=== PATIENT | male | born 1950 | race Caucasian/White ===

== ENCOUNTER 2020-08-04 05:28 | Inpatient (IN) | payer MEDICARE ==
[2020-08-04] VITALS (15 sets, daily range): BP systolic 57–141; BP diastolic 67–90
[~2020-08-04] VITALS: Ht 182.9 cm; Wt 104.7 kg
[2020-08-04] MEDS ORDERED: EPINEPHrine VIAL 5 MG in IV NORMAL SALINE 250ML 250 ML IV ONE (05:45)
[2020-08-04 06:14] LABS: CALCIUM 8.6 mg/dL (8.5-10.1); CREATININE 1.6 mg/dL (0.7-1.3); GFR 42.8; POTASSIUM 3.8 mmol/L (3.5-5.1)
--- NOTE | 2020-08-04 06:18 | RAD ---
EXAM: CT HEAD WITHOUT IV CONTRAST CLINICAL HISTORY: Reason: fall / Spl. Instructions: / History: COMPARISON: None. TECHNIQUE: Routine CT of the head without contrast. Soft tissues and bone windows were reviewed. PQRS compliance statement - One or more of the following individualized dose reduction techniques wer e utilized for this study: 1. Automated exposure control 2. Adjustment of the mA and/or kV according to patient size 3. Use of iterative reconstruction technique FINDINGS: There is no evidence of hemorrhage, mass or extra-axial fluid collection. [place]-white differentiation is maintained with no evidence of edema. Subcortical, periventricular as w ell as deep white matter foci of hypoattenuation likely changes of chronic small vessel disease. There is no mass effect or shift of the intracranial structures. The ventricles, basilar cisterns and cortical sulci are normal in size and configuration for the ken[place] ents stated age. The cerebellum and brainstem are unremarkable. The calvarium demonstrates no evidence of fracture or focal lesion. Mastoid air cells are clear. Multifocal paranasal sinus thickening including the scattered ethmoid ai r cells, maxillary sinuses and the left frontal sinus. The visualized portions of the orbits are normal. Soft tissue swelling with small scalp hematoma overlying the frontal region. Atherosclerotic calcifications of the intracranial internal carotid and vertebral arteries is seen. IMPRESSION: 1. No evidence for acute intracranial process. 2. Multifocal paranasal sinus thickening including the scattered ethmoid air cells, maxillary sinuse s and the left frontal sinus. EXAM: CT CERVICAL SPINE WITHOUT IV CONTRAST CLINICAL HISTORY: fall COMPARISON: None available. TECHNIQUE: Helical CT of the cervical spine was performed. Axial, coronal and sagittal reformatted im ages were also performed. PQRS compliance statement - One or more of the following individualized dose reduction techniques wer e utilized for this study: 1. Automated exposure control 2. Adjustment of the mA and/or kV according to patient size 3. Use of iterative reconstruction technique FINDINGS: There is a fracture through the base of the dens without involvement of the lateral masses. No signif icant displacement. Multilevel facet degenerative changes are seen. Multilevel degenerative changes o f the cervical spine. Moderate C4-5, C5-6 and moderate to severe C6-7 disc height loss. Associated po sterior endplate osteophytes are seen. No spondylolisthesis. ET tube is seen within the proximal thoracic trachea. Biapical parenchymal airspace opacities are seen. IMPRESSION: 1. Base of dens fracture is nondisplaced. 2. Multifocal degenerative changes 3. Biapical parenchymal opacities may represent multifocal consolidative process such as pneumonia a lthough contusion or aspiration may result in this appearance. Electronically signed by: Suleman Hamlin MD (08/04/2020 6:16 AM) JESSICA
[2020-08-04 06:20] LABS: ALBUMIN 3.5 g/dL (3.4-5.0); ALBUMIN/GLOBULIN RATIO 1.3 (1.0-1.7); MAGNESIUM 2.5 mg/dL (1.8-2.4); PHOSPHORUS 8.2 mg/dL (2.6-4.7); TOTAL BILIRUBIN 0.4 mg/dL (0.2-1.0); TOTAL PROTEIN 6.1 g/dL (6.4-8.2)
[2020-08-04 06:27] LABS: BASO # 0.1 x10^3/uL (0.0-0.2); BASO % 1 % (0-3); EOS # 0.3 x10^3/uL (0.0-0.7); EOS % 4 % (0-3); HEMATOCRIT 45.8 % (39.0-53.0); HEMOGLOBIN 14.8 g/dL (13.0-17.5); LYMPH # 4.8 x10^3/uL (1.0-4.8); LYMPH % 59 % (24-48); MEAN CORPUSCULAR HEMOGLOBIN 32 pg (25-35); MEAN CORPUSCULAR HGB CONC 32 g/dL (31-37); MEAN CORPUSCULAR VOLUME 99 fL (79-100); MONO # 0.5 x10^3/uL (0.0-1.1); MONO % 6 % (0-9); NEUT # 2.6 x10^3/uL (1.8-7.7); NEUT % 31 % (31-73); PLATELET COUNT 202 x10^3/uL (140-400); RED BLOOD COUNT 4.61 x10^6/uL (4.30-5.70); RED CELL DISTRIBUTION WIDTH 14.5 % (11.5-14.5); WHITE BLOOD COUNT 8.2 x10^3/uL (4.0-11.0)
[2020-08-04 06:27] LABS: BARBITURATES NEG (NEG); BENZODIAZEPINES NEG (NEG); CANNABINOIDS NEG (NEG); COCAINE NEG (NEG); METHADONE NEG (NEG); OPIATES NEG (NEG); PHENCYCLIDINE NEG (NEG)
[2020-08-04] MEDS ORDERED: CONTRAST GIVEN. MC PRN (06:30)
[2020-08-04] MEDS ORDERED: IOHEXOL 350 MG/ML 100 ML VIAL. IV ONE (06:30)
[2020-08-04] MEDS ORDERED: IV NORMAL SALINE 1000ML BAG 1,000 ML IV ONE ×3 (06:30→06:45)
[2020-08-04 06:32] LABS: AMPHETAMINE/METHAMPHETAMINE NEG (NEG)
[2020-08-04 06:33] LABS: BILIRUBIN,URINE NEGATIVE (NEG); CLARITY,URINE CLEAR; COLOR,URINE YELLOW; NITRITE,URINE NEGATIVE (NEG); PH,URINE 5.5 (<5.0-8.0); PROTEIN,URINE NEGATIVE (NEG-TRACE); UROBILINOGEN,URINE 0.2 mg/dL (0.2 mg/dL)
[2020-08-04 06:34] LABS: PROTHROMBIN TIME PATIENT 14.5 SEC (11.7-14.0)
--- NOTE | 2020-08-04 06:40 | ED.ADGEN ---
General Adult EDM: Chief Complaint: CPR/FULL ARREST HPI: HPI: Patient is a 69 year old male brought in by EMS status post cardiac arrest. Per EMS report patient was drinking a smoking marijuana friends when he went upstairs and they heard him fall. It appears that he fell into a wall since he has abrasions to his upper forehead. He was initially nonresponsive and about 3 to 4 minutes they realize he did not have a pulse, and started CPR. On EMS arrival he was in PEA and was given 5 rounds of epinephrine, no shocks given. On arrival patient is a GCS of 3 with fixed pupils at approximately 4 mm. Patient has strong femoral pulse and brisk cap refill. Review of Systems: Review of Systems: Unable to establish ROS due to acuity Current Medications: Current Medications Medications (Trade) Dose Ordered Sig/Geovany Start Time Stop Time Status Last Admin Dose Admin Epinephrine HCl 5 mg/Sodium Chloride 255 ml @ 30.6 mls/hr ONCE ONCE 08/04/20 05:45 08/04/20 14:04 08/04/20 06:17 30.6 MLS/HR Info (CONTRAST GIVEN -- Rx MONITORING) 1 each PRN DAILY PRN 08/04/20 06:30 08/06/20 06:29 Iohexol (Omnipaque 350 Mg/ml) 80 ml 1X ONCE 08/04/20 06:30 08/04/20 06:31 DC 08/04/20 07:30 80 ML Midazolam HCl 100 ml @ 0 mls/hr CONT PRN 08/04/20 07:30 08/04/20 08:03 DC Midazolam HCl 50 mg/Sodium Chloride 50 ml @ 0 mls/hr CONT PRN PRN 08/04/20 07:15 UNV Ondansetron HCl (Zofran) 4 mg PRN Q8HRS PRN 08/04/20 07:30 08/05/20 07:29 Sodium Chloride 1,000 ml @ 75 mls/hr [id number] 08/04/20 07:30 08/05/20 07:29 Allergies: Allergies: Allergies Coded Allergies Type Severity Reaction Last Updated Verified Unable to Assess 08/04/20 No Physical Exam: PE: Constitutional: Unresponsive [] HENT: Normocephalic, slight hematoma to upper forehead [] Eyes: Pupils fixed, 4 mm [] Neck: In c-collar [] Cardiovascular:Heart rate regular rhythm[] Lungs & Thorax: Bilateral coarse breath sounds, symmetric central strength [] Abdomen: Soft, nondistended. [] Skin: Warm, dry, no erythema, no rash. Abrasion to forehead [] Extremities: No deformity, no lower extremity edema [] Neurologic: GCS 3 T. [] Current Patient Data: Labs: Laboratory Tests Test 08/04/20 05:35 08/04/20 05:40 08/04/20 06:30 08/04/20 07:10 White Blood Count 8.2 x10^3/uL (4.0-11.0) Red Blood Count 4.61 x10^6/uL (4.30-5.70) Hemoglobin 14.8 g/dL (13.0-17.5) Hematocrit 45.8 % (39.0-53.0) Mean Corpuscular Volume 99 fL (79-100) Mean Corpuscular Hemoglobin 32 pg (25-35) Mean Corpuscular Hemoglobin Concent 32 g/dL (31-37) Red Cell Distribution Width 14.5 % (11.5-14.5) Platelet Count 202 x10^3/uL (140-400) Neutrophils (%) (Auto) 31 % (31-73) Lymphocytes (%) (Auto) 59 % (24-48) H Monocytes (%) (Auto) 6 % (0-9) Eosinophils (%) (Auto) 4 % (0-3) H Basophils (%) (Auto) 1 % (0-3) Neutrophils # (Auto) 2.6 x10^3/uL (1.8-7.7) Lymphocytes # (Auto) 4.8 x10^3/uL (1.0-4.8) Monocytes # (Auto) 0.5 x10^3/uL (0.0-1.1) Eosinophils # (Auto) 0.3 x10^3/uL (0.0-0.7) Basophils # (Auto) 0.1 x10^3/uL (0.0-0.2) Prothrombin Time 14.5 SEC (11.7-14.0) H Prothrombin Time INR 1.2 (0.8-1.1) H D-Dimer (Chanelle) 6.28 ug/mlFEU (0.00-0.50) H Sodium Level 148 mmol/L (136-145) H Potassium Level 3.8 mmol/L (3.5-5.1) Chloride Level 107 mmol/L (98-107) Carbon Dioxide Level 20 mmol/L (21-32) L Anion Gap 21 (6-14) H Blood Urea Nitrogen 15 mg/dL (8-26) Creatinine 1.6 mg/dL (0.7-1.3) H Estimated GFR (Cockcroft-Gault) 42.8 BUN/Creatinine Ratio 9 (6-20) Glucose Level 235 mg/dL (70-99) H Lactic Acid Level 11.5 mmol/L (0.4-2.0) *H Calcium Level 8.6 mg/dL (8.5-10.1) Phosphorus Level 8.2 mg/dL (2.6-4.7) H Magnesium Level 2.5 mg/dL (1.8-2.4) H Total Bilirubin 0.4 mg/dL (0.2-1.0) Aspartate Amino Transferase (AST) 135 U/L (15-37) H Alanine Aminotransferase (ALT) 174 U/L (16-63) H Alkaline Phosphatase 83 U/L (46-116) Ammonia 35 mcmol/L (11-34) H Troponin I Quantitative < 0.017 ng/mL (0.000-0.055) GS-Jrc-B-Type Natriuretic Peptide 36 pg/mL (0-124) Total Protein 6.1 g/dL (6.4-8.2) L Albumin 3.5 g/dL (3.4-5.0) Albumin/Globulin Ratio 1.3 (1.0-1.7) Ethyl Alcohol Level 239 mg/dL (0-10) H Urine Collection Type Unknown Urine Color Yellow Urine Clarity Clear Urine pH 5.5 (<5.0-8.0) Urine Specific Elsie 1.010 (1.000-1.030) Urine Protein Negative mg/dL (NEG-TRACE) Urine Glucose (UA) Negative mg/dL (NEG) Urine Ketones (Stick) Negative mg/dL (NEG) Urine Blood Negative (NEG) Urine Nitrite Negative (NEG) Urine Bilirubin Negative (NEG) Urine Urobilinogen Dipstick 0.2 mg/dL (0.2 mg/dL) Urine Leukocyte Esterase Negative (NEG) Urine RBC 0 /HPF (0-2) Urine WBC Rare /HPF (0-4) Urine Squamous Epithelial Cells Few /LPF Urine Bacteria 0 /HPF (0-FEW) Urine Opiates Screen Neg (NEG) Urine Methadone Screen Neg (NEG) Urine Barbiturates Neg (NEG) Urine Phencyclidine Screen Neg (NEG) Urine Amphetamine/Methamphetamine Neg (NEG) Urine Benzodiazepines Screen Neg (NEG) Urine Cocaine Screen Neg (NEG) Urine Cannabinoids Screen Neg (NEG) Urine Ethyl Alcohol Pos (NEG) O2 Saturation 93 % (92-99) Arterial Blood pH 7.02 (7.35-7.45) *L Arterial Blood pCO2 at Patient Temp 51 mmHg (35-46) H Arterial Blood pO2 at Patient Temp 95 mmHg (65-108) Arterial Blood HCO3 13 mmol/L (21-28) L Arterial Blood Base Excess -18 mmol/L (-3-3) L FiO2 100 SARS-CoV-2 Antigen (Rapid) Negative (NEGATIVE) Laboratory Tests 08/04/20 05:35 Laboratory Tests 08/04/20 05:35 Vital Signs: Vital Signs Date Time Temp Pulse Resp B/P (MAP) Pulse Ox O2 Delivery O2 Flow Rate FiO2 08/04/20 07:29 82 20 129/79 (96) 97 Ventilator 08/04/20 06:50 93.5 93.5 EKG: EKG: Sinus tachycardia, heart rate 102 bpm, ST elevation in inferior leads, reciprocal depressions in V3, V4, V5, V6. No ectopy, normal axis [] Heart Score: Risk Factors: Risk Factors: DM, Current or recent (<one month) smoker, HTN, HLP, family history of CAD, obesity. Risk Scores: Score 0 - 3: 2.5% MACE over next 6 weeks - Discharge Home Score 4 - 6: 20.3% MACE over next 6 weeks - Admit for Clinical Observation Score 7 - 10: 72.7% MACE over next 6 weeks - Early Invasive Strategies Radiology/Procedures: Radiology/Procedures: EXAM: CT HEAD WITHOUT IV CONTRAST CLINICAL HISTORY: Reason: fall / Spl. Instructions: / History: COMPARISON: None. TECHNIQUE: Routine CT of the head without contrast. Soft tissues and bone windows were reviewed. PQRS compliance statement - One or more of the following individualized dose reduction techniques were utilized for this study: 1. Automated exposure control 2. Adjustment of the mA and/or kV according to patient size 3. Use of iterative reconstruction technique FINDINGS: There is no evidence of hemorrhage, mass or extra-axial fluid collection. [place]-white differentiation is maintained with no evidence of edema. Subcortical, periventricular as well as deep white matter foci of hypoattenuation likely changes of chronic small vessel disease. There is no mass effect or shift of the intracranial structures. The ventricles, basilar cisterns and cortical sulci are normal in size and configuration for the patients stated age. The cerebellum and brainstem are unremarkable. The calvarium demonstrates no evidence of fracture or focal lesion. Mastoid air cells are clear. Multifocal paranasal sinus thickening including the scattered ethmoid air cells, maxillary sinuses and the left frontal sinus. The visualized portions of the orbits are normal. Soft tissue swelling with small scalp hematoma overlying the frontal region. Atherosclerotic calcifications of the intracranial internal carotid and vertebral arteries is seen. IMPRESSION: 1. No evidence for acute intracranial process. 2. Multifocal paranasal sinus thickening including the scattered ethmoid air cells, maxillary sinuses and the left frontal sinus. EXAM: CT CERVICAL SPINE WITHOUT IV CONTRAST CLINICAL HISTORY: fall COMPARISON: None available. TECHNIQUE: Helical CT of the cervical spine was performed. Axial, coronal and sagittal reformatted images were also performed. PQRS compliance statement - One or more of the following individualized dose reduction techniques were utilized for this study: 1. Automated exposure control 2. Adjustment of the mA and/or kV according to patient size 3. Use of iterative reconstruction technique FINDINGS: There is a fracture through the base of the dens without involvement of the lateral masses. No significant displacement. Multilevel facet degenerative changes are seen. Multilevel degenerative changes of the cervical spine. Moder ate C4-5, C5-6 and moderate to severe C6-7 disc height loss. Associated posterior endplate osteophytes are seen. No spondylolisthesis. ET tube is seen within the proximal thoracic trachea. Biapical parenchymal airspace opacities are seen. IMPRESSION: 1. Base of dens fracture is nondisplaced. 2. Multifocal degenerative changes 3. Biapical parenchymal opacities may represent multifocal consolidative process such as pneumonia although contusion or aspiration may result in this appearance.[] [facility] [address] [place] [address] IMAGING REPORT Signed PATIENT: MARQUIS VARGAS ACCOUNT: [id number] : 1950 LOCATION: [facility] ICU AGE: 69 SEX: M EXAM STATUS: ADM IN ORD. PHYSICIAN: ARTURO DRAPER MD REASON: PE, unresponsive PROCEDURE: CT ANGIO CHEST ABD PELVIS CTA chest abdomen and pelvis with contrast: History: Drinking, smoking marijuana and fell Axial helical images of the chest abdomen and pelvis were obtained after the administration of 80 cc IV Isovue-370 contrast. Multiplanar reconstruction was performed with separate imaging workstation including 3-D maximum intensity. Imaging as well as 3-D arterial surface rendering. This study was performed in order to evaluate the aorta and to exclude possible pulmonary embolism. Comparison: none CTA OF THE CHEST WITH IV CONTRAST: The pulmonary arteries are opacified without filling defects. The thoracic aorta appears normal. There is coronary artery calcifications. There is patchy opacities in the lower lobes bilaterally. Is multiple old rib fractures bilaterally. There is no mediastinal lymphadenopathy or hematoma. Lymphadenopathy: no Impression: 1. Multiple old rib fractures bilaterally. 2. Consolidation in the lower lobes bilaterally could be secondary to pneumonia. 3. Note no evidence of PE and normal thoracic aorta. End Impression CTA OF THE ABDOMEN AND PELVIS WITH IV CONTRAST: The abdominal aorta appears normal. The celiac axis and SMA appear normal. There is calcination involving the renal arteries with less than 50 percent stenosis. Liver: Unremarkable Spleen: Unremarkable Pancreas: Unremarkable Adrenal Glands: Unremarkable Kidneys: There is soft tissue density around the proximal right ureter with stranding in the retroperitoneal space on the right. The stomach is distended with air and fluid. The urinary bladder is collapsed and a Flores and not well seen. There is fluid within a small right inguinal canal hernia. The appendix is normal. Evaluation of stomach and bowel is limited without oral contrast. Lymphadenopathy: no. Free fluid: no. Free air: no. There is moderate loss of stature the L4 vertebral body due to impaction is. Plate however there is no fracture line seen. Air within the left groin is likely iatrogenic. Impression: 1. Retroperitoneal hematoma on the right with density surrounding the proximal right ureter. A vascular injury to the right kidney is possible however the right kidney appears well-perfused and there is no gross extravasation of contrast. 2. L4 vertebral body compression fracture could be old. End impression PQRS Compliance Statement: One or more of the following individualized dose reduction techniques were utilized for this examination: 1. Automated exposure control 2. Adjustment of the mA and/or kV according to patient size 3. Use of iterative reconstruction technique Electronically signed by: Toño Clarke III, MD (08/04/2020 8:01 AM) [facility] DICTATED and SIGNED BY: TOÑO CLARKE III, MD DATE: 08/04/20 [id number] 0 Impression: Patient was intubated in emergent fashion and no consent was obtained. Patient was not sedated and paralyzed []. A glide scope with a size 4 blade was used, cords were visualized and a size 7.5 endotracheal tube was placed during first attempt. Endotracheal tube cuff was inflated and confirmation established by visualization of the cords passing the tubes, bilateral breath sounds, color change, and chest x-ray. Total critical care time: 65 The time involved in the performance of separately reportable/billable procedur es was not counted toward critical care time. Due to a high probability of clinically significant, life-threatening deterioration the patient required a high level of care to intervene emergently and I personally spent this critical time directly and personally managing the patient. The critical care time included obtaining a history, examination of the patient, assessment of vital signs, ordering and review of studies, arranging urgent treatment with development of a management plan, evaluation of patient's response to treatment, frequent reassessment, and discussions with other providers and/or family members. Course & Med Decision Making: Course & Med Decision Making Pertinent Labs and Imaging studies reviewed. (See chart for details) Discussed with Dr. Spear, possible ischemic changes but patient is a GCS 3 and not responding to painful stimuli. At shift change care transition to Dr. Vega, will do further work-up to rule out other etiology such as a pulmonary embolism. [] Dragon Disclaimer: Dragon Disclaimer: This electronic medical record was generated, in whole or in part, using a voice recognition dictation system. Departure Departure Impression: Primary Impression: Cardiac arrest Additional Impressions: Dens fracture Respiratory failure Disposition: 09 ADMITTED INPT THIS HOSP Admitting Physician: NOELLE (Dr. Medina) Condition: CRITICAL Referrals: ELIAZAR GARCIA (PCP) Problem Qualifiers ARTURO DRAPER MD Aug 04, 2020 06:40 DK VEGA DO Aug 04, 2020 08:28
--- NOTE | 2020-08-04 06:42 | RAD ---
EXAM: AP View of the chest DATE: 08/04/2020 5:48 AM INDICATION: Reason: intubation / Spl. Instructions: / History: COMPARISON: No Prior FINDINGS: ET tube tip projects approximately 4 cm above the oleg. Aorta is tortuous. Heart is not enlarged. R ight greater than left lung base airspace opacities are seen. Gaseous distention of the stomach. Patchy bibasilar airspace opacities are seen. No pleural effusion or pneumothorax. IMPRESSION: 1. Endotracheal tube tip projects approximately 4 cm above the oleg. 2. Patchy bibasilar airspace opacities may represent atelectasis. Marked gaseous distention of the s tomach Electronically signed by: Suleman Hamlin MD (08/04/2020 6:40 AM) JESSICA
[2020-08-04 06:51] LABS: BASE EXCESS ABG -18 mmol/L (-3-3); HCO3 ABG 13 mmol/L (21-28); PCO2 ABG 51 mmHg (35-46); PO2 ABG 95 mmHg (65-108); SAT O2 ABG 93 % (92-99)
[2020-08-04 06:54] LABS: FIO2 ABG 100
[2020-08-04 07:01] LABS: BACTERIA,URINE 0 /HPF (0-FEW); RBC,URINE 0 /HPF (0-2); WBC,URINE RARE /HPF (0-4)
[2020-08-04 07:08] LABS: D-DIMER 6.28 ug/mlFEU (0.00-0.50)
[2020-08-04] MEDS ORDERED: MIDAZOLAM HCL 50 MG in IV NORMAL SALINE 50ML 50 ML IV PRN (07:15)
[2020-08-04] MEDS ORDERED: MIDAZOLAM 100mg/100ml NS BAG 100 ML IV PRN (07:30)
[2020-08-04] MEDS ORDERED: ONDANSETRON PF 4 MG/2 ML VIAL. IV PRN (07:30)
[2020-08-04] MEDS: MIDAZOLAM 100mg/100ml NS BAG 100 ML IV PRN ×2 (07:40→18:12)
[2020-08-04] MEDS ORDERED: MAGNESIUM SULFATE 1GM 100 ML IV ONE (08:00)
[2020-08-04] MEDS ORDERED: MIDAZOLAM HCL/PF 2 MG/2 ML VIAL. IV ONE (08:00)
[2020-08-04] MEDS ORDERED: PROPOFOL 100 ML IV PRN (08:00)
[2020-08-04] MEDS ORDERED: VECURONIUM BOLUS 10 MG VIAL. IV PRN (08:00)
[2020-08-04] MEDS ORDERED: fentaNYL PF VIAL 100 MCG/2 ML VIAL IV ONE (08:00)
[2020-08-04] MEDS ORDERED: POLYVINYL ALCOHOL 1.4% OPHTH SOLUTION 15ML BOTTLE. OU PRN (08:00)
--- NOTE | 2020-08-04 08:04 | RAD ---
CTA chest abdomen and pelvis with contrast: History: Drinking, smoking marijuana and fell Axial helical images of the chest abdomen and pelvis were obtained after the administration of 80 cc IV Isovue-370 contrast. Multiplanar reconstruction was performed with separate imaging workstation in cluding 3-D maximum intensity. Imaging as well as 3-D arterial surface rendering. This study was perf ormed in order to evaluate the aorta and to exclude possible pulmonary embolism. Comparison: none CTA OF THE CHEST WITH IV CONTRAST: The pulmonary arteries are opacified without filling defects. The thoracic aorta appears normal. Ther e is coronary artery calcifications. There is patchy opacities in the lower lobes bilaterally. Is mul tiple old rib fractures bilaterally. There is no mediastinal lymphadenopathy or hematoma. Lymphadenopathy: no Impression: 1. Multiple old rib fractures bilaterally. 2. Consolidation in the lower lobes bilaterally could be secondary to pneumonia. 3. Note no evidence of PE and normal thoracic aorta. End Impression CTA OF THE ABDOMEN AND PELVIS WITH IV CONTRAST: The abdominal aorta appears normal. The celiac axis and SMA appear normal. There is calcination invol ving the renal arteries with less than 50 percent stenosis. Liver: Unremarkable Spleen: Unremarkable Pancreas: Unremarkable Adrenal Glands: Unremarkable Kidneys: There is soft tissue density around the proximal right ureter with stranding in the retroper itoneal space on the right. The stomach is distended with air and fluid. The urinary bladder is collapsed and a Flores and not wel l seen. There is fluid within a small right inguinal canal hernia. The appendix is normal. Evaluation of stomach and bowel is limited without oral contrast. Lymphadenopathy: no. Free fluid: no. Free air: no. There is moderate loss of stature the L4 vertebral body due to impaction is. Plate however there is n o fracture line seen. Air within the left groin is likely iatrogenic. Impression: 1. Retroperitoneal hematoma on the right with density surrounding the proximal right ureter. A vascul ar injury to the right kidney is possible however the right kidney appears well-perfused and there is no gross extravasation of contrast. 2. L4 vertebral body compression fracture could be old. End impression PQRS Compliance Statement: One or more of the following individualized dose reduction techniques were utilized for this examinat ion: 1. Automated exposure control 2. Adjustment of the mA and/or kV according to patient size 3. Use of iterative reconstruction technique Electronically signed by: Evan Paredes III, MD (08/04/2020 8:01 AM) [facility]
[2020-08-04] MEDS: IV NORMAL SALINE 1000ML BAG 1,000 ML IV SCH ×7 (08:30→20:15)
[2020-08-04] MEDS: ACETAMINOPHEN 650 MG/20.3 ML SOLUTION. NG SCH ×4 (08:44→22:59)
[2020-08-04] MEDS: busPIRone 10 MG TABLET. NG SCH ×2 (08:44→16:00)
--- NOTE | 2020-08-04 08:46 | PDOC1 ---
History and Physical Date of Admission Date of Admission DATE: 08/04/20 TIME: 08:44 Identification/Chief Complaint Chief Complaint OUT OF HOSPITAL CARDIAC ARREST History of Present Illness History of Present Illness seen in er post OOH CODE 69 year old male brought in by EMS status post cardiac arrest. Per EMS report patient was drinking a smoking marijuana friends when he went upstairs and they heard him fall. It appears that he fell into a wall since he has abrasions to his upper forehead. He was initially nonrespo nsive and about 3 to 4 minutes they realize he did not have a pulse, and started CPR. On EMS arrival he was in PEA and was given 5 rounds of epinephrine, no shocks given. On arrival patient is a GCS of 3 with fixed pupils at approximately 4 mm. Patient has strong femoral pulse and brisk cap refill. cardiopulmonary arrest: possible 3-4 min pulseless prior to CPR initiation noted PEA 5 round of epi now code ice Family History Family History: Hypertension Social History Smoke: <1 pack per day ALCOHOL: occassional Drugs: Marijuana Current Problem List Problem List Problems Medical Problems: (1) Cardiac arrest Status: Acute (2) Dens fracture Status: Acute (3) Respiratory failure Status: Acute Current Medications Current Medications Current Medications Epinephrine HCl 5 mg/Sodium Chloride 255 ml @ 30.6 mls/hr ONCE ONCE IV Last administered on 08/04/20at 06:17; Start 08/04/20 at 05:45; Stop 08/04/20 at 14:04 Iohexol (Omnipaque 350 Mg/ml) 80 ml 1X ONCE IV Last administered on 08/04/20at 07:30; Start 08/04/20 at 06:30; Stop 08/04/20 at 06:31; Status DC Info (CONTRAST GIVEN -- Rx MONITORING) 1 each PRN DAILY PRN MC SEE COMMENTS; Start 08/04/20 at 06:30; Stop 08/06/20 at 06:29 Sodium Chloride 1,000 ml @ 1,000 mls/hr 1X ONCE IV Last administered on 08/04/20at 06:32; Start 08/04/20 at 06:30; Stop 08/04/20 at 07:29; Status DC Sodium Chloride 1,000 ml @ 1,000 mls/hr 1X ONCE IV Last administered on 08/04/20at 06:33; Start 08/04/20 at 06:45; Stop 08/04/20 at 07:44; Status DC Sodium Chloride 1,000 ml @ 1,000 mls/hr 1X ONCE IV Last administered on 08/04/20at 06:45; Start 08/04/20 at 06:45; Stop 08/04/20 at 07:44; Status DC Midazolam HCl 50 mg/Sodium Chloride 50 ml @ 0 mls/hr CONT PRN PRN IV SEDATION; Start 08/04/20 at 07:15; Status UNV Midazolam HCl 100 ml @ 0 mls/hr CONT PRN IV SEE PROTOCOL; Start 08/04/20 at 07:30; Stop 08/04/20 at 08:03; Status DC Ondansetron HCl (Zofran) 4 mg PRN Q8HRS PRN IV NAUSEA/VOMITING; Start 08/04/20 at 07:30; Stop 08/05/20 at 07:29 Sodium Chloride 1,000 ml @ 75 mls/hr [id number] IV Last administered on 08/04/20at 08:30; Start 08/04/20 at 07:30; Stop 08/05/20 at 07:29 Fentanyl Citrate (Fentanyl 2ml Vial) 100 mcg 1X ONCE IV ; Start 08/04/20 at 08:00; Stop 08/04/20 at 08:01; Status DC Midazolam HCl (Versed) 2 mg 1X ONCE IV ; Start 08/04/20 at 08:00; Stop 08/04/20 at 08:01; Status DC Magnesium Sulfate/ Dextrose 100 ml @ 100 mls/hr 1X ONCE IV Last administered on 08/04/20at 08:21; Start 08/04/20 at 08:00; Stop 08/04/20 at 08:59 Buspirone HCl (Buspar) 30 mg Q8H NG ; Start 08/04/20 at 08:00; Stop 08/06/20 at 00:01 Acetaminophen (Tylenol) 650 mg Q4H NG ; Start 08/04/20 at 08:00 Glycerin/ Hypromellose/ Polyethylene (Artificial Tears) 1 drop Q6HRS OU ; Start 08/04/20 at 12:00 Glycerin/ Hypromellose/ Polyethylene (Artificial Tears) 1 drop PRN Q15MIN PRN OU DRY EYE; Start 08/04/20 at 08:00 Pantoprazole Sodium (PROTONIX VIAL for IV PUSH) 40 mg DAILY IVP ; Start 08/04/20 at 09:00 Fentanyl Citrate 30 ml @ 0 mls/hr CONT PRN IV PER PROTOCOL. Last administered on 08/04/20at 08:24; Start 08/04/20 at 08:00 Propofol 100 ml @ 0 mls/hr CONT PRN IV PER PROTOCOL.; Start 08/04/20 at 08:00 Midazolam HCl 100 ml @ 0 mls/hr CONT PRN IV PER PROTOCOL Last administered on 08/04/20at 07:40; Start 08/04/20 at 08:00 Vecuronium Concord (Norcuron Bolus) 10 mg PRN Q1HR PRN IV SHIVERING; Start 08/04/20 at 08:00 Allergies Allergies: Coded Allergies: Unable to Assess (Unverified , 08/04/20) ROS Review of System UNABLE TO PROVIDE, INTUBATED, SEDATED Physical Exam Physical Exam Constitutional: Unresponsive [] HENT: Normocephalic, slight hematoma to upper forehead [] Eyes: Pupils fixed, 4 mm [] Neck: In c-collar [] Cardiovascular:Heart rate regular rhythm[] Lungs & Thorax: Bilateral coarse breath sounds, symmetric central strength [] Abdomen: Soft, nondistended. [] Skin: Warm, dry, no erythema, no rash. Abrasion to forehead [] Extremities: No deformity, no lower extremity edema [] Neurologic: GCS 3 T. [] General: moderate distress Breasts: Not examined Rectal Exam: not examined PELVIC: Examination not indicated Vitals Vitals Vital Signs Date Time Temp Pulse Resp B/P (MAP) Pulse Ox O2 Delivery O2 Flow Rate FiO2 08/04/20 08:03 98 20 122/74 (90) 100 Ventilator 08/04/20 06:50 93.5 93.5 Labs Labs Laboratory Tests Test 08/04/20 05:35 08/04/20 05:40 08/04/20 06:30 08/04/20 07:10 White Blood Count 8.2 x10^3/uL (4.0-11.0) Red Blood Count 4.61 x10^6/uL (4.30-5.70) Hemoglobin 14.8 g/dL (13.0-17.5) Hematocrit 45.8 % (39.0-53.0) Mean Corpuscular Volume 99 fL (79-100) Mean Corpuscular Hemoglobin 32 pg (25-35) Mean Corpuscular Hemoglobin Concent 32 g/dL (31-37) Red Cell Distribution Width 14.5 % (11.5-14.5) Platelet Count 202 x10^3/uL (140-400) Neutrophils (%) (Auto) 31 % (31-73) Lymphocytes (%) (Auto) 59 % (24-48) Monocytes (%) (Auto) 6 % (0-9) Eosinophils (%) (Auto) 4 % (0-3) Basophils (%) (Auto) 1 % (0-3) Neutrophils # (Auto) 2.6 x10^3/uL (1.8-7.7) Lymphocytes # (Auto) 4.8 x10^3/uL (1.0-4.8) Monocytes # (Auto) 0.5 x10^3/uL (0.0-1.1) Eosinophils # (Auto) 0.3 x10^3/uL (0.0-0.7) Basophils # (Auto) 0.1 x10^3/uL (0.0-0.2) Prothrombin Time 14.5 SEC (11.7-14.0) Prothromb Time International Ratio 1.2 (0.8-1.1) D-Dimer (Chanelle) 6.28 ug/mlFEU (0.00-0.50) Sodium Level 148 mmol/L (136-145) Potassium Level 3.8 mmol/L (3.5-5.1) Chloride Level 107 mmol/L (98-107) Carbon Dioxide Level 20 mmol/L (21-32) Anion Gap 21 (6-14) Blood Urea Nitrogen 15 mg/dL (8-26) Creatinine 1.6 mg/dL (0.7-1.3) Estimated GFR (Cockcroft-Gault) 42.8 BUN/Creatinine Ratio 9 (6-20) Glucose Level 235 mg/dL (70-99) Lactic Acid Level 11.5 mmol/L (0.4-2.0) Calcium Level 8.6 mg/dL (8.5-10.1) Phosphorus Level 8.2 mg/dL (2.6-4.7) Magnesium Level 2.5 mg/dL (1.8-2.4) Total Bilirubin 0.4 mg/dL (0.2-1.0) Aspartate Amino Transf (AST/SGOT) 135 U/L (15-37) Alanine Aminotransferase (ALT/SGPT) 174 U/L (16-63) Alkaline Phosphatase 83 U/L (46-116) Ammonia 35 mcmol/L (11-34) Troponin I Quantitative < 0.017 ng/mL (0.000-0.055) YJ-Zee-L-Type Natriuretic Peptide 36 pg/mL (0-124) Total Protein 6.1 g/dL (6.4-8.2) Albumin 3.5 g/dL (3.4-5.0) Albumin/Globulin Ratio 1.3 (1.0-1.7) Ethyl Alcohol Level 239 mg/dL (0-10) Urine Collection Type Unknown Urine Color Yellow Urine Clarity Clear Urine pH 5.5 (<5.0-8.0) Urine Specific Dustin 1.010 (1.000-1.030) Urine Protein Negative mg/dL (NEG-TRACE) Urine Glucose (UA) Negative mg/dL (NEG) Urine Ketones (Stick) Negative mg/dL (NEG) Urine Blood Negative (NEG) Urine Nitrite Negative (NEG) Urine Bilirubin Negative (NEG) Urine Urobilinogen Dipstick 0.2 mg/dL (0.2 mg/dL) Urine Leukocyte Esterase Negative (NEG) Urine RBC 0 /HPF (0-2) Urine WBC Rare /HPF (0-4) Urine Squamous Epithelial Cells Few /LPF Urine Bacteria 0 /HPF (0-FEW) Urine Opiates Screen Neg (NEG) Urine Methadone Screen Neg (NEG) Urine Barbiturates Neg (NEG) Urine Phencyclidine Screen Neg (NEG) Urine Amphetamine/Methamphetamine Neg (NEG) Urine Benzodiazepines Screen Neg (NEG) Urine Cocaine Screen Neg (NEG) Urine Cannabinoids Screen Neg (NEG) Urine Ethyl Alcohol Pos (NEG) O2 Saturation 93 % (92-99) Arterial Blood pH 7.02 (7.35-7.45) Arterial Blood pCO2 at Patient Temp 51 mmHg (35-46) Arterial Blood pO2 at Patient Temp 95 mmHg (65-108) Arterial Blood HCO3 13 mmol/L (21-28) Arterial Blood Base Excess -18 mmol/L (-3-3) FiO2 100 SARS-CoV-2 Antigen (Rapid) Negative (NEGATIVE) Laboratory Tests Test 08/04/20 05:35 08/04/20 05:40 08/04/20 06:30 08/04/20 07:10 White Blood Count 8.2 x10^3/uL (4.0-11.0) Red Blood Count 4.61 x10^6/uL (4.30-5.70) Hemoglobin 14.8 g/dL (13.0-17.5) Hematocrit 45.8 % (39.0-53.0) Mean Corpuscular Volume 99 fL (79-100) Mean Corpuscular Hemoglobin 32 pg (25-35) Mean Corpuscular Hemoglobin Concent 32 g/dL (31-37) Red Cell Distribution Width 14.5 % (11.5-14.5) Platelet Count 202 x10^3/uL (140-400) Neutrophils (%) (Auto) 31 % (31-73) Lymphocytes (%) (Auto) 59 % (24-48) Monocytes (%) (Auto) 6 % (0-9) Eosinophils (%) (Auto) 4 % (0-3) Basophils (%) (Auto) 1 % (0-3) Neutrophils # (Auto) 2.6 x10^3/uL (1.8-7.7) Lymphocytes # (Auto) 4.8 x10^3/uL (1.0-4.8) Monocytes # (Auto) 0.5 x10^3/uL (0.0-1.1) Eosinophils # (Auto) 0.3 x10^3/uL (0.0-0.7) Basophils # (Auto) 0.1 x10^3/uL (0.0-0.2) Prothrombin Time 14.5 SEC (11.7-14.0) Prothromb Time International Ratio 1.2 (0.8-1.1) D-Dimer (Chanelle) 6.28 ug/mlFEU (0.00-0.50) Sodium Level 148 mmol/L (136-145) Potassium Level 3.8 mmol/L (3.5-5.1) Chloride Level 107 mmol/L (98-107) Carbon Dioxide Level 20 mmol/L (21-32) Anion Gap 21 (6-14) Blood Urea Nitrogen 15 mg/dL (8-26) Creatinine 1.6 mg/dL (0.7-1.3) Estimated GFR (Cockcroft-Gault) 42.8 BUN/Creatinine Ratio 9 (6-20) Glucose Level 235 mg/dL (70-99) Lactic Acid Level 11.5 mmol/L (0.4-2.0) Calcium Level 8.6 mg/dL (8.5-10.1) Phosphorus Level 8.2 mg/dL (2.6-4.7) Magnesium Level 2.5 mg/dL (1.8-2.4) Total Bilirubin 0.4 mg/dL (0.2-1.0) Aspartate Amino Transf (AST/SGOT) 135 U/L (15-37) Alanine Aminotransferase (ALT/SGPT) 174 U/L (16-63) Alkaline Phosphatase 83 U/L (46-116) Ammonia 35 mcmol/L (11-34) Troponin I Quantitative < 0.017 ng/mL (0.000-0.055) PQ-Qof-N-Type Natriuretic Peptide 36 pg/mL (0-124) Total Protein 6.1 g/dL (6.4-8.2) Albumin 3.5 g/dL (3.4-5.0) Albumin/Globulin Ratio 1.3 (1.0-1.7) Ethyl Alcohol Level 239 mg/dL (0-10) Urine Collection Type Unknown Urine Color Yellow Urine Clarity Clear Urine pH 5.5 (<5.0-8.0) Urine Specific Dustin 1.010 (1.000-1.030) Urine Protein Negative mg/dL (NEG-TRACE) Urine Glucose (UA) Negative mg/dL (NEG) Urine Ketones (Stick) Negative mg/dL (NEG) Urine Blood Negative (NEG) Urine Nitrite Negative (NEG) Urine Bilirubin Negative (NEG) Urine Urobilinogen Dipstick 0.2 mg/dL (0.2 mg/dL) Urine Leukocyte Esterase Negative (NEG) Urine RBC 0 /HPF (0-2) Urine WBC Rare /HPF (0-4) Urine Squamous Epithelial Cells Few /LPF Urine Bacteria 0 /HPF (0-FEW) Urine Opiates Screen Neg (NEG) Urine Methadone Screen Neg (NEG) Urine Barbiturates Neg (NEG) Urine Phencyclidine Screen Neg (NEG) Urine Amphetamine/Methamphetamine Neg (NEG) Urine Benzodiazepines Screen Neg (NEG) Urine Cocaine Screen Neg (NEG) Urine Cannabinoids Screen Neg (NEG) Urine Ethyl Alcohol Pos (NEG) O2 Saturation 93 % (92-99) Arterial Blood pH 7.02 (7.35-7.45) Arterial Blood pCO2 at Patient Temp 51 mmHg (35-46) Arterial Blood pO2 at Patient Temp 95 mmHg (65-108) Arterial Blood HCO3 13 mmol/L (21-28) Arterial Blood Base Excess -18 mmol/L (-3-3) FiO2 100 SARS-CoV-2 Antigen (Rapid) Negative (NEGATIVE) Images Images PATIENT: ANA VARGAS: [id number]#: [id number] : 1950 LOCATION: ER AGE: 69 SEX: M EXAM STATUS: REG ER ORD. PHYSICIAN: ARTURO DRAPER MD REASON: fall PROCEDURE: CT HEAD AND CERVICAL SPINE WO EXAM: CT HEAD WITHOUT IV CONTRAST CLINICAL HISTORY: Reason: fall / Spl. Instructions: / History: COMPARISON: None. TECHNIQUE: Routine CT of the head without contrast. Soft tissues and bone windows were reviewed. PQRS compliance statement - One or more of the following individualized dose reduction techniques were utilized for this study: 1. Automated exposure control 2. Adjustment of the mA and/or kV according to patient size 3. Use of iterative reconstruction technique FINDINGS: There is no evidence of hemorrhage, mass or extra-axial fluid collection. [place]-white differentiation is maintained with no evidence of edema. Subcortical, periventricular as well as deep white matter foci of hypoattenuation likely changes of chronic small vessel disease. There is no mass effect or shift of the intracranial structures. The ventricles, basilar cisterns and cortical sulci are normal in size and configuration for the patients stated age. The cerebellum and brainstem are unremarkable. The calvarium demonstrates no evidence of fracture or focal lesion. Mastoid air cells are clear. Multifocal paranasal sinus thickening including the scattered ethmoid air cells, maxillary sinuses and the left frontal sinus. The visualized portions of the orbits are normal. Soft tissue swelling with small scalp hematoma overlying the frontal region. Atherosclerotic calcifications of the intracranial internal carotid and vertebral arteries is seen. IMPRESSION: 1. No evidence for acute intracranial process. 2. Multifocal paranasal sinus thickening including the scattered ethmoid air cells, maxillary sinuses and the left frontal sinus. EXAM: CT CERVICAL SPINE WITHOUT IV CONTRAST CLINICAL HISTORY: fall COMPARISON: None available. TECHNIQUE: Helical CT of the cervical spine was performed. Axial, coronal and sagittal reformatted images were also performed. PQRS compliance statement - One or more of the following individualized dose reduction techniques were utilized for this study: 1. Automated exposure control 2. Adjustment of the mA and/or kV according to patient size 3. Use of iterative reconstruction technique FINDINGS: There is a fracture through the base of the dens without involvement of the lateral masses. No significant displacement. Multilevel facet degenerative changes are seen. Multilevel degenerative changes of the cervical spine. Moderate C4-5, C5-6 and moderate to severe C6-7 disc height loss. Associated posterior endplate osteophytes are seen. No spondylolisthesis. ET tube is seen within the proximal thoracic trachea. Biapical parenchymal airspace opacities are seen. IMPRESSION: 1. Base of dens fracture is nondisplaced. 2. Multifocal degenerative changes 3. Biapical parenchymal opacities may represent multifocal consolidative process such as pneumonia although contusion or aspiration may result in this appearance. Electronically signed by: Suleman Gomez MD (08/04/2020 6:16 AM) [facility] and SIGNED BY: SULEMAN GOEMZ MD DATE: 08/04/20 [id number] Signed PATIENT: MARQUIS VARGAS ACCOUNT: [id number] : 1950 LOCATION: [address] [place] [address] AGE: 69 SEX: M EXAM STATUS: ADM IN ORD. PHYSICIAN: ARTURO DRAPER MD REASON: PE, unresponsive PROCEDURE: CT ANGIO CHEST ABD PELVIS CTA chest abdomen and pelvis with contrast: History: Drinking, smoking marijuana and fell Axial helical images of the chest abdomen and pelvis were obtained after the administration of 80 cc IV [id number] contrast. Multiplanar reconstruction was performed with separate imaging workstation including 3-D maximum intensity. Imaging as well as 3-D arterial surface rendering. This study was performed in order to evaluate the aorta and to exclude possible pulmonary embolism. Comparison: none CTA OF THE CHEST WITH IV CONTRAST: The pulmonary arteries are opacified without filling defects. The thoracic aorta appears normal. There is coronary artery calcifications. There is patchy opa cities in the lower lobes bilaterally. Is multiple old rib fractures bilaterally. There is no mediastinal lymphadenopathy or hematoma. Lymphadenopathy: no Impression: 1. Multiple old rib fractures bilaterally. 2. Consolidation in the lower lobes bilaterally could be secondary to pneumonia. 3. Note no evidence of PE and normal thoracic aorta. End Impression CTA OF THE ABDOMEN AND PELVIS WITH IV CONTRAST: The abdominal aorta appears normal. The celiac axis and SMA appear normal. There is calcination involving the renal arteries with less than 50 percent stenosis. Liver: Unremarkable Spleen: Unremarkable Pancreas: Unremarkable Adrenal Glands: Unremarkable Kidneys: There is soft tissue density around the proximal right ureter with stranding in the retroperitoneal space on the right. The stomach is distended with air and fluid. The urinary bladder is collapsed and a Flores and not well seen. There is fluid within a small right inguinal canal hernia. The appendix is normal. Evaluation of stomach and bowel is limited without oral contrast. Lymphadenopathy: no. Free fluid: no. Free air: no. There is moderate loss of stature the L4 vertebral body due to impaction is. Plate however there is no fracture line seen. Air within the left groin is likely iatrogenic. Impression: 1. Retroperitoneal hematoma on the right with density surrounding the proximal right ureter. A vascular injury to the right kidney is possible however the right kidney appears well-perfused and there is no gross extravasation of contrast. 2. L4 vertebral body compression fracture could be old. End impression PQRS Compliance Statement: One or more of the following individualized dose reduction techniques were utilized for this examination: 1. Automated exposure control 2. Adjustment of the mA and/or kV according to patient size 3. Use of iterative reconstruction technique Electronically signed by: Toño Clarke III, MD (08/04/2020 8:01 AM) [place] DICTATED and SIGNED BY: TOÑO CLARKE III, MD DATE: 08/04/20 [id number] VTE Prophylaxis Ordered VTE Prophylaxis Devices: Yes VTE Pharmacological Prophylaxi: Yes Assessment/Plan Assessment/Plan mpression: 1. OOH ARREST CODE ICE 1. Retroperitoneal hematoma on the right with density surrounding the proximal right ureter. A vascular injury to the right kidney is possible 2. L4 vertebral body compression fracture could be old.. Base of dens fracture// nondisplaced. 3. Multifocal degenerative changes 4. Biapical parenchymal opacities may represent multifocal consolidative process such as pneumonia although contusion or aspiration may result in this appearance. 5. POLY -SUBSTANCE ABUSE 6. SEVERE SEPSIS 7. JUSTIN sec hypoperfusion, shock PLAN ADMIT ICU CONSULT PULM CONSULT CARDIOLOGY CONSULT ID BLOOD CULTURES EMPERIC IV ANTIBIOTICS CONSULT NEUROSURGERY C COLLAR CODE ICE PROTOCOL nephrology consult 54 min cc time Guarded , poor prognosis Justifications for Admission Other Justification YAYO KUMAR MD Aug 04, 2020 08:45
[2020-08-04] MEDS: PANTOPRAZOLE IV PUSH 40 MG VIAL. IVP SCH (09:00)
[2020-08-04] MEDS: NOREPINEPHRINE VIAL 8 MG in IV DEXTROSE 5% 250 ML IV PRN (09:00)
[2020-08-04 09:25] LABS: BASE EXCESS ABG -18 mmol/L (-3-3); HCO3 ABG 11 mmol/L (21-28); PCO2 ABG 35 mmHg (35-46); PO2 ABG 141 mmHg (65-108); SAT O2 ABG 98 % (92-99)
[2020-08-04 09:31] LABS: FIO2 ABG 100
--- NOTE | 2020-08-04 09:51 | PDOC2 ---
DEANNA RAYMOND NURSE'S ASSISTANT 08/04/20 0951: CARDIAC CONSULT DATE OF CONSULT Date of Consult DATE: 08/04/20 TIME: 09:44 REASON FOR CONSULT Reason for Consult: post cardiac arrest REFERRING PHYSICIAN Referring Physician: Griffin SOURCE Source: Chart review HISTORY OF PRESENT ILLNESS HISTORY OF PRESENT ILLNESS This is a 69 yo male admitted for cardiac arrest. He is currently intubated with vent. Apparently he was smoking marijuana with friends and at some point his friends heard a fall sound and then found him unresponsive but pulse was not checked until about 3-4 min later then CPR was started. EMS noted him with PEA and provided 5 rounds of epi. No shocks given. Per staff possibly about 25 min of CPR prior to ROSC and currently in SR. He had a traumatic fall sustaining cervical injury. He was also hypothermic prior to ICU transfer. No family available. No known hx of CAD, VTE. He was also intoxicated with ETOH upon admission. PAST MEDICAL HISTORY Past Medical History Unknown PAST SURGICAL HISTORY Past Surgical History unknown FAMILY HISTORY Family History: Family History Unknown SOCIAL HISTORY ALCOHOL: heavy Drugs: Marijuana CURRENT MEDICATIONS CURRENT MEDICATIONS Current Medications Medications (Trade) Dose Ordered Sig/Geovany Route PRN Reason Start Time Stop Time Status Last Admin Dose Admin Epinephrine HCl 5 mg/Sodium Chloride 255 ml @ 30.6 mls/hr ONCE ONCE IV 08/04/20 05:45 08/04/20 14:04 08/04/20 06:17 Iohexol (Omnipaque 350 Mg/ml) 80 ml 1X ONCE IV 08/04/20 06:30 08/04/20 06:31 DC 08/04/20 07:30 Sodium Chloride 1,000 ml @ 1,000 mls/hr 1X ONCE IV 08/04/20 06:30 08/04/20 07:29 DC 08/04/20 06:32 Sodium Chloride 1,000 ml @ 1,000 mls/hr 1X ONCE IV 08/04/20 06:45 08/04/20 07:44 DC 08/04/20 06:33 Sodium Chloride 1,000 ml @ 1,000 mls/hr 1X ONCE IV 08/04/20 06:45 08/04/20 07:44 DC 08/04/20 06:45 Sodium Chloride 1,000 ml @ 75 mls/hr [id number] IV 08/04/20 07:30 08/05/20 07:29 08/04/20 08:30 Magnesium Sulfate/ Dextrose 100 ml @ 100 mls/hr 1X ONCE IV 08/04/20 08:00 08/04/20 08:59 DC 08/04/20 08:21 Buspirone HCl (Buspar) 30 mg Q8H NG 08/04/20 08:00 08/06/20 00:01 08/04/20 08:44 Acetaminophen (Tylenol) 650 mg Q4H NG 08/04/20 08:00 08/04/20 08:44 Fentanyl Citrate 30 ml @ 0 mls/hr CONT PRN IV PER PROTOCOL. 08/04/20 08:00 08/04/20 08:24 Midazolam HCl 100 ml @ 0 mls/hr CONT PRN IV PER PROTOCOL 08/04/20 08:00 08/04/20 07:40 ALLERGIES ALLERGIES: Coded Allergies: Unable to Assess (Unverified , 08/04/20) ROS Review of System unrelaible, intubated PHYSICAL EXAM General: Other (sedated) HEENT: Mucous membr. moist/pink, Other (hard collar in place) Heart: Regular rate (SR) Abdomen: Soft Extremities: No edema Skin: No significant lesion Neuro: Other (sedated) MUSCULOSKELETAL: Osteoarthritic changes both hands VITALS/I&O VITALS/I&O: Vital Signs Date Time Temp Pulse Resp B/P (MAP) Pulse Ox O2 Delivery O2 Flow Rate FiO2 08/04/20 09:18 Mechanical Ventilator 08/04/20 09:00 90.7 96 24 117/74 100 I & O 08/03/20 08/03/20 08/04/20 15:00 23:00 07:00 Intake Total 1000 ml Balance 1000 ml LABS Lab: Laboratory Tests Test 08/04/20 05:35 08/04/20 05:40 08/04/20 06:30 08/04/20 07:10 White Blood Count 8.2 x10^3/uL (4.0-11.0) Red Blood Count 4.61 x10^6/uL (4.30-5.70) Hemoglobin 14.8 g/dL (13.0-17.5) Hematocrit 45.8 % (39.0-53.0) Mean Corpuscular Volume 99 fL (79-100) Mean Corpuscular Hemoglobin 32 pg (25-35) Mean Corpuscular Hemoglobin Concent 32 g/dL (31-37) Red Cell Distribution Width 14.5 % (11.5-14.5) Platelet Count 202 x10^3/uL (140-400) Neutrophils (%) (Auto) 31 % (31-73) Lymphocytes (%) (Auto) 59 % (24-48) H Monocytes (%) (Auto) 6 % (0-9) Eosinophils (%) (Auto) 4 % (0-3) H Basophils (%) (Auto) 1 % (0-3) Neutrophils # (Auto) 2.6 x10^3/uL (1.8-7.7) Lymphocytes # (Auto) 4.8 x10^3/uL (1.0-4.8) Monocytes # (Auto) 0.5 x10^3/uL (0.0-1.1) Eosinophils # (Auto) 0.3 x10^3/uL (0.0-0.7) Basophils # (Auto) 0.1 x10^3/uL (0.0-0.2) Prothrombin Time 14.5 SEC (11.7-14.0) H Prothrombin Time INR 1.2 (0.8-1.1) H D-Dimer (Chanelle) 6.28 ug/mlFEU (0.00-0.50) H Sodium Level 148 mmol/L (136-145) H Potassium Level 3.8 mmol/L (3.5-5.1) Chloride Level 107 mmol/L (98-107) Carbon Dioxide Level 20 mmol/L (21-32) L Anion Gap 21 (6-14) H Blood Urea Nitrogen 15 mg/dL (8-26) Creatinine 1.6 mg/dL (0.7-1.3) H Estimated GFR (Cockcroft-Gault) 42.8 BUN/Creatinine Ratio 9 (6-20) Glucose Level 235 mg/dL (70-99) H Lactic Acid Level 11.5 mmol/L (0.4-2.0) *H Calcium Level 8.6 mg/dL (8.5-10.1) Phosphorus Level 8.2 mg/dL (2.6-4.7) H Magnesium Level 2.5 mg/dL (1.8-2.4) H Total Bilirubin 0.4 mg/dL (0.2-1.0) Aspartate Amino Transferase (AST) 135 U/L (15-37) H Alanine Aminotransferase (ALT) 174 U/L (16-63) H Alkaline Phosphatase 83 U/L (46-116) Ammonia 35 mcmol/L (11-34) H Troponin I Quantitative < 0.017 ng/mL (0.000-0.055) BJ-Nen-A-Type Natriuretic Peptide 36 pg/mL (0-124) Total Protein 6.1 g/dL (6.4-8.2) L Albumin 3.5 g/dL (3.4-5.0) Albumin/Globulin Ratio 1.3 (1.0-1.7) Ethyl Alcohol Level 239 mg/dL (0-10) H Urine Collection Type Unknown Urine Color Yellow Urine Clarity Clear Urine pH 5.5 (<5.0-8.0) Urine Specific [place] 1.010 (1.000-1.030) Urine Protein Negative mg/dL (NEG-TRACE) Urine Glucose (UA) Negative mg/dL (NEG) Urine Ketones (Stick) Negative mg/dL (NEG) Urine Blood Negative (NEG) Urine Nitrite Negative (NEG) Urine Bilirubin Negative (NEG) Urine Urobilinogen Dipstick 0.2 mg/dL (0.2 mg/dL) Urine Leukocyte Esterase Negative (NEG) Urine RBC 0 /HPF (0-2) Urine WBC Rare /HPF (0-4) Urine Squamous Epithelial Cells Few /LPF Urine Bacteria 0 /HPF (0-FEW) Urine Opiates Screen Neg (NEG) Urine Methadone Screen Neg (NEG) Urine Barbiturates Neg (NEG) Urine Phencyclidine Screen Neg (NEG) Urine Amphetamine/Methamphetamine Neg (NEG) Urine Benzodiazepines Screen Neg (NEG) Urine Cocaine Screen Neg (NEG) Urine Cannabinoids Screen Neg (NEG) Urine Ethyl Alcohol Pos (NEG) O2 Saturation 93 % (92-99) Arterial Blood pH 7.02 (7.35-7.45) *L Arterial Blood pCO2 at Patient Temp 51 mmHg (35-46) H Arterial Blood pO2 at Patient Temp 95 mmHg (65-108) Arterial Blood HCO3 13 mmol/L (21-28) L Arterial Blood Base Excess -18 mmol/L (-3-3) L FiO2 100 SARS-CoV-2 Antigen (Rapid) Negative (NEGATIVE) Test 08/04/20 09:20 O2 Saturation 98 % (92-99) Arterial Blood pH 7.10 (7.35-7.45) *L Arterial Blood pCO2 at Patient Temp 35 mmHg (35-46) Arterial Blood pO2 at Patient Temp 141 mmHg (65-108) H Arterial Blood HCO3 11 mmol/L (21-28) L Arterial Blood Base Excess -18 mmol/L (-3-3) L FiO2 100 Laboratory Tests 08/04/20 05:35 Laboratory Tests 08/04/20 05:35 ASSESSMENT/PLAN ASSESSMENT/PLAN 1. OOH cardiopulmonary arrest: possible 3-4 min pulseless prior to CPR initiation noted PEA 5 round of epi per staff approx 25 min to ROSC. No PE 2. Traumatic fall with nondisplaced dens base fracture 3. Possible pneumonia 4. Retroperitoneal hematoma on the right with density surrounding the proximal right ureter: Hgb normal and stable 5. Substance abuse: with marijuana, ETOH 6. Lactic acidosis 7. JUSTIN 8. Acute respiratory failure: intubated, vent 9. Unclear if any prior fall as imaging noted with multiple old rib fractures and L4 compression fracture 10. PUI 11. Hypothermia 12. Anoxic encephalopathy Recommendations 1. Continue pressor, epi and levo drip ongoing. So far no significant arrhythmias. 2. Possible sepsis but unclear as far as etiology of his cardiac arrest. Highly suspect due to intoxication and could not rule out possibility of laced marijuana. 3. Given his poor neuro response and significant anoxia, his prognosis is poor. Once rewarmed will reeval and if negative for covid-19 then will consider for TTE as well. 4. Supportive care at this time. JASON DUDLEY MD 08/05/20 0727: CARDIAC CONSULT ASSESSMENT/PLAN ASSESSMENT/PLAN Late entry for 08/04/2020 Pt. seen and examined. Agree with above ENDOCRINOLOGY SPECIALIST note. Supportive care. DEANNA RAYMOND NURSE'S ASSISTANT Aug 04, 2020 09:51 JASON DUDLEY MD Aug 05, 2020 07:27
[2020-08-04] MEDS ORDERED: SODIUM BICARB ADULT 8.4% 50 MEQ/50 ML DISP.SYRIN. ONE (09:57)
[2020-08-04] MEDS ORDERED: 0.9 % SODIUM CHLORIDE 10 ML DISP.SYRIN. IV PRN (10:15)
[2020-08-04] MEDS ORDERED: SODIUM BICARB ADULT 8.4% 50 MEQ/50 ML DISP.SYRIN. IV ONE ×3 (10:15)
[2020-08-04] MEDS ORDERED: ONDANSETRON PF 4 MG/2 ML VIAL. IVP PRN (10:15)
[2020-08-04 10:26] LABS: % BANDS 6 % (0-9); % EOS 6 % (0-5); % LYMPHS 66 % (24-48); % MONOS 2 % (0-10); % SEGS 20 % (35-66); PLT ESTIMATE ADEQUATE (ADEQUATE); SMUDGE CELLS PRESENT
--- NOTE | 2020-08-04 10:54 | NUR ---
SS following for discharge planning. SS reviewed pt chart and discussed with pt RN. Pt is from home and is currently on the vent at 70%. Hypothermia protocol. COVID19 negative on rapid test. Pt on IV Rocephin. Pt fell and has C2 fracture. ETOH level of 239. SS will continue to follow for discharge planning.
[2020-08-04] MEDS ORDERED: FAMOTIDINE 20 MG/2 ML VIAL IVP SCH (11:00)
[2020-08-04] MEDS ORDERED: IV NORMAL SALINE 500ML BAG 500 ML IV PRN (11:00)
[2020-08-04] MEDS ORDERED: NOREPINEPHRINE VIAL 8 MG in IV DEXTROSE 5% 250 ML IV PRN (11:00)
--- NOTE | 2020-08-04 11:08 | PDOC ---
Provider Note Date of Service: DATE: 08/04/20 TIME: 11:03 Provider Note patient seen in ICU consulted for cervical fracture, s/p fall, status post cardiac arrest. sedated and intubated Cervical CT with Base of dens fracture is nondisplaced. CT Head -No evidence for acute intracranial process. hard collar in place D/W RN Justifications for Admission General Conditions Poss hypotension?: Yes Justification for admission: Patient has hypotension (SBP < 90 mm Hg) which is not readily corrected by appropriate treatment within 12 to 24 hours. CARDIAC ARREST Other Justification DELFIN STOCKTON MD Aug 04, 2020 11:08
--- NOTE | 2020-08-04 11:13 | CONS ---
DATE OF CONSULTATION: PULMONARY CONSULTATION ATTENDING PHYSICIAN: Jeff Medina MD. REASON FOR CONSULTATION: Respiratory failure, cardiac arrest. HISTORY OF PRESENT ILLNESS: The patient is a 69-year-old male who was brought into the hospital with PEA arrest. Per EMS report, the patient was drinking and smoking marijuana with friends when he went upstairs and then they heard him fall. The patient fell into the wall and has abrasion to his forehead. Initially was nonresponsive and later did not have a pulse. CPR was started. On EMS arrival, he was in PEA. He was given 5 rounds of epinephrine. No shocks given. On arrival to ER, he had a Parrish coma scale of 3 with fixed pupils at approximately 4 mm. He did have a good pulse. The patient underwent CTA chest, which was reviewed by me. There was no evidence of pulmonary embolism. There was basal atelectasis versus consolidation. The patient is currently intubated and sedated. He is on 2 pressors including Levophed and epinephrine. His arterial blood gases revealed a pH initially of 7.02 with a pCO2 of 51, a pO2 of 95 and a bicarbonate of 13, on 100% FiO2. The blood gases followup showed a pH of 7.10, pCO2 of 35, pO2 141 and a bicarbonate of 11, on 100% FiO2. His [id number] negative. His lactic acid was 11.5. He is currently on assist control, rate was increased to 28. He is on 70% FiO2. He is started on hypothermic protocol. I have been asked to see him for further evaluation. PAST MEDICAL HISTORY: Unknown. PAST SURGICAL HISTORY: Unknown. ALLERGIES: Not available. MEDICATIONS: Given in the ER were reviewed. He is currently on heparin, Levophed and epinephrine drip. REVIEW OF SYSTEMS: Unable to obtain as he is on the ventilator. SOCIAL HISTORY: Alcohol and marijuana use. Details not available. PHYSICAL EXAMINATION: VITAL SIGNS: He is on hypothermic protocol. Pulse ox is 100%. Visual exam done due to COVID suspicion. He has no paradoxical breathing. He is sedated with ventilator. SKIN: With no rash. LABORATORY DATA: Reviewed. Sodium 148, potassium 3.8, BUN 15, creatinine 1.6, bicarbonate of 20. Lactic acid 11.5. Ammonia 35. D-dimer 6.28. Urine drug screen positive for alcohol. White cell count 8.2, hemoglobin 14.8, platelets 202. IMPRESSION: 1. Acute respiratory failure secondary to pulseless electrical activity cardiac arrest and also contributed by toxic encephalopathy from alcohol and marijuana. 2. Pulseless electrical activity cardiac arrest. 3. Toxic encephalopathy, status post fall after found to be drinking alcohol and smoking marijuana. 4. [id number] negative. 5. Acute kidney injury. 6. Marked lactic acidosis from cardiac arrest and shock, less likely septic. 7. Shock, cardiogenic. 8. Abnormal ALT and AST secondary to hypoperfusion. 9. Abnormal D-dimer with no evidence of pulmonary embolism. 10. Severe metabolic acidosis. 11. Hypernatremia. RECOMMENDATIONS: 1. Continue present assist control mode. The rate has been increased. FiO2 has been reduced. We will follow ABGs and make necessary adjustments. 2. Follow hypothermic protocol. 3. Cardiology recommendations and obtain an echocardiogram. 4. Continue present vasopressors and keep systolic pressure above 90. 5. Multiple amps of bicarbonate. 6. Consult Renal and follow their recommendations. 7. Empiric antibiotics. 8. Follow lactic acid level. 9. Monitor urine output. 10. Discussed with RN and RT. Chart reviewed, imaging studies reviewed. Critical care time 40 minutes. Prognosis is guarded. KATYA SMITH MD DR: JACKELYN/harper JOB#: [id number] / [id number]
--- NOTE | 2020-08-04 11:25 | NUR ---
Pt admitted to 110 at approximately 0845, via arin, ED RN, RT- admitted for cardiac arrest out of hospital. Pt unarousable after ROSC achieved- hypothermia protocol initiated in ER. Upon arrival, pt on Epi drip at 0.2mcg/kg/min, versed gtt, all VSS. 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 [place] pads attached to pt, all skin intact- skin tear on head noticed + some bruising throughout. Rectal probe + temp seymour placed- see hypothermia flowsheet for temperature recordings/vitals. TTM reached at 0900- currently in maintenance phase- see protocol. On assessment, pt does not respond to painful stimuli, pupils are fixed and pinpoint. Cannot illicit cough, gag reflex at this time. TN called at 1027 by this RN, referral #: [id number]. Patient's brother -Broderick Bhatia, , notified of patient status, given privacy code. Reports no previous medical history other than HTN, HLD, and previous cervical fracture. Reports pt takes no medications. Admission completed to best of ability. Pt currently in room, sedated, will monitor.
[2020-08-04] MEDS ORDERED: cefTRIAXone IV Push 1 GM VIAL. IVP SCH (11:30)
[2020-08-04 11:34] LABS: BASO % 0 % (0-3); EOS % 0 % (0-3); HEMATOCRIT 46.9 % (39.0-53.0); HEMOGLOBIN 15.3 g/dL (13.0-17.5); LYMPH % 6 % (24-48); MEAN CORPUSCULAR HEMOGLOBIN 32 pg (25-35); MEAN CORPUSCULAR HGB CONC 33 g/dL (31-37); MEAN CORPUSCULAR VOLUME 97 fL (79-100); MONO # 0.9 x10^3/uL (0.0-1.1); MONO % 6 % (0-9); NEUT # 13.1 x10^3/uL (1.8-7.7); NEUT % 87 % (31-73); PLATELET COUNT 226 x10^3/uL (140-400); RED BLOOD COUNT 4.83 x10^6/uL (4.30-5.70); RED CELL DISTRIBUTION WIDTH 13.8 % (11.5-14.5)
[2020-08-04 11:54] LABS: CALCIUM 7.3 mg/dL (8.5-10.1); CREATININE 1.4 mg/dL (0.7-1.3); PHOSPHORUS 3.4 mg/dL (2.6-4.7); POTASSIUM 3.3 mmol/L (3.5-5.1); PROTHROMBIN TIME PATIENT 14.4 SEC (11.7-14.0)
[2020-08-04] MEDS: SODIUM BICARBONATE VIAL 100 MEQ in IV DEXTROSE 5% 1,000 ML IV SCH ×2 (11:56→20:06)
[2020-08-04] MEDS: MEROPENEM 1 GM in IV NORMAL SALINE 100ML 100 ML IV SCH ×2 (11:56→22:59)
[2020-08-04 12:17] LABS: % BANDS 7 % (0-9); % LYMPHS 3 % (24-48); % MONOS 2 % (0-10); % SEGS 88 % (35-66); PLT ESTIMATE ADEQUATE (ADEQUATE)
[2020-08-04] MEDS: POLYVINYL ALCOHOL 1.4% OPHTH SOLUTION 15ML BOTTLE. OU SCH ×2 (12:53→18:11)
[2020-08-04] MEDS ORDERED: MAGNESIUM SULFATE 2GM 50 ML IV ONE ×2 (13:00→20:15)
[2020-08-04] MEDS ORDERED: POTASSIUM CHLORIDE 10MEQ 100 ML IV SCH (13:00)
[2020-08-04] MEDS: INSULIN REGULAR VIAL 100 UNIT in IV NORMAL SALINE 100ML 100 ML IV PRN ×2 (13:02→21:54)
[2020-08-04] MEDS: HEPARIN for SUB-Q USE 5,000 UNIT/ML VIAL. SQ SCH ×2 (13:47→23:00)
--- NOTE | 2020-08-04 16:43 | PDOC2 ---
CONSULT Date of Consult Date of Consult DATE: 08/04/20 TIME: 16:33 Reason for Consult Reason for Consult: JUSTIN Referring Physician Referring Physician: JOSÉ Identification/Chief Complaint Chief Complaint CARDIAC ARREST Source Source: Chart review History of Present Illness Reason for Visit: THIS IS A 69 YR OLD WITH OUT OF HOSP ARREST. NOTED TO BE IN [place] AND RESUSCITATED. APPARENTLY WAS INTOXICATED AND SMOKING MARIJUANA WHEN HE ARRESTED. FELL HIT HIS HEAD AND THEN BECAME UNRESPONSIVE. CTA NEG. HAS A CERVICAL FX. NS FOLLOWING PT. HAS JUSTIN WITH CR OF 1.6 AND OLIGURIA. HAS HYPOKALEMIA AND HIGH PO4 ALONG WITH AN AG MET ACIDOSIS. CURRENTLY ON THE VENT AND NEEDING PRESSORS. NO KN OWN CKD OR HX Past Medical History Past Medical History UNABLE TO OBTAIN Past Surgical History Past Surgical History UNKNOWN Family History Family History: Family History Unknown Social History <1 pack per day ALCOHOL: heavy Drugs: Marijuana Lives: with Family Current Problem List Problem List Problems Medical Problems: (1) Cardiac arrest Status: Acute (2) Dens fracture Status: Acute (3) Respiratory failure Status: Acute Current Medications Current Medications Current Medications Epinephrine HCl 5 mg/Sodium Chloride 255 ml @ 30.6 mls/hr ONCE ONCE IV Last administered on 08/04/20at 06:17; Start 08/04/20 at 05:45; Stop 08/04/20 at 14:04; Status DC Iohexol (Omnipaque 350 Mg/ml) 80 ml 1X ONCE IV Last administered on 08/04/20at 07:30; Start 08/04/20 at 06:30; Stop 08/04/20 at 06:31; Status DC Info (CONTRAST GIVEN -- Rx MONITORING) 1 each PRN DAILY PRN MC SEE COMMENTS; Start 08/04/20 at 06:30; Stop 08/06/20 at 06:29 Sodium Chloride 1,000 ml @ 1,000 mls/hr 1X ONCE IV Last administered on 08/04/20at 06:32; Start 08/04/20 at 06:30; Stop 08/04/20 at 07:29; Status DC Sodium Chloride 1,000 ml @ 1,000 mls/hr 1X ONCE IV Last administered on 08/04/20at 06:33; Start 08/04/20 at 06:45; Stop 08/04/20 at 07:44; Status DC Sodium Chloride 1,000 ml @ 1,000 mls/hr 1X ONCE IV Last administered on 08/04/20at 06:45; Start 08/04/20 at 06:45; Stop 08/04/20 at 07:44; Status DC Midazolam HCl 50 mg/Sodium Chloride 50 ml @ 0 mls/hr CONT PRN PRN IV SEDATION; Start 08/04/20 at 07:15; Status UNV Midazolam HCl 100 ml @ 0 mls/hr CONT PRN IV SEE PROTOCOL; Start 08/04/20 at 07:30; Stop 08/04/20 at 08:03; Status DC Ondansetron HCl (Zofran) 4 mg PRN Q8HRS PRN IV NAUSEA/VOMITING; Start 08/04/20 at 07:30; Stop 08/05/20 at 07:29 Sodium Chloride 1,000 ml @ 75 mls/hr [id number] IV Last administered on 08/04/20at 08:30; Start 08/04/20 at 07:30; Stop 08/05/20 at 07:29 Fentanyl Citrate (Fentanyl 2ml Vial) 100 mcg 1X ONCE IV ; Start 08/04/20 at 08:00; Stop 08/04/20 at 08:01; Status DC Midazolam HCl (Versed) 2 mg 1X ONCE IV ; Start 08/04/20 at 08:00; Stop 08/04/20 at 08:01; Status DC Magnesium Sulfate/ Dextrose 100 ml @ 100 mls/hr 1X ONCE IV Last administered on 08/04/20at 08:21; Start 08/04/20 at 08:00; Stop 08/04/20 at 08:59; Status DC Buspirone HCl (Buspar) 30 mg Q8H NG Last administered on 08/04/20at 08:44; Start 08/04/20 at 08:00; Stop 08/06/20 at 00:01 Acetaminophen (Tylenol) 650 mg Q4H NG Last administered on 08/04/20at 13:47; Start 08/04/20 at 08:00 Glycerin/ Hypromellose/ Polyethylene (Artificial Tears) 1 drop Q6HRS OU Last administered on 08/04/20at 12:53; Start 08/04/20 at 12:00 Glycerin/ Hypromellose/ Polyethylene (Artificial Tears) 1 drop PRN Q15MIN PRN OU DRY EYE; Start 08/04/20 at 08:00 Pantoprazole Sodium (PROTONIX VIAL for IV PUSH) 40 mg DAILY IVP Last administered on 08/04/20at 09:00; Start 08/04/20 at 09:00 Fentanyl Citrate 30 ml @ 0 mls/hr CONT PRN IV PER PROTOCOL. Last administered on 08/04/20at 08:24; Start 08/04/20 at 08:00 Propofol 100 ml @ 0 mls/hr CONT PRN IV PER PROTOCOL.; Start 08/04/20 at 08:00 Midazolam HCl 100 ml @ 0 mls/hr CONT PRN IV PER PROTOCOL Last administered on 08/04/20at 07:40; Start 08/04/20 at 08:00 Vecuronium Mercer (Norcuron Bolus) 10 mg PRN Q1HR PRN IV SHIVERING; Start 08/04/20 at 08:00 Norepinephrine Bitartrate 8 mg/ Dextrose 258 ml @ 18.112 mls/ hr CONT PRN IV PER PROTOCOL Last administered on 08/04/20at 09:00; Start 08/04/20 at 09:15 Sodium Bicarbonate (Sodium Bicarb Adult 8.4% Syr) 50 meq STK-MED ONCE .ROUTE ; Start 08/04/20 at 09:57; Stop 08/04/20 at 09:57; Status DC Ondansetron HCl (Zofran) 4 mg PRN Q6HRS PRN IVP NAUSEA/VOMITING; Start 08/04/20 at 10:15 Famotidine (Pepcid Vial) 20 mg BID IVP ; Start 08/04/20 at 11:00; Stop 08/04/20 at 12:36; Status DC Info (Icu Electrolyte Protocol) 1 ea DAILY MC ; Start 08/05/20 at 09:00 Heparin Sodium (Porcine) (Heparin Sodium) 5,000 unit Q8HRS SQ Last administered on 08/04/20at 13:47; Start 08/04/20 at 14:00 Sodium Chloride (Normal Saline Flush) 3 ml QSHIFT PRN IV AFTER MEDS AND BLOOD DRAWS; Start 08/04/20 at 10:15 Sodium Chloride 1,000 ml @ 100 mls/hr Q10H IV Last administered on 08/04/20at 10:15; Start 08/04/20 at 10:15 Sodium Bicarbonate (Sodium Bicarb Adult 8.4% Syr) 50 meq 1X ONCE IV Last administered on 08/04/20at 10:00; Start 08/04/20 at 10:15; Stop 08/04/20 at 10:22; Status DC Sodium Bicarbonate (Sodium Bicarb Adult 8.4% Syr) 50 meq 1X ONCE IV Last administered on 08/04/20at 10:15; Start 08/04/20 at 10:15; Stop 08/04/20 at 10:22; Status DC Sodium Bicarbonate (Sodium Bicarb Adult 8.4% Syr) 50 meq 1X ONCE IV Last administered on 08/04/20at 10:15; Start 08/04/20 at 10:15; Stop 08/04/20 at 10:22; Status DC Ceftriaxone Sodium (Rocephin) 1 gm Q24H IVP Last administered on 08/04/20at 13:50; Start 08/04/20 at 11:30; Stop 08/04/20 at 16:10; Status DC Sodium Chloride 1,000 ml @ 2,340 mls/hr Q26M IV ; Start 08/04/20 at 11:00; Stop 08/04/20 at 12:00; Status DC Sodium Chloride 500 ml @ 1,000 mls/hr PRN Q30MIN PRN IV SEE COMMENTS; Start 08/04/20 at 11:00; Stop 08/04/20 at 12:12; Status DC Meropenem 1 gm/ Sodium Chloride 100 ml @ 200 mls/hr Q8HRS IV Last administered on 08/04/20at 11:56; Start 08/04/20 at 11:30 Norepinephrine Bitartrate 8 mg/ Dextrose 258 ml @ 0 mls/hr CONT PRN IV SEE I/O RECORD; Start 08/04/20 at 11:00; Status UNV Sodium Bicarbonate 100 meq/Dextrose 1,100 ml @ 150 mls/hr Q7H20M IV Last administered on 08/04/20at 11:56; Start 08/04/20 at 11:30 Potassium Chloride/Water 100 ml @ 100 mls/hr Q1H IV Last administered on 08/04/20at 12:52; Start 08/04/20 at 13:00; Stop 08/04/20 at 13:59; Status DC Magnesium Sulfate 50 ml @ 25 mls/hr 1X ONCE IV Last administered on 08/04/20at 12:53; Start 08/04/20 at 13:00; Stop 08/04/20 at 14:59; Status DC Insulin Human Regular 100 unit/ Sodium Chloride 101 ml @ 0 mls/hr CONT PRN IV SEE I/O RECORD Last administered on 08/04/20at 13:02; Start 08/04/20 at 12:45 Allergies Allergies: Coded Allergies: Unable to Assess (Unverified , 08/04/20) ROS Review of System UNABLE TO OBTAIN Physical Exam General: Other (ON THE VENT) HEENT: Other (CERVICAL COLLAR, ET TUBE) Lungs: Clear to auscultation Heart: Regular rate Abdomen: Normal bowel sounds Extremities: No cyanosis Neuro: Other (SEDATED) Psych/Mental Status: Other (SEDATED ON THE VENT) MUSCULOSKELETAL: No joint tenderness, No deformity, No swelling Vitals VITALS Vital Signs Date Time Temp Pulse Resp B/P (MAP) Pulse Ox O2 Delivery O2 Flow Rate FiO2 08/04/20 16:14 98 Ventilator 08/04/20 16:00 91.7 61 28 94/67 Labs Labs Laboratory Tests Test 08/04/20 05:35 08/04/20 05:40 08/04/20 06:30 08/04/20 07:10 White Blood Count 8.2 x10^3/uL (4.0-11.0) Red Blood Count 4.61 x10^6/uL (4.30-5.70) Hemoglobin 14.8 g/dL (13.0-17.5) Hematocrit 45.8 % (39.0-53.0) Mean Corpuscular Volume 99 fL (79-100) Mean Corpuscular Hemoglobin 32 pg (25-35) Mean Corpuscular Hemoglobin Concent 32 g/dL (31-37) Red Cell Distribution Width 14.5 % (11.5-14.5) Platelet Count 202 x10^3/uL (140-400) Neutrophils (%) (Auto) 31 % (31-73) Lymphocytes (%) (Auto) 59 % (24-48) Monocytes (%) (Auto) 6 % (0-9) Eosinophils (%) (Auto) 4 % (0-3) Basophils (%) (Auto) 1 % (0-3) Neutrophils # (Auto) 2.6 x10^3/uL (1.8-7.7) Lymphocytes # (Auto) 4.8 x10^3/uL (1.0-4.8) Monocytes # (Auto) 0.5 x10^3/uL (0.0-1.1) Eosinophils # (Auto) 0.3 x10^3/uL (0.0-0.7) Basophils # (Auto) 0.1 x10^3/uL (0.0-0.2) Segmented Neutrophils % 20 % (35-66) Band Neutrophils % 6 % (0-9) Lymphocytes % 66 % (24-48) Monocytes % 2 % (0-10) Eosinophils % 6 % (0-5) Smudge Cells Present Platelet Estimate Adequate (ADEQUATE) Prothrombin Time 14.5 SEC (11.7-14.0) Prothromb Time International Ratio 1.2 (0.8-1.1) D-Dimer (Chanelle) 6.28 ug/mlFEU (0.00-0.50) Sodium Level 148 mmol/L (136-145) Potassium Level 3.8 mmol/L (3.5-5.1) Chloride Level 107 mmol/L (98-107) Carbon Dioxide Level 20 mmol/L (21-32) Anion Gap 21 (6-14) Blood Urea Nitrogen 15 mg/dL (8-26) Creatinine 1.6 mg/dL (0.7-1.3) Estimated GFR (Cockcroft-Gault) 42.8 BUN/Creatinine Ratio 9 (6-20) Glucose Level 235 mg/dL (70-99) Lactic Acid Level 11.5 mmol/L (0.4-2.0) Calcium Level 8.6 mg/dL (8.5-10.1) Phosphorus Level 8.2 mg/dL (2.6-4.7) Magnesium Level 2.5 mg/dL (1.8-2.4) Total Bilirubin 0.4 mg/dL (0.2-1.0) Aspartate Amino Transf (AST/SGOT) 135 U/L (15-37) Alanine Aminotransferase (ALT/SGPT) 174 U/L (16-63) Alkaline Phosphatase 83 U/L (46-116) Ammonia 35 mcmol/L (11-34) Troponin I Quantitative < 0.017 ng/mL (0.000-0.055) MS-Rnk-X-Type Natriuretic Peptide 36 pg/mL (0-124) Total Protein 6.1 g/dL (6.4-8.2) Albumin 3.5 g/dL (3.4-5.0) Albumin/Globulin Ratio 1.3 (1.0-1.7) Thyroid Stimulating Hormone (TSH) 5.103 uIU/mL (0.358-3.74) Ethyl Alcohol Level 239 mg/dL (0-10) Urine Collection Type Unknown Urine Color Yellow Urine Clarity Clear Urine pH 5.5 (<5.0-8.0) Urine Specific [place] 1.010 (1.000-1.030) Urine Protein Negative mg/dL (NEG-TRACE) Urine Glucose (UA) Negative mg/dL (NEG) Urine Ketones (Stick) Negative mg/dL (NEG) Urine Blood Negative (NEG) Urine Nitrite Negative (NEG) Urine Bilirubin Negative (NEG) Urine Urobilinogen Dipstick 0.2 mg/dL (0.2 mg/dL) Urine Leukocyte Esterase Negative (NEG) Urine RBC 0 /HPF (0-2) Urine WBC Rare /HPF (0-4) Urine Squamous Epithelial Cells Few /LPF Urine Bacteria 0 /HPF (0-FEW) Urine Opiates Screen Neg (NEG) Urine Methadone Screen Neg (NEG) Urine Barbiturates Neg (NEG) Urine Phencyclidine Screen Neg (NEG) Urine Amphetamine/Methamphetamine Neg (NEG) Urine Benzodiazepines Screen Neg (NEG) Urine Cocaine Screen Neg (NEG) Urine Cannabinoids Screen Neg (NEG) Urine Ethyl Alcohol Pos (NEG) O2 Saturation 93 % (92-99) Arterial Blood pH 7.02 (7.35-7.45) Arterial Blood pCO2 at Patient Temp 51 mmHg (35-46) Arterial Blood pO2 at Patient Temp 95 mmHg (65-108) Arterial Blood HCO3 13 mmol/L (21-28) Arterial Blood Base Excess -18 mmol/L (-3-3) FiO2 100 SARS-CoV-2 Antigen (Rapid) Negative (NEGATIVE) Test 08/04/20 09:20 08/04/20 11:15 08/04/20 13:50 O2 Saturation 98 % (92-99) Arterial Blood pH 7.10 (7.35-7.45) Arterial Blood pCO2 at Patient Temp 35 mmHg (35-46) Arterial Blood pO2 at Patient Temp 141 mmHg (65-108) Arterial Blood HCO3 11 mmol/L (21-28) Arterial Blood Base Excess -18 mmol/L (-3-3) FiO2 100 White Blood Count 15.0 x10^3/uL (4.0-11.0) Red Blood Count 4.83 x10^6/uL (4.30-5.70) Hemoglobin 15.3 g/dL (13.0-17.5) Hematocrit 46.9 % (39.0-53.0) Mean Corpuscular Volume 97 fL (79-100) Mean Corpuscular Hemoglobin 32 pg (25-35) Mean Corpuscular Hemoglobin Concent 33 g/dL (31-37) Red Cell Distribution Width 13.8 % (11.5-14.5) Platelet Count 226 x10^3/uL (140-400) Neutrophils (%) (Auto) 87 % (31-73) Lymphocytes (%) (Auto) 6 % (24-48) Monocytes (%) (Auto) 6 % (0-9) Eosinophils (%) (Auto) 0 % (0-3) Basophils (%) (Auto) 0 % (0-3) Neutrophils # (Auto) 13.1 x10^3/uL (1.8-7.7) Lymphocytes # (Auto) 1.0 x10^3/uL (1.0-4.8) Monocytes # (Auto) 0.9 x10^3/uL (0.0-1.1) Eosinophils # (Auto) 0.0 x10^3/uL (0.0-0.7) Basophils # (Auto) 0.0 x10^3/uL (0.0-0.2) Segmented Neutrophils % 88 % (35-66) Band Neutrophils % 7 % (0-9) Lymphocytes % 3 % (24-48) Monocytes % 2 % (0-10) Platelet Estimate Adequate (ADEQUATE) Prothrombin Time 14.4 SEC (11.7-14.0) Prothromb Time International Ratio 1.2 (0.8-1.1) Activated Partial Thromboplast Time 27 SEC (24-38) Fibrinogen 197 mg/dL (200-440) Sodium Level 146 mmol/L (136-145) Potassium Level 3.3 mmol/L (3.5-5.1) Chloride Level 107 mmol/L (98-107) Carbon Dioxide Level 15 mmol/L (21-32) Anion Gap 24 (6-14) Blood Urea Nitrogen 17 mg/dL (8-26) Creatinine 1.4 mg/dL (0.7-1.3) Estimated GFR (Cockcroft-Gault) 50.0 Glucose Level 232 mg/dL (70-99) 229 mg/dL (70-99) Lactic Acid Level 11.7 mmol/L (0.4-2.0) Calcium Level 7.3 mg/dL (8.5-10.1) Phosphorus Level 3.4 mg/dL (2.6-4.7) Magnesium Level 2.0 mg/dL (1.8-2.4) Troponin I Quantitative 0.230 ng/mL (0.000-0.055) Procalcitonin 0.32 ng/mL (0.00-0.10) Laboratory Tests Test 08/04/20 05:35 08/04/20 05:40 08/04/20 06:30 08/04/20 07:10 White Blood Count 8.2 x10^3/uL (4.0-11.0) Red Blood Count 4.61 x10^6/uL (4.30-5.70) Hemoglobin 14.8 g/dL (13.0-17.5) Hematocrit 45.8 % (39.0-53.0) Mean Corpuscular Volume 99 fL (79-100) Mean Corpuscular Hemoglobin 32 pg (25-35) Mean Corpuscular Hemoglobin Concent 32 g/dL (31-37) Red Cell Distribution Width 14.5 % (11.5-14.5) Platelet Count 202 x10^3/uL (140-400) Neutrophils (%) (Auto) 31 % (31-73) Lymphocytes (%) (Auto) 59 % (24-48) Monocytes (%) (Auto) 6 % (0-9) Eosinophils (%) (Auto) 4 % (0-3) Basophils (%) (Auto) 1 % (0-3) Neutrophils # (Auto) 2.6 x10^3/uL (1.8-7.7) Lymphocytes # (Auto) 4.8 x10^3/uL (1.0-4.8) Monocytes # (Auto) 0.5 x10^3/uL (0.0-1.1) Eosinophils # (Auto) 0.3 x10^3/uL (0.0-0.7) Basophils # (Auto) 0.1 x10^3/uL (0.0-0.2) Segmented Neutrophils % 20 % (35-66) Band Neutrophils % 6 % (0-9) Lymphocytes % 66 % (24-48) Monocytes % 2 % (0-10) Eosinophils % 6 % (0-5) Smudge Cells Present Platelet Estimate Adequate (ADEQUATE) Prothrombin Time 14.5 SEC (11.7-14.0) Prothromb Time International Ratio 1.2 (0.8-1.1) D-Dimer (Chanelle) 6.28 ug/mlFEU (0.00-0.50) Sodium Level 148 mmol/L (136-145) Potassium Level 3.8 mmol/L (3.5-5.1) Chloride Level 107 mmol/L (98-107) Carbon Dioxide Level 20 mmol/L (21-32) Anion Gap 21 (6-14) Blood Urea Nitrogen 15 mg/dL (8-26) Creatinine 1.6 mg/dL (0.7-1.3) Estimated GFR (Cockcroft-Gault) 42.8 BUN/Creatinine Ratio 9 (6-20) Glucose Level 235 mg/dL (70-99) Lactic Acid Level 11.5 mmol/L (0.4-2.0) Calcium Level 8.6 mg/dL (8.5-10.1) Phosphorus Level 8.2 mg/dL (2.6-4.7) Magnesium Level 2.5 mg/dL (1.8-2.4) Total Bilirubin 0.4 mg/dL (0.2-1.0) Aspartate Amino Transf (AST/SGOT) 135 U/L (15-37) Alanine Aminotransferase (ALT/SGPT) 174 U/L (16-63) Alkaline Phosphatase 83 U/L (46-116) Ammonia 35 mcmol/L (11-34) Troponin I Quantitative < 0.017 ng/mL (0.000-0.055) IA-Elv-E-Type Natriuretic Peptide 36 pg/mL (0-124) Total Protein 6.1 g/dL (6.4-8.2) Albumin 3.5 g/dL (3.4-5.0) Albumin/Globulin Ratio 1.3 (1.0-1.7) Thyroid Stimulating Hormone (TSH) 5.103 uIU/mL (0.358-3.74) Ethyl Alcohol Level 239 mg/dL (0-10) Urine Collection Type Unknown Urine Color Yellow Urine Clarity Clear Urine pH 5.5 (<5.0-8.0) Urine Specific [place] 1.010 (1.000-1.030) Urine Protein Negative mg/dL (NEG-TRACE) Urine Glucose (UA) Negative mg/dL (NEG) Urine Ketones (Stick) Negative mg/dL (NEG) Urine Blood Negative (NEG) Urine Nitrite Negative (NEG) Urine Bilirubin Negative (NEG) Urine Urobilinogen Dipstick 0.2 mg/dL (0.2 mg/dL) Urine Leukocyte Esterase Negative (NEG) Urine RBC 0 /HPF (0-2) Urine WBC Rare /HPF (0-4) Urine Squamous Epithelial Cells Few /LPF Urine Bacteria 0 /HPF (0-FEW) Urine Opiates Screen Neg (NEG) Urine Methadone Screen Neg (NEG) Urine Barbiturates Neg (NEG) Urine Phencyclidine Screen Neg (NEG) Urine Amphetamine/Methamphetamine Neg (NEG) Urine Benzodiazepines Screen Neg (NEG) Urine Cocaine Screen Neg (NEG) Urine Cannabinoids Screen Neg (NEG) Urine Ethyl Alcohol Pos (NEG) O2 Saturation 93 % (92-99) Arterial Blood pH 7.02 (7.35-7.45) Arterial Blood pCO2 at Patient Temp 51 mmHg (35-46) Arterial Blood pO2 at Patient Temp 95 mmHg (65-108) Arterial Blood HCO3 13 mmol/L (21-28) Arterial Blood Base Excess -18 mmol/L (-3-3) FiO2 100 SARS-CoV-2 Antigen (Rapid) Negative (NEGATIVE) Test 08/04/20 09:20 08/04/20 11:15 08/04/20 13:50 O2 Saturation 98 % (92-99) Arterial Blood pH 7.10 (7.35-7.45) Arterial Blood pCO2 at Patient Temp 35 mmHg (35-46) Arterial Blood pO2 at Patient Temp 141 mmHg (65-108) Arterial Blood HCO3 11 mmol/L (21-28) Arterial Blood Base Excess -18 mmol/L (-3-3) FiO2 100 White Blood Count 15.0 x10^3/uL (4.0-11.0) Red Blood Count 4.83 x10^6/uL (4.30-5.70) Hemoglobin 15.3 g/dL (13.0-17.5) Hematocrit 46.9 % (39.0-53.0) Mean Corpuscular Volume 97 fL (79-100) Mean Corpuscular Hemoglobin 32 pg (25-35) Mean Corpuscular Hemoglobin Concent 33 g/dL (31-37) Red Cell Distribution Width 13.8 % (11.5-14.5) Platelet Count 226 x10^3/uL (140-400) Neutrophils (%) (Auto) 87 % (31-73) Lymphocytes (%) (Auto) 6 % (24-48) Monocytes (%) (Auto) 6 % (0-9) Eosinophils (%) (Auto) 0 % (0-3) Basophils (%) (Auto) 0 % (0-3) Neutrophils # (Auto) 13.1 x10^3/uL (1.8-7.7) Lymphocytes # (Auto) 1.0 x10^3/uL (1.0-4.8) Monocytes # (Auto) 0.9 x10^3/uL (0.0-1.1) Eosinophils # (Auto) 0.0 x10^3/uL (0.0-0.7) Basophils # (Auto) 0.0 x10^3/uL (0.0-0.2) Segmented Neutrophils % 88 % (35-66) Band Neutrophils % 7 % (0-9) Lymphocytes % 3 % (24-48) Monocytes % 2 % (0-10) Platelet Estimate Adequate (ADEQUATE) Prothrombin Time 14.4 SEC (11.7-14.0) Prothromb Time International Ratio 1.2 (0.8-1.1) Activated Partial Thromboplast Time 27 SEC (24-38) Fibrinogen 197 mg/dL (200-440) Sodium Level 146 mmol/L (136-145) Potassium Level 3.3 mmol/L (3.5-5.1) Chloride Level 107 mmol/L (98-107) Carbon Dioxide Level 15 mmol/L (21-32) Anion Gap 24 (6-14) Blood Urea Nitrogen 17 mg/dL (8-26) Creatinine 1.4 mg/dL (0.7-1.3) Estimated GFR (Cockcroft-Gault) 50.0 Glucose Level 232 mg/dL (70-99) 229 mg/dL (70-99) Lactic Acid Level 11.7 mmol/L (0.4-2.0) Calcium Level 7.3 mg/dL (8.5-10.1) Phosphorus Level 3.4 mg/dL (2.6-4.7) Magnesium Level 2.0 mg/dL (1.8-2.4) Troponin I Quantitative 0.230 ng/mL (0.000-0.055) Procalcitonin 0.32 ng/mL (0.00-0.10) Images Images CTA chest abdomen and pelvis with contrast: History: Drinking, smoking marijuana and fell Axial helical images of the chest abdomen and pelvis were obtained after the administration of 80 cc IV [id number] contrast. Multiplanar reconstruction was performed with separate imaging workstation including 3-D maximum intensity. Imaging as well as 3-D arterial surface rendering. This study was performed in order to evaluate the aorta and to exclude possible pulmonary embolism. Comparison: none CTA OF THE CHEST WITH IV CONTRAST: The pulmonary arteries are opacified without filling defects. The thoracic aorta appears normal. There is coronary artery calcifications. There is patchy opacities in the lower lobes bilaterally. Is multiple old rib fractures bilaterally. There is no mediastinal lymphadenopathy or hematoma. Lymphadenopathy: no Impression: 1. Multiple old rib fractures bilaterally. 2. Consolidation in the lower lobes bilaterally could be secondary to pneumonia. 3. Note no evidence of PE and normal thoracic aorta. End Impression CTA OF THE ABDOMEN AND PELVIS WITH IV CONTRAST: The abdominal aorta appears normal. The celiac axis and SMA appear normal. There is calcination involving the renal arteries with less than 50 percent stenosis. Liver: Unremarkable Spleen: Unremarkable Pancreas: Unremarkable Adrenal Glands: Unremarkable Kidneys: There is soft tissue density around the proximal right ureter with stranding in the retroperitoneal space on the right. The stomach is distended with air and fluid. The urinary bladder is collapsed and a Flores and not well seen. There is fluid within a small right inguinal canal hernia. The appendix is normal. Evaluation of stomach and bowel is limited without oral contrast. Lymphadenopathy: no. Free fluid: no. Assessment/Plan Assessment/Plan IMP JUSTIN-CR OF1.6-OLIGURIC DEHYDRATION S/P PEA ACUTE RESP FAILURE SHOCK HYPOTENSION ENCEPHALOPATHY ETOH AND MARIJUANA USE LACTIC ACIDOSIS-TYPE A ELEVATED LFT'S DUE TO SHOCK CERVICAL FX PLAN CRITICALLY ILL PT ANTIBIOTICS HCO3 GTT PRESSORS VENT SUPPORT MAY NEED DIALYSIS NS EVALUATION SOWMYA BROOKS MD Aug 04, 2020 16:43
--- NOTE | 2020-08-04 17:44 | NUR ---
Pt critically stable throughout shift, seems to be tolerating hypothermia protocol well. See flowsheet. See eMAR for meds given as part of protocol. Pt still sedated, does open eyes when applying eyedrops and blinks- pupils still fixed and pinpoint. Able to titrate levophed drip down, all VSS, on versed + fentanyl gtt.
[2020-08-04 18:06] LABS: BASE EXCESS ABG -6 mmol/L (-3-3); FIO2 ABG 70; HCO3 ABG 18 mmol/L (21-28); PCO2 ABG 29 mmHg (35-46); PO2 ABG 92 mmHg (65-108); SAT O2 ABG 97 % (92-99)
[2020-08-04 18:07] LABS: CORRECTED PCO2 ABG 24 mmHg; CORRECTED PH ABG 7.46; CORRECTED PO2 ABG 72 mmHg
[2020-08-04 18:55] LABS: BASO % 0 % (0-3); EOS % 0 % (0-3); HEMATOCRIT 44.8 % (39.0-53.0); LYMPH # 0.9 x10^3/uL (1.0-4.8); LYMPH % 7 % (24-48); MEAN CORPUSCULAR HEMOGLOBIN 32 pg (25-35); MEAN CORPUSCULAR HGB CONC 33 g/dL (31-37); MEAN CORPUSCULAR VOLUME 95 fL (79-100); MONO # 0.4 x10^3/uL (0.0-1.1); MONO % 3 % (0-9); NEUT # 11.1 x10^3/uL (1.8-7.7); NEUT % 90 % (31-73); PLATELET COUNT 188 x10^3/uL (140-400); RED BLOOD COUNT 4.71 x10^6/uL (4.30-5.70); RED CELL DISTRIBUTION WIDTH 13.5 % (11.5-14.5); WHITE BLOOD COUNT 12.4 x10^3/uL (4.0-11.0)
[2020-08-04 19:05] LABS: CALCIUM 7.4 mg/dL (8.5-10.1); CREATININE 1.3 mg/dL (0.7-1.3); GFR 54.4; MAGNESIUM 1.9 mg/dL (1.8-2.4); PHOSPHORUS 0.5 mg/dL (2.6-4.7)
[2020-08-04 19:35] LABS: POTASSIUM 2.8 mmol/L (3.5-5.1)
[2020-08-04] MEDS ORDERED: SODIUM PHOSPHATE 20 MMOL in IV NORMAL SALINE 250ML 250 ML IV ONE (20:00)
[2020-08-04] MEDS ORDERED: POTASSIUM CHLORIDE 20MEQ 100 ML IV ONE (20:00)
[2020-08-05] VITALS (34 sets, daily range): BP systolic 82–108; BP diastolic 51–81
[2020-08-05] MEDS: ACETAMINOPHEN 650 MG/20.3 ML SOLUTION. NG SCH ×6 (02:00→20:09)
[2020-08-05] MEDS: busPIRone 10 MG TABLET. NG SCH ×3 (02:01→15:36)
[2020-08-05 02:33] LABS: BASO # 0.1 x10^3/uL (0.0-0.2); BASO % 1 % (0-3); EOS % 0 % (0-3); HEMATOCRIT 39.9 % (39.0-53.0); HEMOGLOBIN 13.7 g/dL (13.0-17.5); LYMPH # 0.9 x10^3/uL (1.0-4.8); LYMPH % 7 % (24-48); MEAN CORPUSCULAR HEMOGLOBIN 32 pg (25-35); MEAN CORPUSCULAR HGB CONC 34 g/dL (31-37); MEAN CORPUSCULAR VOLUME 93 fL (79-100); MONO # 0.7 x10^3/uL (0.0-1.1); MONO % 5 % (0-9); NEUT # 11.8 x10^3/uL (1.8-7.7); NEUT % 87 % (31-73); PLATELET COUNT 169 x10^3/uL (140-400); RED BLOOD COUNT 4.28 x10^6/uL (4.30-5.70); RED CELL DISTRIBUTION WIDTH 13.7 % (11.5-14.5); WHITE BLOOD COUNT 13.5 x10^3/uL (4.0-11.0)
[2020-08-05 02:59] LABS: CALCIUM 7.1 mg/dL (8.5-10.1); GFR 73.7; MAGNESIUM 2.6 mg/dL (1.8-2.4); PHOSPHORUS 1.7 mg/dL (2.6-4.7)
[2020-08-05 03:00] LABS: POTASSIUM 2.9 mmol/L (3.5-5.1)
[2020-08-05] MEDS ORDERED: POTASSIUM CHLORIDE 20MEQ 100 ML IV ONE (03:15)
[2020-08-05] MEDS: SODIUM BICARBONATE VIAL 100 MEQ in IV DEXTROSE 5% 1,000 ML IV SCH (03:59)
[2020-08-05] MEDS: MIDAZOLAM 100mg/100ml NS BAG 100 ML IV PRN (05:05)
[2020-08-05] MEDS: POLYVINYL ALCOHOL 1.4% OPHTH SOLUTION 15ML BOTTLE. OU SCH ×4 (05:44→17:53)
[2020-08-05] MEDS: MEROPENEM 1 GM in IV NORMAL SALINE 100ML 100 ML IV SCH ×3 (05:44→21:05)
[2020-08-05] MEDS: IV NORMAL SALINE 1000ML BAG 1,000 ML IV SCH ×2 (05:46→17:53)
[2020-08-05] MEDS: HEPARIN for SUB-Q USE 5,000 UNIT/ML VIAL. SQ SCH ×3 (05:46→21:04)
[2020-08-05 06:46] LABS: BASO % 0 % (0-3); EOS % 0 % (0-3); HEMATOCRIT 39.3 % (39.0-53.0); HEMOGLOBIN 13.6 g/dL (13.0-17.5); LYMPH # 0.7 x10^3/uL (1.0-4.8); LYMPH % 5 % (24-48); MEAN CORPUSCULAR HEMOGLOBIN 32 pg (25-35); MEAN CORPUSCULAR HGB CONC 35 g/dL (31-37); MEAN CORPUSCULAR VOLUME 93 fL (79-100); MONO # 0.6 x10^3/uL (0.0-1.1); MONO % 4 % (0-9); NEUT % 91 % (31-73); PLATELET COUNT 163 x10^3/uL (140-400); RED BLOOD COUNT 4.21 x10^6/uL (4.30-5.70); RED CELL DISTRIBUTION WIDTH 13.5 % (11.5-14.5); WHITE BLOOD COUNT 14.3 x10^3/uL (4.0-11.0)
[2020-08-05 06:55] LABS: PROTHROMBIN TIME PATIENT 13.8 SEC (11.7-14.0)
[2020-08-05 07:00] LABS: ALBUMIN 2.8 g/dL (3.4-5.0); ALBUMIN/GLOBULIN RATIO 1.5 (1.0-1.7); CALCIUM 6.9 mg/dL (8.5-10.1); CREATININE 1.1 mg/dL (0.7-1.3); MAGNESIUM 2.3 mg/dL (1.8-2.4); PHOSPHORUS 2.1 mg/dL (2.6-4.7); POTASSIUM 3.2 mmol/L (3.5-5.1); TOTAL BILIRUBIN 0.8 mg/dL (0.2-1.0); TOTAL PROTEIN 4.7 g/dL (6.4-8.2)
[2020-08-05] MEDS: PANTOPRAZOLE IV PUSH 40 MG VIAL. IVP SCH (07:40)
--- NOTE | 2020-08-05 08:23 | PDOC ---
PULMONARY PROGRESS NOTES DATE: 08/05/20 TIME: 08:23 Subjective Patient remains on hypothermia protocol, and on mechanical ventilation, currently 70% and a PEEP of 5 On vasopressors Vitals Vital Signs Date Time Temp Pulse Resp B/P (MAP) Pulse Ox O2 Delivery O2 Flow Rate FiO2 08/05/20 08:00 Mechanical Ventilator 08/05/20 08:00 91.4 61 28 100/73 96 Comments Intubated/sedated Lungs: Clear Cardiovascular: S1, S2 Abdomen: Soft Extremities: No Edema Labs Laboratory Tests Test 08/04/20 05:35 08/04/20 05:40 08/04/20 06:30 08/04/20 07:10 White Blood Count 8.2 x10^3/uL (4.0-11.0) Red Blood Count 4.61 x10^6/uL (4.30-5.70) Hemoglobin 14.8 g/dL (13.0-17.5) Hematocrit 45.8 % (39.0-53.0) Mean Corpuscular Volume 99 fL (79-100) Mean Corpuscular Hemoglobin 32 pg (25-35) Mean Corpuscular Hemoglobin Concent 32 g/dL (31-37) Red Cell Distribution Width 14.5 % (11.5-14.5) Platelet Count 202 x10^3/uL (140-400) Neutrophils (%) (Auto) 31 % (31-73) Lymphocytes (%) (Auto) 59 % (24-48) Monocytes (%) (Auto) 6 % (0-9) Eosinophils (%) (Auto) 4 % (0-3) Basophils (%) (Auto) 1 % (0-3) Neutrophils # (Auto) 2.6 x10^3/uL (1.8-7.7) Lymphocytes # (Auto) 4.8 x10^3/uL (1.0-4.8) Monocytes # (Auto) 0.5 x10^3/uL (0.0-1.1) Eosinophils # (Auto) 0.3 x10^3/uL (0.0-0.7) Basophils # (Auto) 0.1 x10^3/uL (0.0-0.2) Segmented Neutrophils % 20 % (35-66) Band Neutrophils % 6 % (0-9) Lymphocytes % 66 % (24-48) Monocytes % 2 % (0-10) Eosinophils % 6 % (0-5) Smudge Cells Present Platelet Estimate Adequate (ADEQUATE) Prothrombin Time 14.5 SEC (11.7-14.0) Prothromb Time International Ratio 1.2 (0.8-1.1) D-Dimer (Chanelle) 6.28 ug/mlFEU (0.00-0.50) Sodium Level 148 mmol/L (136-145) Potassium Level 3.8 mmol/L (3.5-5.1) Chloride Level 107 mmol/L (98-107) Carbon Dioxide Level 20 mmol/L (21-32) Anion Gap 21 (6-14) Blood Urea Nitrogen 15 mg/dL (8-26) Creatinine 1.6 mg/dL (0.7-1.3) Estimated GFR (Cockcroft-Gault) 42.8 BUN/Creatinine Ratio 9 (6-20) Glucose Level 235 mg/dL (70-99) Lactic Acid Level 11.5 mmol/L (0.4-2.0) Calcium Level 8.6 mg/dL (8.5-10.1) Phosphorus Level 8.2 mg/dL (2.6-4.7) Magnesium Level 2.5 mg/dL (1.8-2.4) Total Bilirubin 0.4 mg/dL (0.2-1.0) Aspartate Amino Transf (AST/SGOT) 135 U/L (15-37) Alanine Aminotransferase (ALT/SGPT) 174 U/L (16-63) Alkaline Phosphatase 83 U/L (46-116) Ammonia 35 mcmol/L (11-34) Troponin I Quantitative < 0.017 ng/mL (0.000-0.055) JJ-Nbd-B-Type Natriuretic Peptide 36 pg/mL (0-124) Total Protein 6.1 g/dL (6.4-8.2) Albumin 3.5 g/dL (3.4-5.0) Albumin/Globulin Ratio 1.3 (1.0-1.7) Thyroid Stimulating Hormone (TSH) 5.103 uIU/mL (0.358-3.74) Ethyl Alcohol Level 239 mg/dL (0-10) Urine Collection Type Unknown Urine Color Yellow Urine Clarity Clear Urine pH 5.5 (<5.0-8.0) Urine Specific [place] 1.010 (1.000-1.030) Urine Protein Negative mg/dL (NEG-TRACE) Urine Glucose (UA) Negative mg/dL (NEG) Urine Ketones (Stick) Negative mg/dL (NEG) Urine Blood Negative (NEG) Urine Nitrite Negative (NEG) Urine Bilirubin Negative (NEG) Urine Urobilinogen Dipstick 0.2 mg/dL (0.2 mg/dL) Urine Leukocyte Esterase Negative (NEG) Urine RBC 0 /HPF (0-2) Urine WBC Rare /HPF (0-4) Urine Squamous Epithelial Cells Few /LPF Urine Bacteria 0 /HPF (0-FEW) Urine Opiates Screen Neg (NEG) Urine Methadone Screen Neg (NEG) Urine Barbiturates Neg (NEG) Urine Phencyclidine Screen Neg (NEG) Urine Amphetamine/Methamphetamine Neg (NEG) Urine Benzodiazepines Screen Neg (NEG) Urine Cocaine Screen Neg (NEG) Urine Cannabinoids Screen Neg (NEG) Urine Ethyl Alcohol Pos (NEG) O2 Saturation 93 % (92-99) Arterial Blood pH 7.02 (7.35-7.45) Arterial Blood pCO2 at Patient Temp 51 mmHg (35-46) Arterial Blood pO2 at Patient Temp 95 mmHg (65-108) Arterial Blood HCO3 13 mmol/L (21-28) Arterial Blood Base Excess -18 mmol/L (-3-3) FiO2 100 SARS-CoV-2 Antigen (Rapid) Negative (NEGATIVE) Test 08/04/20 09:20 08/04/20 11:15 08/04/20 13:50 08/04/20 17:45 O2 Saturation 98 % (92-99) 97 % (92-99) Arterial Blood pH 7.10 (7.35-7.45) 7.40 (7.35-7.45) Arterial Blood pCO2 at Patient Temp 35 mmHg (35-46) 29 mmHg (35-46) Arterial Blood pO2 at Patient Temp 141 mmHg (65-108) 92 mmHg (65-108) Arterial Blood HCO3 11 mmol/L (21-28) 18 mmol/L (21-28) Arterial Blood Base Excess -18 mmol/L (-3-3) -6 mmol/L (-3-3) FiO2 100 70 White Blood Count 15.0 x10^3/uL (4.0-11.0) Red Blood Count 4.83 x10^6/uL (4.30-5.70) Hemoglobin 15.3 g/dL (13.0-17.5) Hematocrit 46.9 % (39.0-53.0) Mean Corpuscular Volume 97 fL (79-100) Mean Corpuscular Hemoglobin 32 pg (25-35) Mean Corpuscular Hemoglobin Concent 33 g/dL (31-37) Red Cell Distribution Width 13.8 % (11.5-14.5) Platelet Count 226 x10^3/uL (140-400) Neutrophils (%) (Auto) 87 % (31-73) Lymphocytes (%) (Auto) 6 % (24-48) Monocytes (%) (Auto) 6 % (0-9) Eosinophils (%) (Auto) 0 % (0-3) Basophils (%) (Auto) 0 % (0-3) Neutrophils # (Auto) 13.1 x10^3/uL (1.8-7.7) Lymphocytes # (Auto) 1.0 x10^3/uL (1.0-4.8) Monocytes # (Auto) 0.9 x10^3/uL (0.0-1.1) Eosinophils # (Auto) 0.0 x10^3/uL (0.0-0.7) Basophils # (Auto) 0.0 x10^3/uL (0.0-0.2) Segmented Neutrophils % 88 % (35-66) Band Neutrophils % 7 % (0-9) Lymphocytes % 3 % (24-48) Monocytes % 2 % (0-10) Platelet Estimate Adequate (ADEQUATE) Prothrombin Time 14.4 SEC (11.7-14.0) Prothromb Time International Ratio 1.2 (0.8-1.1) Activated Partial Thromboplast Time 27 SEC (24-38) Fibrinogen 197 mg/dL (200-440) Sodium Level 146 mmol/L (136-145) Potassium Level 3.3 mmol/L (3.5-5.1) Chloride Level 107 mmol/L (98-107) Carbon Dioxide Level 15 mmol/L (21-32) Anion Gap 24 (6-14) Blood Urea Nitrogen 17 mg/dL (8-26) Creatinine 1.4 mg/dL (0.7-1.3) Estimated GFR (Cockcroft-Gault) 50.0 Glucose Level 232 mg/dL (70-99) 229 mg/dL (70-99) Lactic Acid Level 11.7 mmol/L (0.4-2.0) Calcium Level 7.3 mg/dL (8.5-10.1) Phosphorus Level 3.4 mg/dL (2.6-4.7) Magnesium Level 2.0 mg/dL (1.8-2.4) Troponin I Quantitative 0.230 ng/mL (0.000-0.055) Procalcitonin 0.32 ng/mL (0.00-0.10) Arterial Blood pH (Temp corrected) 7.46 Arterial Blood pCO2 (Temp correct) 24 mmHg Arterial Blood pO2 (Temp corrected) 72 mmHg Test 08/04/20 18:43 08/05/20 02:15 08/05/20 06:00 White Blood Count 12.4 x10^3/uL (4.0-11.0) 13.5 x10^3/uL (4.0-11.0) 14.3 x10^3/uL (4.0-11.0) Red Blood Count 4.71 x10^6/uL (4.30-5.70) 4.28 x10^6/uL (4.30-5.70) 4.21 x10^6/uL (4.30-5.70) Hemoglobin 15.0 g/dL (13.0-17.5) 13.7 g/dL (13.0-17.5) 13.6 g/dL (13.0-17.5) Hematocrit 44.8 % (39.0-53.0) 39.9 % (39.0-53.0) 39.3 % (39.0-53.0) Mean Corpuscular Volume 95 fL (79-100) 93 fL (79-100) 93 fL (79-100) Mean Corpuscular Hemoglobin 32 pg (25-35) 32 pg (25-35) 32 pg (25-35) Mean Corpuscular Hemoglobin Concent 33 g/dL (31-37) 34 g/dL (31-37) 35 g/dL (31-37) Red Cell Distribution Width 13.5 % (11.5-14.5) 13.7 % (11.5-14.5) 13.5 % (11.5-14.5) Platelet Count 188 x10^3/uL (140-400) 169 x10^3/uL (140-400) 163 x10^3/uL (140-400) Neutrophils (%) (Auto) 90 % (31-73) 87 % (31-73) 91 % (31-73) Lymphocytes (%) (Auto) 7 % (24-48) 7 % (24-48) 5 % (24-48) Monocytes (%) (Auto) 3 % (0-9) 5 % (0-9) 4 % (0-9) Eosinophils (%) (Auto) 0 % (0-3) 0 % (0-3) 0 % (0-3) Basophils (%) (Auto) 0 % (0-3) 1 % (0-3) 0 % (0-3) Neutrophils # (Auto) 11.1 x10^3/uL (1.8-7.7) 11.8 x10^3/uL (1.8-7.7) 13.0 x10^3/uL (1.8-7.7) Lymphocytes # (Auto) 0.9 x10^3/uL (1.0-4.8) 0.9 x10^3/uL (1.0-4.8) 0.7 x10^3/uL (1.0-4.8) Monocytes # (Auto) 0.4 x10^3/uL (0.0-1.1) 0.7 x10^3/uL (0.0-1.1) 0.6 x10^3/uL (0.0-1.1) Eosinophils # (Auto) 0.0 x10^3/uL (0.0-0.7) 0.0 x10^3/uL (0.0-0.7) 0.0 x10^3/uL (0.0-0.7) Basophils # (Auto) 0.0 x10^3/uL (0.0-0.2) 0.1 x10^3/uL (0.0-0.2) 0.0 x10^3/uL (0.0-0.2) Prothrombin Time 14.0 SEC (11.7-14.0) 14.0 SEC (11.7-14.0) 13.8 SEC (11.7-14.0) Prothromb Time International Ratio 1.1 (0.8-1.1) 1.1 (0.8-1.1) 1.1 (0.8-1.1) Activated Partial Thromboplast Time 26 SEC (24-38) 29 SEC (24-38) 30 SEC (24-38) Sodium Level 143 mmol/L (136-145) 146 mmol/L (136-145) 144 mmol/L (136-145) Potassium Level 2.8 mmol/L (3.5-5.1) 2.9 mmol/L (3.5-5.1) 3.2 mmol/L (3.5-5.1) Chloride Level 109 mmol/L (98-107) 110 mmol/L (98-107) 108 mmol/L (98-107) Carbon Dioxide Level 21 mmol/L (21-32) 24 mmol/L (21-32) 23 mmol/L (21-32) Anion Gap 13 (6-14) 12 (6-14) 13 (6-14) Blood Urea Nitrogen 20 mg/dL (8-26) 21 mg/dL (8-26) 22 mg/dL (8-26) Creatinine 1.3 mg/dL (0.7-1.3) 1.0 mg/dL (0.7-1.3) 1.1 mg/dL (0.7-1.3) Estimated GFR (Cockcroft-Gault) 54.4 73.7 66.0 Glucose Level 180 mg/dL (70-99) 99 mg/dL (70-99) 136 mg/dL (70-99) Calcium Level 7.4 mg/dL (8.5-10.1) 7.1 mg/dL (8.5-10.1) 6.9 mg/dL (8.5-10.1) Phosphorus Level 0.5 mg/dL (2.6-4.7) 1.7 mg/dL (2.6-4.7) 2.1 mg/dL (2.6-4.7) Magnesium Level 1.9 mg/dL (1.8-2.4) 2.6 mg/dL (1.8-2.4) 2.3 mg/dL (1.8-2.4) Ionized Calcium 0.95 mmol/L (1.13-1.32) BUN/Creatinine Ratio 20 (6-20) Total Bilirubin 0.8 mg/dL (0.2-1.0) Aspartate Amino Transf (AST/SGOT) 135 U/L (15-37) Alanine Aminotransferase (ALT/SGPT) 168 U/L (16-63) Alkaline Phosphatase 54 U/L (46-116) Creatine Kinase 245 U/L (39-308) Total Protein 4.7 g/dL (6.4-8.2) Albumin 2.8 g/dL (3.4-5.0) Albumin/Globulin Ratio 1.5 (1.0-1.7) Laboratory Tests Test 08/04/20 09:20 08/04/20 11:15 08/04/20 13:50 08/04/20 17:45 O2 Saturation 98 % (92-99) 97 % (92-99) Arterial Blood pH 7.10 (7.35-7.45) 7.40 (7.35-7.45) Arterial Blood pCO2 at Patient Temp 35 mmHg (35-46) 29 mmHg (35-46) Arterial Blood pO2 at Patient Temp 141 mmHg (65-108) 92 mmHg (65-108) Arterial Blood HCO3 11 mmol/L (21-28) 18 mmol/L (21-28) Arterial Blood Base Excess -18 mmol/L (-3-3) -6 mmol/L (-3-3) FiO2 100 70 White Blood Count 15.0 x10^3/uL (4.0-11.0) Red Blood Count 4.83 x10^6/uL (4.30-5.70) Hemoglobin 15.3 g/dL (13.0-17.5) Hematocrit 46.9 % (39.0-53.0) Mean Corpuscular Volume 97 fL (79-100) Mean Corpuscular Hemoglobin 32 pg (25-35) Mean Corpuscular Hemoglobin Concent 33 g/dL (31-37) Red Cell Distribution Width 13.8 % (11.5-14.5) Platelet Count 226 x10^3/uL (140-400) Neutrophils (%) (Auto) 87 % (31-73) Lymphocytes (%) (Auto) 6 % (24-48) Monocytes (%) (Auto) 6 % (0-9) Eosinophils (%) (Auto) 0 % (0-3) Basophils (%) (Auto) 0 % (0-3) Neutrophils # (Auto) 13.1 x10^3/uL (1.8-7.7) Lymphocytes # (Auto) 1.0 x10^3/uL (1.0-4.8) Monocytes # (Auto) 0.9 x10^3/uL (0.0-1.1) Eosinophils # (Auto) 0.0 x10^3/uL (0.0-0.7) Basophils # (Auto) 0.0 x10^3/uL (0.0-0.2) Segmented Neutrophils % 88 % (35-66) Band Neutrophils % 7 % (0-9) Lymphocytes % 3 % (24-48) Monocytes % 2 % (0-10) Platelet Estimate Adequate (ADEQUATE) Prothrombin Time 14.4 SEC (11.7-14.0) Prothromb Time International Ratio 1.2 (0.8-1.1) Activated Partial Thromboplast Time 27 SEC (24-38) Fibrinogen 197 mg/dL (200-440) Sodium Level 146 mmol/L (136-145) Potassium Level 3.3 mmol/L (3.5-5.1) Chloride Level 107 mmol/L (98-107) Carbon Dioxide Level 15 mmol/L (21-32) Anion Gap 24 (6-14) Blood Urea Nitrogen 17 mg/dL (8-26) Creatinine 1.4 mg/dL (0.7-1.3) Estimated GFR (Cockcroft-Gault) 50.0 Glucose Level 232 mg/dL (70-99) 229 mg/dL (70-99) Lactic Acid Level 11.7 mmol/L (0.4-2.0) Calcium Level 7.3 mg/dL (8.5-10.1) Phosphorus Level 3.4 mg/dL (2.6-4.7) Magnesium Level 2.0 mg/dL (1.8-2.4) Troponin I Quantitative 0.230 ng/mL (0.000-0.055) Procalcitonin 0.32 ng/mL (0.00-0.10) Arterial Blood pH (Temp corrected) 7.46 Arterial Blood pCO2 (Temp correct) 24 mmHg Arterial Blood pO2 (Temp corrected) 72 mmHg Test 08/04/20 18:43 08/05/20 02:15 08/05/20 06:00 White Blood Count 12.4 x10^3/uL (4.0-11.0) 13.5 x10^3/uL (4.0-11.0) 14.3 x10^3/uL (4.0-11.0) Red Blood Count 4.71 x10^6/uL (4.30-5.70) 4.28 x10^6/uL (4.30-5.70) 4.21 x10^6/uL (4.30-5.70) Hemoglobin 15.0 g/dL (13.0-17.5) 13.7 g/dL (13.0-17.5) 13.6 g/dL (13.0-17.5) Hematocrit 44.8 % (39.0-53.0) 39.9 % (39.0-53.0) 39.3 % (39.0-53.0) Mean Corpuscular Volume 95 fL (79-100) 93 fL (79-100) 93 fL (79-100) Mean Corpuscular Hemoglobin 32 pg (25-35) 32 pg (25-35) 32 pg (25-35) Mean Corpuscular Hemoglobin Concent 33 g/dL (31-37) 34 g/dL (31-37) 35 g/dL (31-37) Red Cell Distribution Width 13.5 % (11.5-14.5) 13.7 % (11.5-14.5) 13.5 % (11.5-14.5) Platelet Count 188 x10^3/uL (140-400) 169 x10^3/uL (140-400) 163 x10^3/uL (140-400) Neutrophils (%) (Auto) 90 % (31-73) 87 % (31-73) 91 % (31-73) Lymphocytes (%) (Auto) 7 % (24-48) 7 % (24-48) 5 % (24-48) Monocytes (%) (Auto) 3 % (0-9) 5 % (0-9) 4 % (0-9) Eosinophils (%) (Auto) 0 % (0-3) 0 % (0-3) 0 % (0-3) Basophils (%) (Auto) 0 % (0-3) 1 % (0-3) 0 % (0-3) Neutrophils # (Auto) 11.1 x10^3/uL (1.8-7.7) 11.8 x10^3/uL (1.8-7.7) 13.0 x10^3/uL (1.8-7.7) Lymphocytes # (Auto) 0.9 x10^3/uL (1.0-4.8) 0.9 x10^3/uL (1.0-4.8) 0.7 x10^3/uL (1.0-4.8) Monocytes # (Auto) 0.4 x10^3/uL (0.0-1.1) 0.7 x10^3/uL (0.0-1.1) 0.6 x10^3/uL (0.0-1.1) Eosinophils # (Auto) 0.0 x10^3/uL (0.0-0.7) 0.0 x10^3/uL (0.0-0.7) 0.0 x10^3/uL (0.0-0.7) Basophils # (Auto) 0.0 x10^3/uL (0.0-0.2) 0.1 x10^3/uL (0.0-0.2) 0.0 x10^3/uL (0.0-0.2) Prothrombin Time 14.0 SEC (11.7-14.0) 14.0 SEC (11.7-14.0) 13.8 SEC (11.7-14.0) Prothromb Time International Ratio 1.1 (0.8-1.1) 1.1 (0.8-1.1) 1.1 (0.8-1.1) Activated Partial Thromboplast Time 26 SEC (24-38) 29 SEC (24-38) 30 SEC (24-38) Sodium Level 143 mmol/L (136-145) 146 mmol/L (136-145) 144 mmol/L (136-145) Potassium Level 2.8 mmol/L (3.5-5.1) 2.9 mmol/L (3.5-5.1) 3.2 mmol/L (3.5-5.1) Chloride Level 109 mmol/L (98-107) 110 mmol/L (98-107) 108 mmol/L (98-107) Carbon Dioxide Level 21 mmol/L (21-32) 24 mmol/L (21-32) 23 mmol/L (21-32) Anion Gap 13 (6-14) 12 (6-14) 13 (6-14) Blood Urea Nitrogen 20 mg/dL (8-26) 21 mg/dL (8-26) 22 mg/dL (8-26) Creatinine 1.3 mg/dL (0.7-1.3) 1.0 mg/dL (0.7-1.3) 1.1 mg/dL (0.7-1.3) Estimated GFR (Cockcroft-Gault) 54.4 73.7 66.0 Glucose Level 180 mg/dL (70-99) 99 mg/dL (70-99) 136 mg/dL (70-99) Calcium Level 7.4 mg/dL (8.5-10.1) 7.1 mg/dL (8.5-10.1) 6.9 mg/dL (8.5-10.1) Phosphorus Level 0.5 mg/dL (2.6-4.7) 1.7 mg/dL (2.6-4.7) 2.1 mg/dL (2.6-4.7) Magnesium Level 1.9 mg/dL (1.8-2.4) 2.6 mg/dL (1.8-2.4) 2.3 mg/dL (1.8-2.4) Ionized Calcium 0.95 mmol/L (1.13-1.32) BUN/Creatinine Ratio 20 (6-20) Total Bilirubin 0.8 mg/dL (0.2-1.0) Aspartate Amino Transf (AST/SGOT) 135 U/L (15-37) Alanine Aminotransferase (ALT/SGPT) 168 U/L (16-63) Alkaline Phosphatase 54 U/L (46-116) Creatine Kinase 245 U/L (39-308) Total Protein 4.7 g/dL (6.4-8.2) Albumin 2.8 g/dL (3.4-5.0) Albumin/Globulin Ratio 1.5 (1.0-1.7) Comments Impression: 1. Retroperitoneal hematoma on the right with density surrounding the proximal right ureter. A vascular injury to the right kidney is possible however the right kidney appears well-perfused and there is no gross extravasation of contrast. 2. L4 vertebral body compression fracture could be old. Impression . IMPRESSION: 1. Acute respiratory failure secondary to pulseless electrical activity cardiac arrest and also contributed by toxic encephalopathy from alcohol and marijuana. 2. Pulseless electrical activity cardiac arrest. 3. Toxic encephalopathy, status post fall after found to be drinking alcohol and smoking marijuana. 4. [id number] negative. 5. Acute kidney injury. 6. Marked lactic acidosis from cardiac arrest and shock, less likely septic. 7. Shock, cardiogenic. 8. Abnormal ALT and AST secondary to hypoperfusion. 9. Abnormal D-dimer with no evidence of pulmonary embolism. 10. Severe metabolic acidosis. 11. Hypernatremia. Plan . RECOMMENDATIONS: Continue current vent support, currently assist control 70% and a PEEP of 5 Follow ABG/chest x-ray, increase FiO2 to 75% and decrease rate to 24 today Continue hypothermia protocol Continue vasopressors as needed to keep MAP greater than 65 Follow nephrology recommendations, currently on a bicarb drip Continue antibiotics Follow neurology recommendations DVT/GI prophylaxis Discussed with RN and RT Critical care time [id number] AM REINIER MULLEN MD Aug 05, 2020 08:23
[2020-08-05 08:41] LABS: BASE EXCESS ABG 0 mmol/L (-3-3); CORRECTED PCO2 ABG 23 mmHg; CORRECTED PH ABG 7.58; CORRECTED PO2 ABG 51 mmHg; HCO3 ABG 21 mmol/L (21-28); PCO2 ABG 27 mmHg (35-46); PO2 ABG 66 mmHg (65-108); SAT O2 ABG 94 % (92-99)
[2020-08-05] MEDS: ELECTROLYTE (ICU) PROTOCOL. MC SCH (08:43)
[2020-08-05 09:48] LABS: FIO2 ABG 70/VENT
[2020-08-05] MEDS ORDERED: ATOR40TA59 PO (10:02)
[2020-08-05] MEDS ORDERED: FAMO40TA4 PO (10:02)
[2020-08-05] MEDS ORDERED: LOSA-73 PO (10:02)
[2020-08-05] MEDS ORDERED: ASPI81TA59 PO (10:02)
[2020-08-05] MEDS ORDERED: PANT40TA77 PO (10:02)
--- NOTE | 2020-08-05 11:07 | PDOC ---
Renal-Progress Notes Subjective Notes Notes ON THE VENT History of Present Illness Hx of present illness NO ACUTE CHANGE Vitals Vitals Vital Signs Date Time Temp Pulse Resp B/P (MAP) Pulse Ox O2 Delivery O2 Flow Rate FiO2 08/05/20 10:30 91.7 58 24 98/71 96 Ventilator Weight Weight [ ] I.O. Intake and Output Intake and Output 08/05/20 07:00 Intake Total 6537.8 ml Output Total 2110 ml Balance 4427.8 ml Intake IV Total 6537.8 ml Output Urine Total 2110 ml Labs Labs Laboratory Tests Test 08/04/20 11:15 08/04/20 13:50 08/04/20 17:45 08/04/20 18:43 White Blood Count 15.0 x10^3/uL (4.0-11.0) 12.4 x10^3/uL (4.0-11.0) Red Blood Count 4.83 x10^6/uL (4.30-5.70) 4.71 x10^6/uL (4.30-5.70) Hemoglobin 15.3 g/dL (13.0-17.5) 15.0 g/dL (13.0-17.5) Hematocrit 46.9 % (39.0-53.0) 44.8 % (39.0-53.0) Mean Corpuscular Volume 97 fL (79-100) 95 fL (79-100) Mean Corpuscular Hemoglobin 32 pg (25-35) 32 pg (25-35) Mean Corpuscular Hemoglobin Concent 33 g/dL (31-37) 33 g/dL (31-37) Red Cell Distribution Width 13.8 % (11.5-14.5) 13.5 % (11.5-14.5) Platelet Count 226 x10^3/uL (140-400) 188 x10^3/uL (140-400) Neutrophils (%) (Auto) 87 % (31-73) 90 % (31-73) Lymphocytes (%) (Auto) 6 % (24-48) 7 % (24-48) Monocytes (%) (Auto) 6 % (0-9) 3 % (0-9) Eosinophils (%) (Auto) 0 % (0-3) 0 % (0-3) Basophils (%) (Auto) 0 % (0-3) 0 % (0-3) Neutrophils # (Auto) 13.1 x10^3/uL (1.8-7.7) 11.1 x10^3/uL (1.8-7.7) Lymphocytes # (Auto) 1.0 x10^3/uL (1.0-4.8) 0.9 x10^3/uL (1.0-4.8) Monocytes # (Auto) 0.9 x10^3/uL (0.0-1.1) 0.4 x10^3/uL (0.0-1.1) Eosinophils # (Auto) 0.0 x10^3/uL (0.0-0.7) 0.0 x10^3/uL (0.0-0.7) Basophils # (Auto) 0.0 x10^3/uL (0.0-0.2) 0.0 x10^3/uL (0.0-0.2) Segmented Neutrophils % 88 % (35-66) Band Neutrophils % 7 % (0-9) Lymphocytes % 3 % (24-48) Monocytes % 2 % (0-10) Platelet Estimate Adequate (ADEQUATE) Prothrombin Time 14.4 SEC (11.7-14.0) 14.0 SEC (11.7-14.0) Prothromb Time International Ratio 1.2 (0.8-1.1) 1.1 (0.8-1.1) Activated Partial Thromboplast Time 27 SEC (24-38) 26 SEC (24-38) Fibrinogen 197 mg/dL (200-440) Sodium Level 146 mmol/L (136-145) 143 mmol/L (136-145) Potassium Level 3.3 mmol/L (3.5-5.1) 2.8 mmol/L (3.5-5.1) Chloride Level 107 mmol/L (98-107) 109 mmol/L (98-107) Carbon Dioxide Level 15 mmol/L (21-32) 21 mmol/L (21-32) Anion Gap 24 (6-14) 13 (6-14) Blood Urea Nitrogen 17 mg/dL (8-26) 20 mg/dL (8-26) Creatinine 1.4 mg/dL (0.7-1.3) 1.3 mg/dL (0.7-1.3) Estimated GFR (Cockcroft-Gault) 50.0 54.4 Glucose Level 232 mg/dL (70-99) 229 mg/dL (70-99) 180 mg/dL (70-99) Lactic Acid Level 11.7 mmol/L (0.4-2.0) Calcium Level 7.3 mg/dL (8.5-10.1) 7.4 mg/dL (8.5-10.1) Phosphorus Level 3.4 mg/dL (2.6-4.7) 0.5 mg/dL (2.6-4.7) Magnesium Level 2.0 mg/dL (1.8-2.4) 1.9 mg/dL (1.8-2.4) Troponin I Quantitative 0.230 ng/mL (0.000-0.055) Procalcitonin 0.32 ng/mL (0.00-0.10) O2 Saturation 97 % (92-99) Arterial Blood pH 7.40 (7.35-7.45) Arterial Blood pH (Temp corrected) 7.46 Arterial Blood pCO2 at Patient Temp 29 mmHg (35-46) Arterial Blood pCO2 (Temp correct) 24 mmHg Arterial Blood pO2 at Patient Temp 92 mmHg (65-108) Arterial Blood pO2 (Temp corrected) 72 mmHg Arterial Blood HCO3 18 mmol/L (21-28) Arterial Blood Base Excess -6 mmol/L (-3-3) FiO2 70 Test 08/05/20 02:15 08/05/20 06:00 08/05/20 08:00 White Blood Count 13.5 x10^3/uL (4.0-11.0) 14.3 x10^3/uL (4.0-11.0) Red Blood Count 4.28 x10^6/uL (4.30-5.70) 4.21 x10^6/uL (4.30-5.70) Hemoglobin 13.7 g/dL (13.0-17.5) 13.6 g/dL (13.0-17.5) Hematocrit 39.9 % (39.0-53.0) 39.3 % (39.0-53.0) Mean Corpuscular Volume 93 fL (79-100) 93 fL (79-100) Mean Corpuscular Hemoglobin 32 pg (25-35) 32 pg (25-35) Mean Corpuscular Hemoglobin Concent 34 g/dL (31-37) 35 g/dL (31-37) Red Cell Distribution Width 13.7 % (11.5-14.5) 13.5 % (11.5-14.5) Platelet Count 169 x10^3/uL (140-400) 163 x10^3/uL (140-400) Neutrophils (%) (Auto) 87 % (31-73) 91 % (31-73) Lymphocytes (%) (Auto) 7 % (24-48) 5 % (24-48) Monocytes (%) (Auto) 5 % (0-9) 4 % (0-9) Eosinophils (%) (Auto) 0 % (0-3) 0 % (0-3) Basophils (%) (Auto) 1 % (0-3) 0 % (0-3) Neutrophils # (Auto) 11.8 x10^3/uL (1.8-7.7) 13.0 x10^3/uL (1.8-7.7) Lymphocytes # (Auto) 0.9 x10^3/uL (1.0-4.8) 0.7 x10^3/uL (1.0-4.8) Monocytes # (Auto) 0.7 x10^3/uL (0.0-1.1) 0.6 x10^3/uL (0.0-1.1) Eosinophils # (Auto) 0.0 x10^3/uL (0.0-0.7) 0.0 x10^3/uL (0.0-0.7) Basophils # (Auto) 0.1 x10^3/uL (0.0-0.2) 0.0 x10^3/uL (0.0-0.2) Prothrombin Time 14.0 SEC (11.7-14.0) 13.8 SEC (11.7-14.0) Prothromb Time International Ratio 1.1 (0.8-1.1) 1.1 (0.8-1.1) Activated Partial Thromboplast Time 29 SEC (24-38) 30 SEC (24-38) Sodium Level 146 mmol/L (136-145) 144 mmol/L (136-145) Potassium Level 2.9 mmol/L (3.5-5.1) 3.2 mmol/L (3.5-5.1) Chloride Level 110 mmol/L (98-107) 108 mmol/L (98-107) Carbon Dioxide Level 24 mmol/L (21-32) 23 mmol/L (21-32) Anion Gap 12 (6-14) 13 (6-14) Blood Urea Nitrogen 21 mg/dL (8-26) 22 mg/dL (8-26) Creatinine 1.0 mg/dL (0.7-1.3) 1.1 mg/dL (0.7-1.3) Estimated GFR (Cockcroft-Gault) 73.7 66.0 Glucose Level 99 mg/dL (70-99) 136 mg/dL (70-99) Calcium Level 7.1 mg/dL (8.5-10.1) 6.9 mg/dL (8.5-10.1) Ionized Calcium 0.95 mmol/L (1.13-1.32) Phosphorus Level 1.7 mg/dL (2.6-4.7) 2.1 mg/dL (2.6-4.7) Magnesium Level 2.6 mg/dL (1.8-2.4) 2.3 mg/dL (1.8-2.4) BUN/Creatinine Ratio 20 (6-20) Total Bilirubin 0.8 mg/dL (0.2-1.0) Aspartate Amino Transf (AST/SGOT) 135 U/L (15-37) Alanine Aminotransferase (ALT/SGPT) 168 U/L (16-63) Alkaline Phosphatase 54 U/L (46-116) Creatine Kinase 245 U/L (39-308) Total Protein 4.7 g/dL (6.4-8.2) Albumin 2.8 g/dL (3.4-5.0) Albumin/Globulin Ratio 1.5 (1.0-1.7) O2 Saturation 94 % (92-99) Arterial Blood pH 7.51 (7.35-7.45) Arterial Blood pH (Temp corrected) 7.58 Arterial Blood pCO2 at Patient Temp 27 mmHg (35-46) Arterial Blood pCO2 (Temp correct) 23 mmHg Arterial Blood pO2 at Patient Temp 66 mmHg (65-108) Arterial Blood pO2 (Temp corrected) 51 mmHg Arterial Blood HCO3 21 mmol/L (21-28) Arterial Blood Base Excess 0 mmol/L (-3-3) FiO2 70/vent Micro Micro Microbiology 08/04/20 Blood Culture - Preliminary, Resulted NO GROWTH AFTER 1 DAY Review of Systems Constitutional: yes: unresponsive Physical Exam General Appearance: other (INTUBATED) Respiratory: decreased breath sounds Heart: S1S2 Abdomen: soft, bowel sounds present Genitourinary: bladder flat Extremities: pulses present Neurology: other (SEDATED) Assessment Assessment IMP JUSTIN-CR IMPROVED TO 1.1 HYPOPHOSPHATEMIA DEHYDRATION S/P PEA ACUTE RESP FAILURE SHOCK HYPOTENSION ENCEPHALOPATHY ETOH AND MARIJUANA USE LACTIC ACIDOSIS-TYPE A-RESOLVED NOW ALKALEMIA ELEVATED LFT'S DUE TO SHOCK CERVICAL FX PLAN CRITICALLY ILL PT ANTIBIOTICS STOP HCO3 GTT ISOTONIC SALINE REPLACE K AND PO4 PRESSORS VENT SUPPORT NS EVALUATION SOWMYA BROOKS MD Aug 05, 2020 11:07
[2020-08-05] MEDS ORDERED: IV NORMAL SALINE 1000ML BAG 1,000 ML IV SCH (11:15)
--- NOTE | 2020-08-05 11:18 | PDOC ---
DEANNA RAYMOND MELTER LOADER 08/05/20 1118: CARDIO Progress Notes Date and Time Date of Service 08/05/2020 Time of Evaluation 0950 Subjective Subjective: Other (intubated) Vitals Vitals Vital Signs Date Time Temp Pulse Resp B/P (MAP) Pulse Ox O2 Delivery O2 Flow Rate FiO2 08/05/20 11:00 91.8 61 24 91/65 96 Ventilator Weight Weight [ ] Input and Output Intake and Output Intake and Output 08/05/20 06:59 Intake Total 6537.8 ml Output Total 2110 ml Balance 4427.8 ml Intake IV Total 6537.8 ml Output Urine Total 2110 ml Laboratory Labs Laboratory Tests Test 08/04/20 11:15 08/04/20 13:50 08/04/20 17:45 08/04/20 18:43 White Blood Count 15.0 x10^3/uL (4.0-11.0) 12.4 x10^3/uL (4.0-11.0) Red Blood Count 4.83 x10^6/uL (4.30-5.70) 4.71 x10^6/uL (4.30-5.70) Hemoglobin 15.3 g/dL (13.0-17.5) 15.0 g/dL (13.0-17.5) Hematocrit 46.9 % (39.0-53.0) 44.8 % (39.0-53.0) Mean Corpuscular Volume 97 fL (79-100) 95 fL (79-100) Mean Corpuscular Hemoglobin 32 pg (25-35) 32 pg (25-35) Mean Corpuscular Hemoglobin Concent 33 g/dL (31-37) 33 g/dL (31-37) Red Cell Distribution Width 13.8 % (11.5-14.5) 13.5 % (11.5-14.5) Platelet Count 226 x10^3/uL (140-400) 188 x10^3/uL (140-400) Neutrophils (%) (Auto) 87 % (31-73) 90 % (31-73) Lymphocytes (%) (Auto) 6 % (24-48) 7 % (24-48) Monocytes (%) (Auto) 6 % (0-9) 3 % (0-9) Eosinophils (%) (Auto) 0 % (0-3) 0 % (0-3) Basophils (%) (Auto) 0 % (0-3) 0 % (0-3) Neutrophils # (Auto) 13.1 x10^3/uL (1.8-7.7) 11.1 x10^3/uL (1.8-7.7) Lymphocytes # (Auto) 1.0 x10^3/uL (1.0-4.8) 0.9 x10^3/uL (1.0-4.8) Monocytes # (Auto) 0.9 x10^3/uL (0.0-1.1) 0.4 x10^3/uL (0.0-1.1) Eosinophils # (Auto) 0.0 x10^3/uL (0.0-0.7) 0.0 x10^3/uL (0.0-0.7) Basophils # (Auto) 0.0 x10^3/uL (0.0-0.2) 0.0 x10^3/uL (0.0-0.2) Segmented Neutrophils % 88 % (35-66) Band Neutrophils % 7 % (0-9) Lymphocytes % 3 % (24-48) Monocytes % 2 % (0-10) Platelet Estimate Adequate (ADEQUATE) Prothrombin Time 14.4 SEC (11.7-14.0) 14.0 SEC (11.7-14.0) Prothromb Time International Ratio 1.2 (0.8-1.1) 1.1 (0.8-1.1) Activated Partial Thromboplast Time 27 SEC (24-38) 26 SEC (24-38) Fibrinogen 197 mg/dL (200-440) Sodium Level 146 mmol/L (136-145) 143 mmol/L (136-145) Potassium Level 3.3 mmol/L (3.5-5.1) 2.8 mmol/L (3.5-5.1) Chloride Level 107 mmol/L (98-107) 109 mmol/L (98-107) Carbon Dioxide Level 15 mmol/L (21-32) 21 mmol/L (21-32) Anion Gap 24 (6-14) 13 (6-14) Blood Urea Nitrogen 17 mg/dL (8-26) 20 mg/dL (8-26) Creatinine 1.4 mg/dL (0.7-1.3) 1.3 mg/dL (0.7-1.3) Estimated GFR (Cockcroft-Gault) 50.0 54.4 Glucose Level 232 mg/dL (70-99) 229 mg/dL (70-99) 180 mg/dL (70-99) Lactic Acid Level 11.7 mmol/L (0.4-2.0) Calcium Level 7.3 mg/dL (8.5-10.1) 7.4 mg/dL (8.5-10.1) Phosphorus Level 3.4 mg/dL (2.6-4.7) 0.5 mg/dL (2.6-4.7) Magnesium Level 2.0 mg/dL (1.8-2.4) 1.9 mg/dL (1.8-2.4) Troponin I Quantitative 0.230 ng/mL (0.000-0.055) Procalcitonin 0.32 ng/mL (0.00-0.10) O2 Saturation 97 % (92-99) Arterial Blood pH 7.40 (7.35-7.45) Arterial Blood pH (Temp corrected) 7.46 Arterial Blood pCO2 at Patient Temp 29 mmHg (35-46) Arterial Blood pCO2 (Temp correct) 24 mmHg Arterial Blood pO2 at Patient Temp 92 mmHg (65-108) Arterial Blood pO2 (Temp corrected) 72 mmHg Arterial Blood HCO3 18 mmol/L (21-28) Arterial Blood Base Excess -6 mmol/L (-3-3) FiO2 70 Test 08/05/20 02:15 08/05/20 06:00 08/05/20 08:00 White Blood Count 13.5 x10^3/uL (4.0-11.0) 14.3 x10^3/uL (4.0-11.0) Red Blood Count 4.28 x10^6/uL (4.30-5.70) 4.21 x10^6/uL (4.30-5.70) Hemoglobin 13.7 g/dL (13.0-17.5) 13.6 g/dL (13.0-17.5) Hematocrit 39.9 % (39.0-53.0) 39.3 % (39.0-53.0) Mean Corpuscular Volume 93 fL (79-100) 93 fL (79-100) Mean Corpuscular Hemoglobin 32 pg (25-35) 32 pg (25-35) Mean Corpuscular Hemoglobin Concent 34 g/dL (31-37) 35 g/dL (31-37) Red Cell Distribution Width 13.7 % (11.5-14.5) 13.5 % (11.5-14.5) Platelet Count 169 x10^3/uL (140-400) 163 x10^3/uL (140-400) Neutrophils (%) (Auto) 87 % (31-73) 91 % (31-73) Lymphocytes (%) (Auto) 7 % (24-48) 5 % (24-48) Monocytes (%) (Auto) 5 % (0-9) 4 % (0-9) Eosinophils (%) (Auto) 0 % (0-3) 0 % (0-3) Basophils (%) (Auto) 1 % (0-3) 0 % (0-3) Neutrophils # (Auto) 11.8 x10^3/uL (1.8-7.7) 13.0 x10^3/uL (1.8-7.7) Lymphocytes # (Auto) 0.9 x10^3/uL (1.0-4.8) 0.7 x10^3/uL (1.0-4.8) Monocytes # (Auto) 0.7 x10^3/uL (0.0-1.1) 0.6 x10^3/uL (0.0-1.1) Eosinophils # (Auto) 0.0 x10^3/uL (0.0-0.7) 0.0 x10^3/uL (0.0-0.7) Basophils # (Auto) 0.1 x10^3/uL (0.0-0.2) 0.0 x10^3/uL (0.0-0.2) Prothrombin Time 14.0 SEC (11.7-14.0) 13.8 SEC (11.7-14.0) Prothromb Time International Ratio 1.1 (0.8-1.1) 1.1 (0.8-1.1) Activated Partial Thromboplast Time 29 SEC (24-38) 30 SEC (24-38) Sodium Level 146 mmol/L (136-145) 144 mmol/L (136-145) Potassium Level 2.9 mmol/L (3.5-5.1) 3.2 mmol/L (3.5-5.1) Chloride Level 110 mmol/L (98-107) 108 mmol/L (98-107) Carbon Dioxide Level 24 mmol/L (21-32) 23 mmol/L (21-32) Anion Gap 12 (6-14) 13 (6-14) Blood Urea Nitrogen 21 mg/dL (8-26) 22 mg/dL (8-26) Creatinine 1.0 mg/dL (0.7-1.3) 1.1 mg/dL (0.7-1.3) Estimated GFR (Cockcroft-Gault) 73.7 66.0 Glucose Level 99 mg/dL (70-99) 136 mg/dL (70-99) Calcium Level 7.1 mg/dL (8.5-10.1) 6.9 mg/dL (8.5-10.1) Ionized Calcium 0.95 mmol/L (1.13-1.32) Phosphorus Level 1.7 mg/dL (2.6-4.7) 2.1 mg/dL (2.6-4.7) Magnesium Level 2.6 mg/dL (1.8-2.4) 2.3 mg/dL (1.8-2.4) BUN/Creatinine Ratio 20 (6-20) Total Bilirubin 0.8 mg/dL (0.2-1.0) Aspartate Amino Transf (AST/SGOT) 135 U/L (15-37) Alanine Aminotransferase (ALT/SGPT) 168 U/L (16-63) Alkaline Phosphatase 54 U/L (46-116) Creatine Kinase 245 U/L (39-308) Total Protein 4.7 g/dL (6.4-8.2) Albumin 2.8 g/dL (3.4-5.0) Albumin/Globulin Ratio 1.5 (1.0-1.7) O2 Saturation 94 % (92-99) Arterial Blood pH 7.51 (7.35-7.45) Arterial Blood pH (Temp corrected) 7.58 Arterial Blood pCO2 at Patient Temp 27 mmHg (35-46) Arterial Blood pCO2 (Temp correct) 23 mmHg Arterial Blood pO2 at Patient Temp 66 mmHg (65-108) Arterial Blood pO2 (Temp corrected) 51 mmHg Arterial Blood HCO3 21 mmol/L (21-28) Arterial Blood Base Excess 0 mmol/L (-3-3) FiO2 70/vent Microbiology Micro Microbiology 08/04/20 Blood Culture - Preliminary, Resulted NO GROWTH AFTER 1 DAY Review of Systems Constitutional: yes: unresponsive Physical Exam HEENT: Neck Supple W Full Motion Chest: Other (hard collar on) LUNGS: Other (intubated with vent) Heart: RRR (SR/SB) Abdomen: Other (flat) Extremities: No Edema Neurology: other (SEDATED) Assessment Assessment 1. OOH cardiopulmonary arrest: possible 3-4 min pulseless prior to CPR initiation noted PEA 5 round of epi per staff approx 25 min to ROSC. No PE 2. Traumatic fall with nondisplaced dens base fracture 3. Possible pneumonia 4. Retroperitoneal hematoma on the right with density surrounding the proximal right ureter: Hgb normal and stable 5. Substance abuse: with marijuana, ETOH 6. Lactic acidosis 7. JUSTIN: much improved 8. Acute respiratory failure: intubated, vent 9. Unclear if any prior fall as imaging noted with multiple old rib fractures and L4 compression fracture 10. PUI: PCR pending 11. Hypothermia: rewarming started this AM 12. Anoxic encephalopathy Recommendations 1. Continue pressor with levo drip. So far no significant arrhythmias. Replace K. Awaiting records 2. Possible sepsis but unclear as far as etiology of his cardiac arrest. Highly suspect due to intoxication and could not rule out possibility of laced marijuana. 3. Given his poor neuro response and significant anoxia, his prognosis is poor. Once rewarmed will reeval and if negative for covid-19 then will consider for TTE as well. 4. Supportive care at this time. Justicifation of Admission Dx: Justifications for Admission: Justification of Admission Dx: Yes JASON DUDLEY MD 08/05/20 2495: CARDIO Progress Notes Plan Plan Patient seen and examined. Agree with above nurse practitioner note. Critically ill. Await neurologic recovery. Supportive care. Once he is neurologically recovered we will plan for ischemic evaluation. DEANNA RAYMOND APRN Aug 05, 2020 11:18 JASON DUDLEY MD Aug 05, 2020 15:55
[2020-08-05 12:56] LABS: BASO % 0 % (0-3); EOS % 0 % (0-3); HEMATOCRIT 39.8 % (39.0-53.0); HEMOGLOBIN 13.5 g/dL (13.0-17.5); LYMPH # 0.8 x10^3/uL (1.0-4.8); LYMPH % 5 % (24-48); MEAN CORPUSCULAR HEMOGLOBIN 32 pg (25-35); MEAN CORPUSCULAR HGB CONC 34 g/dL (31-37); MEAN CORPUSCULAR VOLUME 95 fL (79-100); MONO # 0.6 x10^3/uL (0.0-1.1); MONO % 4 % (0-9); NEUT # 14.5 x10^3/uL (1.8-7.7); NEUT % 91 % (31-73); PLATELET COUNT 166 x10^3/uL (140-400); RED BLOOD COUNT 4.21 x10^6/uL (4.30-5.70); RED CELL DISTRIBUTION WIDTH 13.6 % (11.5-14.5)
[2020-08-05] MEDS ORDERED: levETIRAcetam 500 MG in IV DEXTROSE 5% 100ML 100 ML IV STA (12:57)
[2020-08-05] MEDS: POTASSIUM PHOS,M-BASIC-D-BASIC 13.6 MMOL in IV NORMAL SALINE 250ML 250 ML IV SCH ×2 (12:58→14:58)
[2020-08-05 13:08] LABS: CALCIUM 6.6 mg/dL (8.5-10.1); GFR 73.7; MAGNESIUM 2.1 mg/dL (1.8-2.4); PHOSPHORUS 3.4 mg/dL (2.6-4.7); POTASSIUM 3.2 mmol/L (3.5-5.1)
--- NOTE | 2020-08-05 13:08 | PDOC ---
[facility] PROGRESS NOTE Date of Service DOS: DATE: 08/05/20 TIME: 13:05 Chief Complaint Chief Complaint 1. Out of house ARREST CODE ICE 1. Retroperitoneal hematoma on the right with density surrounding the proximal right ureter. A vascular injury to the right kidney is possible 2. L4 vertebral body compression fracture could be old.. Base of dens fracture// nondisplaced. 3. Multifocal degenerative changes 4. Biapical parenchymal opacities may represent multifocal consolidative process such as pneumonia although contusion or aspiration may result in this appearance. 5. POLY -SUBSTANCE ABUSE 6. SEVERE SEPSIS 7. JUSTIN sec hypoperfusion, shock History of Present Illness History of Present Illness 08/05/2020 Patient seen and examined in the ICU He is on the vent AC/24/500/70 5% with 5 of PEEP He is in a c-collar Has external defibrillator pads Sedated with Levophed fentanyl and Versed Currently on hypothermia protocol Vitals/I&O Vitals/I&O: Vital Signs Date Time Temp Pulse Resp B/P (MAP) Pulse Ox O2 Delivery O2 Flow Rate FiO2 08/05/20 12:30 92.8 62 24 100/70 96 Ventilator I & O 08/04/20 08/04/20 08/05/20 15:00 23:00 07:00 Intake Total 3763 ml 1257.4 ml 1517.4 ml Output Total 1425 ml 525 ml 160 ml Balance 2338 ml 732.4 ml 1357.4 ml Physical Exam General: Other (ON THE VENT) Heart: Regular rate Lungs: Clear Abdomen: Normal bowel sounds Extremities: No cyanosis Skin: No significant lesion Labs Labs: Laboratory Tests Test 08/04/20 13:50 08/04/20 14:25 08/04/20 17:45 08/04/20 18:43 Glucose Level 229 mg/dL (70-99) 180 mg/dL (70-99) Coronavirus (PCR) Not detected (Not Detected) O2 Saturation 97 % (92-99) Arterial Blood pH 7.40 (7.35-7.45) Arterial Blood pH (Temp corrected) 7.46 Arterial Blood pCO2 at Patient Temp 29 mmHg (35-46) Arterial Blood pCO2 (Temp correct) 24 mmHg Arterial Blood pO2 at Patient Temp 92 mmHg (65-108) Arterial Blood pO2 (Temp corrected) 72 mmHg Arterial Blood HCO3 18 mmol/L (21-28) Arterial Blood Base Excess -6 mmol/L (-3-3) FiO2 70 White Blood Count 12.4 x10^3/uL (4.0-11.0) Red Blood Count 4.71 x10^6/uL (4.30-5.70) Hemoglobin 15.0 g/dL (13.0-17.5) Hematocrit 44.8 % (39.0-53.0) Mean Corpuscular Volume 95 fL (79-100) Mean Corpuscular Hemoglobin 32 pg (25-35) Mean Corpuscular Hemoglobin Concent 33 g/dL (31-37) Red Cell Distribution Width 13.5 % (11.5-14.5) Platelet Count 188 x10^3/uL (140-400) Neutrophils (%) (Auto) 90 % (31-73) Lymphocytes (%) (Auto) 7 % (24-48) Monocytes (%) (Auto) 3 % (0-9) Eosinophils (%) (Auto) 0 % (0-3) Basophils (%) (Auto) 0 % (0-3) Neutrophils # (Auto) 11.1 x10^3/uL (1.8-7.7) Lymphocytes # (Auto) 0.9 x10^3/uL (1.0-4.8) Monocytes # (Auto) 0.4 x10^3/uL (0.0-1.1) Eosinophils # (Auto) 0.0 x10^3/uL (0.0-0.7) Basophils # (Auto) 0.0 x10^3/uL (0.0-0.2) Prothrombin Time 14.0 SEC (11.7-14.0) Prothromb Time International Ratio 1.1 (0.8-1.1) Activated Partial Thromboplast Time 26 SEC (24-38) Sodium Level 143 mmol/L (136-145) Potassium Level 2.8 mmol/L (3.5-5.1) Chloride Level 109 mmol/L (98-107) Carbon Dioxide Level 21 mmol/L (21-32) Anion Gap 13 (6-14) Blood Urea Nitrogen 20 mg/dL (8-26) Creatinine 1.3 mg/dL (0.7-1.3) Estimated GFR (Cockcroft-Gault) 54.4 Calcium Level 7.4 mg/dL (8.5-10.1) Phosphorus Level 0.5 mg/dL (2.6-4.7) Magnesium Level 1.9 mg/dL (1.8-2.4) Test 08/05/20 02:15 08/05/20 06:00 08/05/20 08:00 White Blood Count 13.5 x10^3/uL (4.0-11.0) 14.3 x10^3/uL (4.0-11.0) Red Blood Count 4.28 x10^6/uL (4.30-5.70) 4.21 x10^6/uL (4.30-5.70) Hemoglobin 13.7 g/dL (13.0-17.5) 13.6 g/dL (13.0-17.5) Hematocrit 39.9 % (39.0-53.0) 39.3 % (39.0-53.0) Mean Corpuscular Volume 93 fL (79-100) 93 fL (79-100) Mean Corpuscular Hemoglobin 32 pg (25-35) 32 pg (25-35) Mean Corpuscular Hemoglobin Concent 34 g/dL (31-37) 35 g/dL (31-37) Red Cell Distribution Width 13.7 % (11.5-14.5) 13.5 % (11.5-14.5) Platelet Count 169 x10^3/uL (140-400) 163 x10^3/uL (140-400) Neutrophils (%) (Auto) 87 % (31-73) 91 % (31-73) Lymphocytes (%) (Auto) 7 % (24-48) 5 % (24-48) Monocytes (%) (Auto) 5 % (0-9) 4 % (0-9) Eosinophils (%) (Auto) 0 % (0-3) 0 % (0-3) Basophils (%) (Auto) 1 % (0-3) 0 % (0-3) Neutrophils # (Auto) 11.8 x10^3/uL (1.8-7.7) 13.0 x10^3/uL (1.8-7.7) Lymphocytes # (Auto) 0.9 x10^3/uL (1.0-4.8) 0.7 x10^3/uL (1.0-4.8) Monocytes # (Auto) 0.7 x10^3/uL (0.0-1.1) 0.6 x10^3/uL (0.0-1.1) Eosinophils # (Auto) 0.0 x10^3/uL (0.0-0.7) 0.0 x10^3/uL (0.0-0.7) Basophils # (Auto) 0.1 x10^3/uL (0.0-0.2) 0.0 x10^3/uL (0.0-0.2) Prothrombin Time 14.0 SEC (11.7-14.0) 13.8 SEC (11.7-14.0) Prothromb Time International Ratio 1.1 (0.8-1.1) 1.1 (0.8-1.1) Activated Partial Thromboplast Time 29 SEC (24-38) 30 SEC (24-38) Sodium Level 146 mmol/L (136-145) 144 mmol/L (136-145) Potassium Level 2.9 mmol/L (3.5-5.1) 3.2 mmol/L (3.5-5.1) Chloride Level 110 mmol/L (98-107) 108 mmol/L (98-107) Carbon Dioxide Level 24 mmol/L (21-32) 23 mmol/L (21-32) Anion Gap 12 (6-14) 13 (6-14) Blood Urea Nitrogen 21 mg/dL (8-26) 22 mg/dL (8-26) Creatinine 1.0 mg/dL (0.7-1.3) 1.1 mg/dL (0.7-1.3) Estimated GFR (Cockcroft-Gault) 73.7 66.0 Glucose Level 99 mg/dL (70-99) 136 mg/dL (70-99) Calcium Level 7.1 mg/dL (8.5-10.1) 6.9 mg/dL (8.5-10.1) Ionized Calcium 0.95 mmol/L (1.13-1.32) Phosphorus Level 1.7 mg/dL (2.6-4.7) 2.1 mg/dL (2.6-4.7) Magnesium Level 2.6 mg/dL (1.8-2.4) 2.3 mg/dL (1.8-2.4) BUN/Creatinine Ratio 20 (6-20) Total Bilirubin 0.8 mg/dL (0.2-1.0) Aspartate Amino Transf (AST/SGOT) 135 U/L (15-37) Alanine Aminotransferase (ALT/SGPT) 168 U/L (16-63) Alkaline Phosphatase 54 U/L (46-116) Creatine Kinase 245 U/L (39-308) Total Protein 4.7 g/dL (6.4-8.2) Albumin 2.8 g/dL (3.4-5.0) Albumin/Globulin Ratio 1.5 (1.0-1.7) O2 Saturation 94 % (92-99) Arterial Blood pH 7.51 (7.35-7.45) Arterial Blood pH (Temp corrected) 7.58 Arterial Blood pCO2 at Patient Temp 27 mmHg (35-46) Arterial Blood pCO2 (Temp correct) 23 mmHg Arterial Blood pO2 at Patient Temp 66 mmHg (65-108) Arterial Blood pO2 (Temp corrected) 51 mmHg Arterial Blood HCO3 21 mmol/L (21-28) Arterial Blood Base Excess 0 mmol/L (-3-3) FiO2 70/vent Assessment and Plan Assessmemt and Plan Problems Medical Problems: (1) Cardiac arrest Status: Acute (2) Dens fracture Status: Acute (3) Respiratory failure Status: Acute 1. Out of house ARREST CODE ICE 1. Retroperitoneal hematoma on the right with density surrounding the proximal right ureter. A vascular injury to the right kidney is possible 2. L4 vertebral body compression fracture could be old.. Base of dens fracture// nondisplaced. 3. Multifocal degenerative changes 4. Biapical parenchymal opacities may represent multifocal consolidative process such as pneumonia although contusion or aspiration may result in this appearance. 5. POLY -SUBSTANCE ABUSE 6. SEVERE SEPSIS 7. JUSTIN sec hypoperfusion, shock Plan ICU monitoring Hypothermia protocol Vent weaning Pulmonary and cardiology and neurosurgery infectious disease and nephrology following We will keep the c-collar in place for now Await blood cultures ID consult Trend labs Home meds DVT prophylaxis Full code Prognosis extremely guarded at best CC time 31 minutes Comment Review of Relevant I have reviewed the following items magda (where applicable) has been applied. Medications: Current Medications Medications (Trade) Dose Ordered Sig/Geovany Route PRN Reason Start Time Stop Time Status Last Admin Dose Admin Heparin Sodium (Porcine) (Heparin Sodium) 5,000 unit Q8HRS SQ 08/04/20 14:00 08/05/20 05:46 Potassium Chloride/Water 100 ml @ 50 mls/hr 1X ONCE IV 08/04/20 20:00 08/04/20 21:59 DC 08/04/20 21:16 Sodium Phosphate 20 mmol/Sodium Chloride 256.6667 ml @ 64.167 m... 1X ONCE IV 08/04/20 20:00 08/04/20 23:59 DC 08/04/20 21:17 Magnesium Sulfate 50 ml @ 25 mls/hr 1X ONCE IV 08/04/20 20:15 08/04/20 22:14 DC 08/04/20 23:00 Potassium Phosphate 13.6 mmol/Sodium Chloride 254.5333 ml @ 127.... Q2H IV 08/05/20 12:00 08/05/20 15:59 08/05/20 12:58 Justifications for Admission General Conditions Poss hypotension?: Yes Justification for admission: Patient has hypotension (SBP < 90 mm Hg) which is not readily corrected by appropriate treatment within 12 to 24 hours. CARDIAC ARREST Other Justification AURORA COLE III, DO Aug 05, 2020 13:08
--- NOTE | 2020-08-05 13:09 | PDOC2 ---
NEUROLOGY CONSULT Date of Service DOS: DATE: 08/05/20 TIME: 13:01 Reason for Consult Reason for Consult: Anoxic encephalopathy Referring Physician Referring Physician: Dr. Medina Source Source: Chart review History of Present Illness History of Present Illness The patient is a 69-year-old male was drinking alcohol and smoking marijuana with friends. He went upstairs and they heard him fall. They left him there for a couple minutes and then realized that he was unresponsive and had no pulse. They started CPR and summoned paramedics. He was in pulseless electrical activity when they arrived. Total downtime was about 25 minutes. Patient has been placed on hypothermia. CT shows a nondisplaced base of dens fracture Past Medical History Cardiovascular: CAD (Cardiac records reviewed from [place], has a calcium score of 684), HTN, Hyperlipidemia Past Surgical History Past Surgical History: Other (Cardiac cath) Family History Family History: Other (Unobtainable) Social History Social History Chart says that he still smokes some Current Medications Current Medications Current Medications Epinephrine HCl 5 mg/Sodium Chloride 255 ml @ 30.6 mls/hr ONCE ONCE IV Last administered on 08/04/20at 06:17; Start 08/04/20 at 05:45; Stop 08/04/20 at 14:04; Status DC Iohexol (Omnipaque 350 Mg/ml) 80 ml 1X ONCE IV Last administered on 08/04/20at 07:30; Start 08/04/20 at 06:30; Stop 08/04/20 at 06:31; Status DC Info (CONTRAST GIVEN -- Rx MONITORING) 1 each PRN DAILY PRN MC SEE COMMENTS; Start 08/04/20 at 06:30; Stop 08/06/20 at 06:29 Sodium Chloride 1,000 ml @ 1,000 mls/hr 1X ONCE IV Last administered on 08/04/20at 06:32; Start 08/04/20 at 06:30; Stop 08/04/20 at 07:29; Status DC Sodium Chloride 1,000 ml @ 1,000 mls/hr 1X ONCE IV Last administered on 08/04/20at 06:33; Start 08/04/20 at 06:45; Stop 08/04/20 at 07:44; Status DC Sodium Chloride 1,000 ml @ 1,000 mls/hr 1X ONCE IV Last administered on 08/04/20at 06:45; Start 08/04/20 at 06:45; Stop 08/04/20 at 07:44; Status DC Midazolam HCl 50 mg/Sodium Chloride 50 ml @ 0 mls/hr CONT PRN PRN IV SEDATION; Start 08/04/20 at 07:15; Status UNV Midazolam HCl 100 ml @ 0 mls/hr CONT PRN IV SEE PROTOCOL; Start 08/04/20 at 07:30; Stop 08/04/20 at 08:03; Status DC Ondansetron HCl (Zofran) 4 mg PRN Q8HRS PRN IV NAUSEA/VOMITING; Start 08/04/20 at 07:30; Stop 08/05/20 at 07:29; Status DC Sodium Chloride 1,000 ml @ 75 mls/hr [id number] IV Last administered on 08/04/20at 08:30; Start 08/04/20 at 07:30; Stop 08/05/20 at 07:29; Status DC Fentanyl Citrate (Fentanyl 2ml Vial) 100 mcg 1X ONCE IV ; Start 08/04/20 at 08:00; Stop 08/04/20 at 08:01; Status DC Midazolam HCl (Versed) 2 mg 1X ONCE IV ; Start 08/04/20 at 08:00; Stop 08/04/20 at 08:01; Status DC Magnesium Sulfate/ Dextrose 100 ml @ 100 mls/hr 1X ONCE IV Last administered on 08/04/20at 08:21; Start 08/04/20 at 08:00; Stop 08/04/20 at 08:59; Status DC Buspirone HCl (Buspar) 30 mg Q8H NG Last administered on 08/05/20at 07:39; Start 08/04/20 at 08:00; Stop 08/06/20 at 00:01 Acetaminophen (Tylenol) 650 mg Q4H NG Last administered on 08/05/20at 11:45; Start 08/04/20 at 08:00 Glycerin/ Hypromellose/ Polyethylene (Artificial Tears) 1 drop Q6HRS OU Last administered on 08/05/20at 11:45; Start 08/04/20 at 12:00 Glycerin/ Hypromellose/ Polyethylene (Artificial Tears) 1 drop PRN Q15MIN PRN OU DRY EYE; Start 08/04/20 at 08:00 Pantoprazole Sodium (PROTONIX VIAL for IV PUSH) 40 mg DAILY IVP Last administered on 08/05/20at 07:40; Start 08/04/20 at 09:00 Fentanyl Citrate 30 ml @ 0 mls/hr CONT PRN IV PER PROTOCOL. Last administered on 08/05/20at 05:03; Start 08/04/20 at 08:00 Propofol 100 ml @ 0 mls/hr CONT PRN IV PER PROTOCOL.; Start 08/04/20 at 08:00 Midazolam HCl 100 ml @ 0 mls/hr CONT PRN IV PER PROTOCOL Last administered on 08/05/20at 05:05; Start 08/04/20 at 08:00 Vecuronium [place] (Norcuron Bolus) 10 mg PRN Q1HR PRN IV SHIVERING; Start 08/04/20 at 08:00 Norepinephrine Bitartrate 8 mg/ Dextrose 258 ml @ 18.112 mls/ hr CONT PRN IV PER PROTOCOL Last administered on 08/04/20at 09:00; Start 08/04/20 at 09:15 Sodium Bicarbonate (Sodium Bicarb Adult 8.4% Syr) 50 meq STK-MED ONCE .ROUTE ; Start 08/04/20 at 09:57; Stop 08/04/20 at 09:57; Status DC Ondansetron HCl (Zofran) 4 mg PRN Q6HRS PRN IVP NAUSEA/VOMITING; Start 08/04/20 at 10:15 Famotidine (Pepcid Vial) 20 mg BID IVP ; Start 08/04/20 at 11:00; Stop 08/04/20 at 12:36; Status DC Info (Icu Electrolyte Protocol) 1 ea DAILY MC ; Start 08/05/20 at 09:00 Heparin Sodium (Porcine) (Heparin Sodium) 5,000 unit Q8HRS SQ Last administered on 08/05/20at 05:46; Start 08/04/20 at 14:00 Sodium Chloride (Normal Saline Flush) 3 ml QSHIFT PRN IV AFTER MEDS AND BLOOD DRAWS; Start 08/04/20 at 10:15 Sodium Chloride 1,000 ml @ 100 mls/hr Q10H IV Last administered on 08/05/20at 05:46; Start 08/04/20 at 10:15 Sodium Bicarbonate (Sodium Bicarb Adult 8.4% Syr) 50 meq 1X ONCE IV Last administered on 08/04/20at 10:00; Start 08/04/20 at 10:15; Stop 08/04/20 at 10:22; Status DC Sodium Bicarbonate (Sodium Bicarb Adult 8.4% Syr) 50 meq 1X ONCE IV Last administered on 08/04/20at 10:15; Start 08/04/20 at 10:15; Stop 08/04/20 at 10:22; Status DC Sodium Bicarbonate (Sodium Bicarb Adult 8.4% Syr) 50 meq 1X ONCE IV Last administered on 08/04/20at 10:15; Start 08/04/20 at 10:15; Stop 08/04/20 at 10:22; Status DC Ceftriaxone Sodium (Rocephin) 1 gm Q24H IVP Last administered on 08/04/20at 13:50; Start 08/04/20 at 11:30; Stop 08/04/20 at 16:10; Status DC Sodium Chloride 1,000 ml @ 2,340 mls/hr Q26M IV ; Start 08/04/20 at 11:00; Stop 08/04/20 at 12:00; Status DC Sodium Chloride 500 ml @ 1,000 mls/hr PRN Q30MIN PRN IV SEE COMMENTS; Start 08/04/20 at 11:00; Stop 08/04/20 at 12:12; Status DC Meropenem 1 gm/ Sodium Chloride 100 ml @ 200 mls/hr Q8HRS IV Last administered on 08/05/20at 05:44; Start 08/04/20 at 11:30 Norepinephrine Bitartrate 8 mg/ Dextrose 258 ml @ 0 mls/hr CONT PRN IV SEE I/O RECORD; Start 08/04/20 at 11:00; Status UNV Sodium Bicarbonate 100 meq/Dextrose 1,100 ml @ 150 mls/hr Q7H20M IV Last administered on 08/05/20at 03:59; Start 08/04/20 at 11:30; Stop 08/05/20 at 11:09; Status DC Potassium Chloride/Water 100 ml @ 100 mls/hr Q1H IV Last administered on 08/04/20at 12:52; Start 08/04/20 at 13:00; Stop 08/04/20 at 13:59; Status DC Magnesium Sulfate 50 ml @ 25 mls/hr 1X ONCE IV Last administered on 08/04/20at 12:53; Start 08/04/20 at 13:00; Stop 08/04/20 at 14:59; Status DC Insulin Human Regular 100 unit/ Sodium Chloride 101 ml @ 0 mls/hr CONT PRN IV SEE I/O RECORD Last administered on 08/04/20at 21:54; Start 08/04/20 at 12:45 Potassium Chloride/Water 100 ml @ 50 mls/hr 1X ONCE IV Last administered on 08/04/20at 21:16; Start 08/04/20 at 20:00; Stop 08/04/20 at 21:59; Status DC Sodium Phosphate 20 mmol/Sodium Chloride 256.6667 ml @ 64.167 m... 1X ONCE IV Last administered on 08/04/20at 21:17; Start 08/04/20 at 20:00; Stop 08/04/20 at 23:59; Status DC Magnesium Sulfate 50 ml @ 25 mls/hr 1X ONCE IV Last administered on 08/04/20at 23:00; Start 08/04/20 at 20:15; Stop 08/04/20 at 22:14; Status DC Potassium Chloride/Water 100 ml @ 50 mls/hr 1X ONCE IV ; Start 08/05/20 at 03:15; Stop 08/05/20 at 05:14; Status DC Sodium Chloride 1,000 ml @ 100 mls/hr Q10H IV ; Start 08/05/20 at 11:15; Stop 08/05/20 at 11:21; Status DC Potassium Phosphate 13.6 mmol/Sodium Chloride 254.5333 ml @ 127.... Q2H IV Last administered on 08/05/20at 12:58; Start 08/05/20 at 12:00; Stop 08/05/20 at 15:59 Levetiracetam 500 mg/Dextrose 105 ml @ 420 mls/hr Q12HR STAT IV ; Start 08/05/20 at 12:57; Stop 08/05/20 at 13:11; Status UNV Active Scripts Active Reported Children's Aspirin (Aspirin) 81 Mg Tab.chew 1 Tab PO DAILY 30 Days Atorvastatin Calcium 40 Mg Tablet 1 Tab PO DAILY Losartan Potassium 50 Mg Tablet 50 Mg PO DAILY Famotidine 40 Mg Tablet 40 Mg PO HS Pantoprazole Sodium (Pantoprazole Sodium) 40 Mg Tablet.dr 40 Mg PO DAILYAC Allergies Allergies: Coded Allergies: Unable to Assess (Unverified , 08/04/20) ROS Review of System Unobtainable Physical Exam Physical Examination General: Well-developed, well-nourished white male in no acute distress HEENT: Normocephalic andatraumatic. Tympanic membranes clear.Temporal arteries pulsatile and nontender.Fundoscopic exam unremarkable Neck: Supple without bruit, in a cervical collar Musculoskeletal: Stability:see neurologic. Gait exam:see neurologic. Tone:see neurologic.Strength:see neurologic. Neurological: Mental Status:Intubated, hypothermic. Cranial Nerves:Pupils pinpoint,.Reflexes:1+ and symmetric with silent plantar responses. Motor:No withdrawal to pain. He is having some spontaneous eye opening and twitching movements in the right face. Coordination and gait:Not testable. Sensory:Not testable. Vitals VITALS Vital Signs Date Time Temp Pulse Resp B/P (MAP) Pulse Ox O2 Delivery O2 Flow Rate FiO2 08/05/20 12:30 92.8 62 24 100/70 96 Ventilator Labs Labs Laboratory Tests Test 08/04/20 05:35 08/04/20 05:40 08/04/20 06:30 08/04/20 07:10 White Blood Count 8.2 x10^3/uL (4.0-11.0) Red Blood Count 4.61 x10^6/uL (4.30-5.70) Hemoglobin 14.8 g/dL (13.0-17.5) Hematocrit 45.8 % (39.0-53.0) Mean Corpuscular Volume 99 fL (79-100) Mean Corpuscular Hemoglobin 32 pg (25-35) Mean Corpuscular Hemoglobin Concent 32 g/dL (31-37) Red Cell Distribution Width 14.5 % (11.5-14.5) Platelet Count 202 x10^3/uL (140-400) Neutrophils (%) (Auto) 31 % (31-73) Lymphocytes (%) (Auto) 59 % (24-48) Monocytes (%) (Auto) 6 % (0-9) Eosinophils (%) (Auto) 4 % (0-3) Basophils (%) (Auto) 1 % (0-3) Neutrophils # (Auto) 2.6 x10^3/uL (1.8-7.7) Lymphocytes # (Auto) 4.8 x10^3/uL (1.0-4.8) Monocytes # (Auto) 0.5 x10^3/uL (0.0-1.1) Eosinophils # (Auto) 0.3 x10^3/uL (0.0-0.7) Basophils # (Auto) 0.1 x10^3/uL (0.0-0.2) Segmented Neutrophils % 20 % (35-66) Band Neutrophils % 6 % (0-9) Lymphocytes % 66 % (24-48) Monocytes % 2 % (0-10) Eosinophils % 6 % (0-5) Smudge Cells Present Platelet Estimate Adequate (ADEQUATE) Prothrombin Time 14.5 SEC (11.7-14.0) Prothromb Time International Ratio 1.2 (0.8-1.1) D-Dimer (Chanelle) 6.28 ug/mlFEU (0.00-0.50) Sodium Level 148 mmol/L (136-145) Potassium Level 3.8 mmol/L (3.5-5.1) Chloride Level 107 mmol/L (98-107) Carbon Dioxide Level 20 mmol/L (21-32) Anion Gap 21 (6-14) Blood Urea Nitrogen 15 mg/dL (8-26) Creatinine 1.6 mg/dL (0.7-1.3) Estimated GFR (Cockcroft-Gault) 42.8 BUN/Creatinine Ratio 9 (6-20) Glucose Level 235 mg/dL (70-99) Lactic Acid Level 11.5 mmol/L (0.4-2.0) Calcium Level 8.6 mg/dL (8.5-10.1) Phosphorus Level 8.2 mg/dL (2.6-4.7) Magnesium Level 2.5 mg/dL (1.8-2.4) Total Bilirubin 0.4 mg/dL (0.2-1.0) Aspartate Amino Transf (AST/SGOT) 135 U/L (15-37) Alanine Aminotransferase (ALT/SGPT) 174 U/L (16-63) Alkaline Phosphatase 83 U/L (46-116) Ammonia 35 mcmol/L (11-34) Troponin I Quantitative < 0.017 ng/mL (0.000-0.055) LD-Qjx-M-Type Natriuretic Peptide 36 pg/mL (0-124) Total Protein 6.1 g/dL (6.4-8.2) Albumin 3.5 g/dL (3.4-5.0) Albumin/Globulin Ratio 1.3 (1.0-1.7) Thyroid Stimulating Hormone (TSH) 5.103 uIU/mL (0.358-3.74) Ethyl Alcohol Level 239 mg/dL (0-10) Urine Collection Type Unknown Urine Color Yellow Urine Clarity Clear Urine pH 5.5 (<5.0-8.0) Urine Specific Woody 1.010 (1.000-1.030) Urine Protein Negative mg/dL (NEG-TRACE) Urine Glucose (UA) Negative mg/dL (NEG) Urine Ketones (Stick) Negative mg/dL (NEG) Urine Blood Negative (NEG) Urine Nitrite Negative (NEG) Urine Bilirubin Negative (NEG) Urine Urobilinogen Dipstick 0.2 mg/dL (0.2 mg/dL) Urine Leukocyte Esterase Negative (NEG) Urine RBC 0 /HPF (0-2) Urine WBC Rare /HPF (0-4) Urine Squamous Epithelial Cells Few /LPF Urine Bacteria 0 /HPF (0-FEW) Urine Opiates Screen Neg (NEG) Urine Methadone Screen Neg (NEG) Urine Barbiturates Neg (NEG) Urine Phencyclidine Screen Neg (NEG) Urine Amphetamine/Methamphetamine Neg (NEG) Urine Benzodiazepines Screen Neg (NEG) Urine Cocaine Screen Neg (NEG) Urine Cannabinoids Screen Neg (NEG) Urine Ethyl Alcohol Pos (NEG) O2 Saturation 93 % (92-99) Arterial Blood pH 7.02 (7.35-7.45) Arterial Blood pCO2 at Patient Temp 51 mmHg (35-46) Arterial Blood pO2 at Patient Temp 95 mmHg (65-108) Arterial Blood HCO3 13 mmol/L (21-28) Arterial Blood Base Excess -18 mmol/L (-3-3) FiO2 100 SARS-CoV-2 Antigen (Rapid) Negative (NEGATIVE) Test 08/04/20 09:20 08/04/20 11:15 08/04/20 13:50 08/04/20 14:25 O2 Saturation 98 % (92-99) Arterial Blood pH 7.10 (7.35-7.45) Arterial Blood pCO2 at Patient Temp 35 mmHg (35-46) Arterial Blood pO2 at Patient Temp 141 mmHg (65-108) Arterial Blood HCO3 11 mmol/L (21-28) Arterial Blood Base Excess -18 mmol/L (-3-3) FiO2 100 White Blood Count 15.0 x10^3/uL (4.0-11.0) Red Blood Count 4.83 x10^6/uL (4.30-5.70) Hemoglobin 15.3 g/dL (13.0-17.5) Hematocrit 46.9 % (39.0-53.0) Mean Corpuscular Volume 97 fL (79-100) Mean Corpuscular Hemoglobin 32 pg (25-35) Mean Corpuscular Hemoglobin Concent 33 g/dL (31-37) Red Cell Distribution Width 13.8 % (11.5-14.5) Platelet Count 226 x10^3/uL (140-400) Neutrophils (%) (Auto) 87 % (31-73) Lymphocytes (%) (Auto) 6 % (24-48) Monocytes (%) (Auto) 6 % (0-9) Eosinophils (%) (Auto) 0 % (0-3) Basophils (%) (Auto) 0 % (0-3) Neutrophils # (Auto) 13.1 x10^3/uL (1.8-7.7) Lymphocytes # (Auto) 1.0 x10^3/uL (1.0-4.8) Monocytes # (Auto) 0.9 x10^3/uL (0.0-1.1) Eosinophils # (Auto) 0.0 x10^3/uL (0.0-0.7) Basophils # (Auto) 0.0 x10^3/uL (0.0-0.2) Segmented Neutrophils % 88 % (35-66) Band Neutrophils % 7 % (0-9) Lymphocytes % 3 % (24-48) Monocytes % 2 % (0-10) Platelet Estimate Adequate (ADEQUATE) Prothrombin Time 14.4 SEC (11.7-14.0) Prothromb Time International Ratio 1.2 (0.8-1.1) Activated Partial Thromboplast Time 27 SEC (24-38) Fibrinogen 197 mg/dL (200-440) Sodium Level 146 mmol/L (136-145) Potassium Level 3.3 mmol/L (3.5-5.1) Chloride Level 107 mmol/L (98-107) Carbon Dioxide Level 15 mmol/L (21-32) Anion Gap 24 (6-14) Blood Urea Nitrogen 17 mg/dL (8-26) Creatinine 1.4 mg/dL (0.7-1.3) Estimated GFR (Cockcroft-Gault) 50.0 Glucose Level 232 mg/dL (70-99) 229 mg/dL (70-99) Lactic Acid Level 11.7 mmol/L (0.4-2.0) Calcium Level 7.3 mg/dL (8.5-10.1) Phosphorus Level 3.4 mg/dL (2.6-4.7) Magnesium Level 2.0 mg/dL (1.8-2.4) Troponin I Quantitative 0.230 ng/mL (0.000-0.055) Procalcitonin 0.32 ng/mL (0.00-0.10) Coronavirus (PCR) Not detected (Not Detected) Test 08/04/20 17:45 08/04/20 18:43 08/05/20 02:15 08/05/20 06:00 O2 Saturation 97 % (92-99) Arterial Blood pH 7.40 (7.35-7.45) Arterial Blood pH (Temp corrected) 7.46 Arterial Blood pCO2 at Patient Temp 29 mmHg (35-46) Arterial Blood pCO2 (Temp correct) 24 mmHg Arterial Blood pO2 at Patient Temp 92 mmHg (65-108) Arterial Blood pO2 (Temp corrected) 72 mmHg Arterial Blood HCO3 18 mmol/L (21-28) Arterial Blood Base Excess -6 mmol/L (-3-3) FiO2 70 White Blood Count 12.4 x10^3/uL (4.0-11.0) 13.5 x10^3/uL (4.0-11.0) 14.3 x10^3/uL (4.0-11.0) Red Blood Count 4.71 x10^6/uL (4.30-5.70) 4.28 x10^6/uL (4.30-5.70) 4.21 x10^6/uL (4.30-5.70) Hemoglobin 15.0 g/dL (13.0-17.5) 13.7 g/dL (13.0-17.5) 13.6 g/dL (13.0-17.5) Hematocrit 44.8 % (39.0-53.0) 39.9 % (39.0-53.0) 39.3 % (39.0-53.0) Mean Corpuscular Volume 95 fL (79-100) 93 fL (79-100) 93 fL (79-100) Mean Corpuscular Hemoglobin 32 pg (25-35) 32 pg (25-35) 32 pg (25-35) Mean Corpuscular Hemoglobin Concent 33 g/dL (31-37) 34 g/dL (31-37) 35 g/dL (31-37) Red Cell Distribution Width 13.5 % (11.5-14.5) 13.7 % (11.5-14.5) 13.5 % (11.5-14.5) Platelet Count 188 x10^3/uL (140-400) 169 x10^3/uL (140-400) 163 x10^3/uL (140-400) Neutrophils (%) (Auto) 90 % (31-73) 87 % (31-73) 91 % (31-73) Lymphocytes (%) (Auto) 7 % (24-48) 7 % (24-48) 5 % (24-48) Monocytes (%) (Auto) 3 % (0-9) 5 % (0-9) 4 % (0-9) Eosinophils (%) (Auto) 0 % (0-3) 0 % (0-3) 0 % (0-3) Basophils (%) (Auto) 0 % (0-3) 1 % (0-3) 0 % (0-3) Neutrophils # (Auto) 11.1 x10^3/uL (1.8-7.7) 11.8 x10^3/uL (1.8-7.7) 13.0 x10^3/uL (1.8-7.7) Lymphocytes # (Auto) 0.9 x10^3/uL (1.0-4.8) 0.9 x10^3/uL (1.0-4.8) 0.7 x10^3/uL (1.0-4.8) Monocytes # (Auto) 0.4 x10^3/uL (0.0-1.1) 0.7 x10^3/uL (0.0-1.1) 0.6 x10^3/uL (0.0-1.1) Eosinophils # (Auto) 0.0 x10^3/uL (0.0-0.7) 0.0 x10^3/uL (0.0-0.7) 0.0 x10^3/uL (0.0-0.7) Basophils # (Auto) 0.0 x10^3/uL (0.0-0.2) 0.1 x10^3/uL (0.0-0.2) 0.0 x10^3/uL (0.0-0.2) Prothrombin Time 14.0 SEC (11.7-14.0) 14.0 SEC (11.7-14.0) 13.8 SEC (11.7-14.0) Prothromb Time International Ratio 1.1 (0.8-1.1) 1.1 (0.8-1.1) 1.1 (0.8-1.1) Activated Partial Thromboplast Time 26 SEC (24-38) 29 SEC (24-38) 30 SEC (24-38) Sodium Level 143 mmol/L (136-145) 146 mmol/L (136-145) 144 mmol/L (136-145) Potassium Level 2.8 mmol/L (3.5-5.1) 2.9 mmol/L (3.5-5.1) 3.2 mmol/L (3.5-5.1) Chloride Level 109 mmol/L (98-107) 110 mmol/L (98-107) 108 mmol/L (98-107) Carbon Dioxide Level 21 mmol/L (21-32) 24 mmol/L (21-32) 23 mmol/L (21-32) Anion Gap 13 (6-14) 12 (6-14) 13 (6-14) Blood Urea Nitrogen 20 mg/dL (8-26) 21 mg/dL (8-26) 22 mg/dL (8-26) Creatinine 1.3 mg/dL (0.7-1.3) 1.0 mg/dL (0.7-1.3) 1.1 mg/dL (0.7-1.3) Estimated GFR (Cockcroft-Gault) 54.4 73.7 66.0 Glucose Level 180 mg/dL (70-99) 99 mg/dL (70-99) 136 mg/dL (70-99) Calcium Level 7.4 mg/dL (8.5-10.1) 7.1 mg/dL (8.5-10.1) 6.9 mg/dL (8.5-10.1) Phosphorus Level 0.5 mg/dL (2.6-4.7) 1.7 mg/dL (2.6-4.7) 2.1 mg/dL (2.6-4.7) Magnesium Level 1.9 mg/dL (1.8-2.4) 2.6 mg/dL (1.8-2.4) 2.3 mg/dL (1.8-2.4) Ionized Calcium 0.95 mmol/L (1.13-1.32) BUN/Creatinine Ratio 20 (6-20) Total Bilirubin 0.8 mg/dL (0.2-1.0) Aspartate Amino Transf (AST/SGOT) 135 U/L (15-37) Alanine Aminotransferase (ALT/SGPT) 168 U/L (16-63) Alkaline Phosphatase 54 U/L (46-116) Creatine Kinase 245 U/L (39-308) Total Protein 4.7 g/dL (6.4-8.2) Albumin 2.8 g/dL (3.4-5.0) Albumin/Globulin Ratio 1.5 (1.0-1.7) Test 08/05/20 08:00 O2 Saturation 94 % (92-99) Arterial Blood pH 7.51 (7.35-7.45) Arterial Blood pH (Temp corrected) 7.58 Arterial Blood pCO2 at Patient Temp 27 mmHg (35-46) Arterial Blood pCO2 (Temp correct) 23 mmHg Arterial Blood pO2 at Patient Temp 66 mmHg (65-108) Arterial Blood pO2 (Temp corrected) 51 mmHg Arterial Blood HCO3 21 mmol/L (21-28) Arterial Blood Base Excess 0 mmol/L (-3-3) FiO2 70/vent Laboratory Tests Test 08/04/20 13:50 08/04/20 14:25 08/04/20 17:45 08/04/20 18:43 Glucose Level 229 mg/dL (70-99) 180 mg/dL (70-99) Coronavirus (PCR) Not detected (Not Detected) O2 Saturation 97 % (92-99) Arterial Blood pH 7.40 (7.35-7.45) Arterial Blood pH (Temp corrected) 7.46 Arterial Blood pCO2 at Patient Temp 29 mmHg (35-46) Arterial Blood pCO2 (Temp correct) 24 mmHg Arterial Blood pO2 at Patient Temp 92 mmHg (65-108) Arterial Blood pO2 (Temp corrected) 72 mmHg Arterial Blood HCO3 18 mmol/L (21-28) Arterial Blood Base Excess -6 mmol/L (-3-3) FiO2 70 White Blood Count 12.4 x10^3/uL (4.0-11.0) Red Blood Count 4.71 x10^6/uL (4.30-5.70) Hemoglobin 15.0 g/dL (13.0-17.5) Hematocrit 44.8 % (39.0-53.0) Mean Corpuscular Volume 95 fL (79-100) Mean Corpuscular Hemoglobin 32 pg (25-35) Mean Corpuscular Hemoglobin Concent 33 g/dL (31-37) Red Cell Distribution Width 13.5 % (11.5-14.5) Platelet Count 188 x10^3/uL (140-400) Neutrophils (%) (Auto) 90 % (31-73) Lymphocytes (%) (Auto) 7 % (24-48) Monocytes (%) (Auto) 3 % (0-9) Eosinophils (%) (Auto) 0 % (0-3) Basophils (%) (Auto) 0 % (0-3) Neutrophils # (Auto) 11.1 x10^3/uL (1.8-7.7) Lymphocytes # (Auto) 0.9 x10^3/uL (1.0-4.8) Monocytes # (Auto) 0.4 x10^3/uL (0.0-1.1) Eosinophils # (Auto) 0.0 x10^3/uL (0.0-0.7) Basophils # (Auto) 0.0 x10^3/uL (0.0-0.2) Prothrombin Time 14.0 SEC (11.7-14.0) Prothromb Time International Ratio 1.1 (0.8-1.1) Activated Partial Thromboplast Time 26 SEC (24-38) Sodium Level 143 mmol/L (136-145) Potassium Level 2.8 mmol/L (3.5-5.1) Chloride Level 109 mmol/L (98-107) Carbon Dioxide Level 21 mmol/L (21-32) Anion Gap 13 (6-14) Blood Urea Nitrogen 20 mg/dL (8-26) Creatinine 1.3 mg/dL (0.7-1.3) Estimated GFR (Cockcroft-Gault) 54.4 Calcium Level 7.4 mg/dL (8.5-10.1) Phosphorus Level 0.5 mg/dL (2.6-4.7) Magnesium Level 1.9 mg/dL (1.8-2.4) Test 08/05/20 02:15 08/05/20 06:00 08/05/20 08:00 White Blood Count 13.5 x10^3/uL (4.0-11.0) 14.3 x10^3/uL (4.0-11.0) Red Blood Count 4.28 x10^6/uL (4.30-5.70) 4.21 x10^6/uL (4.30-5.70) Hemoglobin 13.7 g/dL (13.0-17.5) 13.6 g/dL (13.0-17.5) Hematocrit 39.9 % (39.0-53.0) 39.3 % (39.0-53.0) Mean Corpuscular Volume 93 fL (79-100) 93 fL (79-100) Mean Corpuscular Hemoglobin 32 pg (25-35) 32 pg (25-35) Mean Corpuscular Hemoglobin Concent 34 g/dL (31-37) 35 g/dL (31-37) Red Cell Distribution Width 13.7 % (11.5-14.5) 13.5 % (11.5-14.5) Platelet Count 169 x10^3/uL (140-400) 163 x10^3/uL (140-400) Neutrophils (%) (Auto) 87 % (31-73) 91 % (31-73) Lymphocytes (%) (Auto) 7 % (24-48) 5 % (24-48) Monocytes (%) (Auto) 5 % (0-9) 4 % (0-9) Eosinophils (%) (Auto) 0 % (0-3) 0 % (0-3) Basophils (%) (Auto) 1 % (0-3) 0 % (0-3) Neutrophils # (Auto) 11.8 x10^3/uL (1.8-7.7) 13.0 x10^3/uL (1.8-7.7) Lymphocytes # (Auto) 0.9 x10^3/uL (1.0-4.8) 0.7 x10^3/uL (1.0-4.8) Monocytes # (Auto) 0.7 x10^3/uL (0.0-1.1) 0.6 x10^3/uL (0.0-1.1) Eosinophils # (Auto) 0.0 x10^3/uL (0.0-0.7) 0.0 x10^3/uL (0.0-0.7) Basophils # (Auto) 0.1 x10^3/uL (0.0-0.2) 0.0 x10^3/uL (0.0-0.2) Prothrombin Time 14.0 SEC (11.7-14.0) 13.8 SEC (11.7-14.0) Prothromb Time International Ratio 1.1 (0.8-1.1) 1.1 (0.8-1.1) Activated Partial Thromboplast Time 29 SEC (24-38) 30 SEC (24-38) Sodium Level 146 mmol/L (136-145) 144 mmol/L (136-145) Potassium Level 2.9 mmol/L (3.5-5.1) 3.2 mmol/L (3.5-5.1) Chloride Level 110 mmol/L (98-107) 108 mmol/L (98-107) Carbon Dioxide Level 24 mmol/L (21-32) 23 mmol/L (21-32) Anion Gap 12 (6-14) 13 (6-14) Blood Urea Nitrogen 21 mg/dL (8-26) 22 mg/dL (8-26) Creatinine 1.0 mg/dL (0.7-1.3) 1.1 mg/dL (0.7-1.3) Estimated GFR (Cockcroft-Gault) 73.7 66.0 Glucose Level 99 mg/dL (70-99) 136 mg/dL (70-99) Calcium Level 7.1 mg/dL (8.5-10.1) 6.9 mg/dL (8.5-10.1) Ionized Calcium 0.95 mmol/L (1.13-1.32) Phosphorus Level 1.7 mg/dL (2.6-4.7) 2.1 mg/dL (2.6-4.7) Magnesium Level 2.6 mg/dL (1.8-2.4) 2.3 mg/dL (1.8-2.4) BUN/Creatinine Ratio 20 (6-20) Total Bilirubin 0.8 mg/dL (0.2-1.0) Aspartate Amino Transf (AST/SGOT) 135 U/L (15-37) Alanine Aminotransferase (ALT/SGPT) 168 U/L (16-63) Alkaline Phosphatase 54 U/L (46-116) Creatine Kinase 245 U/L (39-308) Total Protein 4.7 g/dL (6.4-8.2) Albumin 2.8 g/dL (3.4-5.0) Albumin/Globulin Ratio 1.5 (1.0-1.7) O2 Saturation 94 % (92-99) Arterial Blood pH 7.51 (7.35-7.45) Arterial Blood pH (Temp corrected) 7.58 Arterial Blood pCO2 at Patient Temp 27 mmHg (35-46) Arterial Blood pCO2 (Temp correct) 23 mmHg Arterial Blood pO2 at Patient Temp 66 mmHg (65-108) Arterial Blood pO2 (Temp corrected) 51 mmHg Arterial Blood HCO3 21 mmol/L (21-28) Arterial Blood Base Excess 0 mmol/L (-3-3) FiO2 70/vent Images Images CT head/cervical spine: There is no evidence of hemorrhage, mass or extra-axial fluid collection. [place]-white differentiation is maintained with no evidence of edema. Subcortical, periventricular as well as deep white matter foci of hypoattenuation likely changes of chronic small vessel disease. There is no mass effect or shift of the intracranial structures. The ventricles, basilar cisterns and cortical sulci are normal in size and configuration for the patients stated age. The cerebellum and brainstem are unremarkable. The calvarium demonstrates no evidence of fracture or focal lesion. Mastoid air cells are clear. Multifocal paranasal sinus thickening including the scattered ethmoid air cells, maxillary sinuses and the left frontal sinus. The visualized portions of the orbits are normal. Soft tissue swelling with small scalp hematoma overlying the frontal region. Atherosclerotic calcifications of the intracranial internal carotid and vertebral arteries is seen. IMPRESSION: 1. No evidence for acute intracranial process. 2. Multifocal paranasal sinus thickening including the scattered ethmoid air cells, maxillary sinuses and the left frontal sinus. EXAM: CT CERVICAL SPINE WITHOUT IV CONTRAST CLINICAL HISTORY: fall COMPARISON: None available. TECHNIQUE: Helical CT of the cervical spine was performed. Axial, coronal and sagittal reformatted images were also performed. PQRS compliance statement - One or more of the following individualized dose reduction techniques were utilized for this study: 1. Automated exposure control 2. Adjustment of the mA and/or kV according to patient size 3. Use of iterative reconstruction technique FINDINGS: There is a fracture through the base of the dens without involvement of the lateral masses. No significant displacement. Multilevel facet degenerative changes are seen. Multilevel degenerative changes of the cervical spine. Moderate C4-5, C5-6 and moderate to severe C6-7 disc height loss. Associated posterior endplate osteophytes are seen. No spondylolisthesis. ET tube is seen within the proximal thoracic trachea. Biapical parenchymal airspace opacities are seen. IMPRESSION: 1. Base of dens fracture is nondisplaced. 2. Multifocal degenerative changes 3. Biapical parenchymal opacities may represent multifocal consolidative process such as pneumonia although contusion or aspiration may result in this appearance. Assessment/Plan Assessment/Plan Impression: Anoxic encephalopathy Focal seizure activity noted Dens fracture Recommendations: Need to await rewarming before assessing a prognosis, but it does not look good. Levetiracetam Electroencephalogram tomorrow Thank you for letting me help with the patient's care. ASHVIN GREGORY MD Aug 05, 2020 13:09
[2020-08-05 13:15] LABS: PROTHROMBIN TIME PATIENT 14.7 SEC (11.7-14.0)
[2020-08-05] MEDS: NOREPINEPHRINE VIAL 8 MG in IV DEXTROSE 5% 250 ML IV PRN (13:49)
--- NOTE | 2020-08-05 16:09 | NUR ---
Wound Care Wound care consult for head laceration. Pt has abrasion/laceration to anterior head. Cleansed area and applied A&D ointment. Recommend ESSIE BID. Pt not turned due to cervical fracture. WC will continue to follow, WC POC discussed with Berenice COLLAZO.
--- NOTE | 2020-08-05 16:19 | NUR ---
SS following up with discharge planning. SS reviewed pt chart and discussed with pt RN. Pt is currently on the vent at 75%. Pt on IV Meropenem. COVID19 negative. Rewarming today. Not stable. SS will continue to follow for discharge planning.
[2020-08-05] MEDS: BACITRACIN TOPICAL OINT PACKET. TP SCH ×2 (17:00→21:03)
[2020-08-05 19:20] LABS: BASO # 0.1 x10^3/uL (0.0-0.2); BASO % 0 % (0-3); EOS % 0 % (0-3); HEMATOCRIT 39.4 % (39.0-53.0); HEMOGLOBIN 13.5 g/dL (13.0-17.5); LYMPH # 1.2 x10^3/uL (1.0-4.8); LYMPH % 7 % (24-48); MEAN CORPUSCULAR HEMOGLOBIN 32 pg (25-35); MEAN CORPUSCULAR HGB CONC 34 g/dL (31-37); MEAN CORPUSCULAR VOLUME 94 fL (79-100); MONO # 0.8 x10^3/uL (0.0-1.1); MONO % 4 % (0-9); NEUT # 16.7 x10^3/uL (1.8-7.7); NEUT % 89 % (31-73); PLATELET COUNT 168 x10^3/uL (140-400); RED BLOOD COUNT 4.19 x10^6/uL (4.30-5.70); RED CELL DISTRIBUTION WIDTH 13.6 % (11.5-14.5); WHITE BLOOD COUNT 18.8 x10^3/uL (4.0-11.0)
[2020-08-05 19:45] LABS: CALCIUM 6.5 mg/dL (8.5-10.1); CREATININE 1.1 mg/dL (0.7-1.3); PHOSPHORUS 4.2 mg/dL (2.6-4.7); POTASSIUM 3.4 mmol/L (3.5-5.1)
[2020-08-06] VITALS (26 sets, daily range): BP systolic 82–119; BP diastolic 53–78
--- NOTE | 2020-08-06 04:41 | RAD ---
EXAM: AP View of the chest DATE: 08/06/2020 3:26 AM INDICATION: Reason: rsp. failure 110 / Spl. Instructions: / History: COMPARISON: No Prior FINDINGS: ET tube tip terminates approximately 4 cm above the oleg. Enteric tube extends beyond the diaphragm tip projects over the fundus of the stomach. Heart is not enlarged. Mediastinal and hilar contours are normal. Bibasilar airspace opacities and small bilateral pleural effusions are seen. No pneumothorax. IMPRESSION: 1. Bibasilar airspace opacities may represent atelectasis or developing consolidation. 2. Support lines and tubes as above Electronically signed by: Suleman Hamlin MD (08/06/2020 4:39 AM) JESSICA
[2020-08-06] MEDS: IV NORMAL SALINE 1000ML BAG 1,000 ML IV SCH ×2 (05:50→12:28)
[2020-08-06] MEDS: HEPARIN for SUB-Q USE 5,000 UNIT/ML VIAL. SQ SCH ×3 (05:50→21:06)
[2020-08-06] MEDS: MEROPENEM 1 GM in IV NORMAL SALINE 100ML 100 ML IV SCH ×3 (05:50→21:06)
[2020-08-06] MEDS: NOREPINEPHRINE VIAL 8 MG in IV DEXTROSE 5% 250 ML IV PRN (05:57)
[2020-08-06 06:06] LABS: CALCIUM 6.3 mg/dL (8.5-10.1); CREATININE 1.3 mg/dL (0.7-1.3); GFR 54.4; PHOSPHORUS 2.9 mg/dL (2.6-4.7); POTASSIUM 3.4 mmol/L (3.5-5.1)
[2020-08-06 08:04] LABS: BASE EXCESS ABG 1 mmol/L (-3-3); HCO3 ABG 24 mmol/L (21-28); PCO2 ABG 31 mmHg (35-46); PO2 ABG 73 mmHg (65-108); SAT O2 ABG 95 % (92-99)
[2020-08-06 08:09] LABS: FIO2 ABG 75/VENT
--- NOTE | 2020-08-06 08:42 | PDOC ---
PULMONARY PROGRESS NOTES DATE: 08/06/20 TIME: 08:41 Subjective mechanical ventilation, currently 75% and a PEEP of 5 On vasopressors Patient is off sedation x24 hours Vitals Vital Signs Date Time Temp Pulse Resp B/P (MAP) Pulse Ox O2 Delivery O2 Flow Rate FiO2 08/06/20 08:00 Mechanical Ventilator 08/06/20 08:00 98.6 74 24 99/59 (72) 96 98.6 Comments Intubated/sedated Lungs: Clear Cardiovascular: S1, S2 Abdomen: Soft Extremities: No Edema Labs Laboratory Tests Test 08/04/20 09:20 08/04/20 09:37 08/04/20 11:15 08/04/20 13:50 O2 Saturation 98 % (92-99) Arterial Blood pH 7.10 (7.35-7.45) Arterial Blood pCO2 at Patient Temp 35 mmHg (35-46) Arterial Blood pO2 at Patient Temp 141 mmHg (65-108) Arterial Blood HCO3 11 mmol/L (21-28) Arterial Blood Base Excess -18 mmol/L (-3-3) FiO2 100 Glucose (Fingerstick) 268 mg/dL (70-99) White Blood Count 15.0 x10^3/uL (4.0-11.0) Red Blood Count 4.83 x10^6/uL (4.30-5.70) Hemoglobin 15.3 g/dL (13.0-17.5) Hematocrit 46.9 % (39.0-53.0) Mean Corpuscular Volume 97 fL (79-100) Mean Corpuscular Hemoglobin 32 pg (25-35) Mean Corpuscular Hemoglobin Concent 33 g/dL (31-37) Red Cell Distribution Width 13.8 % (11.5-14.5) Platelet Count 226 x10^3/uL (140-400) Neutrophils (%) (Auto) 87 % (31-73) Lymphocytes (%) (Auto) 6 % (24-48) Monocytes (%) (Auto) 6 % (0-9) Eosinophils (%) (Auto) 0 % (0-3) Basophils (%) (Auto) 0 % (0-3) Neutrophils # (Auto) 13.1 x10^3/uL (1.8-7.7) Lymphocytes # (Auto) 1.0 x10^3/uL (1.0-4.8) Monocytes # (Auto) 0.9 x10^3/uL (0.0-1.1) Eosinophils # (Auto) 0.0 x10^3/uL (0.0-0.7) Basophils # (Auto) 0.0 x10^3/uL (0.0-0.2) Segmented Neutrophils % 88 % (35-66) Band Neutrophils % 7 % (0-9) Lymphocytes % 3 % (24-48) Monocytes % 2 % (0-10) Platelet Estimate Adequate (ADEQUATE) Prothrombin Time 14.4 SEC (11.7-14.0) Prothromb Time International Ratio 1.2 (0.8-1.1) Activated Partial Thromboplast Time 27 SEC (24-38) Fibrinogen 197 mg/dL (200-440) Sodium Level 146 mmol/L (136-145) Potassium Level 3.3 mmol/L (3.5-5.1) Chloride Level 107 mmol/L (98-107) Carbon Dioxide Level 15 mmol/L (21-32) Anion Gap 24 (6-14) Blood Urea Nitrogen 17 mg/dL (8-26) Creatinine 1.4 mg/dL (0.7-1.3) Estimated GFR (Cockcroft-Gault) 50.0 Glucose Level 232 mg/dL (70-99) 229 mg/dL (70-99) Lactic Acid Level 11.7 mmol/L (0.4-2.0) Calcium Level 7.3 mg/dL (8.5-10.1) Phosphorus Level 3.4 mg/dL (2.6-4.7) Magnesium Level 2.0 mg/dL (1.8-2.4) Troponin I Quantitative 0.230 ng/mL (0.000-0.055) Procalcitonin 0.32 ng/mL (0.00-0.10) Test 08/04/20 14:25 08/04/20 15:19 08/04/20 16:25 08/04/20 17:34 Coronavirus (PCR) Not detected (Not Detected) Glucose (Fingerstick) 215 mg/dL (70-99) 205 mg/dL (70-99) 191 mg/dL (70-99) Test 08/04/20 17:45 08/04/20 18:15 08/04/20 18:43 1/14/21 02:15 O2 Saturation 97 % (92-99) Arterial Blood pH 7.40 (7.35-7.45) Arterial Blood pH (Temp corrected) 7.46 Arterial Blood pCO2 at Patient Temp 29 mmHg (35-46) Arterial Blood pCO2 (Temp correct) 24 mmHg Arterial Blood pO2 at Patient Temp 92 mmHg (65-108) Arterial Blood pO2 (Temp corrected) 72 mmHg Arterial Blood HCO3 18 mmol/L (21-28) Arterial Blood Base Excess -6 mmol/L (-3-3) FiO2 70 Glucose (Fingerstick) 200 mg/dL (70-99) White Blood Count 12.4 x10^3/uL (4.0-11.0) 13.5 x10^3/uL (4.0-11.0) Red Blood Count 4.71 x10^6/uL (4.30-5.70) 4.28 x10^6/uL (4.30-5.70) Hemoglobin 15.0 g/dL (13.0-17.5) 13.7 g/dL (13.0-17.5) Hematocrit 44.8 % (39.0-53.0) 39.9 % (39.0-53.0) Mean Corpuscular Volume 95 fL (79-100) 93 fL (79-100) Mean Corpuscular Hemoglobin 32 pg (25-35) 32 pg (25-35) Mean Corpuscular Hemoglobin Concent 33 g/dL (31-37) 34 g/dL (31-37) Red Cell Distribution Width 13.5 % (11.5-14.5) 13.7 % (11.5-14.5) Platelet Count 188 x10^3/uL (140-400) 169 x10^3/uL (140-400) Neutrophils (%) (Auto) 90 % (31-73) 87 % (31-73) Lymphocytes (%) (Auto) 7 % (24-48) 7 % (24-48) Monocytes (%) (Auto) 3 % (0-9) 5 % (0-9) Eosinophils (%) (Auto) 0 % (0-3) 0 % (0-3) Basophils (%) (Auto) 0 % (0-3) 1 % (0-3) Neutrophils # (Auto) 11.1 x10^3/uL (1.8-7.7) 11.8 x10^3/uL (1.8-7.7) Lymphocytes # (Auto) 0.9 x10^3/uL (1.0-4.8) 0.9 x10^3/uL (1.0-4.8) Monocytes # (Auto) 0.4 x10^3/uL (0.0-1.1) 0.7 x10^3/uL (0.0-1.1) Eosinophils # (Auto) 0.0 x10^3/uL (0.0-0.7) 0.0 x10^3/uL (0.0-0.7) Basophils # (Auto) 0.0 x10^3/uL (0.0-0.2) 0.1 x10^3/uL (0.0-0.2) Prothrombin Time 14.0 SEC (11.7-14.0) 14.0 SEC (11.7-14.0) Prothromb Time International Ratio 1.1 (0.8-1.1) 1.1 (0.8-1.1) Activated Partial Thromboplast Time 26 SEC (24-38) 29 SEC (24-38) Sodium Level 143 mmol/L (136-145) 146 mmol/L (136-145) Potassium Level 2.8 mmol/L (3.5-5.1) 2.9 mmol/L (3.5-5.1) Chloride Level 109 mmol/L (98-107) 110 mmol/L (98-107) Carbon Dioxide Level 21 mmol/L (21-32) 24 mmol/L (21-32) Anion Gap 13 (6-14) 12 (6-14) Blood Urea Nitrogen 20 mg/dL (8-26) 21 mg/dL (8-26) Creatinine 1.3 mg/dL (0.7-1.3) 1.0 mg/dL (0.7-1.3) Estimated GFR (Cockcroft-Gault) 54.4 73.7 Glucose Level 180 mg/dL (70-99) 99 mg/dL (70-99) Calcium Level 7.4 mg/dL (8.5-10.1) 7.1 mg/dL (8.5-10.1) Phosphorus Level 0.5 mg/dL (2.6-4.7) 1.7 mg/dL (2.6-4.7) Magnesium Level 1.9 mg/dL (1.8-2.4) 2.6 mg/dL (1.8-2.4) Ionized Calcium 0.95 mmol/L (1.13-1.32) Test 08/05/20 02:25 08/05/20 03:40 08/05/20 06:00 08/05/20 07:55 Glucose (Fingerstick) 105 mg/dL (70-99) 107 mg/dL (70-99) 174 mg/dL (70-99) White Blood Count 14.3 x10^3/uL (4.0-11.0) Red Blood Count 4.21 x10^6/uL (4.30-5.70) Hemoglobin 13.6 g/dL (13.0-17.5) Hematocrit 39.3 % (39.0-53.0) Mean Corpuscular Volume 93 fL (79-100) Mean Corpuscular Hemoglobin 32 pg (25-35) Mean Corpuscular Hemoglobin Concent 35 g/dL (31-37) Red Cell Distribution Width 13.5 % (11.5-14.5) Platelet Count 163 x10^3/uL (140-400) Neutrophils (%) (Auto) 91 % (31-73) Lymphocytes (%) (Auto) 5 % (24-48) Monocytes (%) (Auto) 4 % (0-9) Eosinophils (%) (Auto) 0 % (0-3) Basophils (%) (Auto) 0 % (0-3) Neutrophils # (Auto) 13.0 x10^3/uL (1.8-7.7) Lymphocytes # (Auto) 0.7 x10^3/uL (1.0-4.8) Monocytes # (Auto) 0.6 x10^3/uL (0.0-1.1) Eosinophils # (Auto) 0.0 x10^3/uL (0.0-0.7) Basophils # (Auto) 0.0 x10^3/uL (0.0-0.2) Prothrombin Time 13.8 SEC (11.7-14.0) Prothromb Time International Ratio 1.1 (0.8-1.1) Activated Partial Thromboplast Time 30 SEC (24-38) Sodium Level 144 mmol/L (136-145) Potassium Level 3.2 mmol/L (3.5-5.1) Chloride Level 108 mmol/L (98-107) Carbon Dioxide Level 23 mmol/L (21-32) Anion Gap 13 (6-14) Blood Urea Nitrogen 22 mg/dL (8-26) Creatinine 1.1 mg/dL (0.7-1.3) Estimated GFR (Cockcroft-Gault) 66.0 BUN/Creatinine Ratio 20 (6-20) Glucose Level 136 mg/dL (70-99) Calcium Level 6.9 mg/dL (8.5-10.1) Phosphorus Level 2.1 mg/dL (2.6-4.7) Magnesium Level 2.3 mg/dL (1.8-2.4) Total Bilirubin 0.8 mg/dL (0.2-1.0) Aspartate Amino Transf (AST/SGOT) 135 U/L (15-37) Alanine Aminotransferase (ALT/SGPT) 168 U/L (16-63) Alkaline Phosphatase 54 U/L (46-116) Creatine Kinase 245 U/L (39-308) Total Protein 4.7 g/dL (6.4-8.2) Albumin 2.8 g/dL (3.4-5.0) Albumin/Globulin Ratio 1.5 (1.0-1.7) Test 08/05/20 08:00 08/05/20 08:59 08/05/20 10:07 08/05/20 11:03 O2 Saturation 94 % (92-99) Arterial Blood pH 7.51 (7.35-7.45) Arterial Blood pH (Temp corrected) 7.58 Arterial Blood pCO2 at Patient Temp 27 mmHg (35-46) Arterial Blood pCO2 (Temp correct) 23 mmHg Arterial Blood pO2 at Patient Temp 66 mmHg (65-108) Arterial Blood pO2 (Temp corrected) 51 mmHg Arterial Blood HCO3 21 mmol/L (21-28) Arterial Blood Base Excess 0 mmol/L (-3-3) FiO2 70/vent Glucose (Fingerstick) 169 mg/dL (70-99) 165 mg/dL (70-99) 178 mg/dL (70-99) Test 08/05/20 11:50 08/05/20 12:20 08/05/20 13:01 08/05/20 13:54 Glucose (Fingerstick) 147 mg/dL (70-99) 139 mg/dL (70-99) 138 mg/dL (70-99) White Blood Count 16.0 x10^3/uL (4.0-11.0) Red Blood Count 4.21 x10^6/uL (4.30-5.70) Hemoglobin 13.5 g/dL (13.0-17.5) Hematocrit 39.8 % (39.0-53.0) Mean Corpuscular Volume 95 fL (79-100) Mean Corpuscular Hemoglobin 32 pg (25-35) Mean Corpuscular Hemoglobin Concent 34 g/dL (31-37) Red Cell Distribution Width 13.6 % (11.5-14.5) Platelet Count 166 x10^3/uL (140-400) Neutrophils (%) (Auto) 91 % (31-73) Lymphocytes (%) (Auto) 5 % (24-48) Monocytes (%) (Auto) 4 % (0-9) Eosinophils (%) (Auto) 0 % (0-3) Basophils (%) (Auto) 0 % (0-3) Neutrophils # (Auto) 14.5 x10^3/uL (1.8-7.7) Lymphocytes # (Auto) 0.8 x10^3/uL (1.0-4.8) Monocytes # (Auto) 0.6 x10^3/uL (0.0-1.1) Eosinophils # (Auto) 0.0 x10^3/uL (0.0-0.7) Basophils # (Auto) 0.0 x10^3/uL (0.0-0.2) Prothrombin Time 14.7 SEC (11.7-14.0) Prothromb Time International Ratio 1.2 (0.8-1.1) Activated Partial Thromboplast Time 38 SEC (24-38) Sodium Level 142 mmol/L (136-145) Potassium Level 3.2 mmol/L (3.5-5.1) Chloride Level 106 mmol/L (98-107) Carbon Dioxide Level 26 mmol/L (21-32) Anion Gap 10 (6-14) Blood Urea Nitrogen 21 mg/dL (8-26) Creatinine 1.0 mg/dL (0.7-1.3) Estimated GFR (Cockcroft-Gault) 73.7 Glucose Level 134 mg/dL (70-99) Calcium Level 6.6 mg/dL (8.5-10.1) Phosphorus Level 3.4 mg/dL (2.6-4.7) Magnesium Level 2.1 mg/dL (1.8-2.4) Test 08/05/20 14:54 08/05/20 15:42 08/05/20 17:15 08/05/20 17:58 Glucose (Fingerstick) 143 mg/dL (70-99) 119 mg/dL (70-99) 130 mg/dL (70-99) 123 mg/dL (70-99) Test 08/05/20 19:00 08/06/20 05:00 08/06/20 08:00 White Blood Count 18.8 x10^3/uL (4.0-11.0) Red Blood Count 4.19 x10^6/uL (4.30-5.70) Hemoglobin 13.5 g/dL (13.0-17.5) Hematocrit 39.4 % (39.0-53.0) Mean Corpuscular Volume 94 fL (79-100) Mean Corpuscular Hemoglobin 32 pg (25-35) Mean Corpuscular Hemoglobin Concent 34 g/dL (31-37) Red Cell Distribution Width 13.6 % (11.5-14.5) Platelet Count 168 x10^3/uL (140-400) Neutrophils (%) (Auto) 89 % (31-73) Lymphocytes (%) (Auto) 7 % (24-48) Monocytes (%) (Auto) 4 % (0-9) Eosinophils (%) (Auto) 0 % (0-3) Basophils (%) (Auto) 0 % (0-3) Neutrophils # (Auto) 16.7 x10^3/uL (1.8-7.7) Lymphocytes # (Auto) 1.2 x10^3/uL (1.0-4.8) Monocytes # (Auto) 0.8 x10^3/uL (0.0-1.1) Eosinophils # (Auto) 0.0 x10^3/uL (0.0-0.7) Basophils # (Auto) 0.1 x10^3/uL (0.0-0.2) Prothrombin Time 15.0 SEC (11.7-14.0) Prothromb Time International Ratio 1.2 (0.8-1.1) Activated Partial Thromboplast Time 40 SEC (24-38) Sodium Level 141 mmol/L (136-145) 143 mmol/L (136-145) Potassium Level 3.4 mmol/L (3.5-5.1) 3.4 mmol/L (3.5-5.1) Chloride Level 106 mmol/L (98-107) 108 mmol/L (98-107) Carbon Dioxide Level 26 mmol/L (21-32) 24 mmol/L (21-32) Anion Gap 9 (6-14) 11 (6-14) Blood Urea Nitrogen 22 mg/dL (8-26) 20 mg/dL (8-26) Creatinine 1.1 mg/dL (0.7-1.3) 1.3 mg/dL (0.7-1.3) Estimated GFR (Cockcroft-Gault) 66.0 54.4 Glucose Level 111 mg/dL (70-99) 129 mg/dL (70-99) Calcium Level 6.5 mg/dL (8.5-10.1) 6.3 mg/dL (8.5-10.1) Phosphorus Level 4.2 mg/dL (2.6-4.7) 2.9 mg/dL (2.6-4.7) Magnesium Level 2.0 mg/dL (1.8-2.4) 2.0 mg/dL (1.8-2.4) O2 Saturation 95 % (92-99) Arterial Blood pH 7.50 (7.35-7.45) Arterial Blood pCO2 at Patient Temp 31 mmHg (35-46) Arterial Blood pO2 at Patient Temp 73 mmHg (65-108) Arterial Blood HCO3 24 mmol/L (21-28) Arterial Blood Base Excess 1 mmol/L (-3-3) FiO2 75/vent Laboratory Tests Test 08/05/20 08:59 08/05/20 10:07 08/05/20 11:03 08/05/20 11:50 Glucose (Fingerstick) 169 mg/dL (70-99) 165 mg/dL (70-99) 178 mg/dL (70-99) 147 mg/dL (70-99) Test 08/05/20 12:20 08/05/20 13:01 08/05/20 13:54 08/05/20 14:54 White Blood Count 16.0 x10^3/uL (4.0-11.0) Red Blood Count 4.21 x10^6/uL (4.30-5.70) Hemoglobin 13.5 g/dL (13.0-17.5) Hematocrit 39.8 % (39.0-53.0) Mean Corpuscular Volume 95 fL (79-100) Mean Corpuscular Hemoglobin 32 pg (25-35) Mean Corpuscular Hemoglobin Concent 34 g/dL (31-37) Red Cell Distribution Width 13.6 % (11.5-14.5) Platelet Count 166 x10^3/uL (140-400) Neutrophils (%) (Auto) 91 % (31-73) Lymphocytes (%) (Auto) 5 % (24-48) Monocytes (%) (Auto) 4 % (0-9) Eosinophils (%) (Auto) 0 % (0-3) Basophils (%) (Auto) 0 % (0-3) Neutrophils # (Auto) 14.5 x10^3/uL (1.8-7.7) Lymphocytes # (Auto) 0.8 x10^3/uL (1.0-4.8) Monocytes # (Auto) 0.6 x10^3/uL (0.0-1.1) Eosinophils # (Auto) 0.0 x10^3/uL (0.0-0.7) Basophils # (Auto) 0.0 x10^3/uL (0.0-0.2) Prothrombin Time 14.7 SEC (11.7-14.0) Prothromb Time International Ratio 1.2 (0.8-1.1) Activated Partial Thromboplast Time 38 SEC (24-38) Sodium Level 142 mmol/L (136-145) Potassium Level 3.2 mmol/L (3.5-5.1) Chloride Level 106 mmol/L (98-107) Carbon Dioxide Level 26 mmol/L (21-32) Anion Gap 10 (6-14) Blood Urea Nitrogen 21 mg/dL (8-26) Creatinine 1.0 mg/dL (0.7-1.3) Estimated GFR (Cockcroft-Gault) 73.7 Glucose Level 134 mg/dL (70-99) Calcium Level 6.6 mg/dL (8.5-10.1) Phosphorus Level 3.4 mg/dL (2.6-4.7) Magnesium Level 2.1 mg/dL (1.8-2.4) Glucose (Fingerstick) 139 mg/dL (70-99) 138 mg/dL (70-99) 143 mg/dL (70-99) Test 08/05/20 15:42 08/05/20 17:15 08/05/20 17:58 08/05/20 19:00 Glucose (Fingerstick) 119 mg/dL (70-99) 130 mg/dL (70-99) 123 mg/dL (70-99) White Blood Count 18.8 x10^3/uL (4.0-11.0) Red Blood Count 4.19 x10^6/uL (4.30-5.70) Hemoglobin 13.5 g/dL (13.0-17.5) Hematocrit 39.4 % (39.0-53.0) Mean Corpuscular Volume 94 fL (79-100) Mean Corpuscular Hemoglobin 32 pg (25-35) Mean Corpuscular Hemoglobin Concent 34 g/dL (31-37) Red Cell Distribution Width 13.6 % (11.5-14.5) Platelet Count 168 x10^3/uL (140-400) Neutrophils (%) (Auto) 89 % (31-73) Lymphocytes (%) (Auto) 7 % (24-48) Monocytes (%) (Auto) 4 % (0-9) Eosinophils (%) (Auto) 0 % (0-3) Basophils (%) (Auto) 0 % (0-3) Neutrophils # (Auto) 16.7 x10^3/uL (1.8-7.7) Lymphocytes # (Auto) 1.2 x10^3/uL (1.0-4.8) Monocytes # (Auto) 0.8 x10^3/uL (0.0-1.1) Eosinophils # (Auto) 0.0 x10^3/uL (0.0-0.7) Basophils # (Auto) 0.1 x10^3/uL (0.0-0.2) Prothrombin Time 15.0 SEC (11.7-14.0) Prothromb Time International Ratio 1.2 (0.8-1.1) Activated Partial Thromboplast Time 40 SEC (24-38) Sodium Level 141 mmol/L (136-145) Potassium Level 3.4 mmol/L (3.5-5.1) Chloride Level 106 mmol/L (98-107) Carbon Dioxide Level 26 mmol/L (21-32) Anion Gap 9 (6-14) Blood Urea Nitrogen 22 mg/dL (8-26) Creatinine 1.1 mg/dL (0.7-1.3) Estimated GFR (Cockcroft-Gault) 66.0 Glucose Level 111 mg/dL (70-99) Calcium Level 6.5 mg/dL (8.5-10.1) Phosphorus Level 4.2 mg/dL (2.6-4.7) Magnesium Level 2.0 mg/dL (1.8-2.4) Test 08/06/20 05:00 08/06/20 08:00 Sodium Level 143 mmol/L (136-145) Potassium Level 3.4 mmol/L (3.5-5.1) Chloride Level 108 mmol/L (98-107) Carbon Dioxide Level 24 mmol/L (21-32) Anion Gap 11 (6-14) Blood Urea Nitrogen 20 mg/dL (8-26) Creatinine 1.3 mg/dL (0.7-1.3) Estimated GFR (Cockcroft-Gault) 54.4 Glucose Level 129 mg/dL (70-99) Calcium Level 6.3 mg/dL (8.5-10.1) Phosphorus Level 2.9 mg/dL (2.6-4.7) Magnesium Level 2.0 mg/dL (1.8-2.4) O2 Saturation 95 % (92-99) Arterial Blood pH 7.50 (7.35-7.45) Arterial Blood pCO2 at Patient Temp 31 mmHg (35-46) Arterial Blood pO2 at Patient Temp 73 mmHg (65-108) Arterial Blood HCO3 24 mmol/L (21-28) Arterial Blood Base Excess 1 mmol/L (-3-3) FiO2 75/vent Medications Active Scripts Medications Dose Route/Sig Max Daily Dose Days Date Category Children's Aspirin (Aspirin) 81 Mg Tab.chew 1 Tab PO DAILY 30 08/05/20 Reported Atorvastatin Calcium 40 Mg Tablet 1 Tab PO DAILY 08/05/20 Reported Losartan Potassium 50 Mg Tablet 50 Mg PO DAILY 08/05/20 Reported Famotidine 40 Mg Tablet 40 Mg PO HS 08/05/20 Reported Pantoprazole Sodium (Pantoprazole Sodium) 40 Mg Tablet.dr 40 Mg PO DAILYAC 08/05/20 Reported Comments CXR IMPRESSION: 1. Bibasilar airspace opacities may represent atelectasis or developing consolidation. 2. Support lines and tubes as above CT ABD Impression: 1. Retroperitoneal hematoma on the right with density surrounding the proximal right ureter. A vascular injury to the right kidney is possible however the right kidney appears well-perfused and there is no gross extravasation of contrast. 2. L4 vertebral body compression fracture could be old. ECHO <Conclusion> The left ventricular systolic function is normal and the ejection fraction is within normal range. Estimated ejection fraction 60-65%. There is normal LV segmental wall motion. Doppler and Color Flow revealed mild tricuspid regurgitation. Estimated PAP 35 mmHg. Impression . IMPRESSION: 1. Acute respiratory failure secondary to pulseless electrical activity cardiac arrest and also contributed by toxic encephalopathy from alcohol and marijuana. 2. Pulseless electrical activity cardiac arrest. 3. Toxic encephalopathy, status post fall after found to be drinking alcohol and smoking marijuana. 4. [id number] negative. 5. Acute kidney injury. 6. Marked lactic acidosis from cardiac arrest and shock, less likely septic. 7. Shock, cardiogenic. 8. Abnormal ALT and AST secondary to hypoperfusion. 9. Abnormal D-dimer with no evidence of pulmonary embolism. 10. Severe metabolic acidosis. 11. Hypernatremia. Plan . RECOMMENDATIONS: Continue current vent support, currently assist control 70% and a PEEP of 5 Follow ABG/chest x-ray, increase FiO2 to 70% and decrease the rate to 20--proceed with apnea testing Completed hypothermia protocol Continue vasopressors as needed to keep MAP greater than 65--remains on Levophed Follow cardiology recommendations, echocardiogram reviewed EF within normal limits Follow nephrology recommendations, Continue antibiotics--currently on meropenem Follow neurology recommendations DVT/GI prophylaxis Discussed with RN and RT Critical care time [id number] AM REINIER MULLEN MD Aug 06, 2020 08:42
--- NOTE | 2020-08-06 08:43 | PDOC ---
PROGRESS NOTES Date of Service DATE: 08/06/20 TIME: 08:40 Assessment Problems Medical Problems: (1) Cardiac arrest Status: Acute (2) Dens fracture Status: Acute (3) Respiratory failure Status: Acute Anoxic encephalopathy, not brain Focal seizure activity noted Dens fracture Plan Poor prognosis Levetiracetam Electroencephalogram I will discuss with family after EEG Subjective None Objective Vital Signs Date Time Temp Pulse Resp B/P (MAP) Pulse Ox O2 Delivery O2 Flow Rate FiO2 08/06/20 08:00 Mechanical Ventilator 08/06/20 08:00 98.6 74 24 99/59 (72) 96 98.6 Intake and Output 08/06/20 07:00 Intake Total 4623.0666 ml Output Total 995 ml Balance 3628.0666 ml Intake IV Total 4623.0666 ml Output Urine Total 995 ml PHYSICAL EXAM Intubated, no sedation Pinpoint pupils, cannot detect reaction No spontaneous extraocular movements, cannot check oculocephalic reflex, cervical collar in place. CN: no focal findings. Muscle tone: normal. Muscle strength: Minimal withdrawal to pain DTR: 1+ Plantar reflex: Silent Gait: not examined Sensory: Not examined. Cerebellar: Not testable Review of Relevant I have reviewed the following items magda (where applicable) has been applied. Labs Laboratory Tests Test 08/04/20 09:20 08/04/20 09:37 08/04/20 11:15 08/04/20 13:50 O2 Saturation 98 % (92-99) Arterial Blood pH 7.10 (7.35-7.45) Arterial Blood pCO2 at Patient Temp 35 mmHg (35-46) Arterial Blood pO2 at Patient Temp 141 mmHg (65-108) Arterial Blood HCO3 11 mmol/L (21-28) Arterial Blood Base Excess -18 mmol/L (-3-3) FiO2 100 Glucose (Fingerstick) 268 mg/dL (70-99) White Blood Count 15.0 x10^3/uL (4.0-11.0) Red Blood Count 4.83 x10^6/uL (4.30-5.70) Hemoglobin 15.3 g/dL (13.0-17.5) Hematocrit 46.9 % (39.0-53.0) Mean Corpuscular Volume 97 fL (79-100) Mean Corpuscular Hemoglobin 32 pg (25-35) Mean Corpuscular Hemoglobin Concent 33 g/dL (31-37) Red Cell Distribution Width 13.8 % (11.5-14.5) Platelet Count 226 x10^3/uL (140-400) Neutrophils (%) (Auto) 87 % (31-73) Lymphocytes (%) (Auto) 6 % (24-48) Monocytes (%) (Auto) 6 % (0-9) Eosinophils (%) (Auto) 0 % (0-3) Basophils (%) (Auto) 0 % (0-3) Neutrophils # (Auto) 13.1 x10^3/uL (1.8-7.7) Lymphocytes # (Auto) 1.0 x10^3/uL (1.0-4.8) Monocytes # (Auto) 0.9 x10^3/uL (0.0-1.1) Eosinophils # (Auto) 0.0 x10^3/uL (0.0-0.7) Basophils # (Auto) 0.0 x10^3/uL (0.0-0.2) Segmented Neutrophils % 88 % (35-66) Band Neutrophils % 7 % (0-9) Lymphocytes % 3 % (24-48) Monocytes % 2 % (0-10) Platelet Estimate Adequate (ADEQUATE) Prothrombin Time 14.4 SEC (11.7-14.0) Prothromb Time International Ratio 1.2 (0.8-1.1) Activated Partial Thromboplast Time 27 SEC (24-38) Fibrinogen 197 mg/dL (200-440) Sodium Level 146 mmol/L (136-145) Potassium Level 3.3 mmol/L (3.5-5.1) Chloride Level 107 mmol/L (98-107) Carbon Dioxide Level 15 mmol/L (21-32) Anion Gap 24 (6-14) Blood Urea Nitrogen 17 mg/dL (8-26) Creatinine 1.4 mg/dL (0.7-1.3) Estimated GFR (Cockcroft-Gault) 50.0 Glucose Level 232 mg/dL (70-99) 229 mg/dL (70-99) Lactic Acid Level 11.7 mmol/L (0.4-2.0) Calcium Level 7.3 mg/dL (8.5-10.1) Phosphorus Level 3.4 mg/dL (2.6-4.7) Magnesium Level 2.0 mg/dL (1.8-2.4) Troponin I Quantitative 0.230 ng/mL (0.000-0.055) Procalcitonin 0.32 ng/mL (0.00-0.10) Test 08/04/20 14:25 08/04/20 15:19 08/04/20 16:25 08/04/20 17:34 Coronavirus (PCR) Not detected (Not Detected) Glucose (Fingerstick) 215 mg/dL (70-99) 205 mg/dL (70-99) 191 mg/dL (70-99) Test 08/04/20 17:45 08/04/20 18:15 08/04/20 18:43 08/05/20 02:15 O2 Saturation 97 % (92-99) Arterial Blood pH 7.40 (7.35-7.45) Arterial Blood pH (Temp corrected) 7.46 Arterial Blood pCO2 at Patient Temp 29 mmHg (35-46) Arterial Blood pCO2 (Temp correct) 24 mmHg Arterial Blood pO2 at Patient Temp 92 mmHg (65-108) Arterial Blood pO2 (Temp corrected) 72 mmHg Arterial Blood HCO3 18 mmol/L (21-28) Arterial Blood Base Excess -6 mmol/L (-3-3) FiO2 70 Glucose (Fingerstick) 200 mg/dL (70-99) White Blood Count 12.4 x10^3/uL (4.0-11.0) 13.5 x10^3/uL (4.0-11.0) Red Blood Count 4.71 x10^6/uL (4.30-5.70) 4.28 x10^6/uL (4.30-5.70) Hemoglobin 15.0 g/dL (13.0-17.5) 13.7 g/dL (13.0-17.5) Hematocrit 44.8 % (39.0-53.0) 39.9 % (39.0-53.0) Mean Corpuscular Volume 95 fL (79-100) 93 fL (79-100) Mean Corpuscular Hemoglobin 32 pg (25-35) 32 pg (25-35) Mean Corpuscular Hemoglobin Concent 33 g/dL (31-37) 34 g/dL (31-37) Red Cell Distribution Width 13.5 % (11.5-14.5) 13.7 % (11.5-14.5) Platelet Count 188 x10^3/uL (140-400) 169 x10^3/uL (140-400) Neutrophils (%) (Auto) 90 % (31-73) 87 % (31-73) Lymphocytes (%) (Auto) 7 % (24-48) 7 % (24-48) Monocytes (%) (Auto) 3 % (0-9) 5 % (0-9) Eosinophils (%) (Auto) 0 % (0-3) 0 % (0-3) Basophils (%) (Auto) 0 % (0-3) 1 % (0-3) Neutrophils # (Auto) 11.1 x10^3/uL (1.8-7.7) 11.8 x10^3/uL (1.8-7.7) Lymphocytes # (Auto) 0.9 x10^3/uL (1.0-4.8) 0.9 x10^3/uL (1.0-4.8) Monocytes # (Auto) 0.4 x10^3/uL (0.0-1.1) 0.7 x10^3/uL (0.0-1.1) Eosinophils # (Auto) 0.0 x10^3/uL (0.0-0.7) 0.0 x10^3/uL (0.0-0.7) Basophils # (Auto) 0.0 x10^3/uL (0.0-0.2) 0.1 x10^3/uL (0.0-0.2) Prothrombin Time 14.0 SEC (11.7-14.0) 14.0 SEC (11.7-14.0) Prothromb Time International Ratio 1.1 (0.8-1.1) 1.1 (0.8-1.1) Activated Partial Thromboplast Time 26 SEC (24-38) 29 SEC (24-38) Sodium Level 143 mmol/L (136-145) 146 mmol/L (136-145) Potassium Level 2.8 mmol/L (3.5-5.1) 2.9 mmol/L (3.5-5.1) Chloride Level 109 mmol/L (98-107) 110 mmol/L (98-107) Carbon Dioxide Level 21 mmol/L (21-32) 24 mmol/L (21-32) Anion Gap 13 (6-14) 12 (6-14) Blood Urea Nitrogen 20 mg/dL (8-26) 21 mg/dL (8-26) Creatinine 1.3 mg/dL (0.7-1.3) 1.0 mg/dL (0.7-1.3) Estimated GFR (Cockcroft-Gault) 54.4 73.7 Glucose Level 180 mg/dL (70-99) 99 mg/dL (70-99) Calcium Level 7.4 mg/dL (8.5-10.1) 7.1 mg/dL (8.5-10.1) Phosphorus Level 0.5 mg/dL (2.6-4.7) 1.7 mg/dL (2.6-4.7) Magnesium Level 1.9 mg/dL (1.8-2.4) 2.6 mg/dL (1.8-2.4) Ionized Calcium 0.95 mmol/L (1.13-1.32) Test 08/05/20 02:25 08/05/20 03:40 08/05/20 06:00 08/05/20 07:55 Glucose (Fingerstick) 105 mg/dL (70-99) 107 mg/dL (70-99) 174 mg/dL (70-99) White Blood Count 14.3 x10^3/uL (4.0-11.0) Red Blood Count 4.21 x10^6/uL (4.30-5.70) Hemoglobin 13.6 g/dL (13.0-17.5) Hematocrit 39.3 % (39.0-53.0) Mean Corpuscular Volume 93 fL (79-100) Mean Corpuscular Hemoglobin 32 pg (25-35) Mean Corpuscular Hemoglobin Concent 35 g/dL (31-37) Red Cell Distribution Width 13.5 % (11.5-14.5) Platelet Count 163 x10^3/uL (140-400) Neutrophils (%) (Auto) 91 % (31-73) Lymphocytes (%) (Auto) 5 % (24-48) Monocytes (%) (Auto) 4 % (0-9) Eosinophils (%) (Auto) 0 % (0-3) Basophils (%) (Auto) 0 % (0-3) Neutrophils # (Auto) 13.0 x10^3/uL (1.8-7.7) Lymphocytes # (Auto) 0.7 x10^3/uL (1.0-4.8) Monocytes # (Auto) 0.6 x10^3/uL (0.0-1.1) Eosinophils # (Auto) 0.0 x10^3/uL (0.0-0.7) Basophils # (Auto) 0.0 x10^3/uL (0.0-0.2) Prothrombin Time 13.8 SEC (11.7-14.0) Prothromb Time International Ratio 1.1 (0.8-1.1) Activated Partial Thromboplast Time 30 SEC (24-38) Sodium Level 144 mmol/L (136-145) Potassium Level 3.2 mmol/L (3.5-5.1) Chloride Level 108 mmol/L (98-107) Carbon Dioxide Level 23 mmol/L (21-32) Anion Gap 13 (6-14) Blood Urea Nitrogen 22 mg/dL (8-26) Creatinine 1.1 mg/dL (0.7-1.3) Estimated GFR (Cockcroft-Gault) 66.0 BUN/Creatinine Ratio 20 (6-20) Glucose Level 136 mg/dL (70-99) Calcium Level 6.9 mg/dL (8.5-10.1) Phosphorus Level 2.1 mg/dL (2.6-4.7) Magnesium Level 2.3 mg/dL (1.8-2.4) Total Bilirubin 0.8 mg/dL (0.2-1.0) Aspartate Amino Transf (AST/SGOT) 135 U/L (15-37) Alanine Aminotransferase (ALT/SGPT) 168 U/L (16-63) Alkaline Phosphatase 54 U/L (46-116) Creatine Kinase 245 U/L (39-308) Total Protein 4.7 g/dL (6.4-8.2) Albumin 2.8 g/dL (3.4-5.0) Albumin/Globulin Ratio 1.5 (1.0-1.7) Test 08/05/20 08:00 08/05/20 08:59 08/05/20 10:07 08/05/20 11:03 O2 Saturation 94 % (92-99) Arterial Blood pH 7.51 (7.35-7.45) Arterial Blood pH (Temp corrected) 7.58 Arterial Blood pCO2 at Patient Temp 27 mmHg (35-46) Arterial Blood pCO2 (Temp correct) 23 mmHg Arterial Blood pO2 at Patient Temp 66 mmHg (65-108) Arterial Blood pO2 (Temp corrected) 51 mmHg Arterial Blood HCO3 21 mmol/L (21-28) Arterial Blood Base Excess 0 mmol/L (-3-3) FiO2 70/vent Glucose (Fingerstick) 169 mg/dL (70-99) 165 mg/dL (70-99) 178 mg/dL (70-99) Test 08/05/20 11:50 08/05/20 12:20 08/05/20 13:01 08/05/20 13:54 Glucose (Fingerstick) 147 mg/dL (70-99) 139 mg/dL (70-99) 138 mg/dL (70-99) White Blood Count 16.0 x10^3/uL (4.0-11.0) Red Blood Count 4.21 x10^6/uL (4.30-5.70) Hemoglobin 13.5 g/dL (13.0-17.5) Hematocrit 39.8 % (39.0-53.0) Mean Corpuscular Volume 95 fL (79-100) Mean Corpuscular Hemoglobin 32 pg (25-35) Mean Corpuscular Hemoglobin Concent 34 g/dL (31-37) Red Cell Distribution Width 13.6 % (11.5-14.5) Platelet Count 166 x10^3/uL (140-400) Neutrophils (%) (Auto) 91 % (31-73) Lymphocytes (%) (Auto) 5 % (24-48) Monocytes (%) (Auto) 4 % (0-9) Eosinophils (%) (Auto) 0 % (0-3) Basophils (%) (Auto) 0 % (0-3) Neutrophils # (Auto) 14.5 x10^3/uL (1.8-7.7) Lymphocytes # (Auto) 0.8 x10^3/uL (1.0-4.8) Monocytes # (Auto) 0.6 x10^3/uL (0.0-1.1) Eosinophils # (Auto) 0.0 x10^3/uL (0.0-0.7) Basophils # (Auto) 0.0 x10^3/uL (0.0-0.2) Prothrombin Time 14.7 SEC (11.7-14.0) Prothromb Time International Ratio 1.2 (0.8-1.1) Activated Partial Thromboplast Time 38 SEC (24-38) Sodium Level 142 mmol/L (136-145) Potassium Level 3.2 mmol/L (3.5-5.1) Chloride Level 106 mmol/L (98-107) Carbon Dioxide Level 26 mmol/L (21-32) Anion Gap 10 (6-14) Blood Urea Nitrogen 21 mg/dL (8-26) Creatinine 1.0 mg/dL (0.7-1.3) Estimated GFR (Cockcroft-Gault) 73.7 Glucose Level 134 mg/dL (70-99) Calcium Level 6.6 mg/dL (8.5-10.1) Phosphorus Level 3.4 mg/dL (2.6-4.7) Magnesium Level 2.1 mg/dL (1.8-2.4) Test 08/05/20 14:54 08/05/20 15:42 08/05/20 17:15 08/05/20 17:58 Glucose (Fingerstick) 143 mg/dL (70-99) 119 mg/dL (70-99) 130 mg/dL (70-99) 123 mg/dL (70-99) Test 08/05/20 19:00 08/06/20 05:00 08/06/20 08:00 White Blood Count 18.8 x10^3/uL (4.0-11.0) Red Blood Count 4.19 x10^6/uL (4.30-5.70) Hemoglobin 13.5 g/dL (13.0-17.5) Hematocrit 39.4 % (39.0-53.0) Mean Corpuscular Volume 94 fL (79-100) Mean Corpuscular Hemoglobin 32 pg (25-35) Mean Corpuscular Hemoglobin Concent 34 g/dL (31-37) Red Cell Distribution Width 13.6 % (11.5-14.5) Platelet Count 168 x10^3/uL (140-400) Neutrophils (%) (Auto) 89 % (31-73) Lymphocytes (%) (Auto) 7 % (24-48) Monocytes (%) (Auto) 4 % (0-9) Eosinophils (%) (Auto) 0 % (0-3) Basophils (%) (Auto) 0 % (0-3) Neutrophils # (Auto) 16.7 x10^3/uL (1.8-7.7) Lymphocytes # (Auto) 1.2 x10^3/uL (1.0-4.8) Monocytes # (Auto) 0.8 x10^3/uL (0.0-1.1) Eosinophils # (Auto) 0.0 x10^3/uL (0.0-0.7) Basophils # (Auto) 0.1 x10^3/uL (0.0-0.2) Prothrombin Time 15.0 SEC (11.7-14.0) Prothromb Time International Ratio 1.2 (0.8-1.1) Activated Partial Thromboplast Time 40 SEC (24-38) Sodium Level 141 mmol/L (136-145) 143 mmol/L (136-145) Potassium Level 3.4 mmol/L (3.5-5.1) 3.4 mmol/L (3.5-5.1) Chloride Level 106 mmol/L (98-107) 108 mmol/L (98-107) Carbon Dioxide Level 26 mmol/L (21-32) 24 mmol/L (21-32) Anion Gap 9 (6-14) 11 (6-14) Blood Urea Nitrogen 22 mg/dL (8-26) 20 mg/dL (8-26) Creatinine 1.1 mg/dL (0.7-1.3) 1.3 mg/dL (0.7-1.3) Estimated GFR (Cockcroft-Gault) 66.0 54.4 Glucose Level 111 mg/dL (70-99) 129 mg/dL (70-99) Calcium Level 6.5 mg/dL (8.5-10.1) 6.3 mg/dL (8.5-10.1) Phosphorus Level 4.2 mg/dL (2.6-4.7) 2.9 mg/dL (2.6-4.7) Magnesium Level 2.0 mg/dL (1.8-2.4) 2.0 mg/dL (1.8-2.4) O2 Saturation 95 % (92-99) Arterial Blood pH 7.50 (7.35-7.45) Arterial Blood pCO2 at Patient Temp 31 mmHg (35-46) Arterial Blood pO2 at Patient Temp 73 mmHg (65-108) Arterial Blood HCO3 24 mmol/L (21-28) Arterial Blood Base Excess 1 mmol/L (-3-3) FiO2 75/vent Laboratory Tests Test 08/05/20 08:59 08/05/20 10:07 08/05/20 11:03 08/05/20 11:50 Glucose (Fingerstick) 169 mg/dL (70-99) 165 mg/dL (70-99) 178 mg/dL (70-99) 147 mg/dL (70-99) Test 08/05/20 12:20 08/05/20 13:01 08/05/20 13:54 08/05/20 14:54 White Blood Count 16.0 x10^3/uL (4.0-11.0) Red Blood Count 4.21 x10^6/uL (4.30-5.70) Hemoglobin 13.5 g/dL (13.0-17.5) Hematocrit 39.8 % (39.0-53.0) Mean Corpuscular Volume 95 fL (79-100) Mean Corpuscular Hemoglobin 32 pg (25-35) Mean Corpuscular Hemoglobin Concent 34 g/dL (31-37) Red Cell Distribution Width 13.6 % (11.5-14.5) Platelet Count 166 x10^3/uL (140-400) Neutrophils (%) (Auto) 91 % (31-73) Lymphocytes (%) (Auto) 5 % (24-48) Monocytes (%) (Auto) 4 % (0-9) Eosinophils (%) (Auto) 0 % (0-3) Basophils (%) (Auto) 0 % (0-3) Neutrophils # (Auto) 14.5 x10^3/uL (1.8-7.7) Lymphocytes # (Auto) 0.8 x10^3/uL (1.0-4.8) Monocytes # (Auto) 0.6 x10^3/uL (0.0-1.1) Eosinophils # (Auto) 0.0 x10^3/uL (0.0-0.7) Basophils # (Auto) 0.0 x10^3/uL (0.0-0.2) Prothrombin Time 14.7 SEC (11.7-14.0) Prothromb Time International Ratio 1.2 (0.8-1.1) Activated Partial Thromboplast Time 38 SEC (24-38) Sodium Level 142 mmol/L (136-145) Potassium Level 3.2 mmol/L (3.5-5.1) Chloride Level 106 mmol/L (98-107) Carbon Dioxide Level 26 mmol/L (21-32) Anion Gap 10 (6-14) Blood Urea Nitrogen 21 mg/dL (8-26) Creatinine 1.0 mg/dL (0.7-1.3) Estimated GFR (Cockcroft-Gault) 73.7 Glucose Level 134 mg/dL (70-99) Calcium Level 6.6 mg/dL (8.5-10.1) Phosphorus Level 3.4 mg/dL (2.6-4.7) Magnesium Level 2.1 mg/dL (1.8-2.4) Glucose (Fingerstick) 139 mg/dL (70-99) 138 mg/dL (70-99) 143 mg/dL (70-99) Test 08/05/20 15:42 08/05/20 17:15 08/05/20 17:58 08/05/20 19:00 Glucose (Fingerstick) 119 mg/dL (70-99) 130 mg/dL (70-99) 123 mg/dL (70-99) White Blood Count 18.8 x10^3/uL (4.0-11.0) Red Blood Count 4.19 x10^6/uL (4.30-5.70) Hemoglobin 13.5 g/dL (13.0-17.5) Hematocrit 39.4 % (39.0-53.0) Mean Corpuscular Volume 94 fL (79-100) Mean Corpuscular Hemoglobin 32 pg (25-35) Mean Corpuscular Hemoglobin Concent 34 g/dL (31-37) Red Cell Distribution Width 13.6 % (11.5-14.5) Platelet Count 168 x10^3/uL (140-400) Neutrophils (%) (Auto) 89 % (31-73) Lymphocytes (%) (Auto) 7 % (24-48) Monocytes (%) (Auto) 4 % (0-9) Eosinophils (%) (Auto) 0 % (0-3) Basophils (%) (Auto) 0 % (0-3) Neutrophils # (Auto) 16.7 x10^3/uL (1.8-7.7) Lymphocytes # (Auto) 1.2 x10^3/uL (1.0-4.8) Monocytes # (Auto) 0.8 x10^3/uL (0.0-1.1) Eosinophils # (Auto) 0.0 x10^3/uL (0.0-0.7) Basophils # (Auto) 0.1 x10^3/uL (0.0-0.2) Prothrombin Time 15.0 SEC (11.7-14.0) Prothromb Time International Ratio 1.2 (0.8-1.1) Activated Partial Thromboplast Time 40 SEC (24-38) Sodium Level 141 mmol/L (136-145) Potassium Level 3.4 mmol/L (3.5-5.1) Chloride Level 106 mmol/L (98-107) Carbon Dioxide Level 26 mmol/L (21-32) Anion Gap 9 (6-14) Blood Urea Nitrogen 22 mg/dL (8-26) Creatinine 1.1 mg/dL (0.7-1.3) Estimated GFR (Cockcroft-Gault) 66.0 Glucose Level 111 mg/dL (70-99) Calcium Level 6.5 mg/dL (8.5-10.1) Phosphorus Level 4.2 mg/dL (2.6-4.7) Magnesium Level 2.0 mg/dL (1.8-2.4) Test 08/06/20 05:00 08/06/20 08:00 Sodium Level 143 mmol/L (136-145) Potassium Level 3.4 mmol/L (3.5-5.1) Chloride Level 108 mmol/L (98-107) Carbon Dioxide Level 24 mmol/L (21-32) Anion Gap 11 (6-14) Blood Urea Nitrogen 20 mg/dL (8-26) Creatinine 1.3 mg/dL (0.7-1.3) Estimated GFR (Cockcroft-Gault) 54.4 Glucose Level 129 mg/dL (70-99) Calcium Level 6.3 mg/dL (8.5-10.1) Phosphorus Level 2.9 mg/dL (2.6-4.7) Magnesium Level 2.0 mg/dL (1.8-2.4) O2 Saturation 95 % (92-99) Arterial Blood pH 7.50 (7.35-7.45) Arterial Blood pCO2 at Patient Temp 31 mmHg (35-46) Arterial Blood pO2 at Patient Temp 73 mmHg (65-108) Arterial Blood HCO3 24 mmol/L (21-28) Arterial Blood Base Excess 1 mmol/L (-3-3) FiO2 75/vent Microbiology 08/04/20 Blood Culture - Preliminary, Resulted NO GROWTH AFTER 1 DAY Medications Current Medications Epinephrine HCl 5 mg/Sodium Chloride 255 ml @ 30.6 mls/hr ONCE ONCE IV Last administered on 08/04/20at 06:17; Start 08/04/20 at 05:45; Stop 08/04/20 at 14:04; Status DC Iohexol (Omnipaque 350 Mg/ml) 80 ml 1X ONCE IV Last administered on 08/04/20at 07:30; Start 08/04/20 at 06:30; Stop 08/04/20 at 06:31; Status DC Info (CONTRAST GIVEN -- Rx MONITORING) 1 each PRN DAILY PRN MC SEE COMMENTS; Start 08/04/20 at 06:30; Stop 08/06/20 at 06:29; Status DC Sodium Chloride 1,000 ml @ 1,000 mls/hr 1X ONCE IV Last administered on 08/04/20at 06:32; Start 08/04/20 at 06:30; Stop 08/04/20 at 07:29; Status DC Sodium Chloride 1,000 ml @ 1,000 mls/hr 1X ONCE IV Last administered on 08/04/20at 06:33; Start 08/04/20 at 06:45; Stop 08/04/20 at 07:44; Status DC Sodium Chloride 1,000 ml @ 1,000 mls/hr 1X ONCE IV Last administered on 08/04/20at 06:45; Start 08/04/20 at 06:45; Stop 08/04/20 at 07:44; Status DC Midazolam HCl 50 mg/Sodium Chloride 50 ml @ 0 mls/hr CONT PRN PRN IV SEDATION; Start 08/04/20 at 07:15; Status UNV Midazolam HCl 100 ml @ 0 mls/hr CONT PRN IV SEE PROTOCOL; Start 08/04/20 at 07:30; Stop 08/04/20 at 08:03; Status DC Ondansetron HCl (Zofran) 4 mg PRN Q8HRS PRN IV NAUSEA/VOMITING; Start 08/04/20 at 07:30; Stop 08/05/20 at 07:29; Status DC Sodium Chloride 1,000 ml @ 75 mls/hr [id number] IV Last administered on 08/04/20at 08:30; Start 08/04/20 at 07:30; Stop 08/05/20 at 07:29; Status DC Fentanyl Citrate (Fentanyl 2ml Vial) 100 mcg 1X ONCE IV ; Start 08/04/20 at 08:00; Stop 08/04/20 at 08:01; Status DC Midazolam HCl (Versed) 2 mg 1X ONCE IV ; Start 08/04/20 at 08:00; Stop 08/04/20 at 08:01; Status DC Magnesium Sulfate/ Dextrose 100 ml @ 100 mls/hr 1X ONCE IV Last administered on 08/04/20at 08:21; Start 08/04/20 at 08:00; Stop 08/04/20 at 08:59; Status DC Buspirone HCl (Buspar) 30 mg Q8H NG Last administered on 08/05/20at 15:36; Start 08/04/20 at 08:00; Stop 08/05/20 at 21:40; Status DC Acetaminophen (Tylenol) 650 mg Q4H NG Last administered on 08/05/20at 20:09; Start 08/04/20 at 08:00; Stop 08/05/20 at 21:40; Status DC Glycerin/ Hypromellose/ Polyethylene (Artificial Tears) 1 drop Q6HRS OU Last administered on 08/05/20at 17:53; Start 08/04/20 at 12:00; Stop 08/05/20 at 21:41; Status DC Glycerin/ Hypromellose/ Polyethylene (Artificial Tears) 1 drop PRN Q15MIN PRN OU DRY EYE; Start 08/04/20 at 08:00; Stop 08/05/20 at 21:40; Status DC Pantoprazole Sodium (PROTONIX VIAL for IV PUSH) 40 mg DAILY IVP Last administered on 08/05/20at 07:40; Start 08/04/20 at 09:00; Stop 08/05/20 at 21:40; Status DC Fentanyl Citrate 30 ml @ 0 mls/hr CONT PRN IV PER PROTOCOL. Last administered on 08/05/20at 05:03; Start 08/04/20 at 08:00 Propofol 100 ml @ 0 mls/hr CONT PRN IV PER PROTOCOL.; Start 08/04/20 at 08:00; Stop 08/05/20 at 21:40; Status DC Midazolam HCl 100 ml @ 0 mls/hr CONT PRN IV PER PROTOCOL Last administered on 08/05/20at 05:05; Start 08/04/20 at 08:00 Vecuronium [place] (Norcuron Bolus) 10 mg PRN Q1HR PRN IV SHIVERING; Start 08/04/20 at 08:00; Stop 08/05/20 at 21:41; Status DC Norepinephrine Bitartrate 8 mg/ Dextrose 258 ml @ 18.112 mls/ hr CONT PRN IV PER PROTOCOL Last administered on 08/06/20at 05:57; Start 08/04/20 at 09:15 Sodium Bicarbonate (Sodium Bicarb Adult 8.4% Syr) 50 meq STK-MED ONCE .ROUTE ; Start 08/04/20 at 09:57; Stop 08/04/20 at 09:57; Status DC Ondansetron HCl (Zofran) 4 mg PRN Q6HRS PRN IVP NAUSEA/VOMITING; Start 08/04/20 at 10:15 Famotidine (Pepcid Vial) 20 mg BID IVP ; Start 08/04/20 at 11:00; Stop 08/04/20 at 12:36; Status DC Info ([facility] Electrolyte Protocol) 1 ea DAILY MC ; Start 08/05/20 at 09:00 Heparin Sodium (Porcine) (Heparin Sodium) 5,000 unit Q8HRS SQ Last administered on 08/06/20at 05:50; Start 08/04/20 at 14:00 Sodium Chloride (Normal Saline Flush) 3 ml QSHIFT PRN IV AFTER MEDS AND BLOOD DRAWS; Start 08/04/20 at 10:15 Sodium Chloride 1,000 ml @ 100 mls/hr Q10H IV Last administered on 08/06/20at 05:50; Start 08/04/20 at 10:15 Sodium Bicarbonate (Sodium Bicarb Adult 8.4% Syr) 50 meq 1X ONCE IV Last administered on 08/04/20at 10:00; Start 08/04/20 at 10:15; Stop 08/04/20 at 10:22; Status DC Sodium Bicarbonate (Sodium Bicarb Adult 8.4% Syr) 50 meq 1X ONCE IV Last administered on 08/04/20at 10:15; Start 08/04/20 at 10:15; Stop 08/04/20 at 10:22; Status DC Sodium Bicarbonate (Sodium Bicarb Adult 8.4% Syr) 50 meq 1X ONCE IV Last administered on 08/04/20at 10:15; Start 08/04/20 at 10:15; Stop 08/04/20 at 10:22; Status DC Ceftriaxone Sodium (Rocephin) 1 gm Q24H IVP Last administered on 08/04/20at 13:50; Start 08/04/20 at 11:30; Stop 08/04/20 at 16:10; Status DC Sodium Chloride 1,000 ml @ 2,340 mls/hr Q26M IV ; Start 08/04/20 at 11:00; Stop 08/04/20 at 12:00; Status DC Sodium Chloride 500 ml @ 1,000 mls/hr PRN Q30MIN PRN IV SEE COMMENTS; Start 08/04/20 at 11:00; Stop 08/04/20 at 12:12; Status DC Meropenem 1 gm/ Sodium Chloride 100 ml @ 200 mls/hr Q8HRS IV Last administered on 08/06/20at 05:50; Start 08/04/20 at 11:30 Norepinephrine Bitartrate 8 mg/ Dextrose 258 ml @ 0 mls/hr CONT PRN IV SEE I/O RECORD; Start 08/04/20 at 11:00; Status UNV Sodium Bicarbonate 100 meq/Dextrose 1,100 ml @ 150 mls/hr Q7H20M IV Last administered on 08/05/20at 03:59; Start 08/04/20 at 11:30; Stop 08/05/20 at 11: 09; Status DC Potassium Chloride/Water 100 ml @ 100 mls/hr Q1H IV Last administered on 08/04/20at 12:52; Start 08/04/20 at 13:00; Stop 08/04/20 at 13:59; Status DC Magnesium Sulfate 50 ml @ 25 mls/hr 1X ONCE IV Last administered on 08/04/20at 12:53; Start 08/04/20 at 13:00; Stop 08/04/20 at 14:59; Status DC Insulin Human Regular 100 unit/ Sodium Chloride 101 ml @ 0 mls/hr CONT PRN IV SEE I/O RECORD Last administered on 08/04/20at 21:54; Start 08/04/20 at 12:45 Potassium Chloride/Water 100 ml @ 50 mls/hr 1X ONCE IV Last administered on 08/04/20at 21:16; Start 08/04/20 at 20:00; Stop 08/04/20 at 21:59; Status DC Sodium Phosphate 20 mmol/Sodium Chloride 256.6667 ml @ 64.167 m... 1X ONCE IV Last administered on 08/04/20at 21:17; Start 08/04/20 at 20:00; Stop 08/04/20 at 23:59; Status DC Magnesium Sulfate 50 ml @ 25 mls/hr 1X ONCE IV Last administered on 08/04/20at 23:00; Start 08/04/20 at 20:15; Stop 08/04/20 at 22:14; Status DC Potassium Chloride/Water 100 ml @ 50 mls/hr 1X ONCE IV ; Start 08/05/20 at 03:15; Stop 08/05/20 at 05:14; Status DC Sodium Chloride 1,000 ml @ 100 mls/hr Q10H IV ; Start 08/05/20 at 11:15; Stop 08/05/20 at 11:21; Status DC Potassium Phosphate 13.6 mmol/Sodium Chloride 254.5333 ml @ 127.... Q2H IV Last administered on 08/05/20at 14:58; Start 08/05/20 at 12:00; Stop 08/05/20 at 15:59; Status DC Levetiracetam 500 mg/Dextrose 105 ml @ 420 mls/hr Q12HR STAT IV Last administered on 08/05/20at 13:14; Start 08/05/20 at 12:57; Stop 08/05/20 at 13:11; Status DC Bacitracin (Bacitracin Zinc Oint Pkt) 1 pkt BID TP Last administered on 08/05/20at 21:03; Start 08/05/20 at 17:00 Levetiracetam 500 mg/Dextrose 105 ml @ 420 mls/hr Q12HR IV ; Start 08/06/20 at 09:00 Active Scripts Active Reported Children's Aspirin (Aspirin) 81 Mg Tab.chew 1 Tab PO DAILY 30 Days Atorvastatin Calcium 40 Mg Tablet 1 Tab PO DAILY Losartan Potassium 50 Mg Tablet 50 Mg PO DAILY Famotidine 40 Mg Tablet 40 Mg PO HS Pantoprazole Sodium (Pantoprazole Sodium) 40 Mg Tablet.dr 40 Mg PO DAILYAC Vitals/I & O Vital Sign - Last 24 Hours 08/05/20 08/05/20 08/05/20 08/05/20 09:00 09:30 10:00 10:30 Temp 91.4 91.7 91.6 91.7 Pulse 58 57 58 58 Resp 28 24 24 24 B/P (MAP) 97/71 96/68 96/68 98/71 Pulse Ox 96 97 96 96 O2 Delivery Ventilator Ventilator Ventilator Ventilator 08/05/20 08/05/20 08/05/20 08/05/20 11:00 11:30 11:33 12:00 Temp 91.8 92.1 92.6 Pulse 61 58 62 Resp 24 24 24 B/P (MAP) 91/65 82/60 102/67 Pulse Ox 96 96 96 96 O2 Delivery Ventilator Ventilator Ventilator Ventilator 08/05/20 08/05/20 08/05/20 08/05/20 12:00 12:30 13:00 13:30 Temp 92.8 93.1 93.2 Pulse 62 60 65 Resp 24 24 24 B/P (MAP) 100/70 100/70 100/70 Pulse Ox 96 95 97 O2 Delivery Mechanical Ventilator Ventilator Ventilator Ventilator 08/05/20 08/05/20 08/05/20 08/05/20 14:00 14:30 15:00 15:30 Temp 93.4 93.6 93.9 94.2 Pulse 64 63 66 64 Resp 24 24 24 24 B/P (MAP) 100/70 100/70 89/59 84/59 Pulse Ox 96 96 96 96 O2 Delivery Ventilator Ventilator Ventilator Ventilator 08/05/20 08/05/20 08/05/20 08/05/20 15:33 15:45 15:54 16:00 Temp 94.3 Pulse 68 Resp 24 B/P (MAP) 107/56 (73) 107/66 Pulse Ox 96 97 O2 Delivery Ventilator Mechanical Ventilator Ventilator 08/05/20 08/05/20 08/05/20 08/05/20 16:30 17:00 17:00 17:30 Temp 94.6 95.0 95.1 95.1 Pulse 67 70 71 69 Resp 24 24 24 24 B/P (MAP) 101/63 97/62 95/60 96/51 Pulse Ox 97 96 96 96 O2 Delivery Ventilator Ventilator Ventilator Ventilator 08/05/20 08/05/20 08/05/20 08/05/20 18:00 18:30 19:00 19:00 Temp 95.4 95.6 95.7 95.7 95.7 Pulse 71 70 70 70 Resp 24 24 24 24 B/P (MAP) 91/60 96/61 96/61 98/63 (75) Pulse Ox 96 96 96 96 O2 Delivery Ventilator Ventilator Ventilator Ventilator 08/05/20 08/05/20 08/05/20 08/05/20 19:57 20:00 20:00 20:00 Temp 96.1 96.1 96.1 Pulse 70 72 Resp 24 24 B/P (MAP) 104/65 100/61 (74) Pulse Ox 97 97 97 O2 Delivery Ventilator Ventilator Ventilator Mechanical Ventilator 08/05/20 08/05/20 08/05/20 08/05/20 21:00 21:00 22:00 23:00 Temp 96.4 96.4 97.1 97.7 96.4 97.1 97.7 Pulse 70 76 76 76 Resp 24 24 24 24 B/P (MAP) 101/64 101/64 (76) 101/63 (76) 96/57 (70) Pulse Ox 97 97 96 97 O2 Delivery Ventilator Ventilator Ventilator Ventilator 08/05/20 08/06/20 08/06/20 08/06/20 23:50 00:00 00:00 01:00 Temp 98.0 98.2 98.0 98.2 Pulse 76 76 Resp 24 24 B/P (MAP) 98/60 (73) 89/55 (66) Pulse Ox 98 96 95 O2 Delivery Ventilator Ventilator Mechanical Ventilator Ventilator 08/06/20 08/06/20 08/06/20 08/06/20 02:00 03:00 04:00 04:02 Temp 99.0 98.6 98.6 99.0 98.6 98.6 Pulse 78 78 74 Resp 24 24 24 B/P (MAP) 95/57 (70) 99/59 (72) 102/67 (79) Pulse Ox 95 95 95 O2 Delivery Ventilator Ventilator Ventilator Mechanical Ventilator 08/06/20 08/06/20 08/06/20 08/06/20 04:18 05:00 06:00 07:00 Temp 98.6 98.6 98.6 98.6 98.6 98.6 Pulse 74 72 73 Resp 24 24 24 B/P (MAP) 109/65 (80) 112/60 (77) 112/69 (83) Pulse Ox 95 95 96 96 O2 Delivery Ventilator Ventilator Ventilator Ventilator 08/06/20 08/06/20 08/06/20 07:50 08:00 08:00 Temp 98.6 98.6 Pulse 74 Resp 24 B/P (MAP) 99/59 (72) Pulse Ox 96 96 O2 Delivery Ventilator Ventilator Mechanical Ventilator Intake and Output 08/05/20 08/05/20 08/06/20 15:00 23:00 07:00 Intake Total 459.5333 ml 2774.5333 ml 1389 ml Output Total 145 ml 350 ml 500 ml Balance 314.5333 ml 2424.5333 ml 889 ml Justicifation of Admission Dx: Justifications for Admission: Justification of Admission Dx: Yes ASHVIN GREGORY MD Aug 06, 2020 08:43
[2020-08-06] MEDS: ELECTROLYTE (ICU) PROTOCOL. MC SCH (09:00)
[2020-08-06 09:05] LABS: BASO % 0 % (0-3); EOS % 0 % (0-3); HEMATOCRIT 38.2 % (39.0-53.0); LYMPH # 1.9 x10^3/uL (1.0-4.8); LYMPH % 13 % (24-48); MEAN CORPUSCULAR HEMOGLOBIN 32 pg (25-35); MEAN CORPUSCULAR HGB CONC 34 g/dL (31-37); MEAN CORPUSCULAR VOLUME 94 fL (79-100); MONO # 0.7 x10^3/uL (0.0-1.1); MONO % 5 % (0-9); NEUT # 12.2 x10^3/uL (1.8-7.7); NEUT % 82 % (31-73); PLATELET COUNT 163 x10^3/uL (140-400); RED BLOOD COUNT 4.05 x10^6/uL (4.30-5.70); RED CELL DISTRIBUTION WIDTH 13.9 % (11.5-14.5); WHITE BLOOD COUNT 14.9 x10^3/uL (4.0-11.0)
[2020-08-06] MEDS: BACITRACIN TOPICAL OINT PACKET. TP SCH ×2 (09:41→21:05)
[2020-08-06] MEDS: levETIRAcetam 500 MG in IV DEXTROSE 5% 100ML 100 ML IV SCH ×2 (09:42→21:05)
[2020-08-06 09:43] LABS: ALBUMIN 2.3 g/dL (3.4-5.0); CALCIUM 6.4 mg/dL (8.5-10.1); CREATININE 1.3 mg/dL (0.7-1.3); GFR 54.4; POTASSIUM 3.4 mmol/L (3.5-5.1); TOTAL BILIRUBIN 0.5 mg/dL (0.2-1.0); TOTAL PROTEIN 4.6 g/dL (6.4-8.2)
[2020-08-06] MEDS: POTASSIUM CHLORIDE 10MEQ 100 ML IV SCH ×2 (09:45→10:57)
--- NOTE | 2020-08-06 10:07 | PDOC ---
CARDIO Progress Notes Date and Time Date of Service 08/06/2020 Time of Evaluation 0920 Subjective Subjective: Other (intubated) Vitals Vitals Vital Signs Date Time Temp Pulse Resp B/P (MAP) Pulse Ox O2 Delivery O2 Flow Rate FiO2 08/06/20 09:45 96/63 (74) 08/06/20 09:00 98.6 75 24 95 Ventilator 98.6 Weight Weight [ ] Input and Output Intake and Output Intake and Output 08/06/20 07:00 Intake Total 4623.0666 ml Output Total 995 ml Balance 3628.0666 ml Intake IV Total 4623.0666 ml Output Urine Total 995 ml Laboratory Labs Laboratory Tests Test 08/05/20 10:07 08/05/20 11:03 08/05/20 11:50 08/05/20 12:20 Glucose (Fingerstick) 165 mg/dL (70-99) 178 mg/dL (70-99) 147 mg/dL (70-99) White Blood Count 16.0 x10^3/uL (4.0-11.0) Red Blood Count 4.21 x10^6/uL (4.30-5.70) Hemoglobin 13.5 g/dL (13.0-17.5) Hematocrit 39.8 % (39.0-53.0) Mean Corpuscular Volume 95 fL (79-100) Mean Corpuscular Hemoglobin 32 pg (25-35) Mean Corpuscular Hemoglobin Concent 34 g/dL (31-37) Red Cell Distribution Width 13.6 % (11.5-14.5) Platelet Count 166 x10^3/uL (140-400) Neutrophils (%) (Auto) 91 % (31-73) Lymphocytes (%) (Auto) 5 % (24-48) Monocytes (%) (Auto) 4 % (0-9) Eosinophils (%) (Auto) 0 % (0-3) Basophils (%) (Auto) 0 % (0-3) Neutrophils # (Auto) 14.5 x10^3/uL (1.8-7.7) Lymphocytes # (Auto) 0.8 x10^3/uL (1.0-4.8) Monocytes # (Auto) 0.6 x10^3/uL (0.0-1.1) Eosinophils # (Auto) 0.0 x10^3/uL (0.0-0.7) Basophils # (Auto) 0.0 x10^3/uL (0.0-0.2) Prothrombin Time 14.7 SEC (11.7-14.0) Prothromb Time International Ratio 1.2 (0.8-1.1) Activated Partial Thromboplast Time 38 SEC (24-38) Sodium Level 142 mmol/L (136-145) Potassium Level 3.2 mmol/L (3.5-5.1) Chloride Level 106 mmol/L (98-107) Carbon Dioxide Level 26 mmol/L (21-32) Anion Gap 10 (6-14) Blood Urea Nitrogen 21 mg/dL (8-26) Creatinine 1.0 mg/dL (0.7-1.3) Estimated GFR (Cockcroft-Gault) 73.7 Glucose Level 134 mg/dL (70-99) Calcium Level 6.6 mg/dL (8.5-10.1) Phosphorus Level 3.4 mg/dL (2.6-4.7) Magnesium Level 2.1 mg/dL (1.8-2.4) Test 08/05/20 13:01 08/05/20 13:54 08/05/20 14:54 08/05/20 15:42 Glucose (Fingerstick) 139 mg/dL (70-99) 138 mg/dL (70-99) 143 mg/dL (70-99) 119 mg/dL (70-99) Test 08/05/20 17:15 08/05/20 17:58 08/05/20 19:00 08/06/20 05:00 Glucose (Fingerstick) 130 mg/dL (70-99) 123 mg/dL (70-99) White Blood Count 18.8 x10^3/uL (4.0-11.0) Red Blood Count 4.19 x10^6/uL (4.30-5.70) Hemoglobin 13.5 g/dL (13.0-17.5) Hematocrit 39.4 % (39.0-53.0) Mean Corpuscular Volume 94 fL (79-100) Mean Corpuscular Hemoglobin 32 pg (25-35) Mean Corpuscular Hemoglobin Concent 34 g/dL (31-37) Red Cell Distribution Width 13.6 % (11.5-14.5) Platelet Count 168 x10^3/uL (140-400) Neutrophils (%) (Auto) 89 % (31-73) Lymphocytes (%) (Auto) 7 % (24-48) Monocytes (%) (Auto) 4 % (0-9) Eosinophils (%) (Auto) 0 % (0-3) Basophils (%) (Auto) 0 % (0-3) Neutrophils # (Auto) 16.7 x10^3/uL (1.8-7.7) Lymphocytes # (Auto) 1.2 x10^3/uL (1.0-4.8) Monocytes # (Auto) 0.8 x10^3/uL (0.0-1.1) Eosinophils # (Auto) 0.0 x10^3/uL (0.0-0.7) Basophils # (Auto) 0.1 x10^3/uL (0.0-0.2) Prothrombin Time 15.0 SEC (11.7-14.0) Prothromb Time International Ratio 1.2 (0.8-1.1) Activated Partial Thromboplast Time 40 SEC (24-38) Sodium Level 141 mmol/L (136-145) 143 mmol/L (136-145) Potassium Level 3.4 mmol/L (3.5-5.1) 3.4 mmol/L (3.5-5.1) Chloride Level 106 mmol/L (98-107) 108 mmol/L (98-107) Carbon Dioxide Level 26 mmol/L (21-32) 24 mmol/L (21-32) Anion Gap 9 (6-14) 11 (6-14) Blood Urea Nitrogen 22 mg/dL (8-26) 20 mg/dL (8-26) Creatinine 1.1 mg/dL (0.7-1.3) 1.3 mg/dL (0.7-1.3) Estimated GFR (Cockcroft-Gault) 66.0 54.4 Glucose Level 111 mg/dL (70-99) 129 mg/dL (70-99) Calcium Level 6.5 mg/dL (8.5-10.1) 6.3 mg/dL (8.5-10.1) Phosphorus Level 4.2 mg/dL (2.6-4.7) 2.9 mg/dL (2.6-4.7) Magnesium Level 2.0 mg/dL (1.8-2.4) 2.0 mg/dL (1.8-2.4) Test 08/06/20 08:00 08/06/20 08:40 O2 Saturation 95 % (92-99) Arterial Blood pH 7.50 (7.35-7.45) Arterial Blood pCO2 at Patient Temp 31 mmHg (35-46) Arterial Blood pO2 at Patient Temp 73 mmHg (65-108) Arterial Blood HCO3 24 mmol/L (21-28) Arterial Blood Base Excess 1 mmol/L (-3-3) FiO2 75/vent White Blood Count 14.9 x10^3/uL (4.0-11.0) Red Blood Count 4.05 x10^6/uL (4.30-5.70) Hemoglobin 13.0 g/dL (13.0-17.5) Hematocrit 38.2 % (39.0-53.0) Mean Corpuscular Volume 94 fL (79-100) Mean Corpuscular Hemoglobin 32 pg (25-35) Mean Corpuscular Hemoglobin Concent 34 g/dL (31-37) Red Cell Distribution Width 13.9 % (11.5-14.5) Platelet Count 163 x10^3/uL (140-400) Neutrophils (%) (Auto) 82 % (31-73) Lymphocytes (%) (Auto) 13 % (24-48) Monocytes (%) (Auto) 5 % (0-9) Eosinophils (%) (Auto) 0 % (0-3) Basophils (%) (Auto) 0 % (0-3) Neutrophils # (Auto) 12.2 x10^3/uL (1.8-7.7) Lymphocytes # (Auto) 1.9 x10^3/uL (1.0-4.8) Monocytes # (Auto) 0.7 x10^3/uL (0.0-1.1) Eosinophils # (Auto) 0.0 x10^3/uL (0.0-0.7) Basophils # (Auto) 0.0 x10^3/uL (0.0-0.2) Sodium Level 146 mmol/L (136-145) Potassium Level 3.4 mmol/L (3.5-5.1) Chloride Level 111 mmol/L (98-107) Carbon Dioxide Level 26 mmol/L (21-32) Anion Gap 9 (6-14) Blood Urea Nitrogen 19 mg/dL (8-26) Creatinine 1.3 mg/dL (0.7-1.3) Estimated GFR (Cockcroft-Gault) 54.4 BUN/Creatinine Ratio 15 (6-20) Glucose Level 129 mg/dL (70-99) Calcium Level 6.4 mg/dL (8.5-10.1) Magnesium Level 2.0 mg/dL (1.8-2.4) Total Bilirubin 0.5 mg/dL (0.2-1.0) Aspartate Amino Transf (AST/SGOT) 100 U/L (15-37) Alanine Aminotransferase (ALT/SGPT) 110 U/L (16-63) Alkaline Phosphatase 52 U/L (46-116) Total Protein 4.6 g/dL (6.4-8.2) Albumin 2.3 g/dL (3.4-5.0) Albumin/Globulin Ratio 1.0 (1.0-1.7) Microbiology Micro Microbiology 08/04/20 Blood Culture - Preliminary, Resulted NO GROWTH AFTER 1 DAY Review of Systems Constitutional: yes: unresponsive Physical Exam HEENT: Neck Supple W Full Motion Chest: Other (hard collar on) LUNGS: Other (intubated with vent) Heart: RRR (SR) Abdomen: Other (flat) Extremities: No Edema Neurology: other (SEDATED) Assessment Assessment 1. OOH cardiopulmonary arrest: possible 3-4 min pulseless prior to CPR initiation noted PEA 5 round of epi per staff approx 25 min to ROSC. No PE. Covid neg 2. Traumatic fall with nondisplaced dens base fracture 3. Possible pneumonia 4. Retroperitoneal hematoma on the right with density surrounding the proximal right ureter: Hgb normal and stable 5. Substance abuse: with marijuana, ETOH 6. Lactic acidosis 7. JUSTIN: much improved 8. Acute respiratory failure: intubated, vent 9. Unclear if any prior fall as imaging noted with multiple old rib fractures and L4 compression fracture 10. PUI: PCR pending 11. Hypothermia: rewarmed 12. Anoxic encephalopathy 13. CAD; recently noted with Calcium score at 688 last yr. Will obtain possible stress echo done this month. Follows with [facility]. Dr. Salinas 14. NSVT; 8 beat run x1 otherwise maintaining SR Recommendations 1. Continue pressor with levo drip. So far no significant arrhythmias. Replace K and Mg as warranted 2. Possible sepsis but unclear as far as etiology of his cardiac arrest. Highly suspect due to intoxication and could not rule out possibility of laced marijuana. 3. Poor prognosis. Obtain TTE. Supportive care at this time. Justicifation of Admission Dx: Justifications for Admission: Justification of Admission Dx: Yes DEANNA RAYMOND [employer] INSPECTOR Aug 06, 2020 10:07
[2020-08-06] MEDS: PANTOPRAZOLE IV PUSH 40 MG VIAL. IVP SCH (10:56)
--- NOTE | 2020-08-06 10:58 | PDOC ---
[facility] PROGRESS NOTE Date of Service DOS: DATE: 08/06/20 TIME: 10:57 Chief Complaint Chief Complaint 1. Out of house ARREST CODE ICE 1. Retroperitoneal hematoma on the right with density surrounding the proximal right ureter. A vascular injury to the right kidney is possible 2. L4 vertebral body compression fracture could be old.. Base of dens fracture// nondisplaced. 3. Multifocal degenerative changes 4. Biapical parenchymal opacities may represent multifocal consolidative process such as pneumonia although contusion or aspiration may result in this appearance. 5. POLY -SUBSTANCE ABUSE 6. SEVERE SEPSIS 7. JUSTIN sec hypoperfusion, shock History of Present Illness History of Present Illness 08/06/2020 Patient seen and examined in the ICU He is still in a c-collar Still intubated Assist-control//70 5% with 5 of PEEP He is on Levophed IV Still on hypothermia protocol Receiving IV meropenem and IV potassium Chart reviewed Discussed with RN He remains critically ill 08/05/2020 Patient seen and examined in the ICU He is on the vent AC//70 5% with 5 of PEEP He is in a c-collar Has external defibrillator pads Sedated with Levophed fentanyl and Versed Currently on hypothermia protocol Vitals/I&O Vitals/I&O: Vital Signs Date Time Temp Pulse Resp B/P (MAP) Pulse Ox O2 Delivery O2 Flow Rate FiO2 08/06/20 10:00 68 12 100/69 (79) 91 08/06/20 09:45 Ventilator 08/06/20 09:00 98.6 98.6 I & O 08/05/20 08/05/20 08/06/20 15:00 23:00 07:00 Intake Total 459.5333 ml 2774.5333 ml 1389 ml Output Total 145 ml 350 ml 500 ml Balance 314.5333 ml 2424.5333 ml 889 ml Physical Exam General: Other (ON THE VENT) Heart: Regular rate Lungs: Clear Abdomen: Normal bowel sounds Extremities: No cyanosis Skin: No significant lesion Labs Labs: Laboratory Tests Test 08/05/20 11:03 08/05/20 11:50 08/05/20 12:20 08/05/20 13:01 Glucose (Fingerstick) 178 mg/dL (70-99) 147 mg/dL (70-99) 139 mg/dL (70-99) White Blood Count 16.0 x10^3/uL (4.0-11.0) Red Blood Count 4.21 x10^6/uL (4.30-5.70) Hemoglobin 13.5 g/dL (13.0-17.5) Hematocrit 39.8 % (39.0-53.0) Mean Corpuscular Volume 95 fL (79-100) Mean Corpuscular Hemoglobin 32 pg (25-35) Mean Corpuscular Hemoglobin Concent 34 g/dL (31-37) Red Cell Distribution Width 13.6 % (11.5-14.5) Platelet Count 166 x10^3/uL (140-400) Neutrophils (%) (Auto) 91 % (31-73) Lymphocytes (%) (Auto) 5 % (24-48) Monocytes (%) (Auto) 4 % (0-9) Eosinophils (%) (Auto) 0 % (0-3) Basophils (%) (Auto) 0 % (0-3) Neutrophils # (Auto) 14.5 x10^3/uL (1.8-7.7) Lymphocytes # (Auto) 0.8 x10^3/uL (1.0-4.8) Monocytes # (Auto) 0.6 x10^3/uL (0.0-1.1) Eosinophils # (Auto) 0.0 x10^3/uL (0.0-0.7) Basophils # (Auto) 0.0 x10^3/uL (0.0-0.2) Prothrombin Time 14.7 SEC (11.7-14.0) Prothromb Time International Ratio 1.2 (0.8-1.1) Activated Partial Thromboplast Time 38 SEC (24-38) Sodium Level 142 mmol/L (136-145) Potassium Level 3.2 mmol/L (3.5-5.1) Chloride Level 106 mmol/L (98-107) Carbon Dioxide Level 26 mmol/L (21-32) Anion Gap 10 (6-14) Blood Urea Nitrogen 21 mg/dL (8-26) Creatinine 1.0 mg/dL (0.7-1.3) Estimated GFR (Cockcroft-Gault) 73.7 Glucose Level 134 mg/dL (70-99) Calcium Level 6.6 mg/dL (8.5-10.1) Phosphorus Level 3.4 mg/dL (2.6-4.7) Magnesium Level 2.1 mg/dL (1.8-2.4) Test 08/05/20 13:54 08/05/20 14:54 08/05/20 15:42 08/05/20 17:15 Glucose (Fingerstick) 138 mg/dL (70-99) 143 mg/dL (70-99) 119 mg/dL (70-99) 130 mg/dL (70-99) Test 08/05/20 17:58 08/05/20 19:00 08/06/20 05:00 08/06/20 08:00 Glucose (Fingerstick) 123 mg/dL (70-99) White Blood Count 18.8 x10^3/uL (4.0-11.0) Red Blood Count 4.19 x10^6/uL (4.30-5.70) Hemoglobin 13.5 g/dL (13.0-17.5) Hematocrit 39.4 % (39.0-53.0) Mean Corpuscular Volume 94 fL (79-100) Mean Corpuscular Hemoglobin 32 pg (25-35) Mean Corpuscular Hemoglobin Concent 34 g/dL (31-37) Red Cell Distribution Width 13.6 % (11.5-14.5) Platelet Count 168 x10^3/uL (140-400) Neutrophils (%) (Auto) 89 % (31-73) Lymphocytes (%) (Auto) 7 % (24-48) Monocytes (%) (Auto) 4 % (0-9) Eosinophils (%) (Auto) 0 % (0-3) Basophils (%) (Auto) 0 % (0-3) Neutrophils # (Auto) 16.7 x10^3/uL (1.8-7.7) Lymphocytes # (Auto) 1.2 x10^3/uL (1.0-4.8) Monocytes # (Auto) 0.8 x10^3/uL (0.0-1.1) Eosinophils # (Auto) 0.0 x10^3/uL (0.0-0.7) Basophils # (Auto) 0.1 x10^3/uL (0.0-0.2) Prothrombin Time 15.0 SEC (11.7-14.0) Prothromb Time International Ratio 1.2 (0.8-1.1) Activated Partial Thromboplast Time 40 SEC (24-38) Sodium Level 141 mmol/L (136-145) 143 mmol/L (136-145) Potassium Level 3.4 mmol/L (3.5-5.1) 3.4 mmol/L (3.5-5.1) Chloride Level 106 mmol/L (98-107) 108 mmol/L (98-107) Carbon Dioxide Level 26 mmol/L (21-32) 24 mmol/L (21-32) Anion Gap 9 (6-14) 11 (6-14) Blood Urea Nitrogen 22 mg/dL (8-26) 20 mg/dL (8-26) Creatinine 1.1 mg/dL (0.7-1.3) 1.3 mg/dL (0.7-1.3) Estimated GFR (Cockcroft-Gault) 66.0 54.4 Glucose Level 111 mg/dL (70-99) 129 mg/dL (70-99) Calcium Level 6.5 mg/dL (8.5-10.1) 6.3 mg/dL (8.5-10.1) Phosphorus Level 4.2 mg/dL (2.6-4.7) 2.9 mg/dL (2.6-4.7) Magnesium Level 2.0 mg/dL (1.8-2.4) 2.0 mg/dL (1.8-2.4) O2 Saturation 95 % (92-99) Arterial Blood pH 7.50 (7.35-7.45) Arterial Blood pCO2 at Patient Temp 31 mmHg (35-46) Arterial Blood pO2 at Patient Temp 73 mmHg (65-108) Arterial Blood HCO3 24 mmol/L (21-28) Arterial Blood Base Excess 1 mmol/L (-3-3) FiO2 75/vent Test 08/06/20 08:40 White Blood Count 14.9 x10^3/uL (4.0-11.0) Red Blood Count 4.05 x10^6/uL (4.30-5.70) Hemoglobin 13.0 g/dL (13.0-17.5) Hematocrit 38.2 % (39.0-53.0) Mean Corpuscular Volume 94 fL (79-100) Mean Corpuscular Hemoglobin 32 pg (25-35) Mean Corpuscular Hemoglobin Concent 34 g/dL (31-37) Red Cell Distribution Width 13.9 % (11.5-14.5) Platelet Count 163 x10^3/uL (140-400) Neutrophils (%) (Auto) 82 % (31-73) Lymphocytes (%) (Auto) 13 % (24-48) Monocytes (%) (Auto) 5 % (0-9) Eosinophils (%) (Auto) 0 % (0-3) Basophils (%) (Auto) 0 % (0-3) Neutrophils # (Auto) 12.2 x10^3/uL (1.8-7.7) Lymphocytes # (Auto) 1.9 x10^3/uL (1.0-4.8) Monocytes # (Auto) 0.7 x10^3/uL (0.0-1.1) Eosinophils # (Auto) 0.0 x10^3/uL (0.0-0.7) Basophils # (Auto) 0.0 x10^3/uL (0.0-0.2) Sodium Level 146 mmol/L (136-145) Potassium Level 3.4 mmol/L (3.5-5.1) Chloride Level 111 mmol/L (98-107) Carbon Dioxide Level 26 mmol/L (21-32) Anion Gap 9 (6-14) Blood Urea Nitrogen 19 mg/dL (8-26) Creatinine 1.3 mg/dL (0.7-1.3) Estimated GFR (Cockcroft-Gault) 54.4 BUN/Creatinine Ratio 15 (6-20) Glucose Level 129 mg/dL (70-99) Calcium Level 6.4 mg/dL (8.5-10.1) Magnesium Level 2.0 mg/dL (1.8-2.4) Total Bilirubin 0.5 mg/dL (0.2-1.0) Aspartate Amino Transf (AST/SGOT) 100 U/L (15-37) Alanine Aminotransferase (ALT/SGPT) 110 U/L (16-63) Alkaline Phosphatase 52 U/L (46-116) Total Protein 4.6 g/dL (6.4-8.2) Albumin 2.3 g/dL (3.4-5.0) Albumin/Globulin Ratio 1.0 (1.0-1.7) Assessment and Plan Assessmemt and Plan Problems Medical Problems: (1) Cardiac arrest Status: Acute (2) Dens fracture Status: Acute (3) Respiratory failure Status: Acute 1. Out of house ARREST CODE ICE 1. Retroperitoneal hematoma on the right with density surrounding the proximal right ureter. A vascular injury to the right kidney is possible 2. L4 vertebral body compression fracture could be old.. Base of dens fracture// nondisplaced. 3. Multifocal degenerative changes 4. Biapical parenchymal opacities may represent multifocal consolidative process such as pneumonia although contusion or aspiration may result in this appearance. 5. POLY -SUBSTANCE ABUSE 6. SEVERE SEPSIS 7. JUSTIN sec hypoperfusion, shock Plan ICU monitoring Hypothermia protocol Vent weaning Pulmonary and cardiology and neurosurgery infectious disease and nephrology following We will keep the c-collar in place for now Await blood cultures Replace mag IV meropenem ID consult Trend labs Home meds DVT prophylaxis Full code Prognosis extremely guarded at best CC time 33minutes Comment Review of Relevant I have reviewed the following items magda (where applicable) has been applied. Medications: Current Medications Medications (Trade) Dose Ordered Sig/Geovany Route PRN Reason Start Time Stop Time Status Last Admin Dose Admin Potassium Phosphate 13.6 mmol/Sodium Chloride 254.5333 ml @ 127.... Q2H IV 08/05/20 12:00 08/05/20 15:59 DC 08/05/20 14:58 Levetiracetam 500 mg/Dextrose 105 ml @ 420 mls/hr Q12HR STAT IV 08/05/20 12:57 08/05/20 13:11 DC 08/05/20 13:14 Bacitracin (Bacitracin Zinc Oint Pkt) 1 pkt BID TP 08/05/20 17:00 08/06/20 09:41 Levetiracetam 500 mg/Dextrose 105 ml @ 420 mls/hr Q12HR IV 08/06/20 09:00 08/06/20 09:42 Potassium Chloride/Water 100 ml @ 100 mls/hr Q1H IV 08/06/20 10:00 08/06/20 11:59 08/06/20 09:45 Justifications for Admission General Conditions Poss hypotension?: Yes Justification for admission: Patient has hypotension (SBP < 90 mm Hg) which is not readily corrected by appropriate treatment within 12 to 24 hours. CARDIAC ARREST Other Justification AURORA COLE III DO Aug 06, 2020 10:58
[2020-08-06 11:09] LABS: BASE EXCESS ABG 0 mmol/L (-3-3); HCO3 ABG 27 mmol/L (21-28); PCO2 ABG 55 mmHg (35-46); PO2 ABG 69 mmHg (65-108); SAT O2 ABG 91 % (92-99)
[2020-08-06 11:13] LABS: FIO2 ABG 70
--- NOTE | 2020-08-06 11:54 | CARD ---
MR#: [id number] Date of Study: 08/06/2020 Ordering Physician: YAYO KUMAR, Referring Physician: YAYO KUMAR, Tech: Hayley Whatley [facility] APPROVED REPORT EXAM: Two-dimensional and M-mode echocardiogram with Doppler and color Doppler. Other Information Quality : AverageTechnically LimitedHR: 74bpm Rhythm : NSR INDICATION 2D DIMENSIONS RVDd3.1 (2.9-3.5cm)Left Atrium(2D)3.7 (1.6-4.0cm) IVSd0.9 (0.7-1.1cm)Aortic Root(2D)3.5 (2.0-3.7cm) LVDd4.8 (3.9-5.9cm)LVOT Diameter2.0 (1.8-2.4cm) PWd1.0 (0.7-1.1cm)LVDs2.2 (2.5-4.0cm) FS (%) 53.7 %SV88.8 ml LVEF(%)84.6 (>50%) Aortic Valve AoV Peak Nahum.174.5cm/sAoV VTI30.5cm AO Peak GR.12.2mmHgLVOT Peak Nahum.124.7cm/s AO Mean GR.6mmHgAVA (VMAX)2.23cm2 Mitral Valve MV E Ikwdxybk60.8cm/sMV DECEL [id number] MV A Avigbmec85.4cm/sE/A Ratio1.1 Pulmonary Valve PV Peak Bmwrkwtg653.4cm/s Tricuspid Valve TR P. Hiaqspxe376jm/sTR Peak Gr.40mmHg Pulmonary Vein S1 Rpekkfyd75.8cm/sD2 Xranqrqz31.5cm/s PVa [id number] LEFT VENTRICLE The left ventricle is normal size. There is normal left ventricular wall thickness. The left ventricu lar systolic function is normal and the ejection fraction is within normal range. Estimated ejection fraction 60-65%. There is normal LV segmental wall motion. Tissue Doppler imaging reveals moderate le ft ventricular diastolic dysfunction. RIGHT VENTRICLE The right ventricle is normal size. There is normal right ventricular wall thickness. The right ventr icular systolic function is normal. ATRIA The left atrium size is normal. The right atrium size is normal. The interatrial septum is intact wit h no evidence for an atrial septal defect or patent foramen ovale as noted on 2-D or Doppler imaging. AORTIC VALVE The aortic valve is normal in structure and function. Doppler and Color Flow revealed trace aortic re gurgitation. There is no significant aortic valvular stenosis. MITRAL VALVE The mitral valve is normal in structure and function. There is no evidence of mitral valve prolapse. There is no mitral valve stenosis. Doppler and Color-flow revealed trace mitral regurgitation. TRICUSPID VALVE The tricuspid valve is normal in structure and function. Doppler and Color Flow revealed mild tricusp id regurgitation. Estimated PAP 35 mmHg. There is no tricuspid valve stenosis. PULMONIC VALVE Doppler and Color Flow revealed trace pulmonic valvular regurgitation. There is no pulmonic valvular stenosis. GREAT VESSELS The aortic root is normal in size. The ascending aorta is normal in size. The IVC is dilated and sj apses <50% with inspiration. PERICARDIAL EFFUSION There is no evidence of significant pericardial effusion. Critical Notification Critical Value: No <Conclusion> The left ventricular systolic function is normal and the ejection fraction is within normal range. E stimated ejection fraction 60-65%. There is normal LV segmental wall motion. Doppler and Color Flow revealed mild tricuspid regurgitation. Estimated PAP 35 mmHg. Signed by : Julien Spear, Electronically Approved : 08/06/2020 11:53:57
--- NOTE | 2020-08-06 12:14 | PDOC ---
Renal-Progress Notes Subjective Notes Notes ON THE VENT History of Present Illness Hx of present illness STABLE Vitals Vitals Vital Signs Date Time Temp Pulse Resp B/P (MAP) Pulse Ox O2 Delivery O2 Flow Rate FiO2 08/06/20 11:20 93 Ventilator 08/06/20 11:00 63 12 87/57 (67) 08/06/20 09:00 98.6 98.6 Weight Weight [ ] I.O. Intake and Output Intake and Output 08/06/20 07:00 Intake Total 4623.0666 ml Output Total 995 ml Balance 3628.0666 ml Intake IV Total 4623.0666 ml Output Urine Total 995 ml Labs Labs Laboratory Tests Test 08/05/20 12:20 08/05/20 13:01 08/05/20 13:54 08/05/20 14:54 White Blood Count 16.0 x10^3/uL (4.0-11.0) Red Blood Count 4.21 x10^6/uL (4.30-5.70) Hemoglobin 13.5 g/dL (13.0-17.5) Hematocrit 39.8 % (39.0-53.0) Mean Corpuscular Volume 95 fL (79-100) Mean Corpuscular Hemoglobin 32 pg (25-35) Mean Corpuscular Hemoglobin Concent 34 g/dL (31-37) Red Cell Distribution Width 13.6 % (11.5-14.5) Platelet Count 166 x10^3/uL (140-400) Neutrophils (%) (Auto) 91 % (31-73) Lymphocytes (%) (Auto) 5 % (24-48) Monocytes (%) (Auto) 4 % (0-9) Eosinophils (%) (Auto) 0 % (0-3) Basophils (%) (Auto) 0 % (0-3) Neutrophils # (Auto) 14.5 x10^3/uL (1.8-7.7) Lymphocytes # (Auto) 0.8 x10^3/uL (1.0-4.8) Monocytes # (Auto) 0.6 x10^3/uL (0.0-1.1) Eosinophils # (Auto) 0.0 x10^3/uL (0.0-0.7) Basophils # (Auto) 0.0 x10^3/uL (0.0-0.2) Prothrombin Time 14.7 SEC (11.7-14.0) Prothromb Time International Ratio 1.2 (0.8-1.1) Activated Partial Thromboplast Time 38 SEC (24-38) Sodium Level 142 mmol/L (136-145) Potassium Level 3.2 mmol/L (3.5-5.1) Chloride Level 106 mmol/L (98-107) Carbon Dioxide Level 26 mmol/L (21-32) Anion Gap 10 (6-14) Blood Urea Nitrogen 21 mg/dL (8-26) Creatinine 1.0 mg/dL (0.7-1.3) Estimated GFR (Cockcroft-Gault) 73.7 Glucose Level 134 mg/dL (70-99) Calcium Level 6.6 mg/dL (8.5-10.1) Phosphorus Level 3.4 mg/dL (2.6-4.7) Magnesium Level 2.1 mg/dL (1.8-2.4) Glucose (Fingerstick) 139 mg/dL (70-99) 138 mg/dL (70-99) 143 mg/dL (70-99) Test 08/05/20 15:42 08/05/20 17:15 08/05/20 17:58 08/05/20 19:00 Glucose (Fingerstick) 119 mg/dL (70-99) 130 mg/dL (70-99) 123 mg/dL (70-99) White Blood Count 18.8 x10^3/uL (4.0-11.0) Red Blood Count 4.19 x10^6/uL (4.30-5.70) Hemoglobin 13.5 g/dL (13.0-17.5) Hematocrit 39.4 % (39.0-53.0) Mean Corpuscular Volume 94 fL (79-100) Mean Corpuscular Hemoglobin 32 pg (25-35) Mean Corpuscular Hemoglobin Concent 34 g/dL (31-37) Red Cell Distribution Width 13.6 % (11.5-14.5) Platelet Count 168 x10^3/uL (140-400) Neutrophils (%) (Auto) 89 % (31-73) Lymphocytes (%) (Auto) 7 % (24-48) Monocytes (%) (Auto) 4 % (0-9) Eosinophils (%) (Auto) 0 % (0-3) Basophils (%) (Auto) 0 % (0-3) Neutrophils # (Auto) 16.7 x10^3/uL (1.8-7.7) Lymphocytes # (Auto) 1.2 x10^3/uL (1.0-4.8) Monocytes # (Auto) 0.8 x10^3/uL (0.0-1.1) Eosinophils # (Auto) 0.0 x10^3/uL (0.0-0.7) Basophils # (Auto) 0.1 x10^3/uL (0.0-0.2) Prothrombin Time 15.0 SEC (11.7-14.0) Prothromb Time International Ratio 1.2 (0.8-1.1) Activated Partial Thromboplast Time 40 SEC (24-38) Sodium Level 141 mmol/L (136-145) Potassium Level 3.4 mmol/L (3.5-5.1) Chloride Level 106 mmol/L (98-107) Carbon Dioxide Level 26 mmol/L (21-32) Anion Gap 9 (6-14) Blood Urea Nitrogen 22 mg/dL (8-26) Creatinine 1.1 mg/dL (0.7-1.3) Estimated GFR (Cockcroft-Gault) 66.0 Glucose Level 111 mg/dL (70-99) Calcium Level 6.5 mg/dL (8.5-10.1) Phosphorus Level 4.2 mg/dL (2.6-4.7) Magnesium Level 2.0 mg/dL (1.8-2.4) Test 08/06/20 05:00 08/06/20 08:00 08/06/20 08:40 08/06/20 10:30 Sodium Level 143 mmol/L (136-145) 146 mmol/L (136-145) Potassium Level 3.4 mmol/L (3.5-5.1) 3.4 mmol/L (3.5-5.1) Chloride Level 108 mmol/L (98-107) 111 mmol/L (98-107) Carbon Dioxide Level 24 mmol/L (21-32) 26 mmol/L (21-32) Anion Gap 11 (6-14) 9 (6-14) Blood Urea Nitrogen 20 mg/dL (8-26) 19 mg/dL (8-26) Creatinine 1.3 mg/dL (0.7-1.3) 1.3 mg/dL (0.7-1.3) Estimated GFR (Cockcroft-Gault) 54.4 54.4 Glucose Level 129 mg/dL (70-99) 129 mg/dL (70-99) Calcium Level 6.3 mg/dL (8.5-10.1) 6.4 mg/dL (8.5-10.1) Phosphorus Level 2.9 mg/dL (2.6-4.7) Magnesium Level 2.0 mg/dL (1.8-2.4) 2.0 mg/dL (1.8-2.4) O2 Saturation 95 % (92-99) 91 % (92-99) Arterial Blood pH 7.50 (7.35-7.45) 7.31 (7.35-7.45) Arterial Blood pCO2 at Patient Temp 31 mmHg (35-46) 55 mmHg (35-46) Arterial Blood pO2 at Patient Temp 73 mmHg (65-108) 69 mmHg (65-108) Arterial Blood HCO3 24 mmol/L (21-28) 27 mmol/L (21-28) Arterial Blood Base Excess 1 mmol/L (-3-3) 0 mmol/L (-3-3) FiO2 75/vent 70 White Blood Count 14.9 x10^3/uL (4.0-11.0) Red Blood Count 4.05 x10^6/uL (4.30-5.70) Hemoglobin 13.0 g/dL (13.0-17.5) Hematocrit 38.2 % (39.0-53.0) Mean Corpuscular Volume 94 fL (79-100) Mean Corpuscular Hemoglobin 32 pg (25-35) Mean Corpuscular Hemoglobin Concent 34 g/dL (31-37) Red Cell Distribution Width 13.9 % (11.5-14.5) Platelet Count 163 x10^3/uL (140-400) Neutrophils (%) (Auto) 82 % (31-73) Lymphocytes (%) (Auto) 13 % (24-48) Monocytes (%) (Auto) 5 % (0-9) Eosinophils (%) (Auto) 0 % (0-3) Basophils (%) (Auto) 0 % (0-3) Neutrophils # (Auto) 12.2 x10^3/uL (1.8-7.7) Lymphocytes # (Auto) 1.9 x10^3/uL (1.0-4.8) Monocytes # (Auto) 0.7 x10^3/uL (0.0-1.1) Eosinophils # (Auto) 0.0 x10^3/uL (0.0-0.7) Basophils # (Auto) 0.0 x10^3/uL (0.0-0.2) BUN/Creatinine Ratio 15 (6-20) Total Bilirubin 0.5 mg/dL (0.2-1.0) Aspartate Amino Transf (AST/SGOT) 100 U/L (15-37) Alanine Aminotransferase (ALT/SGPT) 110 U/L (16-63) Alkaline Phosphatase 52 U/L (46-116) Total Protein 4.6 g/dL (6.4-8.2) Albumin 2.3 g/dL (3.4-5.0) Albumin/Globulin Ratio 1.0 (1.0-1.7) Micro Micro Microbiology 08/04/20 Blood Culture - Preliminary, Resulted NO GROWTH AFTER 2 DAYS Review of Systems Constitutional: yes: unresponsive Physical Exam General Appearance: other (INTUBATED) Respiratory: decreased breath sounds Heart: S1S2 Abdomen: soft, bowel sounds present Genitourinary: bladder flat Extremities: pulses present Neurology: other (SEDATED) Assessment Assessment IMP JUSTIN-NEARLY RESOLVED HYPOPHOSPHATEMIA-CORRECTED HYPOKALEMIA DEHYDRATION S/P PEA ACUTE RESP FAILURE SHOCK HYPOTENSION--RESOLVED ENCEPHALOPATHY FROM ANOXIA ETOH AND MARIJUANA USE LACTIC ACIDOSIS-TYPE A-RESOLVED ELEVATED LFT'S DUE TO SHOCK CERVICAL FX PLAN REPLACE K ANTIBIOTICS ISOTONIC SALINE PRESSORS VENT SUPPORT NS EVALUATION SOWMYA BROOKS MD Aug 06, 2020 12:14
[2020-08-06 12:24] LABS: BASE EXCESS ABG 0 mmol/L (-3-3); HCO3 ABG 24 mmol/L (21-28); PCO2 ABG 39 mmHg (35-46); PO2 ABG 71 mmHg (65-108); SAT O2 ABG 94 % (92-99)
--- NOTE | 2020-08-06 15:38 | EEG ---
DATE OF SERVICE: 08/06/2020 OBJECTIVE: The patient is a 69-year-old male post-cardiac arrest with some seizure activity. DESCRIPTION: This is a digital study. Electrodes are placed according to international 10-20 system. Bipolar and referential montages are available. Activation procedures typically include hyperventilation and intermittent photic stimulation. INTERPRETATION: The background consists of bilateral periodic lateralizing epileptiform discharges. There is no recognizable normal background. There is no reactivity. Hyperventilation is not performed. Intermittent photic stimulation is noncontributory. IMPRESSION: This electroencephalogram with the patient in an obtunded state is abnormal because of an epileptic disturbance of cerebral activity. Periodic lateralizing epileptiform discharges imply a poor outlook following anoxic encephalopathy. Thank you for letting us help with the patient's care. ASHVIN GREGORY MD DR: GRACE/harper JOB#: [id number] / [id number]
--- NOTE | 2020-08-06 16:07 | NUR ---
SS following up with discharge planning. SS reviewed pt chart and discussed with pt RN. Pt is currently on the vent at 70%. COVID19 negative. Pt on IV Meropenem. Pt now warmed and off sedation. EEG today showing seizure activity. Not stable. SS will continue to follow for discharge planning.
[2020-08-07] VITALS (24 sets, daily range): BP systolic 94–153; BP diastolic 64–96
[2020-08-07] MEDS: IV NORMAL SALINE 1000ML BAG 1,000 ML IV SCH ×3 (02:19→16:49)
[2020-08-07 05:38] LABS: CALCIUM 6.3 mg/dL (8.5-10.1); CREATININE 0.9 mg/dL (0.7-1.3); GFR 83.2; MAGNESIUM 2.1 mg/dL (1.8-2.4); PHOSPHORUS 2.4 mg/dL (2.6-4.7); POTASSIUM 3.8 mmol/L (3.5-5.1)
[2020-08-07] MEDS: HEPARIN for SUB-Q USE 5,000 UNIT/ML VIAL. SQ SCH ×3 (05:47→22:13)
[2020-08-07] MEDS: MEROPENEM 1 GM in IV NORMAL SALINE 100ML 100 ML IV SCH ×3 (05:48→22:12)
--- NOTE | 2020-08-07 06:05 | PDOC ---
PULMONARY PROGRESS NOTES DATE: 08/07/20 TIME: 06:04 Subjective mechanical ventilation, currently 70% and a PEEP of 5 samll ett secretion s/p hypothermia protocol On levo Patient is off sedation Vitals Vital Signs Date Time Temp Pulse Resp B/P (MAP) Pulse Ox O2 Delivery O2 Flow Rate FiO2 08/07/20 05:00 64 20 121/81 (94) 100 08/07/20 04:00 Mechanical Ventilator 08/07/20 04:00 97.2 97.2 Comments ros unable to obtain Intubated/sedated HEENT: Other (nc at perrl nose clear orally intubated neck n) Lungs: Crackles Cardiovascular: S1, S2 Abdomen: Soft, Non-tender, Other (no mass) Extremities: No Edema Skin: Warm Labs Laboratory Tests Test 08/05/20 07:55 08/05/20 08:00 08/05/20 08:59 08/05/20 10:07 Glucose (Fingerstick) 174 mg/dL (70-99) 169 mg/dL (70-99) 165 mg/dL (70-99) O2 Saturation 94 % (92-99) Arterial Blood pH 7.51 (7.35-7.45) Arterial Blood pH (Temp corrected) 7.58 Arterial Blood pCO2 at Patient Temp 27 mmHg (35-46) Arterial Blood pCO2 (Temp correct) 23 mmHg Arterial Blood pO2 at Patient Temp 66 mmHg (65-108) Arterial Blood pO2 (Temp corrected) 51 mmHg Arterial Blood HCO3 21 mmol/L (21-28) Arterial Blood Base Excess 0 mmol/L (-3-3) FiO2 70/vent Test 08/05/20 11:03 08/05/20 11:50 08/05/20 12:20 08/05/20 13:01 Glucose (Fingerstick) 178 mg/dL (70-99) 147 mg/dL (70-99) 139 mg/dL (70-99) White Blood Count 16.0 x10^3/uL (4.0-11.0) Red Blood Count 4.21 x10^6/uL (4.30-5.70) Hemoglobin 13.5 g/dL (13.0-17.5) Hematocrit 39.8 % (39.0-53.0) Mean Corpuscular Volume 95 fL (79-100) Mean Corpuscular Hemoglobin 32 pg (25-35) Mean Corpuscular Hemoglobin Concent 34 g/dL (31-37) Red Cell Distribution Width 13.6 % (11.5-14.5) Platelet Count 166 x10^3/uL (140-400) Neutrophils (%) (Auto) 91 % (31-73) Lymphocytes (%) (Auto) 5 % (24-48) Monocytes (%) (Auto) 4 % (0-9) Eosinophils (%) (Auto) 0 % (0-3) Basophils (%) (Auto) 0 % (0-3) Neutrophils # (Auto) 14.5 x10^3/uL (1.8-7.7) Lymphocytes # (Auto) 0.8 x10^3/uL (1.0-4.8) Monocytes # (Auto) 0.6 x10^3/uL (0.0-1.1) Eosinophils # (Auto) 0.0 x10^3/uL (0.0-0.7) Basophils # (Auto) 0.0 x10^3/uL (0.0-0.2) Prothrombin Time 14.7 SEC (11.7-14.0) Prothromb Time International Ratio 1.2 (0.8-1.1) Activated Partial Thromboplast Time 38 SEC (24-38) Sodium Level 142 mmol/L (136-145) Potassium Level 3.2 mmol/L (3.5-5.1) Chloride Level 106 mmol/L (98-107) Carbon Dioxide Level 26 mmol/L (21-32) Anion Gap 10 (6-14) Blood Urea Nitrogen 21 mg/dL (8-26) Creatinine 1.0 mg/dL (0.7-1.3) Estimated GFR (Cockcroft-Gault) 73.7 Glucose Level 134 mg/dL (70-99) Calcium Level 6.6 mg/dL (8.5-10.1) Phosphorus Level 3.4 mg/dL (2.6-4.7) Magnesium Level 2.1 mg/dL (1.8-2.4) Test 08/05/20 13:54 08/05/20 14:54 08/05/20 15:42 08/05/20 17:15 Glucose (Fingerstick) 138 mg/dL (70-99) 143 mg/dL (70-99) 119 mg/dL (70-99) 130 mg/dL (70-99) Test 08/05/20 17:58 08/05/20 19:00 08/06/20 05:00 08/06/20 08:00 Glucose (Fingerstick) 123 mg/dL (70-99) White Blood Count 18.8 x10^3/uL (4.0-11.0) Red Blood Count 4.19 x10^6/uL (4.30-5.70) Hemoglobin 13.5 g/dL (13.0-17.5) Hematocrit 39.4 % (39.0-53.0) Mean Corpuscular Volume 94 fL (79-100) Mean Corpuscular Hemoglobin 32 pg (25-35) Mean Corpuscular Hemoglobin Concent 34 g/dL (31-37) Red Cell Distribution Width 13.6 % (11.5-14.5) Platelet Count 168 x10^3/uL (140-400) Neutrophils (%) (Auto) 89 % (31-73) Lymphocytes (%) (Auto) 7 % (24-48) Monocytes (%) (Auto) 4 % (0-9) Eosinophils (%) (Auto) 0 % (0-3) Basophils (%) (Auto) 0 % (0-3) Neutrophils # (Auto) 16.7 x10^3/uL (1.8-7.7) Lymphocytes # (Auto) 1.2 x10^3/uL (1.0-4.8) Monocytes # (Auto) 0.8 x10^3/uL (0.0-1.1) Eosinophils # (Auto) 0.0 x10^3/uL (0.0-0.7) Basophils # (Auto) 0.1 x10^3/uL (0.0-0.2) Prothrombin Time 15.0 SEC (11.7-14.0) Prothromb Time International Ratio 1.2 (0.8-1.1) Activated Partial Thromboplast Time 40 SEC (24-38) Sodium Level 141 mmol/L (136-145) 143 mmol/L (136-145) Potassium Level 3.4 mmol/L (3.5-5.1) 3.4 mmol/L (3.5-5.1) Chloride Level 106 mmol/L (98-107) 108 mmol/L (98-107) Carbon Dioxide Level 26 mmol/L (21-32) 24 mmol/L (21-32) Anion Gap 9 (6-14) 11 (6-14) Blood Urea Nitrogen 22 mg/dL (8-26) 20 mg/dL (8-26) Creatinine 1.1 mg/dL (0.7-1.3) 1.3 mg/dL (0.7-1.3) Estimated GFR (Cockcroft-Gault) 66.0 54.4 Glucose Level 111 mg/dL (70-99) 129 mg/dL (70-99) Calcium Level 6.5 mg/dL (8.5-10.1) 6.3 mg/dL (8.5-10.1) Phosphorus Level 4.2 mg/dL (2.6-4.7) 2.9 mg/dL (2.6-4.7) Magnesium Level 2.0 mg/dL (1.8-2.4) 2.0 mg/dL (1.8-2.4) O2 Saturation 95 % (92-99) Arterial Blood pH 7.50 (7.35-7.45) Arterial Blood pCO2 at Patient Temp 31 mmHg (35-46) Arterial Blood pO2 at Patient Temp 73 mmHg (65-108) Arterial Blood HCO3 24 mmol/L (21-28) Arterial Blood Base Excess 1 mmol/L (-3-3) FiO2 75/vent Test 08/06/20 08:40 08/06/20 10:30 08/06/20 12:15 08/07/20 05:00 White Blood Count 14.9 x10^3/uL (4.0-11.0) Red Blood Count 4.05 x10^6/uL (4.30-5.70) Hemoglobin 13.0 g/dL (13.0-17.5) Hematocrit 38.2 % (39.0-53.0) Mean Corpuscular Volume 94 fL (79-100) Mean Corpuscular Hemoglobin 32 pg (25-35) Mean Corpuscular Hemoglobin Concent 34 g/dL (31-37) Red Cell Distribution Width 13.9 % (11.5-14.5) Platelet Count 163 x10^3/uL (140-400) Neutrophils (%) (Auto) 82 % (31-73) Lymphocytes (%) (Auto) 13 % (24-48) Monocytes (%) (Auto) 5 % (0-9) Eosinophils (%) (Auto) 0 % (0-3) Basophils (%) (Auto) 0 % (0-3) Neutrophils # (Auto) 12.2 x10^3/uL (1.8-7.7) Lymphocytes # (Auto) 1.9 x10^3/uL (1.0-4.8) Monocytes # (Auto) 0.7 x10^3/uL (0.0-1.1) Eosinophils # (Auto) 0.0 x10^3/uL (0.0-0.7) Basophils # (Auto) 0.0 x10^3/uL (0.0-0.2) Sodium Level 146 mmol/L (136-145) 142 mmol/L (136-145) Potassium Level 3.4 mmol/L (3.5-5.1) 3.8 mmol/L (3.5-5.1) Chloride Level 111 mmol/L (98-107) 109 mmol/L (98-107) Carbon Dioxide Level 26 mmol/L (21-32) 24 mmol/L (21-32) Anion Gap 9 (6-14) 9 (6-14) Blood Urea Nitrogen 19 mg/dL (8-26) 21 mg/dL (8-26) Creatinine 1.3 mg/dL (0.7-1.3) 0.9 mg/dL (0.7-1.3) Estimated GFR (Cockcroft-Gault) 54.4 83.2 BUN/Creatinine Ratio 15 (6-20) Glucose Level 129 mg/dL (70-99) 120 mg/dL (70-99) Calcium Level 6.4 mg/dL (8.5-10.1) 6.3 mg/dL (8.5-10.1) Magnesium Level 2.0 mg/dL (1.8-2.4) 2.1 mg/dL (1.8-2.4) Total Bilirubin 0.5 mg/dL (0.2-1.0) Aspartate Amino Transf (AST/SGOT) 100 U/L (15-37) Alanine Aminotransferase (ALT/SGPT) 110 U/L (16-63) Alkaline Phosphatase 52 U/L (46-116) Total Protein 4.6 g/dL (6.4-8.2) Albumin 2.3 g/dL (3.4-5.0) Albumin/Globulin Ratio 1.0 (1.0-1.7) O2 Saturation 91 % (92-99) 94 % (92-99) Arterial Blood pH 7.31 (7.35-7.45) 7.41 (7.35-7.45) Arterial Blood pCO2 at Patient Temp 55 mmHg (35-46) 39 mmHg (35-46) Arterial Blood pO2 at Patient Temp 69 mmHg (65-108) 71 mmHg (65-108) Arterial Blood HCO3 27 mmol/L (21-28) 24 mmol/L (21-28) Arterial Blood Base Excess 0 mmol/L (-3-3) 0 mmol/L (-3-3) FiO2 70 70/vent Phosphorus Level 2.4 mg/dL (2.6-4.7) Laboratory Tests Test 08/06/20 08:00 08/06/20 08:40 08/06/20 10:30 08/06/20 12:15 O2 Saturation 95 % (92-99) 91 % (92-99) 94 % (92-99) Arterial Blood pH 7.50 (7.35-7.45) 7.31 (7.35-7.45) 7.41 (7.35-7.45) Arterial Blood pCO2 at Patient Temp 31 mmHg (35-46) 55 mmHg (35-46) 39 mmHg (35-46) Arterial Blood pO2 at Patient Temp 73 mmHg (65-108) 69 mmHg (65-108) 71 mmHg (65-108) Arterial Blood HCO3 24 mmol/L (21-28) 27 mmol/L (21-28) 24 mmol/L (21-28) Arterial Blood Base Excess 1 mmol/L (-3-3) 0 mmol/L (-3-3) 0 mmol/L (-3-3) FiO2 75/vent 70 70/vent White Blood Count 14.9 x10^3/uL (4.0-11.0) Red Blood Count 4.05 x10^6/uL (4.30-5.70) Hemoglobin 13.0 g/dL (13.0-17.5) Hematocrit 38.2 % (39.0-53.0) Mean Corpuscular Volume 94 fL (79-100) Mean Corpuscular Hemoglobin 32 pg (25-35) Mean Corpuscular Hemoglobin Concent 34 g/dL (31-37) Red Cell Distribution Width 13.9 % (11.5-14.5) Platelet Count 163 x10^3/uL (140-400) Neutrophils (%) (Auto) 82 % (31-73) Lymphocytes (%) (Auto) 13 % (24-48) Monocytes (%) (Auto) 5 % (0-9) Eosinophils (%) (Auto) 0 % (0-3) Basophils (%) (Auto) 0 % (0-3) Neutrophils # (Auto) 12.2 x10^3/uL (1.8-7.7) Lymphocytes # (Auto) 1.9 x10^3/uL (1.0-4.8) Monocytes # (Auto) 0.7 x10^3/uL (0.0-1.1) Eosinophils # (Auto) 0.0 x10^3/uL (0.0-0.7) Basophils # (Auto) 0.0 x10^3/uL (0.0-0.2) Sodium Level 146 mmol/L (136-145) Potassium Level 3.4 mmol/L (3.5-5.1) Chloride Level 111 mmol/L (98-107) Carbon Dioxide Level 26 mmol/L (21-32) Anion Gap 9 (6-14) Blood Urea Nitrogen 19 mg/dL (8-26) Creatinine 1.3 mg/dL (0.7-1.3) Estimated GFR (Cockcroft-Gault) 54.4 BUN/Creatinine Ratio 15 (6-20) Glucose Level 129 mg/dL (70-99) Calcium Level 6.4 mg/dL (8.5-10.1) Magnesium Level 2.0 mg/dL (1.8-2.4) Total Bilirubin 0.5 mg/dL (0.2-1.0) Aspartate Amino Transf (AST/SGOT) 100 U/L (15-37) Alanine Aminotransferase (ALT/SGPT) 110 U/L (16-63) Alkaline Phosphatase 52 U/L (46-116) Total Protein 4.6 g/dL (6.4-8.2) Albumin 2.3 g/dL (3.4-5.0) Albumin/Globulin Ratio 1.0 (1.0-1.7) Test 08/07/20 05:00 Sodium Level 142 mmol/L (136-145) Potassium Level 3.8 mmol/L (3.5-5.1) Chloride Level 109 mmol/L (98-107) Carbon Dioxide Level 24 mmol/L (21-32) Anion Gap 9 (6-14) Blood Urea Nitrogen 21 mg/dL (8-26) Creatinine 0.9 mg/dL (0.7-1.3) Estimated GFR (Cockcroft-Gault) 83.2 Glucose Level 120 mg/dL (70-99) Calcium Level 6.3 mg/dL (8.5-10.1) Phosphorus Level 2.4 mg/dL (2.6-4.7) Magnesium Level 2.1 mg/dL (1.8-2.4) Medications Active Scripts Medications Dose Route/Sig Max Daily Dose Days Date Category Children's Aspirin (Aspirin) 81 Mg Tab.chew 1 Tab PO DAILY 30 08/05/20 Reported Atorvastatin Calcium 40 Mg Tablet 1 Tab PO DAILY 08/05/20 Reported Losartan Potassium 50 Mg Tablet 50 Mg PO DAILY 08/05/20 Reported Famotidine 40 Mg Tablet 40 Mg PO HS 08/05/20 Reported Pantoprazole Sodium (Pantoprazole Sodium) 40 Mg Tablet.dr 40 Mg PO DAILYAC 08/05/20 Reported Comments CXR reviewed 1. Bibasilar airspace opacities may represent atelectasis or developing consolidation. 2. ett ok CT ABD Impression: 1. Retroperitoneal hematoma on the right with density surrounding the proximal right ureter. A vascular injury to the right kidney is possible however the right kidney appears well-perfused and there is no gross extravasation of contrast. 2. L4 vertebral body compression fracture could be old. ECHO <Conclusion> The left ventricular systolic function is normal and the ejection fraction is within normal range. Estimated ejection fraction 60-65%. There is normal LV segmental wall motion. Doppler and Color Flow revealed mild tricuspid regurgitation. Estimated PAP 35 mmHg. Impression . IMPRESSION: 1. Acute respiratory failure secondary to pulseless electrical activity cardiac arrest and also contributed by toxic encephalopathy from alcohol and marijuana. 2. Pulseless electrical activity cardiac arrest. 3. Toxic encephalopathy, status post fall after found to be drinking alcohol and smoking marijuana. 4. QHGD-DLCOD-57 negative. 5. Acute kidney injury. 6. Marked lactic acidosis from cardiac arrest and shock, less likely septic. 7. Shock, cardiogenic. 8. Abnormal ALT and AST secondary to hypoperfusion. 9. Abnormal D-dimer with no evidence of pulmonary embolism. 10. Severe metabolic acidosis. 11. Hypernatremia. Plan . RECOMMENDATIONS: Continue current vent support, currently assist control 70% and a PEEP of 5, decreased fio2 to 70%, titrate fio2 as tolerated. Follow ABG/chest x-ray, Completed hypothermia protocol Continue vasopressors as needed to keep MAP greater than 65--remains on Levophed Follow cardiology recommendations, echocardiogram reviewed EF within normal limits Follow nephrology recommendations, Continue antibiotics--currently on meropenem Follow neurology recommendations DVT/GI prophylaxis Discussed with RN and RT JAYASHREE STONE MD Aug 07, 2020 06:05
[2020-08-07] MEDS: ELECTROLYTE (ICU) PROTOCOL. MC SCH (09:00)
[2020-08-07 09:09] LABS: BASE EXCESS ABG -1 mmol/L (-3-3); HCO3 ABG 23 mmol/L (21-28); PCO2 ABG 35 mmHg (35-46); PO2 ABG 76 mmHg (65-108); SAT O2 ABG 95 % (92-99)
[2020-08-07] MEDS: PANTOPRAZOLE IV PUSH 40 MG VIAL. IVP SCH (09:49)
[2020-08-07] MEDS: levETIRAcetam 500 MG in IV DEXTROSE 5% 100ML 100 ML IV SCH ×2 (09:50→21:14)
[2020-08-07] MEDS: BACITRACIN TOPICAL OINT PACKET. TP SCH ×2 (09:53→21:14)
[2020-08-07 09:54] LABS: FIO2 ABG 60% VENT
[2020-08-07] MEDS ORDERED: SODIUM PHOSPHATE 15 MMOL in IV NORMAL SALINE 250ML 250 ML IV ONE (11:30)
--- NOTE | 2020-08-07 15:09 | PDOC ---
GENERAL General: Patient examined chart reviewed today is hospital day 4 for this patient with a PEA cardiac arrest status post hypothermia protocol. Unfortunately he has not recovered neurologic function and is not expected to recover. I met his brother and [id number] today and they are at peace with this terrible situation. The plan is to terminally extubate him early this week after everyone's been able to say goodbye. Sadly his mother has also on hospice at age 95 and the family is trying to figure out to tell her about this. Apparently the patient had just moved here from [place] to live closer to family. We appreciate subspecialty support. Problems: (1) Cardiac arrest (2) Respiratory failure (3) Dens fracture VITAL SIGNS Vital Signs/I&O: Vital Signs Date Time Temp Pulse Resp B/P (MAP) Pulse Ox O2 Delivery O2 Flow Rate FiO2 08/07/20 14:00 60 20 123/84 (97) 100 08/07/20 12:00 Mechanical Ventilator 08/07/20 12:00 96.1 96.1 I & O 08/06/20 08/06/20 08/07/20 15:00 23:00 07:00 Intake Total 105 ml 2067.1 ml 1356 ml Output Total 780 ml 355 ml 280 ml Balance -675 ml 1712.1 ml 1076 ml In general the patient is intubated sedated nonresponsive on the ventilator Chest bilateral equal air entry though diminished throughout Heart S1-S2 normal regular rate and rhythm no murmurs or gallops are noted Extremity exam is notable for 1+ bipedal edema ALLERGIES Allergies: Allergies Coded Allergies Type Severity Reaction Last Updated Verified No Known Drug Allergies 08/05/20 No MEDS Medications: Current Medications Medications (Trade) Dose Ordered Sig/Geovany Start Time Stop Time Status Last Admin Dose Admin Acetaminophen (Tylenol) 650 mg Q4H 08/04/20 08:00 08/05/20 21:40 DC 08/05/20 20:09 Bacitracin (Bacitracin Zinc Oint Pkt) 1 pkt BID 08/05/20 17:00 08/07/20 09:53 Buspirone HCl (Buspar) 30 mg Q8H 08/04/20 08:00 08/05/20 21:40 DC 08/05/20 15:36 Ceftriaxone Sodium (Rocephin) 1 gm Q24H 08/04/20 11:30 08/04/20 16:10 DC 08/04/20 13:50 Epinephrine HCl 5 mg/Sodium Chloride 255 ml @ 30.6 mls/hr ONCE ONCE 08/04/20 05:45 08/04/20 14:04 DC 08/04/20 06:17 Famotidine (Pepcid Vial) 20 mg BID 08/04/20 11:00 08/04/20 12:36 DC Fentanyl Citrate 30 ml @ 0 mls/hr CONT PRN 08/04/20 08:00 08/05/20 05:03 Fentanyl Citrate (Fentanyl 2ml Vial) 100 mcg 1X ONCE 08/04/20 08:00 08/04/20 08:01 DC Glycerin/ Hypromellose/ Polyethylene (Artificial Tears) 1 drop PRN Q15MIN PRN 08/04/20 08:00 08/05/20 21:40 DC Heparin Sodium (Porcine) (Heparin Sodium) 5,000 unit Q8HRS 08/04/20 14:00 08/07/20 13:55 Info (CONTRAST GIVEN -- Rx MONITORING) 1 each PRN DAILY PRN 08/04/20 06:30 08/06/20 06:29 DC Info (Icu Electrolyte Protocol) 1 ea DAILY 08/05/20 09:00 08/06/20 09:00 Insulin Human Regular 100 unit/ Sodium Chloride 101 ml @ 0 mls/hr CONT PRN 08/04/20 12:45 08/04/20 21:54 Iohexol (Omnipaque 350 Mg/ml) 80 ml 1X ONCE 08/04/20 06:30 08/04/20 06:31 DC 08/04/20 07:30 Levetiracetam 500 mg/Dextrose 105 ml @ 420 mls/hr Q12HR 08/06/20 09:00 08/07/20 09:50 Magnesium Sulfate 50 ml @ 25 mls/hr 1X ONCE 08/04/20 20:15 08/04/20 22:14 DC 08/04/20 23:00 Magnesium Sulfate/ Dextrose 100 ml @ 100 mls/hr 1X ONCE 08/04/20 08:00 08/04/20 08:59 DC 08/04/20 08:21 Meropenem 1 gm/ Sodium Chloride 100 ml @ 200 mls/hr Q8HRS 08/04/20 11:30 08/07/20 13:51 Midazolam HCl 100 ml @ 0 mls/hr CONT PRN 08/04/20 08:00 08/05/20 05:05 Midazolam HCl (Versed) 2 mg 1X ONCE 08/04/20 08:00 08/04/20 08:01 DC Midazolam HCl 50 mg/Sodium Chloride 50 ml @ 0 mls/hr CONT PRN PRN 08/04/20 07:15 UNV Norepinephrine Bitartrate 8 mg/ Dextrose 258 ml @ 0 mls/hr CONT PRN 08/04/20 11:00 UNV Ondansetron HCl (Zofran) 4 mg PRN Q6HRS PRN 08/04/20 10:15 Pantoprazole Sodium (PROTONIX VIAL for IV PUSH) 40 mg DAILY 08/06/20 11:00 08/07/20 09:49 Potassium Chloride/Water 100 ml @ 100 mls/hr Q1H 08/06/20 10:00 08/06/20 11:59 DC 08/06/20 10:57 Potassium Phosphate 13.6 mmol/Sodium Chloride 254.5333 ml @ 127.... Q2H 08/05/20 12:00 08/05/20 15:59 DC 08/05/20 14:58 Propofol 100 ml @ 0 mls/hr CONT PRN 08/04/20 08:00 08/05/20 21:40 DC Sodium Bicarbonate 100 meq/Dextrose 1,100 ml @ 150 mls/hr Q7H20M 08/04/20 11:30 08/05/20 11:09 DC 08/05/20 03:59 Sodium Bicarbonate (Sodium Bicarb Adult 8.4% Syr) 50 meq 1X ONCE 08/04/20 10:15 08/04/20 10:22 DC 08/04/20 10:15 Sodium Chloride 1,000 ml @ 100 mls/hr Q10H 08/05/20 11:15 08/05/20 11:21 DC Sodium Chloride (Normal Saline Flush) 3 ml QSHIFT PRN 08/04/20 10:15 Sodium Phosphate 15 mmol/Sodium Chloride 255 ml @ 62.5 mls/hr 1X ONCE 08/07/20 11:30 08/07/20 15:34 08/07/20 11:41 Sodium Phosphate 20 mmol/Sodium Chloride 256.6667 ml @ 64.167 m... 1X ONCE 08/04/20 20:00 08/04/20 23:59 DC 08/04/20 21:17 Vecuronium Cambria (Norcuron Bolus) 10 mg PRN Q1HR PRN 08/04/20 08:00 08/05/20 21:41 DC Current Medications Medications (Trade) Dose Ordered Sig/Geovany Route PRN Reason Start Time Stop Time Status Last Admin Dose Admin Sodium Phosphate 15 mmol/Sodium Chloride 255 ml @ 62.5 mls/hr 1X ONCE IV 08/07/20 11:30 08/07/20 15:34 08/07/20 11:41 LAB Lab: Laboratory Tests Test 08/07/20 05:00 08/07/20 08:45 Sodium Level 142 mmol/L (136-145) Potassium Level 3.8 mmol/L (3.5-5.1) Chloride Level 109 mmol/L (98-107) H Carbon Dioxide Level 24 mmol/L (21-32) Anion Gap 9 (6-14) Blood Urea Nitrogen 21 mg/dL (8-26) Creatinine 0.9 mg/dL (0.7-1.3) Estimated GFR (Cockcroft-Gault) 83.2 Glucose Level 120 mg/dL (70-99) H Calcium Level 6.3 mg/dL (8.5-10.1) L Phosphorus Level 2.4 mg/dL (2.6-4.7) L Magnesium Level 2.1 mg/dL (1.8-2.4) O2 Saturation 95 % (92-99) Arterial Blood pH 7.43 (7.35-7.45) Arterial Blood pCO2 at Patient Temp 35 mmHg (35-46) Arterial Blood pO2 at Patient Temp 76 mmHg (65-108) Arterial Blood HCO3 23 mmol/L (21-28) Arterial Blood Base Excess -1 mmol/L (-3-3) FiO2 60% vent Laboratory Tests 08/07/20 05:00 ASSESSMENT & PLAN A&P Plan as noted above This note was created using [employer] and may have omissions and/or errors due to the nature of real-time voice direct support professional caregiver. Justifications for Admission General Conditions Poss hypotension?: Yes Justification for admission: Patient has hypotension (SBP < 90 mm Hg) which is not readily corrected by appropriate treatment within 12 to 24 hours. CARDIAC ARREST Other Justification POLLO HEAD MD Aug 07, 2020 15:09
--- NOTE | 2020-08-07 16:15 | PDOC ---
PROGRESS NOTES Date of Service: DATE: 08/07/20 TIME: 16:14 Subjective Subjective Intubated and sedated Objective Objective Vital Signs Date Time Temp Pulse Resp B/P (MAP) Pulse Ox O2 Delivery O2 Flow Rate FiO2 08/07/20 14:00 60 20 123/84 (97) 100 08/07/20 12:00 Mechanical Ventilator 08/07/20 12:00 96.1 96.1 Intake and Output 08/07/20 07:00 Intake Total 3528.1 ml Output Total 1415 ml Balance 2113.1 ml Intake IV Total 3528.1 ml Output Urine Total 1415 ml Physical Exam Abdomen: Normal bowel sounds Heart: Regular rate Extremities: Other (1+ pitting edema) General: Other (ON THE VENT) HEENT: Other (CERVICAL COLLAR, ET TUBE) Lungs: Clear to auscultation Neuro: Other (SEDATED) Psych/Mental Status: Other (SEDATED ON THE VENT) Assessment Assessment 1. OOH cardiopulmonary arrest: possible 3-4 min pulseless prior to CPR initiation noted PEA 5 round of epi per staff approx 25 min to ROSC. No PE. Covid neg. Telemetry showed sinus rhythm without any arrhythmias. 2D echo showed LVEF 60 to 65%. 2. Traumatic fall with nondisplaced dens base fracture 3. Hypotension, possible sepsis, needing pressor support 4. Retroperitoneal hematoma on the right with density surrounding the proximal right ureter: Hgb normal and stable 5. Substance abuse: with marijuana, ETOH 6. Lactic acidosis 7. JUSTIN: much improved 8. Acute respiratory failure: intubated, vent, pulmonary team following 9. Unclear if any prior fall as imaging noted with multiple old rib fractures and L4 compression fracture 10. PUI: Covid negative 11. Hypothermia: rewarmed 12. Anoxic encephalopathy 13. CAD; recently noted with Calcium score at 688 last yr. Will obtain possible stress echo done this month. Follows with [facility]. Dr. Salinas 14. NSVT; no further episodes Patient presently DNR. Plan Plan of Care Problems Medical Problems: (1) Cardiac arrest Status: Acute (2) Dens fracture Status: Acute (3) Respiratory failure Status: Acute Comment Review of Relevant I have reviewed the following items magda (where applicable) has been applied. Labs Laboratory Tests Test 08/07/20 05:00 08/07/20 08:45 Sodium Level 142 mmol/L (136-145) Potassium Level 3.8 mmol/L (3.5-5.1) Chloride Level 109 mmol/L (98-107) Carbon Dioxide Level 24 mmol/L (21-32) Anion Gap 9 (6-14) Blood Urea Nitrogen 21 mg/dL (8-26) Creatinine 0.9 mg/dL (0.7-1.3) Estimated GFR (Cockcroft-Gault) 83.2 Glucose Level 120 mg/dL (70-99) Calcium Level 6.3 mg/dL (8.5-10.1) Phosphorus Level 2.4 mg/dL (2.6-4.7) Magnesium Level 2.1 mg/dL (1.8-2.4) O2 Saturation 95 % (92-99) Arterial Blood pH 7.43 (7.35-7.45) Arterial Blood pCO2 at Patient Temp 35 mmHg (35-46) Arterial Blood pO2 at Patient Temp 76 mmHg (65-108) Arterial Blood HCO3 23 mmol/L (21-28) Arterial Blood Base Excess -1 mmol/L (-3-3) FiO2 60% vent Microbiology 08/04/20 Blood Culture - Preliminary, Resulted NO GROWTH AFTER 3 DAYS Medications Current Medications Sodium Phosphate 15 mmol/Sodium Chloride 255 ml @ 62.5 mls/hr 1X ONCE IV Last administered on 08/07/20at 11:41; Start 08/07/20 at 11:30; Stop 08/07/20 at 15:34; Status DC Vitals/I & O Vital Sign - Last 24 Hours 08/06/20 08/06/20 08/06/20 08/06/20 16:45 17:00 18:00 19:00 Temp 98.6 98.6 Pulse 70 70 66 66 Resp 20 20 20 B/P (MAP) 97/64 (75) 95/66 (76) 82/53 (63) 89/57 (68) Pulse Ox 95 96 96 08/06/20 08/06/20 08/06/20 08/06/20 20:00 20:30 21:00 21:25 Temp 98.6 98.6 98.6 98.6 Pulse 66 66 Resp 20 20 B/P (MAP) 93/62 (72) 92/59 (70) Pulse Ox 96 96 96 O2 Delivery Mechanical Ventilator Ventilator 08/06/20 08/06/20 08/06/2016/21 22:00 23:00 23:41 00:00 Temp 98.2 97.9 98.2 97.9 Pulse 66 64 64 Resp 20 20 20 B/P (MAP) 93/63 (73) 105/72 (83) 119/74 (89) Pulse Ox 95 100 100 O2 Delivery Mechanical Ventilator 08/07/20 08/07/20 08/07/20 08/07/20 00:00 01:00 02:00 03:00 Pulse 64 62 64 Resp 20 20 20 B/P (MAP) 126/86 (99) 117/81 (93) 116/76 (89) Pulse Ox 96 100 100 100 O2 Delivery Ventilator 08/07/20 08/07/20 08/07/20 08/07/20 04:00 04:00 04:00 05:00 Temp 97.2 97.2 Pulse 62 64 Resp 20 20 B/P (MAP) 110/75 (87) 121/81 (94) Pulse Ox 100 96 100 O2 Delivery Mechanical Ventilator Ventilator 08/07/20 08/07/20 08/07/20 08/07/20 06:00 07:00 08:00 08:00 Temp 96.8 96.8 Pulse 64 62 62 Resp 20 20 20 B/P (MAP) 131/84 (100) 118/79 (92) 112/76 (88) Pulse Ox 100 100 100 O2 Delivery Mechanical Ventilator 08/07/20 08/07/20 08/07/20 08/07/20 08:25 09:00 10:00 11:00 Pulse 61 61 58 Resp 20 20 20 B/P (MAP) 123/87 (99) 122/86 (98) 116/83 (94) Pulse Ox 100 100 100 100 O2 Delivery Ventilator 08/07/20 08/07/20 08/07/20 08/07/20 11:30 12:00 12:00 13:00 Temp 96.1 96.1 Pulse 57 58 Resp 20 20 B/P (MAP) 94/64 (74) 113/74 (87) Pulse Ox 100 100 100 O2 Delivery Ventilator Mechanical Ventilator 08/07/20 14:00 Pulse 60 Resp 20 B/P (MAP) 123/84 (97) Pulse Ox 100 Intake and Output 08/06/20 08/06/20 08/07/20 15:00 23:00 07:00 Intake Total 105 ml 2067.1 ml 1356 ml Output Total 780 ml 355 ml 280 ml Balance -675 ml 1712.1 ml 1076 ml CONY CARTER MD Aug 07, 2020 16:15
--- NOTE | 2020-08-07 17:45 | PDOC ---
PROGRESS NOTES Date of Service DATE: 08/07/20 TIME: 17:42 Assessment Problems Medical Problems: (1) Cardiac arrest Status: Acute (2) Dens fracture Status: Acute (3) Respiratory failure Status: Acute Vito Bhatia is a 69-year-old man who suffered an anoxic brain injury when he had cardiopulmonary arrest with pulseless electrical activity. Patient was evaluated for brain this evening. He seemed to have a very minimal r espiratory drive at this time. All other brainstem reflexes were absent. The apnea test was aborted due to a minimal respiratory drive. He is not presently brain-. Plan I will reevaluate for brain on August 07, 2020. Subjective Nonverbal Objective Vital Signs Date Time Temp Pulse Resp B/P (MAP) Pulse Ox O2 Delivery O2 Flow Rate FiO2 08/07/20 16:28 100 Ventilator 08/07/20 16:00 96.1 58 20 130/89 (103) 96.1 Intake and Output 08/07/20 07:00 Intake Total 3528.1 ml Output Total 1415 ml Balance 2113.1 ml Intake IV Total 3528.1 ml Output Urine Total 1415 ml PHYSICAL EXAM Patient is intubated, ventilated and not sedated. He is on low-dose Levophed. The eyes were closed and there was no opening. Noxious stimulation did not provoke any alerting or eye opening. When the eyes were held open they were disconjugate. There was no focus. He did not respond to visual threat or loud clap. Pupils were 3 mm and not reactive. Corneal reflex was absent. Ice water calorics was negative. There was no response to posterior pharyngeal stimulation. There was no cough to deep suctioning. Tone was flaccid in all 4 extremities. Nailbed pressure did not provoke any response except minimal in the feet with a brief flexion response which fatigued. Review of Relevant I have reviewed the following items magda (where applicable) has been applied. Labs Laboratory Tests Test 08/05/20 17:58 08/05/20 19:00 08/06/20 05:00 08/06/20 08:00 Glucose (Fingerstick) 123 mg/dL (70-99) White Blood Count 18.8 x10^3/uL (4.0-11.0) Red Blood Count 4.19 x10^6/uL (4.30-5.70) Hemoglobin 13.5 g/dL (13.0-17.5) Hematocrit 39.4 % (39.0-53.0) Mean Corpuscular Volume 94 fL (79-100) Mean Corpuscular Hemoglobin 32 pg (25-35) Mean Corpuscular Hemoglobin Concent 34 g/dL (31-37) Red Cell Distribution Width 13.6 % (11.5-14.5) Platelet Count 168 x10^3/uL (140-400) Neutrophils (%) (Auto) 89 % (31-73) Lymphocytes (%) (Auto) 7 % (24-48) Monocytes (%) (Auto) 4 % (0-9) Eosinophils (%) (Auto) 0 % (0-3) Basophils (%) (Auto) 0 % (0-3) Neutrophils # (Auto) 16.7 x10^3/uL (1.8-7.7) Lymphocytes # (Auto) 1.2 x10^3/uL (1.0-4.8) Monocytes # (Auto) 0.8 x10^3/uL (0.0-1.1) Eosinophils # (Auto) 0.0 x10^3/uL (0.0-0.7) Basophils # (Auto) 0.1 x10^3/uL (0.0-0.2) Prothrombin Time 15.0 SEC (11.7-14.0) Prothromb Time International Ratio 1.2 (0.8-1.1) Activated Partial Thromboplast Time 40 SEC (24-38) Sodium Level 141 mmol/L (136-145) 143 mmol/L (136-145) Potassium Level 3.4 mmol/L (3.5-5.1) 3.4 mmol/L (3.5-5.1) Chloride Level 106 mmol/L (98-107) 108 mmol/L (98-107) Carbon Dioxide Level 26 mmol/L (21-32) 24 mmol/L (21-32) Anion Gap 9 (6-14) 11 (6-14) Blood Urea Nitrogen 22 mg/dL (8-26) 20 mg/dL (8-26) Creatinine 1.1 mg/dL (0.7-1.3) 1.3 mg/dL (0.7-1.3) Estimated GFR (Cockcroft-Gault) 66.0 54.4 Glucose Level 111 mg/dL (70-99) 129 mg/dL (70-99) Calcium Level 6.5 mg/dL (8.5-10.1) 6.3 mg/dL (8.5-10.1) Phosphorus Level 4.2 mg/dL (2.6-4.7) 2.9 mg/dL (2.6-4.7) Magnesium Level 2.0 mg/dL (1.8-2.4) 2.0 mg/dL (1.8-2.4) O2 Saturation 95 % (92-99) Arterial Blood pH 7.50 (7.35-7.45) Arterial Blood pCO2 at Patient Temp 31 mmHg (35-46) Arterial Blood pO2 at Patient Temp 73 mmHg (65-108) Arterial Blood HCO3 24 mmol/L (21-28) Arterial Blood Base Excess 1 mmol/L (-3-3) FiO2 75/vent Test 08/06/20 08:40 08/06/20 10:30 08/06/20 12:15 08/07/20 05:00 White Blood Count 14.9 x10^3/uL (4.0-11.0) Red Blood Count 4.05 x10^6/uL (4.30-5.70) Hemoglobin 13.0 g/dL (13.0-17.5) Hematocrit 38.2 % (39.0-53.0) Mean Corpuscular Volume 94 fL (79-100) Mean Corpuscular Hemoglobin 32 pg (25-35) Mean Corpuscular Hemoglobin Concent 34 g/dL (31-37) Red Cell Distribution Width 13.9 % (11.5-14.5) Platelet Count 163 x10^3/uL (140-400) Neutrophils (%) (Auto) 82 % (31-73) Lymphocytes (%) (Auto) 13 % (24-48) Monocytes (%) (Auto) 5 % (0-9) Eosinophils (%) (Auto) 0 % (0-3) Basophils (%) (Auto) 0 % (0-3) Neutrophils # (Auto) 12.2 x10^3/uL (1.8-7.7) Lymphocytes # (Auto) 1.9 x10^3/uL (1.0-4.8) Monocytes # (Auto) 0.7 x10^3/uL (0.0-1.1) Eosinophils # (Auto) 0.0 x10^3/uL (0.0-0.7) Basophils # (Auto) 0.0 x10^3/uL (0.0-0.2) Sodium Level 146 mmol/L (136-145) 142 mmol/L (136-145) Potassium Level 3.4 mmol/L (3.5-5.1) 3.8 mmol/L (3.5-5.1) Chloride Level 111 mmol/L (98-107) 109 mmol/L (98-107) Carbon Dioxide Level 26 mmol/L (21-32) 24 mmol/L (21-32) Anion Gap 9 (6-14) 9 (6-14) Blood Urea Nitrogen 19 mg/dL (8-26) 21 mg/dL (8-26) Creatinine 1.3 mg/dL (0.7-1.3) 0.9 mg/dL (0.7-1.3) Estimated GFR (Cockcroft-Gault) 54.4 83.2 BUN/Creatinine Ratio 15 (6-20) Glucose Level 129 mg/dL (70-99) 120 mg/dL (70-99) Calcium Level 6.4 mg/dL (8.5-10.1) 6.3 mg/dL (8.5-10.1) Magnesium Level 2.0 mg/dL (1.8-2.4) 2.1 mg/dL (1.8-2.4) Total Bilirubin 0.5 mg/dL (0.2-1.0) Aspartate Amino Transf (AST/SGOT) 100 U/L (15-37) Alanine Aminotransferase (ALT/SGPT) 110 U/L (16-63) Alkaline Phosphatase 52 U/L (46-116) Total Protein 4.6 g/dL (6.4-8.2) Albumin 2.3 g/dL (3.4-5.0) Albumin/Globulin Ratio 1.0 (1.0-1.7) O2 Saturation 91 % (92-99) 94 % (92-99) Arterial Blood pH 7.31 (7.35-7.45) 7.41 (7.35-7.45) Arterial Blood pCO2 at Patient Temp 55 mmHg (35-46) 39 mmHg (35-46) Arterial Blood pO2 at Patient Temp 69 mmHg (65-108) 71 mmHg (65-108) Arterial Blood HCO3 27 mmol/L (21-28) 24 mmol/L (21-28) Arterial Blood Base Excess 0 mmol/L (-3-3) 0 mmol/L (-3-3) FiO2 70 70/vent Phosphorus Level 2.4 mg/dL (2.6-4.7) Test 08/07/20 08:45 O2 Saturation 95 % (92-99) Arterial Blood pH 7.43 (7.35-7.45) Arterial Blood pCO2 at Patient Temp 35 mmHg (35-46) Arterial Blood pO2 at Patient Temp 76 mmHg (65-108) Arterial Blood HCO3 23 mmol/L (21-28) Arterial Blood Base Excess -1 mmol/L (-3-3) FiO2 60% vent Laboratory Tests Test 08/07/20 05:00 08/07/20 08:45 Sodium Level 142 mmol/L (136-145) Potassium Level 3.8 mmol/L (3.5-5.1) Chloride Level 109 mmol/L (98-107) Carbon Dioxide Level 24 mmol/L (21-32) Anion Gap 9 (6-14) Blood Urea Nitrogen 21 mg/dL (8-26) Creatinine 0.9 mg/dL (0.7-1.3) Estimated GFR (Cockcroft-Gault) 83.2 Glucose Level 120 mg/dL (70-99) Calcium Level 6.3 mg/dL (8.5-10.1) Phosphorus Level 2.4 mg/dL (2.6-4.7) Magnesium Level 2.1 mg/dL (1.8-2.4) O2 Saturation 95 % (92-99) Arterial Blood pH 7.43 (7.35-7.45) Arterial Blood pCO2 at Patient Temp 35 mmHg (35-46) Arterial Blood pO2 at Patient Temp 76 mmHg (65-108) Arterial Blood HCO3 23 mmol/L (21-28) Arterial Blood Base Excess -1 mmol/L (-3-3) FiO2 60% vent Microbiology 08/04/20 Blood Culture - Preliminary, Resulted NO GROWTH AFTER 3 DAYS Medications Current Medications Epinephrine HCl 5 mg/Sodium Chloride 255 ml @ 30.6 mls/hr ONCE ONCE IV Last administered on 1/13/21at 06:17; Start 08/04/20 at 05:45; Stop 08/04/20 at 14:04; Status DC Iohexol (Omnipaque 350 Mg/ml) 80 ml 1X ONCE IV Last administered on 08/04/20at 07:30; Start 08/04/20 at 06:30; Stop 08/04/20 at 06:31; Status DC Info (CONTRAST GIVEN -- Rx MONITORING) 1 each PRN DAILY PRN MC SEE COMMENTS; Start 08/04/20 at 06:30; Stop 08/06/20 at 06:29; Status DC Sodium Chloride 1,000 ml @ 1,000 mls/hr 1X ONCE IV Last administered on 08/04/20at 06:32; Start 08/04/20 at 06:30; Stop 08/04/20 at 07:29; Status DC Sodium Chloride 1,000 ml @ 1,000 mls/hr 1X ONCE IV Last administered on 08/04/20at 06:33; Start 08/04/20 at 06:45; Stop 08/04/20 at 07:44; Status DC Sodium Chloride 1,000 ml @ 1,000 mls/hr 1X ONCE IV Last administered on 08/04/20at 06:45; Start 08/04/20 at 06:45; Stop 08/04/20 at 07:44; Status DC Midazolam HCl 50 mg/Sodium Chloride 50 ml @ 0 mls/hr CONT PRN PRN IV SEDATION; Start 08/04/20 at 07:15; Status UNV Midazolam HCl 100 ml @ 0 mls/hr CONT PRN IV SEE PROTOCOL; Start 08/04/20 at 07:30; Stop 08/04/20 at 08:03; Status DC Ondansetron HCl (Zofran) 4 mg PRN Q8HRS PRN IV NAUSEA/VOMITING; Start 08/04/20 at 07:30; Stop 08/05/20 at 07:29; Status DC Sodium Chloride 1,000 ml @ 75 mls/hr [id number] IV Last administered on 08/04/20at 08:30; Start 08/04/20 at 07:30; Stop 08/05/20 at 07:29; Status DC Fentanyl Citrate (Fentanyl 2ml Vial) 100 mcg 1X ONCE IV ; Start 08/04/20 at 08:00; Stop 08/04/20 at 08:01; Status DC Midazolam HCl (Versed) 2 mg 1X ONCE IV ; Start 08/04/20 at 08:00; Stop 08/04/20 at 08:01; Status DC Magnesium Sulfate/ Dextrose 100 ml @ 100 mls/hr 1X ONCE IV Last administered on 08/04/20at 08:21; Start 08/04/20 at 08:00; Stop 08/04/20 at 08:59; Status DC Buspirone HCl (Buspar) 30 mg Q8H NG Last administered on 08/05/20at 15:36; Start 08/04/20 at 08:00; Stop 08/05/20 at 21:40; Status DC Acetaminophen (Tylenol) 650 mg Q4H NG Last administered on 08/05/20at 20:09; Start 08/04/20 at 08:00; Stop 08/05/20 at 21:40; Status DC Glycerin/ Hypromellose/ Polyethylene (Artificial Tears) 1 drop Q6HRS OU Last administered on 08/05/20at 17:53; Start 08/04/20 at 12:00; Stop 08/05/20 at 21:41; Status DC Glycerin/ Hypromellose/ Polyethylene (Artificial Tears) 1 drop PRN Q15MIN PRN OU DRY EYE; Start 08/04/20 at 08:00; Stop 08/05/20 at 21:40; Status DC Pantoprazole Sodium (PROTONIX VIAL for IV PUSH) 40 mg DAILY IVP Last administered on 08/05/20at 07:40; Start 08/04/20 at 09:00; Stop 08/05/20 at 21:40; Status DC Fentanyl Citrate 30 ml @ 0 mls/hr CONT PRN IV PER PROTOCOL. Last administered on 08/05/20at 05:03; Start 08/04/20 at 08:00 Propofol 100 ml @ 0 mls/hr CONT PRN IV PER PROTOCOL.; Start 08/04/20 at 08:00; Stop 08/05/20 at 21:40; Status DC Midazolam HCl 100 ml @ 0 mls/hr CONT PRN IV PER PROTOCOL Last administered on 08/05/20at 05:05; Start 08/04/20 at 08:00 Vecuronium [place] (Norcuron Bolus) 10 mg PRN Q1HR PRN IV SHIVERING; Start 08/04/20 at 08:00; Stop 08/05/20 at 21:41; Status DC Norepinephrine Bitartrate 8 mg/ Dextrose 258 ml @ 18.112 mls/ hr CONT PRN IV PER PROTOCOL Last administered on 08/06/20at 05:57; Start 08/04/20 at 09:15 Sodium Bicarbonate (Sodium Bicarb Adult 8.4% Syr) 50 meq STK-MED ONCE .ROUTE ; Start 08/04/20 at 09:57; Stop 08/04/20 at 09:57; Status DC Ondansetron HCl (Zofran) 4 mg PRN Q6HRS PRN IVP NAUSEA/VOMITING; Start 08/04/20 at 10:15 Famotidine (Pepcid Vial) 20 mg BID IVP ; Start 08/04/20 at 11:00; Stop 08/04/20 at 12:36; Status DC Info (Icu Electrolyte Protocol) 1 ea DAILY MC Last administered on 08/06/20at 09:00; Start 08/05/20 at 09:00 Heparin Sodium (Porcine) (Heparin Sodium) 5,000 unit Q8HRS SQ Last administered on 08/07/20at 13:55; Start 08/04/20 at 14:00 Sodium Chloride (Normal Saline Flush) 3 ml QSHIFT PRN IV AFTER MEDS AND BLOOD DRAWS; Start 08/04/20 at 10:15 Sodium Chloride 1,000 ml @ 100 mls/hr Q10H IV Last administered on 08/07/20at 16:49; Start 08/04/20 at 10:15 Sodium Bicarbonate (Sodium Bicarb Adult 8.4% Syr) 50 meq 1X ONCE IV Last administered on 08/04/20at 10:00; Start 08/04/20 at 10:15; Stop 08/04/20 at 10:22; Status DC Sodium Bicarbonate (Sodium Bicarb Adult 8.4% Syr) 50 meq 1X ONCE IV Last administered on 08/04/20at 10:15; Start 08/04/20 at 10:15; Stop 08/04/20 at 10:22; Status DC Sodium Bicarbonate (Sodium Bicarb Adult 8.4% Syr) 50 meq 1X ONCE IV Last administered on 08/04/20at 10:15; Start 08/04/20 at 10:15; Stop 08/04/20 at 10:22; Status DC Ceftriaxone Sodium (Rocephin) 1 gm Q24H IVP Last administered on 08/04/20at 13:50; Start 08/04/20 at 11:30; Stop 08/04/20 at 16:10; Status DC Sodium Chloride 1,000 ml @ 2,340 mls/hr Q26M IV ; Start 08/04/20 at 11:00; Stop 08/04/20 at 12:00; Status DC Sodium Chloride 500 ml @ 1,000 mls/hr PRN Q30MIN PRN IV SEE COMMENTS; Start 08/04/20 at 11:00; Stop 08/04/20 at 12:12; Status DC Meropenem 1 gm/ Sodium Chloride 100 ml @ 200 mls/hr Q8HRS IV Last administered on 08/07/20at 13:51; Start 08/04/20 at 11:30 Norepinephrine Bitartrate 8 mg/ Dextrose 258 ml @ 0 mls/hr CONT PRN IV SEE I/O RECORD; Start 08/04/20 at 11:00; Status UNV Sodium Bicarbonate 100 meq/Dextrose 1,100 ml @ 150 mls/hr Q7H20M IV Last administered on 08/05/20at 03:59; Start 08/04/20 at 11:30; Stop 08/05/20 at 11:09; Status DC Potassium Chloride/Water 100 ml @ 100 mls/hr Q1H IV Last administered on 08/04/20at 12:52; Start 08/04/20 at 13:00; Stop 08/04/20 at 13:59; Status DC Magnesium Sulfate 50 ml @ 25 mls/hr 1X ONCE IV Last administered on 08/04/20at 12:53; Start 08/04/20 at 13:00; Stop 08/04/20 at 14:59; Status DC Insulin Human Regular 100 unit/ Sodium Chloride 101 ml @ 0 mls/hr CONT PRN IV SEE I/O RECORD Last administered on 08/04/20at 21:54; Start 08/04/20 at 12:45 Potassium Chloride/Water 100 ml @ 50 mls/hr 1X ONCE IV Last administered on 08/04/20at 21:16; Start 08/04/20 at 20:00; Stop 08/04/20 at 21:59; Status DC Sodium Phosphate 20 mmol/Sodium Chloride 256.6667 ml @ 64.167 m... 1X ONCE IV Last administered on 08/04/20at 21:17; Start 08/04/20 at 20:00; Stop 08/04/20 at 23:59; Status DC Magnesium Sulfate 50 ml @ 25 mls/hr 1X ONCE IV Last administered on 08/04/20at 23:00; Start 08/04/20 at 20:15; Stop 08/04/20 at 22:14; Status DC Potassium Chloride/Water 100 ml @ 50 mls/hr 1X ONCE IV ; Start 08/05/20 at 03:15; Stop 08/05/20 at 05:14; Status DC Sodium Chloride 1,000 ml @ 100 mls/hr Q10H IV ; Start 08/05/20 at 11:15; Stop 08/05/20 at 11:21; Status DC Potassium Phosphate 13.6 mmol/Sodium Chloride 254.5333 ml @ 127.... Q2H IV Last administered on 08/05/20at 14:58; Start 08/05/20 at 12:00; Stop 08/05/20 at 15:59; Status DC Levetiracetam 500 mg/Dextrose 105 ml @ 420 mls/hr Q12HR STAT IV Last administered on 08/05/20at 13:14; Start 08/05/20 at 12:57; Stop 08/05/20 at 13 :11; Status DC Bacitracin (Bacitracin Zinc Oint Pkt) 1 pkt BID TP Last administered on 08/07/20at 09:53; Start 08/05/20 at 17:00 Levetiracetam 500 mg/Dextrose 105 ml @ 420 mls/hr Q12HR IV Last administered on 08/07/20at 09:50; Start 08/06/20 at 09:00 Potassium Chloride/Water 100 ml @ 100 mls/hr Q1H IV Last administered on 08/06/20at 10:57; Start 08/06/20 at 10:00; Stop 08/06/20 at 11:59; Status DC Pantoprazole Sodium (PROTONIX VIAL for IV PUSH) 40 mg DAILY IVP Last administered on 08/07/20at 09:49; Start 08/06/20 at 11:00 Sodium Phosphate 15 mmol/Sodium Chloride 255 ml @ 62.5 mls/hr 1X ONCE IV Last administered on 08/07/20at 11:41; Start 08/07/20 at 11:30; Stop 08/07/20 at 15:34; Status DC Active Scripts Active Reported Children's Aspirin (Aspirin) 81 Mg Tab.chew 1 Tab PO DAILY 30 Days Atorvastatin Calcium 40 Mg Tablet 1 Tab PO DAILY Losartan Potassium 50 Mg Tablet 50 Mg PO DAILY Famotidine 40 Mg Tablet 40 Mg PO HS Pantoprazole Sodium (Pantoprazole Sodium) 40 Mg Tablet.dr 40 Mg PO DAILYAC Vitals/I & O Vital Sign - Last 24 Hours 08/06/20 08/06/20 08/06/20 08/06/20 18:00 19:00 20:00 20:30 Temp 98.6 98.6 98.6 98.6 Pulse 66 66 66 Resp 20 20 20 B/P (MAP) 82/53 (63) 89/57 (68) 93/62 (72) Pulse Ox 96 96 96 O2 Delivery Mechanical Ventilator 08/06/20 08/06/20 08/06/20 08/06/20 21:00 21:25 22:00 23:00 Temp 98.6 98.2 98.6 98.2 Pulse 66 66 64 Resp 20 20 20 B/P (MAP) 92/59 (70) 93/63 (73) 105/72 (83) Pulse Ox 96 96 95 100 O2 Delivery Ventilator 08/06/20 08/07/20 08/07/20 08/07/20 23:41 00:00 00:00 01:00 Temp 97.9 97.9 Pulse 64 64 Resp 20 20 B/P (MAP) 119/74 (89) 126/86 (99) Pulse Ox 100 96 100 O2 Delivery Mechanical Ventilator Ventilator 08/07/20 08/07/20 08/07/20 08/07/20 02:00 03:00 04:00 04:00 Temp 97.2 97.2 Pulse 62 64 62 Resp 20 20 20 B/P (MAP) 117/81 (93) 116/76 (89) 110/75 (87) Pulse Ox 100 100 100 O2 Delivery Mechanical Ventilator 08/07/20 08/07/20 08/07/20 08/07/20 04:00 05:00 06:00 07:00 Temp 96.8 96.8 Pulse 64 64 62 Resp 20 20 20 B/P (MAP) 121/81 (94) 131/84 (100) 118/79 (92) Pulse Ox 96 100 100 100 O2 Delivery Ventilator 08/07/20 08/07/20 08/07/20 08/07/20 08:00 08:00 08:25 09:00 Pulse 62 61 Resp 20 20 B/P (MAP) 112/76 (88) 123/87 (99) Pulse Ox 100 100 100 O2 Delivery Mechanical Ventilator Ventilator 08/07/20 08/07/20 08/07/20 08/07/20 10:00 11:00 11:30 12:00 Temp 96.1 96.1 Pulse 61 58 57 Resp 20 20 20 B/P (MAP) 122/86 (98) 116/83 (94) 94/64 (74) Pulse Ox 100 100 100 100 O2 Delivery Ventilator 08/07/20 08/07/20 08/07/20 08/07/20 12:00 13:00 14:00 15:00 Pulse 58 60 67 Resp 20 20 20 B/P (MAP) 113/74 (87) 123/84 (97) 137/86 (103) Pulse Ox 100 100 100 O2 Delivery Mechanical Ventilator 08/07/20 08/07/20 08/07/20 16:00 16:00 16:28 Temp 96.1 96.1 Pulse 58 Resp 20 B/P (MAP) 130/89 (103) Pulse Ox 100 100 O2 Delivery Mechanical Ventilator Ventilator Intake and Output 08/06/20 08/06/20 08/07/20 15:00 23:00 07:00 Intake Total 105 ml 2067.1 ml 1356 ml Output Total 780 ml 355 ml 280 ml Balance -675 ml 1712.1 ml 1076 ml Justicifation of Admission Dx: Justifications for Admission: Justification of Admission Dx: Yes DINA VAZQUEZ MD Aug 07, 2020 17:45
--- NOTE | 2020-08-07 17:45 | NUR ---
[place] test done by Dr. Bragg, patient showed potential signs of respiratory drive which consisted of nasal flaring and mouth movement along with chin subtly moving up and down. No actual chest movement occurred but test aborted and will be checked again at a later date. Blood pressure elevated to 173/111 therefore levophed put on hold; blood pressure decreased to 76/50 in approximately 10 minutes and Levophed restarted.
[2020-08-07] MEDS: NOREPINEPHRINE VIAL 8 MG in IV DEXTROSE 5% 250 ML IV PRN (19:24)
[2020-08-08] VITALS (27 sets, daily range): BP systolic 99–165; BP diastolic 67–98
[2020-08-08] MEDS: IV NORMAL SALINE 1000ML BAG 1,000 ML IV SCH ×2 (03:49→15:16)
[2020-08-08] MEDS: MEROPENEM 1 GM in IV NORMAL SALINE 100ML 100 ML IV SCH ×3 (05:32→22:40)
[2020-08-08] MEDS: HEPARIN for SUB-Q USE 5,000 UNIT/ML VIAL. SQ SCH ×3 (05:33→21:30)
--- NOTE | 2020-08-08 05:53 | PDOC ---
PULMONARY PROGRESS NOTES DATE: 08/08/20 TIME: 05:52 Subjective mechanical ventilation, currently 60% and a PEEP of 5 samll ett secretion s/p hypothermia protocol On levo Patient is off sedation no response Vitals Vital Signs Date Time Temp Pulse Resp B/P (MAP) Pulse Ox O2 Delivery O2 Flow Rate FiO2 08/08/20 05:00 64 20 106/71 (83) 97 08/08/20 04:30 Ventilator 08/08/20 04:00 98.8 98.8 Comments ros unable to obtain Intubated/sedated HEENT: Other (nc at perrl nose clear orally intubated neck collar in place ) Lungs: Crackles Cardiovascular: S1, S2 Abdomen: Soft, Non-tender, Other (no mass) Extremities: No Edema Skin: Warm Labs Laboratory Tests Test 08/06/20 08:00 08/06/20 08:40 08/06/20 10:30 08/06/20 12:15 O2 Saturation 95 % (92-99) 91 % (92-99) 94 % (92-99) Arterial Blood pH 7.50 (7.35-7.45) 7.31 (7.35-7.45) 7.41 (7.35-7.45) Arterial Blood pCO2 at Patient Temp 31 mmHg (35-46) 55 mmHg (35-46) 39 mmHg (35-46) Arterial Blood pO2 at Patient Temp 73 mmHg (65-108) 69 mmHg (65-108) 71 mmHg (65-108) Arterial Blood HCO3 24 mmol/L (21-28) 27 mmol/L (21-28) 24 mmol/L (21-28) Arterial Blood Base Excess 1 mmol/L (-3-3) 0 mmol/L (-3-3) 0 mmol/L (-3-3) FiO2 75/vent 70 70/vent White Blood Count 14.9 x10^3/uL (4.0-11.0) Red Blood Count 4.05 x10^6/uL (4.30-5.70) Hemoglobin 13.0 g/dL (13.0-17.5) Hematocrit 38.2 % (39.0-53.0) Mean Corpuscular Volume 94 fL (79-100) Mean Corpuscular Hemoglobin 32 pg (25-35) Mean Corpuscular Hemoglobin Concent 34 g/dL (31-37) Red Cell Distribution Width 13.9 % (11.5-14.5) Platelet Count 163 x10^3/uL (140-400) Neutrophils (%) (Auto) 82 % (31-73) Lymphocytes (%) (Auto) 13 % (24-48) Monocytes (%) (Auto) 5 % (0-9) Eosinophils (%) (Auto) 0 % (0-3) Basophils (%) (Auto) 0 % (0-3) Neutrophils # (Auto) 12.2 x10^3/uL (1.8-7.7) Lymphocytes # (Auto) 1.9 x10^3/uL (1.0-4.8) Monocytes # (Auto) 0.7 x10^3/uL (0.0-1.1) Eosinophils # (Auto) 0.0 x10^3/uL (0.0-0.7) Basophils # (Auto) 0.0 x10^3/uL (0.0-0.2) Sodium Level 146 mmol/L (136-145) Potassium Level 3.4 mmol/L (3.5-5.1) Chloride Level 111 mmol/L (98-107) Carbon Dioxide Level 26 mmol/L (21-32) Anion Gap 9 (6-14) Blood Urea Nitrogen 19 mg/dL (8-26) Creatinine 1.3 mg/dL (0.7-1.3) Estimated GFR (Cockcroft-Gault) 54.4 BUN/Creatinine Ratio 15 (6-20) Glucose Level 129 mg/dL (70-99) Calcium Level 6.4 mg/dL (8.5-10.1) Magnesium Level 2.0 mg/dL (1.8-2.4) Total Bilirubin 0.5 mg/dL (0.2-1.0) Aspartate Amino Transf (AST/SGOT) 100 U/L (15-37) Alanine Aminotransferase (ALT/SGPT) 110 U/L (16-63) Alkaline Phosphatase 52 U/L (46-116) Total Protein 4.6 g/dL (6.4-8.2) Albumin 2.3 g/dL (3.4-5.0) Albumin/Globulin Ratio 1.0 (1.0-1.7) Test 08/07/20 05:00 08/07/20 08:45 Sodium Level 142 mmol/L (136-145) Potassium Level 3.8 mmol/L (3.5-5.1) Chloride Level 109 mmol/L (98-107) Carbon Dioxide Level 24 mmol/L (21-32) Anion Gap 9 (6-14) Blood Urea Nitrogen 21 mg/dL (8-26) Creatinine 0.9 mg/dL (0.7-1.3) Estimated GFR (Cockcroft-Gault) 83.2 Glucose Level 120 mg/dL (70-99) Calcium Level 6.3 mg/dL (8.5-10.1) Phosphorus Level 2.4 mg/dL (2.6-4.7) Magnesium Level 2.1 mg/dL (1.8-2.4) O2 Saturation 95 % (92-99) Arterial Blood pH 7.43 (7.35-7.45) Arterial Blood pCO2 at Patient Temp 35 mmHg (35-46) Arterial Blood pO2 at Patient Temp 76 mmHg (65-108) Arterial Blood HCO3 23 mmol/L (21-28) Arterial Blood Base Excess -1 mmol/L (-3-3) FiO2 60% vent Laboratory Tests Test 08/07/20 08:45 O2 Saturation 95 % (92-99) Arterial Blood pH 7.43 (7.35-7.45) Arterial Blood pCO2 at Patient Temp 35 mmHg (35-46) Arterial Blood pO2 at Patient Temp 76 mmHg (65-108) Arterial Blood HCO3 23 mmol/L (21-28) Arterial Blood Base Excess -1 mmol/L (-3-3) FiO2 60% vent Medications Active Scripts Medications Dose Route/Sig Max Daily Dose Days Date Category Children's Aspirin (Aspirin) 81 Mg Tab.chew 1 Tab PO DAILY 30 08/05/20 Reported Atorvastatin Calcium 40 Mg Tablet 1 Tab PO DAILY 08/05/20 Reported Losartan Potassium 50 Mg Tablet 50 Mg PO DAILY 08/05/20 Reported Famotidine 40 Mg Tablet 40 Mg PO HS 08/05/20 Reported Pantoprazole Sodium (Pantoprazole Sodium) 40 Mg Tablet.dr 40 Mg PO DAILYAC 08/05/20 Reported Comments CXR reviewed 1. Bibasilar airspace opacities may represent atelectasis or developing consolidation. 2. ett ok CT ABD Impression: 1. Retroperitoneal hematoma on the right with density surrounding the proximal right ureter. A vascular injury to the right kidney is possible however the right kidney appears well-perfused and there is no gross extravasation of contrast. 2. L4 vertebral body compression fracture could be old. ECHO <Conclusion> The left ventricular systolic function is normal and the ejection fraction is within normal range. Estimated ejection fraction 60-65%. There is normal LV segmental wall motion. Doppler and Color Flow revealed mild tricuspid regurgitation. Estimated PAP 35 mmHg. Impression . IMPRESSION: 1. Acute respiratory failure secondary to pulseless electrical activity cardiac arrest and also contributed by toxic encephalopathy from alcohol and marijuana. 2. Pulseless electrical activity cardiac arrest. 3. Toxic encephalopathy, status post fall after found to be drinking alcohol and smoking marijuana. 4. [id number] negative. 5. Acute kidney injury. 6. Marked lactic acidosis from cardiac arrest and shock, less likely septic. 7. Shock, cardiogenic. 8. Abnormal ALT and AST secondary to hypoperfusion. 9. Abnormal D-dimer with no evidence of pulmonary embolism. 10. Severe metabolic acidosis. 11. Hypernatremia. Plan . RECOMMENDATIONS: Continue current vent support, currently assist control 60% and a PEEP of 5, titrate fio2 as tolerated. family is thinking about withdrawing support Follow ABG/chest x-ray, reviewed Completed hypothermia protocol Continue vasopressors as needed to keep MAP greater than 65--remains on Levophed Follow cardiology recommendations, echocardiogram reviewed EF within normal limits Follow nephrology recommendations, Continue antibiotics-- Follow neurology recommendations DVT/GI prophylaxis Discussed with RN and RT JAYASHREE STONE MD Aug 08, 2020 05:53
[2020-08-08] MEDS: ELECTROLYTE (ICU) PROTOCOL. MC SCH (08:41)
[2020-08-08] MEDS: levETIRAcetam 500 MG in IV DEXTROSE 5% 100ML 100 ML IV SCH ×2 (08:45→21:32)
[2020-08-08] MEDS: PANTOPRAZOLE IV PUSH 40 MG VIAL. IVP SCH (08:45)
[2020-08-08] MEDS: BACITRACIN TOPICAL OINT PACKET. TP SCH ×2 (08:45→21:24)
[2020-08-08 09:10] LABS: BASE EXCESS ABG -4 mmol/L (-3-3); HCO3 ABG 20 mmol/L (21-28); PCO2 ABG 34 mmHg (35-46); PO2 ABG 61 mmHg (65-108); SAT O2 ABG 91 % (92-99)
[2020-08-08 09:18] LABS: FIO2 ABG 60% VENT
--- NOTE | 2020-08-08 14:41 | PDOC ---
PROGRESS NOTES Date of Service: DATE: 08/08/20 TIME: 14:40 Subjective Subjective Remains intubated and continues to need pressor support. Objective Objective Vital Signs Date Time Temp Pulse Resp B/P (MAP) Pulse Ox O2 Delivery O2 Flow Rate FiO2 08/08/20 13:00 61 20 120/84 (96) 62 08/08/20 12:00 97.5 97.5 08/08/20 12:00 Mechanical Ventilator Intake and Output 08/08/20 07:00 Intake Total 3206.9 ml Output Total 1220 ml Balance 1986.9 ml Intake IV Total 3206.9 ml Output Urine Total 1220 ml Physical Exam Abdomen: Normal bowel sounds Heart: Regular rate Extremities: Other (1+ pitting edema) General: Other (ON THE VENT) HEENT: Other (CERVICAL COLLAR, ET TUBE) Lungs: Clear to auscultation Neuro: Other (SEDATED) Psych/Mental Status: Other (SEDATED ON THE VENT) Assessment Assessment 1. OOH cardiopulmonary arrest: possible 3-4 min pulseless prior to CPR initiation noted PEA 5 round of epi per staff approx 25 min to ROSC. No PE. Covid neg. Telemetry showed sinus rhythm without any arrhythmias. 2D echo showed LVEF 60 to 65%. 2. Traumatic fall with nondisplaced dens base fracture 3. Hypotension, possible sepsis, needing pressor support 4. Retroperitoneal hematoma on the right with density surrounding the proximal right ureter: Hgb normal and stable 5. Substance abuse: with marijuana, ETOH 6. Lactic acidosis 7. JUSTIN: much improved 8. Acute respiratory failure: intubated, vent, pulmonary team following 9. Unclear if any prior fall as imaging noted with multiple old rib fractures and L4 compression fracture 10. PUI: Covid negative 11. Hypothermia: rewarmed 12. Anoxic encephalopathy 13. CAD; recently noted with Calcium score at 688 last yr. Will obtain possible stress echo done this month. Follows with [facility]. Dr. Salinas 14. NSVT; no further episodes Patient presently DNR. Plan Plan of Care Problems Medical Problems: (1) Cardiac arrest Status: Acute (2) Dens fracture Status: Acute (3) Respiratory failure Status: Acute Comment Review of Relevant I have reviewed the following items magda (where applicable) has been applied. Labs Laboratory Tests Test 08/08/20 08:00 O2 Saturation 91 % (92-99) Arterial Blood pH 7.39 (7.35-7.45) Arterial Blood pCO2 at Patient Temp 34 mmHg (35-46) Arterial Blood pO2 at Patient Temp 61 mmHg (65-108) Arterial Blood HCO3 20 mmol/L (21-28) Arterial Blood Base Excess -4 mmol/L (-3-3) FiO2 60% vent Microbiology 08/04/20 Blood Culture - Preliminary, Resulted NO GROWTH AFTER 4 DAYS Vitals/I & O Vital Sign - Last 24 Hours 08/07/20 08/07/20 08/07/20 08/07/20 15:00 16:00 16:00 16:28 Temp 96.1 96.1 Pulse 67 58 Resp 20 20 B/P (MAP) 137/86 (103) 130/89 (103) Pulse Ox 100 100 100 O2 Delivery Mechanical Ventilator Ventilator 08/07/20 08/07/20 08/07/20 08/07/20 17:00 18:00 19:00 20:00 Temp 95.7 95.5 95.7 95.5 Pulse 56 57 58 54 Resp 20 20 20 20 B/P (MAP) 148/96 (113) 121/82 (95) 153/94 (113) 110/76 (87) Pulse Ox 100 100 100 100 08/07/20 08/07/20 08/07/20 08/07/20 20:00 21:00 21:09 22:00 Pulse 55 59 Resp 20 20 B/P (MAP) 121/85 (97) 135/92 (106) Pulse Ox 100 100 100 O2 Delivery Mechanical Ventilator Ventilator 08/07/20 08/08/20 08/08/20 08/08/20 23:00 00:00 00:00 00:49 Temp 96.8 96.8 Pulse 56 68 Resp 20 20 B/P (MAP) 94/67 (76) 148/93 (111) Pulse Ox 93 99 100 O2 Delivery Mechanical Ventilator Ventilator 08/08/20 08/08/20 08/08/20 08/08/20 01:00 02:00 02:15 03:00 Temp 97.5 97.5 Pulse 70 68 68 Resp 20 20 20 B/P (MAP) 148/96 (113) 127/84 (98) 131/89 (103) 141/90 (107) Pulse Ox 98 93 97 08/08/20 08/08/20 08/08/2008/08/21 03:15 03:45 04:00 04:00 Temp 98.8 98.8 Pulse 68 Resp 20 B/P (MAP) 114/82 (93) 113/74 (87) 109/71 (84) Pulse Ox 97 O2 Delivery Mechanical Ventilator 08/08/20 08/08/20 08/08/20 08/08/20 04:30 05:00 06:00 07:00 Temp 98.6 98.6 Pulse 64 60 64 Resp 20 20 20 B/P (MAP) 106/71 (83) 119/80 (93) 109/76 (87) Pulse Ox 100 97 96 97 O2 Delivery Ventilator 08/08/20 08/08/20 08/08/20 08/08/20 08:00 08:00 08:54 09:00 Pulse 64 63 Resp 20 20 B/P (MAP) 108/76 (87) 99/67 (78) Pulse Ox 94 95 98 O2 Delivery Mechanical Ventilator Ventilator 08/08/20 08/08/20 08/08/20 08/08/20 10:00 11:00 11:59 12:00 Pulse 61 58 Resp 20 20 B/P (MAP) 112/75 (87) 102/68 (79) Pulse Ox 96 96 95 O2 Delivery Ventilator Mechanical Ventilator 08/08/20 08/08/20 12:00 13:00 Temp 97.5 97.5 Pulse 60 61 Resp 20 20 B/P (MAP) 111/75 (87) 120/84 (96) Pulse Ox 96 62 Intake and Output 08/07/20 08/07/20 08/08/20 15:00 23:00 07:00 Intake Total 1951.9 ml 1255 ml Output Total 320 ml 525 ml 375 ml Balance -320 ml 1426.9 ml 880 ml CONY CARTER MD Aug 08, 2020 14:41
--- NOTE | 2020-08-08 14:50 | PDOC ---
GENERAL General: Patient examined chart reviewed seen with another brother and nephew at bedside. They are mourning this catastrophic event but understand that his situation is terminal. Both brothers are prepared to be at bedside tomorrow morning for terminal extubation. I spoke with one of the covering nurses they do tell me that they can page the finger buffs assembler to be present for prayers with the family tomorrow. They understand that neurology cardiology and pulmonary have deemed his case as terminal and unfortunately not expected to survive this catastrophic event. Problems: (1) Anoxic encephalopathy (2) Cardiac arrest (3) Respiratory failure (4) Dens fracture VITAL SIGNS Vital Signs/I&O: Vital Signs Date Time Temp Pulse Resp B/P (MAP) Pulse Ox O2 Delivery O2 Flow Rate FiO2 08/08/20 13:00 61 20 120/84 (96) 62 08/08/20 12:00 97.5 97.5 08/08/20 12:00 Mechanical Ventilator I & O 08/07/20 08/07/20 08/08/20 15:00 23:00 07:00 Intake Total 1951.9 ml 1255 ml Output Total 320 ml 525 ml 375 ml Balance -320 ml 1426.9 ml 880 ml Patient is intubated unresponsive on the ventilator Chest is clear to auscultation Heart S1-S2 normal regular rate and rhythm no murmurs or gallops are noted Extremity exam is unremarkable for acute abnormality ALLERGIES Allergies: Allergies Coded Allergies Type Severity Reaction Last Updated Verified No Known Drug Allergies 08/05/20 No MEDS Medications: Current Medications Medications (Trade) Dose Ordered Sig/Geovany Start Time Stop Time Status Last Admin Dose Admin Acetaminophen (Tylenol) 650 mg Q4H 08/04/20 08:00 08/05/20 21:40 DC 08/05/20 20:09 Bacitracin (Bacitracin Zinc Oint Pkt) 1 pkt BID 08/05/20 17:00 08/08/20 08:45 Buspirone HCl (Buspar) 30 mg Q8H 08/04/20 08:00 08/05/20 21:40 DC 08/05/20 15:36 Ceftriaxone Sodium (Rocephin) 1 gm Q24H 08/04/20 11:30 08/04/20 16:10 DC 08/04/20 13:50 Epinephrine HCl 5 mg/Sodium Chloride 255 ml @ 30.6 mls/hr ONCE ONCE 08/04/20 05:45 08/04/20 14:04 DC 08/04/20 06:17 Famotidine (Pepcid Vial) 20 mg BID 08/04/20 11:00 08/04/20 12:36 DC Fentanyl Citrate 30 ml @ 0 mls/hr CONT PRN 08/04/20 08:00 08/05/20 05:03 Fentanyl Citrate (Fentanyl 2ml Vial) 100 mcg 1X ONCE 08/04/20 08:00 08/04/20 08:01 DC Glycerin/ Hypromellose/ Polyethylene (Artificial Tears) 1 drop PRN Q15MIN PRN 08/04/20 08:00 08/05/20 21:40 DC Heparin Sodium (Porcine) (Heparin Sodium) 5,000 unit Q8HRS 08/04/20 14:00 08/08/20 13:57 Info (CONTRAST GIVEN -- Rx MONITORING) 1 each PRN DAILY PRN 08/04/20 06:30 08/06/20 06:29 DC Info (Icu Electrolyte Protocol) 1 ea DAILY 08/05/20 09:00 08/06/20 09:00 Insulin Human Regular 100 unit/ Sodium Chloride 101 ml @ 0 mls/hr CONT PRN 08/04/20 12:45 08/04/20 21:54 Iohexol (Omnipaque 350 Mg/ml) 80 ml 1X ONCE 08/04/20 06:30 08/04/20 06:31 DC 08/04/20 07:30 Levetiracetam 500 mg/Dextrose 105 ml @ 420 mls/hr Q12HR 08/06/20 09:00 08/08/20 08:45 Magnesium Sulfate 50 ml @ 25 mls/hr 1X ONCE 08/04/20 20:15 08/04/20 22:14 DC 08/04/20 23:00 Magnesium Sulfate/ Dextrose 100 ml @ 100 mls/hr 1X ONCE 08/04/20 08:00 08/04/20 08:59 DC 08/04/20 08:21 Meropenem 1 gm/ Sodium Chloride 100 ml @ 200 mls/hr Q8HRS 08/04/20 11:30 08/08/20 13:56 Midazolam HCl 100 ml @ 0 mls/hr CONT PRN 08/04/20 08:00 08/05/20 05:05 Midazolam HCl (Versed) 2 mg 1X ONCE 08/04/20 08:00 08/04/20 08:01 DC Midazolam HCl 50 mg/Sodium Chloride 50 ml @ 0 mls/hr CONT PRN PRN 08/04/20 07:15 UNV Norepinephrine Bitartrate 8 mg/ Dextrose 258 ml @ 0 mls/hr CONT PRN 08/04/20 11:00 UNV Ondansetron HCl (Zofran) 4 mg PRN Q6HRS PRN 08/04/20 10:15 Pantoprazole Sodium (PROTONIX VIAL for IV PUSH) 40 mg DAILY 08/06/20 11:00 08/08/20 08:45 Potassium Chloride/Water 100 ml @ 100 mls/hr Q1H 08/06/20 10:00 08/06/20 11:59 DC 08/06/20 10:57 Potassium Phosphate 13.6 mmol/Sodium Chloride 254.5333 ml @ 127.... Q2H 08/05/20 12:00 08/05/20 15:59 DC 08/05/20 14:58 Propofol 100 ml @ 0 mls/hr CONT PRN 08/04/20 08:00 08/05/20 21:40 DC Sodium Bicarbonate 100 meq/Dextrose 1,100 ml @ 150 mls/hr Q7H20M 08/04/20 11:30 08/05/20 11:09 DC 08/05/20 03:59 Sodium Bicarbonate (Sodium Bicarb Adult 8.4% Syr) 50 meq 1X ONCE 08/04/20 10:15 08/04/20 10:22 DC 08/04/20 10:15 Sodium Chloride 1,000 ml @ 100 mls/hr Q10H 08/05/20 11:15 08/05/20 11:21 DC Sodium Chloride (Normal Saline Flush) 3 ml QSHIFT PRN 08/04/20 10:15 Sodium Phosphate 15 mmol/Sodium Chloride 255 ml @ 62.5 mls/hr 1X ONCE 08/07/20 11:30 08/07/20 15:34 DC 08/07/20 11:41 Sodium Phosphate 20 mmol/Sodium Chloride 256.6667 ml @ 64.167 m... 1X ONCE 08/04/20 20:00 08/04/20 23:59 DC 08/04/20 21:17 Vecuronium [place] (Norcuron Bolus) 10 mg PRN Q1HR PRN 08/04/20 08:00 08/05/20 21:41 DC LAB Lab: Laboratory Tests Test 08/08/20 08:00 O2 Saturation 91 % (92-99) L Arterial Blood pH 7.39 (7.35-7.45) Arterial Blood pCO2 at Patient Temp 34 mmHg (35-46) L Arterial Blood pO2 at Patient Temp 61 mmHg (65-108) L Arterial Blood HCO3 20 mmol/L (21-28) L Arterial Blood Base Excess -4 mmol/L (-3-3) L FiO2 60% vent ASSESSMENT & PLAN A&P Plan as noted above This note was created using [employer] and may have omissions and/or errors due to the nature of real-time voice product safety technical assistant. Justifications for Admission General Conditions Poss hypotension?: Yes Justification for admission: Patient has hypotension (SBP < 90 mm Hg) which is not readily corrected by appropriate treatment within 12 to 24 hours. CARDIAC ARREST Other Justification POLLO HEAD MD Aug 08, 2020 14:49
[2020-08-09] VITALS (24 sets, daily range): BP systolic 101–128; BP diastolic 70–82
[2020-08-09] MEDS: IV NORMAL SALINE 1000ML BAG 1,000 ML IV SCH ×2 (02:02→13:22)
[2020-08-09] MEDS: MEROPENEM 1 GM in IV NORMAL SALINE 100ML 100 ML IV SCH ×3 (05:36→21:40)
[2020-08-09] MEDS: HEPARIN for SUB-Q USE 5,000 UNIT/ML VIAL. SQ SCH ×3 (05:37→21:41)
[2020-08-09 08:10] LABS: BASE EXCESS ABG -2 mmol/L (-3-3); HCO3 ABG 21 mmol/L (21-28); PCO2 ABG 30 mmHg (35-46); PO2 ABG 63 mmHg (65-108); SAT O2 ABG 92 % (92-99)
[2020-08-09] MEDS: ELECTROLYTE (ICU) PROTOCOL. MC SCH (09:00)
[2020-08-09 09:16] LABS: FIO2 ABG 60%
--- NOTE | 2020-08-09 10:05 | PDOC ---
PULMONARY PROGRESS NOTES DATE: 08/09/20 TIME: 10:02 Subjective Patient remains on mechanical ventilation, FiO2 60% and a PEEP of 5 Remains off sedation No overnight concerns from nursing Vitals Vital Signs Date Time Temp Pulse Resp B/P (MAP) Pulse Ox O2 Delivery O2 Flow Rate FiO2 08/09/20 08:00 Mechanical Ventilator 08/09/20 08:00 55 20 112/74 (87) 98 08/09/20 07:00 96.6 96.6 Comments Intubated HEENT: Other (nc at perrl nose clear orally intubated neck collar in place ) Lungs: Crackles Cardiovascular: S1, S2 Abdomen: Soft, Non-tender, Other (no mass) Extremities: No Edema Skin: Warm Labs Laboratory Tests Test 08/08/20 08:00 08/09/20 08:05 O2 Saturation 91 % (92-99) 92 % (92-99) Arterial Blood pH 7.39 (7.35-7.45) 7.45 (7.35-7.45) Arterial Blood pCO2 at Patient Temp 34 mmHg (35-46) 30 mmHg (35-46) Arterial Blood pO2 at Patient Temp 61 mmHg (65-108) 63 mmHg (65-108) Arterial Blood HCO3 20 mmol/L (21-28) 21 mmol/L (21-28) Arterial Blood Base Excess -4 mmol/L (-3-3) -2 mmol/L (-3-3) FiO2 60% vent 60% Laboratory Tests Test 08/09/20 08:05 O2 Saturation 92 % (92-99) Arterial Blood pH 7.45 (7.35-7.45) Arterial Blood pCO2 at Patient Temp 30 mmHg (35-46) Arterial Blood pO2 at Patient Temp 63 mmHg (65-108) Arterial Blood HCO3 21 mmol/L (21-28) Arterial Blood Base Excess -2 mmol/L (-3-3) FiO2 60% Medications Active Scripts Medications Dose Route/Sig Max Daily Dose Days Date Category Children's Aspirin (Aspirin) 81 Mg Tab.chew 1 Tab PO DAILY 30 08/05/20 Reported Atorvastatin Calcium 40 Mg Tablet 1 Tab PO DAILY 08/05/20 Reported Losartan Potassium 50 Mg Tablet 50 Mg PO DAILY 08/05/20 Reported Famotidine 40 Mg Tablet 40 Mg PO HS 08/05/20 Reported Pantoprazole Sodium (Pantoprazole Sodium) 40 Mg Tablet.dr 40 Mg PO DAILYAC 08/05/20 Reported Comments CXR reviewed 1. Bibasilar airspace opacities may represent atelectasis or developing consolidation. 2. ett ok CT ABD Impression: 1. Retroperitoneal hematoma on the right with density surrounding the proximal right ureter. A vascular injury to the right kidney is possible however the right kidney appears well-perfused and there is no gross extravasation of contrast. 2. L4 vertebral body compression fracture could be old. ECHO <Conclusion> The left ventricular systolic function is normal and the ejection fraction is within normal range. Estimated ejection fraction 60-65%. There is normal LV segmental wall motion. Doppler and Color Flow revealed mild tricuspid regurgitation. Estimated PAP 35 mmHg. Impression . IMPRESSION: 1. Acute respiratory failure secondary to pulseless electrical activity cardiac arrest and also contributed by toxic encephalopathy from alcohol and marijuana. 2. Pulseless electrical activity cardiac arrest. 3. Toxic encephalopathy, status post fall after found to be drinking alcohol and smoking marijuana. 4. [id number] negative. 5. Acute kidney injury. 6. Marked lactic acidosis from cardiac arrest and shock, less likely septic. 7. Shock, cardiogenic. 8. Abnormal ALT and AST secondary to hypoperfusion. 9. Abnormal D-dimer with no evidence of pulmonary embolism. 10. Severe metabolic acidosis. 11. Hypernatremia. Plan . RECOMMENDATIONS: Continue current vent support, currently assist control 60% and a PEEP of 5, Follow ABG/chest x-ray, reviewed no changes today Completed hypothermia protocol Follow cardiology recommendations, echocardiogram reviewed EF within normal limits Follow neurology recommendations, patient has pupillary response and respiratory effort, apnea test was terminated patient is not presently brain-, continue to follow recommendations Follow infectious disease recommendations in regards to antibiotics remains on meropenem Start PPN for nutritional support DVT/GI prophylaxis Discussed with RN and RT Patient is a DO NOT RESUSCITATE/DO NOT INTUBATE Critical care time [id number] REINIER MULLEN MD Aug 09, 2020 10:05
--- NOTE | 2020-08-09 10:06 | PDOC ---
PROGRESS NOTES Date of Service DATE: 08/09/20 TIME: 10:01 Assessment Problems Medical Problems: (1) Cardiac arrest Status: Acute (2) Dens fracture Status: Acute (3) Respiratory failure Status: Acute Anoxic encephalopathy, not brain , BiPLEDs on 08/06 EEG No overt seizure activity Dens fracture Plan Poor prognosis Levetiracetam He is DNR Await family decision, discussed with brother Subjective None Objective Vital Signs Date Time Temp Pulse Resp B/P (MAP) Pulse Ox O2 Delivery O2 Flow Rate FiO2 08/09/20 08:00 Mechanical Ventilator 08/09/20 08:00 55 20 112/74 (87) 98 08/09/20 07:00 96.6 96.6 Intake and Output 08/09/20 07:00 Intake Total 1937.8 ml Output Total 765 ml Balance 1172.8 ml Intake IV Total 1937.8 ml Output Urine Total 765 ml PHYSICAL EXAM Intubated, no sedation Takes respiratory movements when I stop the ventilator for 10 seconds Pinpoint pupils, cannot detect reaction No spontaneous extraocular movements, cannot check oculocephalic reflex, cervical collar in place. CN: no focal findings. Muscle tone: normal. Muscle strength: No withdrawal to pain DTR: 1+ Plantar reflex: Silent Gait: not examined Sensory: Not examined. Cerebellar: Not testable Review of Relevant I have reviewed the following items magda (where applicable) has been applied. Labs Laboratory Tests Test 08/08/20 08:00 08/09/20 08:05 O2 Saturation 91 % (92-99) 92 % (92-99) Arterial Blood pH 7.39 (7.35-7.45) 7.45 (7.35-7.45) Arterial Blood pCO2 at Patient Temp 34 mmHg (35-46) 30 mmHg (35-46) Arterial Blood pO2 at Patient Temp 61 mmHg (65-108) 63 mmHg (65-108) Arterial Blood HCO3 20 mmol/L (21-28) 21 mmol/L (21-28) Arterial Blood Base Excess -4 mmol/L (-3-3) -2 mmol/L (-3-3) FiO2 60% vent 60% Laboratory Tests Test 08/09/20 08:05 O2 Saturation 92 % (92-99) Arterial Blood pH 7.45 (7.35-7.45) Arterial Blood pCO2 at Patient Temp 30 mmHg (35-46) Arterial Blood pO2 at Patient Temp 63 mmHg (65-108) Arterial Blood HCO3 21 mmol/L (21-28) Arterial Blood Base Excess -2 mmol/L (-3-3) FiO2 60% Microbiology 08/04/20 Blood Culture - Preliminary, Resulted NO GROWTH AFTER 4 DAYS Medications Current Medications Epinephrine HCl 5 mg/Sodium Chloride 255 ml @ 30.6 mls/hr ONCE ONCE IV Last administered on 08/04/20at 06:17; Start 08/04/20 at 05:45; Stop 08/04/20 at 14:04; Status DC Iohexol (Omnipaque 350 Mg/ml) 80 ml 1X ONCE IV Last administered on 08/04/20at 07:30; Start 08/04/20 at 06:30; Stop 08/04/20 at 06:31; Status DC Info (CONTRAST GIVEN -- Rx MONITORING) 1 each PRN DAILY PRN MC SEE COMMENTS; Start 08/04/20 at 06:30; Stop 08/06/20 at 06:29; Status DC Sodium Chloride 1,000 ml @ 1,000 mls/hr 1X ONCE IV Last administered on 08/04/20at 06:32; Start 08/04/20 at 06:30; Stop 08/04/20 at 07:29; Status DC Sodium Chloride 1,000 ml @ 1,000 mls/hr 1X ONCE IV Last administered on 08/04/20at 06:33; Start 08/04/20 at 06:45; Stop 08/04/20 at 07:44; Status DC Sodium Chloride 1,000 ml @ 1,000 mls/hr 1X ONCE IV Last administered on 08/04/20at 06:45; Start 08/04/20 at 06:45; Stop 08/04/20 at 07:44; Status DC Midazolam HCl 50 mg/Sodium Chloride 50 ml @ 0 mls/hr CONT PRN PRN IV SEDATION; Start 08/04/20 at 07:15; Status UNV Midazolam HCl 100 ml @ 0 mls/hr CONT PRN IV SEE PROTOCOL; Start 08/04/20 at 07:30; Stop 08/04/20 at 08:03; Status DC Ondansetron HCl (Zofran) 4 mg PRN Q8HRS PRN IV NAUSEA/VOMITING; Start 08/04/20 at 07:30; Stop 08/05/20 at 07:29; Status DC Sodium Chloride 1,000 ml @ 75 mls/hr [id number] IV Last administered on 08/04/20at 08:30; Start 08/04/20 at 07:30; Stop 08/05/20 at 07:29; Status DC Fentanyl Citrate (Fentanyl 2ml Vial) 100 mcg 1X ONCE IV ; Start 08/04/20 at 08:00; Stop 08/04/20 at 08:01; Status DC Midazolam HCl (Versed) 2 mg 1X ONCE IV ; Start 08/04/20 at 08:00; Stop 08/04/20 at 08:01; Status DC Magnesium Sulfate/ Dextrose 100 ml @ 100 mls/hr 1X ONCE IV Last administered on 08/04/20at 08:21; Start 08/04/20 at 08:00; Stop 08/04/20 at 08:59; Status DC Buspirone HCl (Buspar) 30 mg Q8H NG Last administered on 08/05/20at 15:36; Start 08/04/20 at 08:00; Stop 08/05/20 at 21:40; Status DC Acetaminophen (Tylenol) 650 mg Q4H NG Last administered on 08/05/20at 20:09; Start 08/04/20 at 08:00; Stop 08/05/20 at 21:40; Status DC Glycerin/ Hypromellose/ Polyethylene (Artificial Tears) 1 drop Q6HRS OU Last administered on 08/05/20at 17:53; Start 08/04/20 at 12:00; Stop 08/05/20 at 21:41; Status DC Glycerin/ Hypromellose/ Polyethylene (Artificial Tears) 1 drop PRN Q15MIN PRN OU DRY EYE; Start 08/04/20 at 08:00; Stop 08/05/20 at 21:40; Status DC Pantoprazole Sodium (PROTONIX VIAL for IV PUSH) 40 mg DAILY IVP Last administered on 08/05/20at 07:40; Start 08/04/20 at 09:00; Stop 08/05/20 at 21:40; Status DC Fentanyl Citrate 30 ml @ 0 mls/hr CONT PRN IV PER PROTOCOL. Last administered on 08/05/20at 05:03; Start 08/04/20 at 08:00 Propofol 100 ml @ 0 mls/hr CONT PRN IV PER PROTOCOL.; Start 08/04/20 at 08:00; Stop 08/05/20 at 21:40; Status DC Midazolam HCl 100 ml @ 0 mls/hr CONT PRN IV PER PROTOCOL Last administered on at 05:05; Start 08/04/20 at 08:00 Vecuronium [place] (Norcuron Bolus) 10 mg PRN Q1HR PRN IV SHIVERING; Start 08/04/20 at 08:00; Stop 08/05/20 at 21:41; Status DC Norepinephrine Bitartrate 8 mg/ Dextrose 258 ml @ 18.112 mls/ hr CONT PRN IV PER PROTOCOL Last administered on 08/07/20at 19:24; Start 08/04/20 at 09:15 Sodium Bicarbonate (Sodium Bicarb Adult 8.4% Syr) 50 meq STK-MED ONCE .ROUTE ; Start 08/04/20 at 09:57; Stop 08/04/20 at 09:57; Status DC Ondansetron HCl (Zofran) 4 mg PRN Q6HRS PRN IVP NAUSEA/VOMITING; Start 08/04/20 at 10:15 Famotidine (Pepcid Vial) 20 mg BID IVP ; Start 08/04/20 at 11:00; Stop 08/04/20 at 12:36; Status DC Info (Icu Electrolyte Protocol) 1 ea DAILY MC Last administered on 08/06/20at 09:00; Start 08/05/20 at 09:00 Heparin Sodium (Porcine) (Heparin Sodium) 5,000 unit Q8HRS SQ Last administered on 08/09/20at 05:37; Start 08/04/20 at 14:00 Sodium Chloride (Normal Saline Flush) 3 ml QSHIFT PRN IV AFTER MEDS AND BLOOD DRAWS; Start 08/04/20 at 10:15 Sodium Chloride 1,000 ml @ 100 mls/hr Q10H IV Last administered on 08/09/20at 02:02; Start 08/04/20 at 10:15 Sodium Bicarbonate (Sodium Bicarb Adult 8.4% Syr) 50 meq 1X ONCE IV Last administered on 08/04/20at 10:00; Start 08/04/20 at 10:15; Stop 08/04/20 at 10:22; Status DC Sodium Bicarbonate (Sodium Bicarb Adult 8.4% Syr) 50 meq 1X ONCE IV Last administered on 08/04/20at 10:15; Start 08/04/20 at 10:15; Stop 08/04/20 at 10:22; Status DC Sodium Bicarbonate (Sodium Bicarb Adult 8.4% Syr) 50 meq 1X ONCE IV Last administered on 08/04/20at 10:15; Start 08/04/20 at 10:15; Stop 08/04/20 at 10:22; Status DC Ceftriaxone Sodium (Rocephin) 1 gm Q24H IVP Last administered on 08/04/20at 13:50; Start 08/04/20 at 11:30; Stop 08/04/20 at 16:10; Status DC Sodium Chloride 1,000 ml @ 2,340 mls/hr Q26M IV ; Start 08/04/20 at 11:00; Stop 08/04/20 at 12:00; Status DC Sodium Chloride 500 ml @ 1,000 mls/hr PRN Q30MIN PRN IV SEE COMMENTS; Start 08/04/20 at 11:00; Stop 08/04/20 at 12:12; Status DC Meropenem 1 gm/ Sodium Chloride 100 ml @ 200 mls/hr Q8HRS IV Last administered on 08/09/20at 05:36; Start 08/04/20 at 11:30 Norepinephrine Bitartrate 8 mg/ Dextrose 258 ml @ 0 mls/hr CONT PRN IV SEE I/O RECORD; Start 08/04/20 at 11:00; Status UNV Sodium Bicarbonate 100 meq/Dextrose 1,100 ml @ 150 mls/hr Q7H20M IV Last administered on 08/05/20at 03:59; Start 08/04/20 at 11:30; Stop 08/05/20 at 11:09; Status DC Potassium Chloride/Water 100 ml @ 100 mls/hr Q1H IV Last administered on 08/04/20at 12:52; Start 08/04/20 at 13:00; Stop 08/04/20 at 13:59; Status DC Magnesium Sulfate 50 ml @ 25 mls/hr 1X ONCE IV Last administered on 08/04/20at 12:53; Start 08/04/20 at 13:00; Stop 08/04/20 at 14:59; Status DC Insulin Human Regular 100 unit/ Sodium Chloride 101 ml @ 0 mls/hr CONT PRN IV SEE I/O RECORD Last administered on 08/04/20at 21:54; Start 08/04/20 at 12:45 Potassium Chloride/Water 100 ml @ 50 mls/hr 1X ONCE IV Last administered on 08/04/20at 21:16; Start 08/04/20 at 20:00; Stop 08/04/20 at 21:59; Status DC Sodium Phosphate 20 mmol/Sodium Chloride 256.6667 ml @ 64.167 m... 1X ONCE IV Last administered on 08/04/20at 21:17; Start 08/04/20 at 20:00; Stop 08/04/20 at 23:59; Status DC Magnesium Sulfate 50 ml @ 25 mls/hr 1X ONCE IV Last administered on 08/04/20at 23:00; Start 08/04/20 at 20:15; Stop 08/04/20 at 22:14; Status DC Potassium Chloride/Water 100 ml @ 50 mls/hr 1X ONCE IV ; Start 08/05/20 at 03:15; Stop 08/05/20 at 05:14; Status DC Sodium Chloride 1,000 ml @ 100 mls/hr Q10H IV ; Start 08/05/20 at 11:15; Stop 08/05/20 at 11:21; Status DC Potassium Phosphate 13.6 mmol/Sodium Chloride 254.5333 ml @ 127.... Q2H IV Last administered on 08/05/20at 14:58; Start 08/05/20 at 12:00; Stop 08/05/20 at 15:59; Status DC Levetiracetam 500 mg/Dextrose 105 ml @ 420 mls/hr Q12HR STAT IV Last administered on 08/05/20at 13:14; Start 08/05/20 at 12:57; Stop 08/05/20 at 13:11; Status DC Bacitracin (Bacitracin Zinc Oint Pkt) 1 pkt BID TP Last administered on 08/08/20at 21:24; Start 08/05/20 at 17:00 Levetiracetam 500 mg/Dextrose 105 ml @ 420 mls/hr Q12HR IV Last administered on 08/08/20at 21:32; Start 08/06/20 at 09:00 Potassium Chloride/Water 100 ml @ 100 mls/hr Q1H IV Last administered on 08/06/20at 10:57; Start 08/06/20 at 10:00; Stop 08/06/20 at 11:59; Status DC Pantoprazole Sodium (PROTONIX VIAL for IV PUSH) 40 mg DAILY IVP Last administered on 08/08/20at 08:45; Start 08/06/20 at 11:00 Sodium Phosphate 15 mmol/Sodium Chloride 255 ml @ 62.5 mls/hr 1X ONCE IV Last administered on 08/07/20at 11:41; Start 08/07/20 at 11:30; Stop 08/07/20 at 15:34; Status DC Active Scripts Active Reported Children's Aspirin (Aspirin) 81 Mg Tab.chew 1 Tab PO DAILY 30 Days Atorvastatin Calcium 40 Mg Tablet 1 Tab PO DAILY Losartan Potassium 50 Mg Tablet 50 Mg PO DAILY Famotidine 40 Mg Tablet 40 Mg PO HS Pantoprazole Sodium (Pantoprazole Sodium) 40 Mg Tablet.dr 40 Mg PO DAILYAC Vitals/I & O Vital Sign - Last 24 Hours 08/08/20 08/08/20 08/08/20 08/08/20 11:00 11:59 12:00 12:00 Temp 97.5 97.5 Pulse 58 60 Resp 20 20 B/P (MAP) 102/68 (79) 111/75 (87) Pulse Ox 96 95 96 O2 Delivery Ventilator Mechanical Ventilator 08/08/20 08/08/20 08/08/20 08/08/20 13:00 14:00 15:00 15:45 Pulse 61 62 60 Resp 20 20 20 B/P (MAP) 120/84 (96) 118/79 (92) 134/85 (101) Pulse Ox 96 98 98 98 O2 Delivery Ventilator 08/08/20 08/08/20 08/08/20 08/08/20 16:00 16:00 17:00 18:00 Temp 96.8 96.8 Pulse 60 62 55 Resp 20 20 20 B/P (MAP) 127/83 (98) 165/98 (120) 116/78 (91) Pulse Ox 98 98 98 O2 Delivery Mechanical Ventilator 08/08/20 08/08/20 08/08/20 08/08/20 19:00 20:00 20:00 21:00 Temp 96.4 96.4 Pulse 55 54 54 Resp 20 20 20 B/P (MAP) 123/81 (95) 117/78 (91) 110/75 (87) Pulse Ox 99 99 99 O2 Delivery Mechanical Ventilator 08/08/20 08/08/20 08/08/20 08/08/20 21:30 22:00 23:00 23:30 Pulse 54 54 Resp 20 20 B/P (MAP) 110/75 (87) 107/72 (84) Pulse Ox 98 99 99 O2 Delivery Ventilator Mechanical Ventilator 08/09/20 08/09/20 08/09/20 08/09/20 00:01 00:44 01:00 02:00 Temp 96.6 96.6 Pulse 53 53 52 Resp 20 20 20 B/P (MAP) 101/70 (80) 103/72 (82) 116/76 (89) Pulse Ox 97 98 97 97 O2 Delivery Ventilator 08/09/20 08/09/20 08/09/20 08/09/20 03:00 03:45 04:00 05:00 Temp 96.4 96.4 Pulse 54 55 53 Resp 20 20 20 B/P (MAP) 109/73 (85) 109/73 (85) 108/75 (86) Pulse Ox 98 97 96 O2 Delivery Mechanical Ventilator 08/09/20 08/09/20 08/09/20 08/09/20 05:10 06:00 07:00 07:54 Temp 96.6 96.6 Pulse 52 53 Resp 20 20 B/P (MAP) 124/80 (95) 107/73 (84) Pulse Ox 98 97 98 97 O2 Delivery Ventilator Ventilator 08/09/20 08/09/20 08:00 08:00 Pulse 55 Resp 20 B/P (MAP) 112/74 (87) Pulse Ox 98 O2 Delivery Mechanical Ventilator Intake and Output 08/08/20 08/08/20 08/09/20 15:00 23:00 07:00 Intake Total 1267.8 ml 670 ml Output Total 200 ml 350 ml 215 ml Balance -200 ml 917.8 ml 455 ml Justicifation of Admission Dx: Justifications for Admission: Justification of Admission Dx: Yes ASHVIN GREOGRY MD Aug 09, 2020 10:06
[2020-08-09] MEDS: levETIRAcetam 500 MG in IV DEXTROSE 5% 100ML 100 ML IV SCH ×2 (10:10→20:49)
[2020-08-09] MEDS: BACITRACIN TOPICAL OINT PACKET. TP SCH ×2 (10:10→20:49)
[2020-08-09] MEDS: PANTOPRAZOLE IV PUSH 40 MG VIAL. IVP SCH (10:11)
[2020-08-09] MEDS: AMINO AC 3%/ELECTROLYTE/GLYCER 1,000 ML IV SCH ×2 (11:10→22:47)
--- NOTE | 2020-08-09 12:09 | PDOC ---
CARDIO Progress Notes Date and Time Date of Service 08/09/20 Time of Evaluation 1200 Subjective Subjective: Other (intubated) Vitals Vitals Vital Signs Date Time Temp Pulse Resp B/P (MAP) Pulse Ox O2 Delivery O2 Flow Rate FiO2 08/09/20 11:00 54 20 113/75 (88) 98 08/09/20 10:57 Ventilator 08/09/20 07:00 96.6 96.6 Weight Weight [ ] Input and Output Intake and Output Intake and Output 08/09/20 07:00 Intake Total 1937.8 ml Output Total 765 ml Balance 1172.8 ml Intake IV Total 1937.8 ml Output Urine Total 765 ml Laboratory Labs Laboratory Tests Test 08/09/20 08:05 O2 Saturation 92 % (92-99) Arterial Blood pH 7.45 (7.35-7.45) Arterial Blood pCO2 at Patient Temp 30 mmHg (35-46) Arterial Blood pO2 at Patient Temp 63 mmHg (65-108) Arterial Blood HCO3 21 mmol/L (21-28) Arterial Blood Base Excess -2 mmol/L (-3-3) FiO2 60% Microbiology Micro Microbiology 08/04/20 Blood Culture - Final, Complete NO GROWTH AFTER 5 DAYS Review of Systems Constitutional: yes: unresponsive Physical Exam HEENT: Neck Supple W Full Motion Chest: Other (hard collar on) LUNGS: Other (intubated with vent) Heart: RRR (SR/SB with PACs) Abdomen: Other (nondistended ) Extremities: No Edema Neurology: other (off sedation) Assessment Assessment 1. OOH cardiopulmonary arrest: possible 3-4 min pulseless prior to CPR initiation noted PEA 5 round of epi per staff approx 25 min to ROSC. No PE. Covid neg. Telemetry showed sinus rhythm without any arrhythmias. 2D echo showed LVEF 60 to 65%. 2. Traumatic fall with nondisplaced dens base fracture 3. Lactic acidosis, hypotensive; off pressor support 4. Retroperitoneal hematoma 5. Substance abuse: with marijuana, ETOH 6. JUSTIN; resolved 8. Acute respiratory failure; s/p intubation 11. Hypothermia: rewarmed 12. CAD; details unclear. Stress echo scheduled last fall, but did not received records of this. Follows with [facility], Dr. Salinas 13. Anoxic encephalopathy Recommendations No significant arrhythmias thus far. Replace K and Mg as warranted Poor prognosis. Now DNR. Family to makes decision regarding withdrawal of care Justicifation of Admission Dx: Justifications for Admission: Justification of Admission Dx: Yes OLGA MORAN APRN Aug 09, 2020 12:09
--- NOTE | 2020-08-09 14:49 | PDOC ---
PROGRESS NOTES Date of Service: DATE: 08/09/20 TIME: 14:46 Chief Complaint Chief Complaint 1. Out of house ARREST CODE ICE 1. Retroperitoneal hematoma on the right with density surrounding the proximal right ureter. A vascular injury to the right kidney is possible 2. L4 vertebral body compression fracture could be old.. Base of dens fracture// nondisplaced. 3. Multifocal degenerative changes 4. Biapical parenchymal opacities may represent multifocal consolidative process such as pneumonia although contusion or aspiration may result in this appearance. 5. POLY -SUBSTANCE ABUSE 6. SEVERE SEPSIS 7. JUSTIN sec hypoperfusion, shock History of Present Illness History of Present Illness 08/09, still in ICU, intubated family considering withdrawl of care poor prognosis not much change 08/05/2020 Patient seen and examined in the ICU He is on the vent AC/24/500/70 5% with 5 of PEEP He is in a c-collar Has external defibrillator pads Sedated with Levophed fentanyl and Versed Currently on hypothermia protocol Vitals Vitals Vital Signs Date Time Temp Pulse Resp B/P (MAP) Pulse Ox O2 Delivery O2 Flow Rate FiO2 08/09/20 14:00 54 20 108/73 (85) 93 08/09/20 12:00 Mechanical Ventilator 08/09/20 12:00 96.8 96.8 Physical Exam General: Other (ON THE VENT) Heart: Regular rate Lungs: Crackles Abdomen: Normal bowel sounds Extremities: Other (1+ pitting edema) Labs LABS Laboratory Tests Test 08/09/20 08:05 O2 Saturation 92 % (92-99) Arterial Blood pH 7.45 (7.35-7.45) Arterial Blood pCO2 at Patient Temp 30 mmHg (35-46) Arterial Blood pO2 at Patient Temp 63 mmHg (65-108) Arterial Blood HCO3 21 mmol/L (21-28) Arterial Blood Base Excess -2 mmol/L (-3-3) FiO2 60% Assessment and Plan Assessmemt and Plan Problems Medical Problems: (1) Cardiac arrest Status: Acute (2) Dens fracture Status: Acute (3) Respiratory failure Status: Acute Comment Review of Relevant I have reviewed the following items magda (where applicable) has been applied. Labs Laboratory Tests Test 08/08/20 08:00 08/09/20 08:05 O2 Saturation 91 % (92-99) 92 % (92-99) Arterial Blood pH 7.39 (7.35-7.45) 7.45 (7.35-7.45) Arterial Blood pCO2 at Patient Temp 34 mmHg (35-46) 30 mmHg (35-46) Arterial Blood pO2 at Patient Temp 61 mmHg (65-108) 63 mmHg (65-108) Arterial Blood HCO3 20 mmol/L (21-28) 21 mmol/L (21-28) Arterial Blood Base Excess -4 mmol/L (-3-3) -2 mmol/L (-3-3) FiO2 60% vent 60% Laboratory Tests Test 08/09/20 08:05 O2 Saturation 92 % (92-99) Arterial Blood pH 7.45 (7.35-7.45) Arterial Blood pCO2 at Patient Temp 30 mmHg (35-46) Arterial Blood pO2 at Patient Temp 63 mmHg (65-108) Arterial Blood HCO3 21 mmol/L (21-28) Arterial Blood Base Excess -2 mmol/L (-3-3) FiO2 60% Microbiology 08/04/20 Blood Culture - Final, Complete NO GROWTH AFTER 5 DAYS Medications Current Medications Epinephrine HCl 5 mg/Sodium Chloride 255 ml @ 30.6 mls/hr ONCE ONCE IV Last administered on 08/04/20at 06:17; Start 08/04/20 at 05:45; Stop 08/04/20 at 14:04; Status DC Iohexol (Omnipaque 350 Mg/ml) 80 ml 1X ONCE IV Last administered on 08/04/20at 07:30; Start 08/04/20 at 06:30; Stop 08/04/20 at 06:31; Status DC Info (CONTRAST GIVEN -- Rx MONITORING) 1 each PRN DAILY PRN MC SEE COMMENTS; Start 08/04/20 at 06:30; Stop 08/06/20 at 06:29; Status DC Sodium Chloride 1,000 ml @ 1,000 mls/hr 1X ONCE IV Last administered on 08/04/20at 06:32; Start 08/04/20 at 06:30; Stop 08/04/20 at 07:29; Status DC Sodium Chloride 1,000 ml @ 1,000 mls/hr 1X ONCE IV Last administered on 08/04/20at 06:33; Start 08/04/20 at 06:45; Stop 08/04/20 at 07:44; Status DC Sodium Chloride 1,000 ml @ 1,000 mls/hr 1X ONCE IV Last administered on 08/04/20at 06:45; Start 08/04/20 at 06:45; Stop 08/04/20 at 07:44; Status DC Midazolam HCl 50 mg/Sodium Chloride 50 ml @ 0 mls/hr CONT PRN PRN IV SEDATION; Start 08/04/20 at 07:15; Status UNV Midazolam HCl 100 ml @ 0 mls/hr CONT PRN IV SEE PROTOCOL; Start 08/04/20 at 07:30; Stop 08/04/20 at 08:03; Status DC Ondansetron HCl (Zofran) 4 mg PRN Q8HRS PRN IV NAUSEA/VOMITING; Start 08/04/20 at 07:30; Stop 08/05/20 at 07:29; Status DC Sodium Chloride 1,000 ml @ 75 mls/hr [id number] IV Last administered on 08/04/20at 08:30; Start 08/04/20 at 07:30; Stop 08/05/20 at 07:29; Status DC Fentanyl Citrate (Fentanyl 2ml Vial) 100 mcg 1X ONCE IV ; Start 08/04/20 at 08:00; Stop 08/04/20 at 08:01; Status DC Midazolam HCl (Versed) 2 mg 1X ONCE IV ; Start 08/04/20 at 08:00; Stop 08/04/20 at 08:01; Status DC Magnesium Sulfate/ Dextrose 100 ml @ 100 mls/hr 1X ONCE IV Last administered on 08/04/20at 08:21; Start 08/04/20 at 08:00; Stop 08/04/20 at 08:59; Status DC Buspirone HCl (Buspar) 30 mg Q8H NG Last administered on 08/05/20at 15:36; Start 08/04/20 at 08:00; Stop 08/05/20 at 21:40; Status DC Acetaminophen (Tylenol) 650 mg Q4H NG Last administered on 08/05/20at 20:09; S tart 08/04/20 at 08:00; Stop 08/05/20 at 21:40; Status DC Glycerin/ Hypromellose/ Polyethylene (Artificial Tears) 1 drop Q6HRS OU Last administered on 08/05/20at 17:53; Start 08/04/20 at 12:00; Stop 08/05/20 at 21:41; Status DC Glycerin/ Hypromellose/ Polyethylene (Artificial Tears) 1 drop PRN Q15MIN PRN OU DRY EYE; Start 08/04/20 at 08:00; Stop 08/05/20 at 21:40; Status DC Pantoprazole Sodium (PROTONIX VIAL for IV PUSH) 40 mg DAILY IVP Last administered on 08/05/20at 07:40; Start 08/04/20 at 09:00; Stop 08/05/20 at 21:40; Status DC Fentanyl Citrate 30 ml @ 0 mls/hr CONT PRN IV PER PROTOCOL. Last administered on 08/05/20at 05:03; Start 08/04/20 at 08:00 Propofol 100 ml @ 0 mls/hr CONT PRN IV PER PROTOCOL.; Start 08/04/20 at 08:00; Stop 08/05/20 at 21:40; Status DC Midazolam HCl 100 ml @ 0 mls/hr CONT PRN IV PER PROTOCOL Last administered on 08/05/20at 05:05; Start 08/04/20 at 08:00 Vecuronium [place] (Norcuron Bolus) 10 mg PRN Q1HR PRN IV SHIVERING; Start 08/04/20 at 08:00; Stop 08/05/20 at 21:41; Status DC Norepinephrine Bitartrate 8 mg/ Dextrose 258 ml @ 18.112 mls/ hr CONT PRN IV PER PROTOCOL Last administered on 08/07/20at 19:24; Start 08/04/20 at 09:15 Sodium Bicarbonate (Sodium Bicarb Adult 8.4% Syr) 50 meq STK-MED ONCE .ROUTE ; Start 08/04/20 at 09:57; Stop 08/04/20 at 09:57; Status DC Ondansetron HCl (Zofran) 4 mg PRN Q6HRS PRN IVP NAUSEA/VOMITING; Start 08/04/20 at 10:15 Famotidine (Pepcid Vial) 20 mg BID IVP ; Start 08/04/20 at 11:00; Stop 08/04/20 at 12:36; Status DC Info (Icu Electrolyte Protocol) 1 ea DAILY MC Last administered on 08/06/20at 09:00; Start 08/05/20 at 09:00 Heparin Sodium (Porcine) (Heparin Sodium) 5,000 unit Q8HRS SQ Last administered on 08/09/20at 14:02; Start 08/04/20 at 14:00 Sodium Chloride (Normal Saline Flush) 3 ml QSHIFT PRN IV AFTER MEDS AND BLOOD DRAWS; Start 08/04/20 at 10:15 Sodium Chloride 1,000 ml @ 100 mls/hr Q10H IV Last administered on 08/09/20at 13:22; Start 08/04/20 at 10:15 Sodium Bicarbonate (Sodium Bicarb Adult 8.4% Syr) 50 meq 1X ONCE IV Last admi nistered on 08/04/20at 10:00; Start 08/04/20 at 10:15; Stop 08/04/20 at 10:22; Status DC Sodium Bicarbonate (Sodium Bicarb Adult 8.4% Syr) 50 meq 1X ONCE IV Last administered on 08/04/20at 10:15; Start 08/04/20 at 10:15; Stop 08/04/20 at 10:22; Status DC Sodium Bicarbonate (Sodium Bicarb Adult 8.4% Syr) 50 meq 1X ONCE IV Last administered on 08/04/20at 10:15; Start 08/04/20 at 10:15; Stop 08/04/20 at 10:22; Status DC Ceftriaxone Sodium (Rocephin) 1 gm Q24H IVP Last administered on 08/04/20at 13:50; Start 08/04/20 at 11:30; Stop 08/04/20 at 16:10; Status DC Sodium Chloride 1,000 ml @ 2,340 mls/hr Q26M IV ; Start 08/04/20 at 11:00; Stop 08/04/20 at 12:00; Status DC Sodium Chloride 500 ml @ 1,000 mls/hr PRN Q30MIN PRN IV SEE COMMENTS; Start 08/04/20 at 11:00; Stop 08/04/20 at 12:12; Status DC Meropenem 1 gm/ Sodium Chloride 100 ml @ 200 mls/hr Q8HRS IV Last administered on 08/09/20at 14:01; Start 08/04/20 at 11:30 Norepinephrine Bitartrate 8 mg/ Dextrose 258 ml @ 0 mls/hr CONT PRN IV SEE I/O RECORD; Start 08/04/20 at 11:00; Status UNV Sodium Bicarbonate 100 meq/Dextrose 1,100 ml @ 150 mls/hr Q7H20M IV Last administered on 08/05/20at 03:59; Start 08/04/20 at 11:30; Stop 08/05/20 at 11:09; Status DC Potassium Chloride/Water 100 ml @ 100 mls/hr Q1H IV Last administered on 08/04/20at 12:52; Start 08/04/20 at 13:00; Stop 08/04/20 at 13:59; Status DC Magnesium Sulfate 50 ml @ 25 mls/hr 1X ONCE IV Last administered on 08/04/20at 12:53; Start 08/04/20 at 13:00; Stop 08/04/20 at 14:59; Status DC Insulin Human Regular 100 unit/ Sodium Chloride 101 ml @ 0 mls/hr CONT PRN IV SEE I/O RECORD Last administered on 08/04/20at 21:54; Start 08/04/20 at 12:45 Potassium Chloride/Water 100 ml @ 50 mls/hr 1X ONCE IV Last administered on 08/04/20at 21:16; Start 08/04/20 at 20:00; Stop 08/04/20 at 21:59; Status DC Sodium Phosphate 20 mmol/Sodium Chloride 256.6667 ml @ 64.167 m... 1X ONCE IV Last administered on 08/04/20at 21:17; Start 08/04/20 at 20:00; Stop 08/04/20 at 23:59; Status DC Magnesium Sulfate 50 ml @ 25 mls/hr 1X ONCE IV Last administered on 08/04/20at 23:00; Start 08/04/20 at 20:15; Stop 08/04/20 at 22:14; Status DC Potassium Chloride/Water 100 ml @ 50 mls/hr 1X ONCE IV ; Start 08/05/20 at 03:15; Stop 08/05/20 at 05:14; Status DC Sodium Chloride 1,000 ml @ 100 mls/hr Q10H IV ; Start 08/05/20 at 11:15; Stop 08/05/20 at 11:21; Status DC Potassium Phosphate 13.6 mmol/Sodium Chloride 254.5333 ml @ 127.... Q2H IV Last administered on 08/05/20at 14:58; Start 08/05/20 at 12:00; Stop 08/05/20 at 15:59; Status DC Levetiracetam 500 mg/Dextrose 105 ml @ 420 mls/hr Q12HR STAT IV Last administered on 08/05/20at 13:14; Start 08/05/20 at 12:57; Stop 08/05/20 at 13:11; Status DC Bacitracin (Bacitracin Zinc Oint Pkt) 1 pkt BID TP Last administered on 08/09/20at 10:10; Start 08/05/20 at 17:00 Levetiracetam 500 mg/Dextrose 105 ml @ 420 mls/hr Q12HR IV Last administered on 08/09/20at 10:10; Start 08/06/20 at 09:00 Potassium Chloride/Water 100 ml @ 100 mls/hr Q1H IV Last administered on 08/06/20at 10:57; Start 08/06/20 at 10:00; Stop 08/06/20 at 11:59; Status DC Pantoprazole Sodium (PROTONIX VIAL for IV PUSH) 40 mg DAILY IVP Last adminis tered on 08/09/20at 10:11; Start 08/06/20 at 11:00 Sodium Phosphate 15 mmol/Sodium Chloride 255 ml @ 62.5 mls/hr 1X ONCE IV Last administered on 08/07/20at 11:41; Start 08/07/20 at 11:30; Stop 08/07/20 at 15:34; Status DC Amino Acids/ Glycerin/ Electrolytes 1,000 ml @ 80 mls/hr [id number] IV Last administered on 08/09/20at 11:10; Start 08/09/20 at 10:15 Active Scripts Active Reported Children's Aspirin (Aspirin) 81 Mg Tab.chew 1 Tab PO DAILY 30 Days Atorvastatin Calcium 40 Mg Tablet 1 Tab PO DAILY Losartan Potassium 50 Mg Tablet 50 Mg PO DAILY Famotidine 40 Mg Tablet 40 Mg PO HS Pantoprazole Sodium (Pantoprazole Sodium) 40 Mg Tablet.dr 40 Mg PO DAILYAC Vitals/I & O Vital Sign - Last 24 Hours 08/08/20 08/08/20 08/08/20 08/08/20 15:00 15:45 16:00 16:00 Temp 96.8 96.8 Pulse 60 60 Resp 20 20 B/P (MAP) 134/85 (101) 127/83 (98) Pulse Ox 98 98 98 O2 Delivery Ventilator Mechanical Ventilator 08/08/20 08/08/20 08/08/20 08/08/20 17:00 18:00 19:00 20:00 Temp 96.4 96.4 Pulse 62 55 55 54 Resp 20 20 20 20 B/P (MAP) 165/98 (120) 116/78 (91) 123/81 (95) 117/78 (91) Pulse Ox 98 98 99 99 08/08/20 08/08/20 08/08/20 08/08/20 20:00 21:00 21:30 22:00 Pulse 54 54 Resp 20 20 B/P (MAP) 110/75 (87) 110/75 (87) Pulse Ox 99 98 99 O2 Delivery Mechanical Ventilator Ventilator 08/08/20 08/08/20 08/09/20 08/09/20 23:00 23:30 00:01 00:44 Temp 96.6 96.6 Pulse 54 53 Resp 20 20 B/P (MAP) 107/72 (84) 101/70 (80) Pulse Ox 99 97 98 O2 Delivery Mechanical Ventilator Ventilator 08/09/20 08/09/20 08/09/20 08/09/20 01:00 02:00 03:00 03:45 Pulse 53 52 54 Resp 20 20 20 B/P (MAP) 103/72 (82) 116/76 (89) 109/73 (85) Pulse Ox 97 97 98 O2 Delivery Mechanical Ventilator 08/09/20 08/09/20 08/09/20 08/09/20 04:00 05:00 05:10 06:00 Temp 96.4 96.4 Pulse 55 53 52 Resp 20 20 20 B/P (MAP) 109/73 (85) 108/75 (86) 124/80 (95) Pulse Ox 97 96 98 97 O2 Delivery Ventilator 08/09/20 08/09/20 08/09/20 08/09/20 07:00 07:54 08:00 08:00 Temp 96.6 96.6 Pulse 53 55 Resp 20 20 B/P (MAP) 107/73 (84) 112/74 (87) Pulse Ox 98 97 98 O2 Delivery Ventilator Mechanical Ventilator 08/09/20 08/09/20 08/09/20 08/09/20 09:00 10:00 10:57 11:00 Pulse 52 54 54 Resp 20 20 20 B/P (MAP) 111/79 (90) 121/80 (94) 113/75 (88) Pulse Ox 98 98 97 98 O2 Delivery Ventilator 08/09/20 08/09/20 08/09/20 08/09/20 12:00 12:00 13:00 14:00 Temp 96.8 96.8 Pulse 55 54 54 Resp 20 20 20 B/P (MAP) 110/81 (91) 128/82 (97) 108/73 (85) Pulse Ox 96 97 93 O2 Delivery Mechanical Ventilator Intake and Output 08/08/20 08/08/20 08/09/20 15:00 23:00 07:00 Intake Total 1267.8 ml 670 ml Output Total 200 ml 350 ml 215 ml Balance -200 ml 917.8 ml 455 ml Justicifation of Admission Dx: Justifications for Admission: Justification of Admission Dx: Yes SYLVIA RIVERS MD Aug 09, 2020 14:48
[2020-08-09] MEDS ORDERED: SALIVA STIMULANT AGENT 44ML SPRAY BOTTLE. PO PRN (15:00)
--- NOTE | 2020-08-09 15:57 | NUR ---
SS following up with discharge planning. SS reviewed pt chart and discussed with pt RN. Pt is currently on the vent at 60%. COVID19 negative. Pt on IV Meropenem and PPN. Possible withdrawal of care tomorrow. Not stable. SS will continue to follow for discharge planning.
[2020-08-10] VITALS (12 sets, daily range): BP systolic 103–150; BP diastolic 70–99
[2020-08-10] MEDS: IV NORMAL SALINE 1000ML BAG 1,000 ML IV SCH ×2 (01:19→06:15)
[2020-08-10] MEDS: MEROPENEM 1 GM in IV NORMAL SALINE 100ML 100 ML IV SCH (06:15)
[2020-08-10] MEDS: HEPARIN for SUB-Q USE 5,000 UNIT/ML VIAL. SQ SCH (06:16)
[2020-08-10 08:21] LABS: BASE EXCESS ABG -1 mmol/L (-3-3); HCO3 ABG 22 mmol/L (21-28); PCO2 ABG 31 mmHg (35-46); PO2 ABG 65 mmHg (65-108); SAT O2 ABG 93 % (92-99)
[2020-08-10 08:25] LABS: FIO2 ABG 60/VENT
[2020-08-10] MEDS: levETIRAcetam 500 MG in IV DEXTROSE 5% 100ML 100 ML IV SCH (08:35)
[2020-08-10] MEDS: PANTOPRAZOLE IV PUSH 40 MG VIAL. IVP SCH (08:36)
[2020-08-10] MEDS: ELECTROLYTE (ICU) PROTOCOL. MC SCH (08:38)
[2020-08-10] MEDS: BACITRACIN TOPICAL OINT PACKET. TP SCH (08:38)
--- NOTE | 2020-08-10 10:06 | PDOC ---
PULMONARY PROGRESS NOTES DATE: 08/10/20 TIME: 10:04 Subjective Patient remains on mechanical ventilation, FiO2 60% and a PEEP of 5 Remains off sedation No overnight concerns from nursing Vitals Vital Signs Date Time Temp Pulse Resp B/P (MAP) Pulse Ox O2 Delivery O2 Flow Rate FiO2 08/10/20 09:02 97 Ventilator 08/10/20 09:00 52 20 122/81 (95) 08/10/20 08:00 97.6 97.6 Comments Intubated HEENT: Other (nc at perrl nose clear orally intubated neck collar in place ) Lungs: Crackles Cardiovascular: S1, S2 Abdomen: Soft, Non-tender, Other (no mass) Extremities: No Edema Skin: Warm Labs Laboratory Tests Test 08/09/20 08:05 08/10/20 08:00 O2 Saturation 92 % (92-99) 93 % (92-99) Arterial Blood pH 7.45 (7.35-7.45) 7.47 (7.35-7.45) Arterial Blood pCO2 at Patient Temp 30 mmHg (35-46) 31 mmHg (35-46) Arterial Blood pO2 at Patient Temp 63 mmHg (65-108) 65 mmHg (65-108) Arterial Blood HCO3 21 mmol/L (21-28) 22 mmol/L (21-28) Arterial Blood Base Excess -2 mmol/L (-3-3) -1 mmol/L (-3-3) FiO2 60% 60/vent Laboratory Tests Test 08/10/20 08:00 O2 Saturation 93 % (92-99) Arterial Blood pH 7.47 (7.35-7.45) Arterial Blood pCO2 at Patient Temp 31 mmHg (35-46) Arterial Blood pO2 at Patient Temp 65 mmHg (65-108) Arterial Blood HCO3 22 mmol/L (21-28) Arterial Blood Base Excess -1 mmol/L (-3-3) FiO2 60/vent Medications Active Scripts Medications Dose Route/Sig Max Daily Dose Days Date Category Children's Aspirin (Aspirin) 81 Mg Tab.chew 1 Tab PO DAILY 30 08/05/20 Reported Atorvastatin Calcium 40 Mg Tablet 1 Tab PO DAILY 08/05/20 Reported Losartan Potassium 50 Mg Tablet 50 Mg PO DAILY 08/05/20 Reported Famotidine 40 Mg Tablet 40 Mg PO HS 08/05/20 Reported Pantoprazole Sodium (Pantoprazole Sodium) 40 Mg Tablet.dr 40 Mg PO DAILYAC 08/05/20 Reported Comments CXR reviewed 1. Bibasilar airspace opacities may represent atelectasis or developing consolidation. 2. ett ok CT ABD Impression: 1. Retroperitoneal hematoma on the right with density surrounding the proximal right ureter. A vascular injury to the right kidney is possible however the right kidney appears well-perfused and there is no gross extravasation of contrast. 2. L4 vertebral body compression fracture could be old. ECHO <Conclusion> The left ventricular systolic function is normal and the ejection fraction is within normal range. Estimated ejection fraction 60-65%. There is normal LV segmental wall motion. Doppler and Color Flow revealed mild tricuspid regurgitation. Estimated PAP 35 mmHg. Impression . IMPRESSION: 1. Acute respiratory failure secondary to pulseless electrical activity cardiac arrest and also contributed by toxic encephalopathy from alcohol and marijuana. 2. Pulseless electrical activity cardiac arrest. 3. Toxic encephalopathy, status post fall after found to be drinking alcohol and smoking marijuana. 4. [id number] negative. 5. Acute kidney injury. 6. Marked lactic acidosis from cardiac arrest and shock, less likely septic. 7. Shock, cardiogenic. 8. Abnormal ALT and AST secondary to hypoperfusion. 9. Abnormal D-dimer with no evidence of pulmonary embolism. 10. Severe metabolic acidosis. 11. Hypernatremia. 12. Anoxic brain injury Plan . RECOMMENDATIONS: Continue current vent support, currently assist control 60% and a PEEP of 5, Follow ABG/chest x-ray, reduce resp. rate to 16 Completed hypothermia protocol Follow cardiology recommendations, echocardiogram reviewed EF within normal limits Follow neurology recommendations, patient has pupillary response and respiratory effort, apnea test was terminated patient is not presently brain-, continue to follow recommendations Follow infectious disease recommendations in regards to antibiotics remains on meropenem PPN for nutritional support DVT/GI prophylaxis Discussed with RN and RT Patient is a DO NOT RESUSCITATE/DO NOT INTUBATE, Family considering palliative care Critical care time [id number] addend: d/w brother. explained very poor prognosis. They agree and will be shortly coming in for comfort care KATYA SMITH MD Aug 10, 2020 10:06
[2020-08-10] MEDS ORDERED: MORPHINE SULFATE 10 MG/ML VIAL. IM ONE (11:00)
[2020-08-10] MEDS ORDERED: MORPHINE SULFATE 4 MG/ML VIAL. IV PRN (11:00)
--- NOTE | 2020-08-10 11:00 | PDOC ---
PROGRESS NOTES Date of Service DATE: 08/10/20 TIME: 10:58 Assessment Problems Medical Problems: (1) Cardiac arrest Status: Acute (2) Dens fracture Status: Acute (3) Respiratory failure Status: Acute Anoxic encephalopathy, not brain , BiPLEDs on 08/06 EEG No overt seizure activity Dens fracture Plan Poor prognosis Levetiracetam He is DNR Await family decision Subjective None Objective Vital Signs Date Time Temp Pulse Resp B/P (MAP) Pulse Ox O2 Delivery O2 Flow Rate FiO2 08/10/20 10:00 54 20 116/72 (87) 96 Ventilator 08/10/20 08:00 97.6 97.6 Intake and Output 08/10/20 07:00 Intake Total 3923 ml Output Total 735 ml Balance 3188 ml Intake Oral 0 ml IV Total 3923 ml Output Urine Total 735 ml PHYSICAL EXAM Intubated, no sedation Takes respiratory movements Pinpoint pupils, cannot detect reaction No spontaneous extraocular movements, cannot check oculocephalic reflex, cervical collar in place. CN: no focal findings. Muscle tone: normal. Muscle strength: Withdraws to pain DTR: 1+ Plantar reflex: Silent Gait: not examined Sensory: Not examined. Cerebellar: Not testable Review of Relevant I have reviewed the following items magda (where applicable) has been applied. Labs Laboratory Tests Test 08/09/20 08:05 08/10/20 08:00 O2 Saturation 92 % (92-99) 93 % (92-99) Arterial Blood pH 7.45 (7.35-7.45) 7.47 (7.35-7.45) Arterial Blood pCO2 at Patient Temp 30 mmHg (35-46) 31 mmHg (35-46) Arterial Blood pO2 at Patient Temp 63 mmHg (65-108) 65 mmHg (65-108) Arterial Blood HCO3 21 mmol/L (21-28) 22 mmol/L (21-28) Arterial Blood Base Excess -2 mmol/L (-3-3) -1 mmol/L (-3-3) FiO2 60% 60/vent Laboratory Tests Test 08/10/20 08:00 O2 Saturation 93 % (92-99) Arterial Blood pH 7.47 (7.35-7.45) Arterial Blood pCO2 at Patient Temp 31 mmHg (35-46) Arterial Blood pO2 at Patient Temp 65 mmHg (65-108) Arterial Blood HCO3 22 mmol/L (21-28) Arterial Blood Base Excess -1 mmol/L (-3-3) FiO2 60/vent Microbiology 08/04/20 Blood Culture - Final, Complete NO GROWTH AFTER 5 DAYS Medications Current Medications Epinephrine HCl 5 mg/Sodium Chloride 255 ml @ 30.6 mls/hr ONCE ONCE IV Last administered on 08/04/20at 06:17; Start 08/04/20 at 05:45; Stop 08/04/20 at 14:04; Status DC Iohexol (Omnipaque 350 Mg/ml) 80 ml 1X ONCE IV Last administered on 08/04/20at 07:30; Start 08/04/20 at 06:30; Stop 08/04/20 at 06:31; Status DC Info (CONTRAST GIVEN -- Rx MONITORING) 1 each PRN DAILY PRN MC SEE COMMENTS; Start 08/04/20 at 06:30; Stop 08/06/20 at 06:29; Status DC Sodium Chloride 1,000 ml @ 1,000 mls/hr 1X ONCE IV Last administered on 08/04/20at 06:32; Start 08/04/20 at 06:30; Stop 08/04/20 at 07:29; Status DC Sodium Chloride 1,000 ml @ 1,000 mls/hr 1X ONCE IV Last administered on 08/04/20at 06:33; Start 08/04/20 at 06:45; Stop 08/04/20 at 07:44; Status DC Sodium Chloride 1,000 ml @ 1,000 mls/hr 1X ONCE IV Last administered on 08/04/20at 06:45; Start 08/04/20 at 06:45; Stop 08/04/20 at 07:44; Status DC Midazolam HCl 50 mg/Sodium Chloride 50 ml @ 0 mls/hr CONT PRN PRN IV SEDATION; Start 08/04/20 at 07:15; Status UNV Midazolam HCl 100 ml @ 0 mls/hr CONT PRN IV SEE PROTOCOL; Start 08/04/20 at 07:30; Stop 08/04/20 at 08:03; Status DC Ondansetron HCl (Zofran) 4 mg PRN Q8HRS PRN IV NAUSEA/VOMITING; Start 08/04/20 at 07:30; Stop 08/05/20 at 07:29; Status DC Sodium Chloride 1,000 ml @ 75 mls/hr [id number] IV Last administered on 08/04/20at 08:30; Start 08/04/20 at 07:30; Stop 08/05/20 at 07:29; Status DC Fentanyl Citrate (Fentanyl 2ml Vial) 100 mcg 1X ONCE IV ; Start 08/04/20 at 08:00; Stop 08/04/20 at 08:01; Status DC Midazolam HCl (Versed) 2 mg 1X ONCE IV ; Start 08/04/20 at 08:00; Stop 08/04/20 at 08:01; Status DC Magnesium Sulfate/ Dextrose 100 ml @ 100 mls/hr 1X ONCE IV Last administered on 08/04/20at 08:21; Start 08/04/20 at 08:00; Stop 08/04/20 at 08:59; Status DC Buspirone HCl (Buspar) 30 mg Q8H NG Last administered on 08/05/20at 15:36; Start 08/04/20 at 08:00; Stop 08/05/20 at 21:40; Status DC Acetaminophen (Tylenol) 650 mg Q4H NG Last administered on 08/05/20at 20:09; Start 08/04/20 at 08:00; Stop 08/05/20 at 21:40; Status DC Glycerin/ Hypromellose/ Polyethylene (Artificial Tears) 1 drop Q6HRS OU Last administered on 08/05/20at 17:53; Start 08/04/20 at 12:00; Stop 08/05/20 at 21:41; Status DC Glycerin/ Hypromellose/ Polyethylene (Artificial Tears) 1 drop PRN Q15MIN PRN OU DRY EYE; Start 08/04/20 at 08:00; Stop 08/05/20 at 21:40; Status DC Pantoprazole Sodium (PROTONIX VIAL for IV PUSH) 40 mg DAILY IVP Last a dministered on 08/05/20at 07:40; Start 08/04/20 at 09:00; Stop 08/05/20 at 21:40; Status DC Fentanyl Citrate 30 ml @ 0 mls/hr CONT PRN IV PER PROTOCOL. Last administered on 08/05/20at 05:03; Start 08/04/20 at 08:00; Stop 08/10/20 at 10:52; Status DC Propofol 100 ml @ 0 mls/hr CONT PRN IV PER PROTOCOL.; Start 08/04/20 at 08:00; Stop 08/05/20 at 21:40; Status DC Midazolam HCl 100 ml @ 0 mls/hr CONT PRN IV PER PROTOCOL Last administered on 08/05/20at 05:05; Start 08/04/20 at 08:00; Stop 08/10/20 at 10:52; Status DC Vecuronium [place] (Norcuron Bolus) 10 mg PRN Q1HR PRN IV SHIVERING; Start 08/04/20 at 08:00; Stop 08/05/20 at 21:41; Status DC Norepinephrine Bitartrate 8 mg/ Dextrose 258 ml @ 18.112 mls/ hr CONT PRN IV PER PROTOCOL Last administered on 08/07/20at 19:24; Start 08/04/20 at 09:15; Stop 08/10/20 at 10:52; Status DC Sodium Bicarbonate (Sodium Bicarb Adult 8.4% Syr) 50 meq STK-MED ONCE .ROUTE ; Start 08/04/20 at 09:57; Stop 08/04/20 at 09:57; Status DC Ondansetron HCl (Zofran) 4 mg PRN Q6HRS PRN IVP NAUSEA/VOMITING; Start 08/04/20 at 10:15; Stop 08/10/20 at 10:52; Status DC Famotidine (Pepcid Vial) 20 mg BID IVP ; Start 08/04/20 at 11:00; Stop 08/04/20 at 12:36; Status DC Info (Icu Electrolyte Protocol) 1 ea DAILY MC Last administered on 08/06/20at 09:00; Start 08/05/20 at 09:00; Stop 08/10/20 at 10:52; Status DC Heparin Sodium (Porcine) (Heparin Sodium) 5,000 unit Q8HRS SQ Last administered on 08/10/20at 06:16; Start 08/04/20 at 14:00; Stop 08/10/20 at 10:52; Status DC Sodium Chloride (Normal Saline Flush) 3 ml QSHIFT PRN IV AFTER MEDS AND BLOOD DRAWS; Start 08/04/20 at 10:15; Stop 08/10/20 at 10:52; Status DC Sodium Chloride 1,000 ml @ 100 mls/hr Q10H IV Last administered on 08/10/20at 01:19; Start 08/04/20 at 10:15; Stop 08/10/20 at 10:52; Status DC Sodium Bicarbonate (Sodium Bicarb Adult 8.4% Syr) 50 meq 1X ONCE IV Last administered on 08/04/20at 10:00; Start 08/04/20 at 10:15; Stop 08/04/20 at 10:22; Status DC Sodium Bicarbonate (Sodium Bicarb Adult 8.4% Syr) 50 meq 1X ONCE IV Last administered on 08/04/20at 10:15; Start 08/04/20 at 10:15; Stop 08/04/20 at 10:22; Status DC Sodium Bicarbonate (Sodium Bicarb Adult 8.4% Syr) 50 meq 1X ONCE IV Last administered on 08/04/20at 10:15; Start 08/04/20 at 10:15; Stop 08/04/20 at 10:22; Status DC Ceftriaxone Sodium (Rocephin) 1 gm Q24H IVP Last administered on 08/04/20at 13:50; Start 08/04/20 at 11:30; Stop 08/04/20 at 16:10; Status DC Sodium Chloride 1,000 ml @ 2,340 mls/hr Q26M IV ; Start 08/04/20 at 11:00; Stop 08/04/20 at 12:00; Status DC Sodium Chloride 500 ml @ 1,000 mls/hr PRN Q30MIN PRN IV SEE COMMENTS; Start 08/04/20 at 11:00; Stop 08/04/20 at 12:12; Status DC Meropenem 1 gm/ Sodium Chloride 100 ml @ 200 mls/hr Q8HRS IV Last administered on 08/10/20at 06:15; Start 08/04/20 at 11:30; Stop 08/10/20 at 10:52; Status DC Norepinephrine Bitartrate 8 mg/ Dextrose 258 ml @ 0 mls/hr CONT PRN IV SEE I/O RECORD; Start 08/04/20 at 11:00; Status UNV Sodium Bicarbonate 100 meq/Dextrose 1,100 ml @ 150 mls/hr Q7H20M IV Last administered on 08/05/20at 03:59; Start 08/04/20 at 11:30; Stop 08/05/20 at 11:09; Status DC Potassium Chloride/Water 100 ml @ 100 mls/hr Q1H IV Last administered on 08/04/20at 12:52; Start 08/04/20 at 13:00; Stop 08/04/20 at 13:59; Status DC Magnesium Sulfate 50 ml @ 25 mls/hr 1X ONCE IV Last administered on 08/04/20at 12:53; Start 08/04/20 at 13:00; Stop 08/04/20 at 14:59; Status DC Insulin Human Regular 100 unit/ Sodium Chloride 101 ml @ 0 mls/hr CONT PRN IV SEE I/O RECORD Last administered on 08/04/20at 21:54; Start 08/04/20 at 12:45; Stop 08/10/20 at 10:52; Status DC Potassium Chloride/Water 100 ml @ 50 mls/hr 1X ONCE IV Last administered on 08/04/20at 21:16; Start 08/04/20 at 20:00; Stop 08/04/20 at 21:59; Status DC Sodium Phosphate 20 mmol/Sodium Chloride 256.6667 ml @ 64.167 m... 1X ONCE IV Last administered on 08/04/20at 21:17; Start 08/04/20 at 20:00; Stop 08/04/20 at 23:59; Status DC Magnesium Sulfate 50 ml @ 25 mls/hr 1X ONCE IV Last administered on 08/04/20at 23:00; Start 08/04/20 at 20:15; Stop 08/04/20 at 22:14; Status DC Potassium Chloride/Water 100 ml @ 50 mls/hr 1X ONCE IV ; Start 08/05/20 at 03:15; Stop 08/05/20 at 05:14; Status DC Sodium Chloride 1,000 ml @ 100 mls/hr Q10H IV ; Start 08/05/20 at 11:15; Stop 08/05/20 at 11:21; Status DC Potassium Phosphate 13.6 mmol/Sodium Chloride 254.5333 ml @ 127.... Q2H IV Last administered on 08/05/20at 14:58; Start 08/05/20 at 12:00; Stop 08/05/20 at 15:59; Status DC Levetiracetam 500 mg/Dextrose 105 ml @ 420 mls/hr Q12HR STAT IV Last administered on 08/05/20at 13:14; Start 08/05/20 at 12:57; Stop 08/05/20 at 13:11; Status DC Bacitracin (Bacitracin Zinc Oint Pkt) 1 pkt BID TP Last administered on 08/10/20at 08:38; Start 08/05/20 at 17:00; Stop 08/10/20 at 10:52; Status DC Levetiracetam 500 mg/Dextrose 105 ml @ 420 mls/hr Q12HR IV Last administered on 08/10/20at 08:35; Start 08/06/20 at 09:00; Stop 08/10/20 at 10:52; Status DC Potassium Chloride/Water 100 ml @ 100 mls/hr Q1H IV Last administered on 08/06/20at 10:57; Start 08/06/20 at 10:00; Stop 08/06/20 at 11:59; Status DC Pantoprazole Sodium (PROTONIX VIAL for IV PUSH) 40 mg DAILY IVP Last administered on 08/10/20at 08:36; Start 08/06/20 at 11:00; Stop 08/10/20 at 10:52; Status DC Sodium Phosphate 15 mmol/Sodium Chloride 255 ml @ 62.5 mls/hr 1X ONCE IV Last administered on 08/07/20at 11:41; Start 08/07/20 at 11:30; Stop 08/07/20 at 15:34; Status DC Amino Acids/ Glycerin/ Electrolytes 1,000 ml @ 80 mls/hr [id number] IV Last administered on 08/09/20at 22:47; Start 08/09/20 at 10:15; Stop 08/10/20 at 10:52; Status DC Saliva Substitute (Biotene Moisturizing Mouth) 2 spray PRN Q15MIN PRN PO DRY MOUTH; Start 08/09/20 at 15:00; Stop 08/10/20 at 10:52; Status DC Morphine Sulfate (Morphine Sulfate) 10 mg 1X ONCE IM ; Start 08/10/20 at 11:00; Stop 08/10/20 at 11:01 Morphine Sulfate (Morphine Sulfate) 4 mg PRN Q2HR PRN IV PAIN; Start 08/10/20 at 11:00 Lorazepam (Ativan Inj) 2 mg PRN Q1HR PRN IVP ANXIETY / AGITATION; Start 08/10/20 at 11:00 Active Scripts Active Reported Children's Aspirin (Aspirin) 81 Mg Tab.chew 1 Tab PO DAILY 30 Days Atorvastatin Calcium 40 Mg Tablet 1 Tab PO DAILY Losartan Potassium 50 Mg Tablet 50 Mg PO DAILY Famotidine 40 Mg Tablet 40 Mg PO HS Pantoprazole Sodium (Pantoprazole Sodium) 40 Mg Tablet.dr 40 Mg PO DAILYAC Vitals/I & O Vital Sign - Last 24 Hours 08/09/20 08/09/20 08/09/20 08/09/20 11:00 12:00 12:00 13:00 Temp 96.8 96.8 Pulse 54 55 54 Resp 20 20 20 B/P (MAP) 113/75 (88) 110/81 (91) 128/82 (97) Pulse Ox 98 96 97 O2 Delivery Mechanical Ventilator 08/09/20 08/09/20 08/09/20 08/09/20 14:00 15:00 15:32 16:00 Pulse 54 56 Resp 20 20 B/P (MAP) 108/73 (85) 107/71 (83) Pulse Ox 93 95 96 O2 Delivery Ventilator Mechanical Ventilator 08/09/20 08/09/20 08/09/20 08/09/20 16:00 17:00 18:00 19:00 Temp 96.3 96.1 96.3 96.1 Pulse 52 53 54 51 Resp 20 20 20 20 B/P (MAP) 111/73 (86) 113/75 (88) 117/77 (90) 118/82 (94) Pulse Ox 96 98 98 98 08/09/20 08/09/20 08/09/20 08/09/20 19:30 19:56 20:00 21:00 Pulse 50 54 Resp 20 20 B/P (MAP) 116/76 (89) 118/72 (87) Pulse Ox 99 98 98 O2 Delivery Mechanical Ventilator Ventilator 08/09/20 08/09/20 08/10/20 08/10/20 22:00 23:00 00:00 00:00 Temp 96.1 96.1 Pulse 52 52 50 Resp 20 20 20 B/P (MAP) 121/77 (92) 117/82 (94) 117/81 (93) Pulse Ox 98 98 97 O2 Delivery Mechanical Ventilator 08/10/20 08/10/20 08/10/20 08/10/20 00:27 01:00 02:00 03:00 Pulse 47 46 53 Resp 20 20 20 B/P (MAP) 123/81 (95) 128/81 (97) 108/76 (87) Pulse Ox 99 97 96 97 O2 Delivery Ventilator 08/10/20 08/10/20 08/10/20 08/10/20 03:30 04:00 04:38 05:00 Temp 96.3 96.3 Pulse 52 53 Resp 20 20 B/P (MAP) 116/83 (94) 103/75 (84) Pulse Ox 97 96 97 O2 Delivery Mechanical Ventilator Ventilator 08/10/20 08/10/20 08/10/20 08/10/20 06:00 07:00 07:58 08:00 Temp 97.6 97.6 Pulse 52 47 52 Resp 20 20 20 B/P (MAP) 129/86 (100) 150/99 (116) 128/84 (99) Pulse Ox 97 97 99 O2 Delivery Mechanical Ventilator Ventilator 08/10/20 08/10/20 08/10/20 09:00 09:02 10:00 Pulse 52 54 Resp 20 20 B/P (MAP) 122/81 (95) 116/72 (87) Pulse Ox 99 97 96 O2 Delivery Ventilator Ventilator Ventilator Intake and Output 08/09/20 08/09/20 08/10/20 15:00 23:00 07:00 Intake Total 1970 ml 1953 ml Output Total 260 ml 160 ml 315 ml Balance -260 ml 1810 ml 1638 ml Justicifation of Admission Dx: Justifications for Admission: Justification of Admission Dx: Yes ASHVIN GREGORY MD Aug 10, 2020 10:59
--- NOTE | 2020-08-10 11:54 | PDOC ---
PROGRESS NOTES Date of Service: DATE: 08/10/20 TIME: 11:53 Chief Complaint Chief Complaint 1. Out of house ARREST CODE with anoxic brain injury 1. Retroperitoneal hematoma on the right with density surrounding the proximal right ureter. A vascular injury to the right kidney is possible 2. L4 vertebral body compression fracture could be old.. Base of dens fracture// nondisplaced. 3. Multifocal degenerative changes 4. Biapical parenchymal opacities may represent multifocal consolidative process such as pneumonia although contusion or aspiration may result in this appearance. 5. POLY -SUBSTANCE ABUSE 6. SEVERE SEPSIS 7. JUSTIN sec hypoperfusion, shock History of Present Illness History of Present Illness 08/10, family is here, plan withdrawl of care, paperwork signed, 08/09, still in ICU, intubated family considering withdrawl of care poor prognosis not much change Vitals Vitals Vital Signs Date Time Temp Pulse Resp B/P (MAP) Pulse Ox O2 Delivery O2 Flow Rate FiO2 08/10/20 11:35 Nasal Cannula 2.0 08/10/20 11:26 96 08/10/20 11:23 16 08/10/20 11:00 56 110/70 (83) 08/10/20 08:00 97.6 97.6 Physical Exam General: Other (ON THE VENT) Heart: Regular rate Lungs: Crackles Abdomen: Normal bowel sounds Extremities: Other (1+ pitting edema) Labs LABS Laboratory Tests Test 08/10/20 08:00 O2 Saturation 93 % (92-99) Arterial Blood pH 7.47 (7.35-7.45) Arterial Blood pCO2 at Patient Temp 31 mmHg (35-46) Arterial Blood pO2 at Patient Temp 65 mmHg (65-108) Arterial Blood HCO3 22 mmol/L (21-28) Arterial Blood Base Excess -1 mmol/L (-3-3) FiO2 60/vent Assessment and Plan Assessmemt and Plan Problems Medical Problems: (1) Cardiac arrest Status: Acute (2) Dens fracture Status: Acute (3) Respiratory failure Status: Acute Comment Review of Relevant I have reviewed the following items magda (where applicable) has been applied. Labs Laboratory Tests Test 08/09/20 08:05 08/10/20 08:00 O2 Saturation 92 % (92-99) 93 % (92-99) Arterial Blood pH 7.45 (7.35-7.45) 7.47 (7.35-7.45) Arterial Blood pCO2 at Patient Temp 30 mmHg (35-46) 31 mmHg (35-46) Arterial Blood pO2 at Patient Temp 63 mmHg (65-108) 65 mmHg (65-108) Arterial Blood HCO3 21 mmol/L (21-28) 22 mmol/L (21-28) Arterial Blood Base Excess -2 mmol/L (-3-3) -1 mmol/L (-3-3) FiO2 60% 60/vent Laboratory Tests Test 08/10/20 08:00 O2 Saturation 93 % (92-99) Arterial Blood pH 7.47 (7.35-7.45) Arterial Blood pCO2 at Patient Temp 31 mmHg (35-46) Arterial Blood pO2 at Patient Temp 65 mmHg (65-108) Arterial Blood HCO3 22 mmol/L (21-28) Arterial Blood Base Excess -1 mmol/L (-3-3) FiO2 60/vent Microbiology 08/04/20 Blood Culture - Final, Complete NO GROWTH AFTER 5 DAYS Medications Current Medications Epinephrine HCl 5 mg/Sodium Chloride 255 ml @ 30.6 mls/hr ONCE ONCE IV Last administered on 08/04/20at 06:17; Start 08/04/20 at 05:45; Stop 08/04/20 at 14:04; Status DC Iohexol (Omnipaque 350 Mg/ml) 80 ml 1X ONCE IV Last administered on 08/04/20at 07:30; Start 08/04/20 at 06:30; Stop 08/04/20 at 06:31; Status DC Info (CONTRAST GIVEN -- Rx MONITORING) 1 each PRN DAILY PRN MC SEE COMMENTS; Start 08/04/20 at 06:30; Stop 08/06/20 at 06:29; Status DC Sodium Chloride 1,000 ml @ 1,000 mls/hr 1X ONCE IV Last administered on 08/04/20at 06:32; Start 08/04/20 at 06:30; Stop 08/04/20 at 07:29; Status DC Sodium Chloride 1,000 ml @ 1,000 mls/hr 1X ONCE IV Last administered on 08/04/20at 06:33; Start 08/04/20 at 06:45; Stop 08/04/20 at 07:44; Status DC Sodium Chloride 1,000 ml @ 1,000 mls/hr 1X ONCE IV Last administered on 08/04/20at 06:45; Start 08/04/20 at 06:45; Stop 08/04/20 at 07:44; Status DC Midazolam HCl 50 mg/Sodium Chloride 50 ml @ 0 mls/hr CONT PRN PRN IV SEDATION; Start 08/04/20 at 07:15; Status UNV Midazolam HCl 100 ml @ 0 mls/hr CONT PRN IV SEE PROTOCOL; Start 08/04/20 at 07:30; Stop 08/04/20 at 08:03; Status DC Ondansetron HCl (Zofran) 4 mg PRN Q8HRS PRN IV NAUSEA/VOMITING; Start 08/04/20 at 07:30; Stop 08/05/20 at 07:29; Status DC Sodium Chloride 1,000 ml @ 75 mls/hr [id number] IV Last administered on 08/04/20at 08:30; Start 08/04/20 at 07:30; Stop 08/05/20 at 07:29; Status DC Fentanyl Citrate (Fentanyl 2ml Vial) 100 mcg 1X ONCE IV ; Start 08/04/20 at 08:00; Stop 08/04/20 at 08:01; Status DC Midazolam HCl (Versed) 2 mg 1X ONCE IV ; Start 08/04/20 at 08:00; Stop 08/04/20 at 08:01; Status DC Magnesium Sulfate/ Dextrose 100 ml @ 100 mls/hr 1X ONCE IV Last administered on 08/04/20at 08:21; Start 08/04/20 at 08:00; Stop 08/04/20 at 08:59; Status DC Buspirone HCl (Buspar) 30 mg Q8H NG Last administered on 08/05/20at 15:36; Start 08/04/20 at 08:00; Stop 08/05/20 at 21:40; Status DC Acetaminophen (Tylenol) 650 mg Q4H NG Last administered on 08/05/20at 20:09; Start 08/04/20 at 08:00; Stop 08/05/20 at 21:40; Status DC Glycerin/ Hypromellose/ Polyethylene (Artificial Tears) 1 drop Q6HRS OU Last administered on 08/05/20at 17:53; Start 08/04/20 at 12:00; Stop 08/05/20 at 21:41; Status DC Glycerin/ Hypromellose/ Polyethylene (Artificial Tears) 1 drop PRN Q15MIN PRN OU DRY EYE; Start 08/04/20 at 08:00; Stop 08/05/20 at 21:40; Status DC Pantoprazole Sodium (PROTONIX VIAL for IV PUSH) 40 mg DAILY IVP Last administered on 08/05/20at 07:40; Start 08/04/20 at 09:00; Stop 08/05/20 at 21:40; Status DC Fentanyl Citrate 30 ml @ 0 mls/hr CONT PRN IV PER PROTOCOL. Last administered on 08/05/20at 05:03; Start 08/04/20 at 08:00; Stop 08/10/20 at 10:52; Status DC Propofol 100 ml @ 0 mls/hr CONT PRN IV PER PROTOCOL.; Start 08/04/20 at 08:00; Stop 08/05/20 at 21:40; Status DC Midazolam HCl 100 ml @ 0 mls/hr CONT PRN IV PER PROTOCOL Last administered on 08/05/20at 05:05; Start 08/04/20 at 08:00; Stop 08/10/20 at 10:52; Status DC Vecuronium Hammond (Norcuron Bolus) 10 mg PRN Q1HR PRN IV SHIVERING; Start 08/04/20 at 08:00; Stop 08/05/20 at 21:41; Status DC Norepinephrine Bitartrate 8 mg/ Dextrose 258 ml @ 18.112 mls/ hr CONT PRN IV PER PROTOCOL Last administered on 08/07/20at 19:24; Start 08/04/20 at 09:15; Stop 08/10/20 at 10:52; Status DC Sodium Bicarbonate (Sodium Bicarb Adult 8.4% Syr) 50 meq STK-MED ONCE .ROUTE ; Start 08/04/20 at 09:57; Stop 08/04/20 at 09:57; Status DC Ondansetron HCl (Zofran) 4 mg PRN Q6HRS PRN IVP NAUSEA/VOMITING; Start 08/04/20 at 10:15; Stop 08/10/20 at 10:52; Status DC Famotidine (Pepcid Vial) 20 mg BID IVP ; Start 08/04/20 at 11:00; Stop 08/04/20 at 12:36; Status DC Info (Icu Electrolyte Protocol) 1 ea DAILY MC Last administered on 08/06/20at 09:00; Start 08/05/20 at 09:00; Stop 08/10/20 at 10:52; Status DC Heparin Sodium (Porcine) (Heparin Sodium) 5,000 unit Q8HRS SQ Last administered on 08/10/20at 06:16; Start 08/04/20 at 14:00; Stop 08/10/20 at 10:52; Status DC Sodium Chloride (Normal Saline Flush) 3 ml QSHIFT PRN IV AFTER MEDS AND BLOOD DRAWS; Start 08/04/20 at 10:15; Stop 08/10/20 at 10:52; Status DC Sodium Chloride 1,000 ml @ 100 mls/hr Q10H IV Last administered on 08/10/20at 01:19; Start 08/04/20 at 10:15; Stop 08/10/20 at 10:52; Status DC Sodium Bicarbonate (Sodium Bicarb Adult 8.4% Syr) 50 meq 1X ONCE IV Last administered on 08/04/20at 10:00; Start 08/04/20 at 10:15; Stop 08/04/20 at 10:22; Status DC Sodium Bicarbonate (Sodium Bicarb Adult 8.4% Syr) 50 meq 1X ONCE IV Last administered on 08/04/20at 10:15; Start 08/04/20 at 10:15; Stop 08/04/20 at 10:22; Status DC Sodium Bicarbonate (Sodium Bicarb Adult 8.4% Syr) 50 meq 1X ONCE IV Last administered on 08/04/20at 10:15; Start 08/04/20 at 10:15; Stop 08/04/20 at 10:22; Status DC Ceftriaxone Sodium (Rocephin) 1 gm Q24H IVP Last administered on 08/04/20at 13:50; Start 08/04/20 at 11:30; Stop 08/04/20 at 16:10; Status DC Sodium Chloride 1,000 ml @ 2,340 mls/hr Q26M IV ; Start 08/04/20 at 11:00; Stop 08/04/20 at 12:00; Status DC Sodium Chloride 500 ml @ 1,000 mls/hr PRN Q30MIN PRN IV SEE COMMENTS; Start 08/04/20 at 11:00; Stop 08/04/20 at 12:12; Status DC Meropenem 1 gm/ Sodium Chloride 100 ml @ 200 mls/hr Q8HRS IV Last administered on 08/10/20at 06:15; Start 08/04/20 at 11:30; Stop 08/10/20 at 10:52; Status DC Norepinephrine Bitartrate 8 mg/ Dextrose 258 ml @ 0 mls/hr CONT PRN IV SEE I/O RECORD; Start 08/04/20 at 11:00; Status UNV Sodium Bicarbonate 100 meq/Dextrose 1,100 ml @ 150 mls/hr Q7H20M IV Last administered on 08/05/20at 03:59; Start 08/04/20 at 11:30; Stop 08/05/20 at 11:09; Status DC Potassium Chloride/Water 100 ml @ 100 mls/hr Q1H IV Last administered on 08/04/20at 12:52; Start 08/04/20 at 13:00; Stop 08/04/20 at 13:59; Status DC Magnesium Sulfate 50 ml @ 25 mls/hr 1X ONCE IV Last administered on 08/04/20at 12:53; Start 08/04/20 at 13:00; Stop 08/04/20 at 14:59; Status DC Insulin Human Regular 100 unit/ Sodium Chloride 101 ml @ 0 mls/hr CONT PRN IV SEE I/O RECORD Last administered on 08/04/20at 21:54; Start 08/04/20 at 12:45; Stop 08/10/20 at 10:52; Status DC Potassium Chloride/Water 100 ml @ 50 mls/hr 1X ONCE IV Last administered on 08/04/20at 21:16; Start 08/04/20 at 20:00; Stop 08/04/20 at 21:59; Status DC Sodium Phosphate 20 mmol/Sodium Chloride 256.6667 ml @ 64.167 m... 1X ONCE IV Last administered on 08/04/20at 21:17; Start 08/04/20 at 20:00; Stop 08/04/20 at 23:59; Status DC Magnesium Sulfate 50 ml @ 25 mls/hr 1X ONCE IV Last administered on 08/04/20at 23:00; Start 08/04/20 at 20:15; Stop 08/04/20 at 22:14; Status DC Potassium Chloride/Water 100 ml @ 50 mls/hr 1X ONCE IV ; Start 08/05/20 at 03:15; Stop 08/05/20 at 05:14; Status DC Sodium Chloride 1,000 ml @ 100 mls/hr Q10H IV ; Start 08/05/20 at 11:15; Stop 08/05/20 at 11:21; Status DC Potassium Phosphate 13.6 mmol/Sodium Chloride 254.5333 ml @ 127.... Q2H IV Last administered on 08/05/20at 14:58; Start 08/05/20 at 12:00; Stop 08/05/20 at 15:59; Status DC Levetiracetam 500 mg/Dextrose 105 ml @ 420 mls/hr Q12HR STAT IV Last administered on 08/05/20at 13:14; Start 08/05/20 at 12:57; Stop 08/05/20 at 13:11; Status DC Bacitracin (Bacitracin Zinc Oint Pkt) 1 pkt BID TP Last administered on 08/10/20at 08:38; Start 08/05/20 at 17:00; Stop 08/10/20 at 10:52; Status DC Levetiracetam 500 mg/Dextrose 105 ml @ 420 mls/hr Q12HR IV Last administered on 08/10/20at 08:35; Start 08/06/20 at 09:00; Stop 08/10/20 at 10:52; Status DC Potassium Chloride/Water 100 ml @ 100 mls/hr Q1H IV Last administered on 08/06/20at 10:57; Start 08/06/20 at 10:00; Stop 08/06/20 at 11:59; Status DC Pantoprazole Sodium (PROTONIX VIAL for IV PUSH) 40 mg DAILY IVP Last administered on 08/10/20at 08:36; Start 08/06/20 at 11:00; Stop 08/10/20 at 10:52; Status DC Sodium Phosphate 15 mmol/Sodium Chloride 255 ml @ 62.5 mls/hr 1X ONCE IV Last administered on 08/07/20at 11:41; Start 08/07/20 at 11:30; Stop 08/07/20 at 15:34; Status DC Amino Acids/ Glycerin/ Electrolytes 1,000 ml @ 80 mls/hr [id number] IV Last administered on 08/09/20at 22:47; Start 08/09/20 at 10:15; Stop 08/10/20 at 10:52; Status DC Saliva Substitute (Biotene Moisturizing Mouth) 2 spray PRN Q15MIN PRN PO DRY MOUTH; Start 08/09/20 at 15:00; Stop 08/10/20 at 10:52; Status DC Morphine Sulfate (Morphine Sulfate) 10 mg 1X ONCE IM Last administered on 08/10/20at 11:23; Start 08/10/20 at 11:00; Stop 08/10/20 at 11:08; Status DC Morphine Sulfate (Morphine Sulfate) 4 mg PRN Q2HR PRN IV PAIN; Start 08/10/20 at 11:00 Lorazepam (Ativan Inj) 2 mg PRN Q1HR PRN IVP ANXIETY / AGITATION Last administered on 08/10/20at 11:23; Start 08/10/20 at 11:00 Active Scripts Active Reported Children's Aspirin (Aspirin) 81 Mg Tab.chew 1 Tab PO DAILY 30 Days Atorvastatin Calcium 40 Mg Tablet 1 Tab PO DAILY Losartan Potassium 50 Mg Tablet 50 Mg PO DAILY Famotidine 40 Mg Tablet 40 Mg PO HS Pantoprazole Sodium (Pantoprazole Sodium) 40 Mg Tablet.dr 40 Mg PO DAILYAC Vitals/I & O Vital Sign - Last 24 Hours 08/09/20 08/09/20 08/09/20 08/09/20 12:00 12:00 13:00 14:00 Temp 96.8 96.8 Pulse 55 54 54 Resp 20 20 20 B/P (MAP) 110/81 (91) 128/82 (97) 108/73 (85) Pulse Ox 96 97 93 O2 Delivery Mechanical Ventilator 08/09/20 08/09/20 08/09/20 08/09/20 15:00 15:32 16:00 16:00 Temp 96.3 96.3 Pulse 56 52 Resp 20 20 B/P (MAP) 107/71 (83) 111/73 (86) Pulse Ox 95 96 96 O2 Delivery Ventilator Mechanical Ventilator 08/09/20 08/09/20 08/09/20 08/09/20 17:00 18:00 19:00 19:30 Temp 96.1 96.1 Pulse 53 54 51 Resp 20 20 20 B/P (MAP) 113/75 (88) 117/77 (90) 118/82 (94) Pulse Ox 98 98 98 O2 Delivery Mechanical Ventilator 08/09/20 08/09/20 08/09/20 08/09/20 19:56 20:00 21:00 22:00 Pulse 50 54 52 Resp 20 20 20 B/P (MAP) 116/76 (89) 118/72 (87) 121/77 (92) Pulse Ox 99 98 98 98 O2 Delivery Ventilator 08/09/20 08/10/20 08/10/20 08/10/20 23:00 00:00 00:00 00:27 Temp 96.1 96.1 Pulse 52 50 Resp 20 20 B/P (MAP) 117/82 (94) 117/81 (93) Pulse Ox 98 97 99 O2 Delivery Mechanical Ventilator Ventilator 08/10/20 08/10/20 08/10/20 08/10/20 01:00 02:00 03:00 03:30 Pulse 47 46 53 Resp 20 20 20 B/P (MAP) 123/81 (95) 128/81 (97) 108/76 (87) Pulse Ox 97 96 97 O2 Delivery Mechanical Ventilator 08/10/20 08/10/20 08/10/20 08/10/20 04:00 04:38 05:00 06:00 Temp 96.3 96.3 Pulse 52 53 52 Resp 20 20 20 B/P (MAP) 116/83 (94) 103/75 (84) 129/86 (100) Pulse Ox 97 96 97 97 O2 Delivery Ventilator 08/10/20 08/10/20 08/10/20 08/10/20 07:00 07:58 08:00 09:00 Temp 97.6 97.6 Pulse 47 52 52 Resp 20 20 20 B/P (MAP) 150/99 (116) 128/84 (99) 122/81 (95) Pulse Ox 97 99 99 O2 Delivery Mechanical Ventilator Ventilator Ventilator 08/10/20 08/10/20 08/10/20 08/10/20 09:02 10:00 11:00 11:23 Pulse 54 56 Resp 20 20 16 B/P (MAP) 116/72 (87) 110/70 (83) Pulse Ox 97 96 96 96 O2 Delivery Ventilator Ventilator Ventilator Ventilator O2 Flow Rate 60.0 08/10/20 08/10/20 11:26 11:35 Pulse Ox 96 O2 Delivery Ventilator Nasal Cannula O2 Flow Rate 2.0 Intake and Output 08/09/20 08/09/20 08/10/20 15:00 23:00 07:00 Intake Total 1970 ml 1953 ml Output Total 260 ml 160 ml 315 ml Balance -260 ml 1810 ml 1638 ml Justicifation of Admission Dx: Justifications for Admission: Justification of Admission Dx: Yes SYLVIA RIVERS MD Aug 10, 2020 11:54
--- NOTE | 2020-08-10 11:58 | PDOC3 ---
Discharge Summary Visit Information Date of Admission: Aug 04, 2020 Date of Discharge: Aug 10, 2020 Final Diagnosis 1. Out of house cardiac ARREST ; CODE with anoxic brain injury 1. Retroperitoneal hematoma on the right with density surrounding the proximal right ureter. A vascular injury to the right kidney is possible 2. L4 vertebral body compression fracture could be old.. Base of dens fracture// nondisplaced. 3. Multifocal degenerative changes 4. Biapical parenchymal opacities may represent multifocal consolidative process such as pneumonia although contusion or aspiration may result in this appearance. 5. SUBSTANCE ABUSE , EtOH and THC 6. SEVERE SEPSIS 7. acute renal failure, vasomotor and ATN, sec hypoperfusion, shock Problems Medical Problems: (1) Cardiac arrest Status: Acute (2) Dens fracture Status: Acute (3) Respiratory failure Status: Acute Brief Hospital Course Allergies Allergies Coded Allergies Type Severity Reaction Last Updated Verified No Known Drug Allergies 08/05/20 No Vital Signs Vital Signs Date Time Temp Pulse Resp B/P (MAP) Pulse Ox O2 Delivery O2 Flow Rate FiO2 08/10/20 11:35 Nasal Cannula 2.0 08/10/20 11:26 96 08/10/20 11:23 16 08/10/20 11:00 56 110/70 (83) 08/10/20 08:00 97.6 97.6 Lab Results Laboratory Tests Test 08/09/20 08:05 08/10/20 08:00 O2 Saturation 92 % (92-99) 93 % (92-99) Arterial Blood pH 7.45 (7.35-7.45) 7.47 (7.35-7.45) Arterial Blood pCO2 at Patient Temp 30 mmHg (35-46) 31 mmHg (35-46) Arterial Blood pO2 at Patient Temp 63 mmHg (65-108) 65 mmHg (65-108) Arterial Blood HCO3 21 mmol/L (21-28) 22 mmol/L (21-28) Arterial Blood Base Excess -2 mmol/L (-3-3) -1 mmol/L (-3-3) FiO2 60% 60/vent Laboratory Tests Test 08/10/20 08:00 O2 Saturation 93 % (92-99) Arterial Blood pH 7.47 (7.35-7.45) Arterial Blood pCO2 at Patient Temp 31 mmHg (35-46) Arterial Blood pO2 at Patient Temp 65 mmHg (65-108) Arterial Blood HCO3 22 mmol/L (21-28) Arterial Blood Base Excess -1 mmol/L (-3-3) FiO2 60/vent Brief Hospital Course Mr. Bhatia was a 69 old male who was drinking alcohol and smoking marijuana with friends. He went upstairs and they heard him fall, it was probably many minutes and then realized that he was unresponsive and had no pulse. They started CPR and summoned paramedics. He was in pulseless electrical activity when they arrived. Total downtime was about 25 minutes. protocol for post code folllowed without much improvement anoxic brain injury, was not brain . put on vent, made DNR, prior DNR noted, care withdrawn by family on 08/10, Discharge Information Condition at Discharge: / Scheduled Aspirin (Children's Aspirin) 81 Mg Tab.chew, 1 TAB PO DAILY for CAD for 30 Days, #30 Ref 0 (Reported) Entered as Reported by: LEFTY GUEVARA on 08/05/201001 Last Action: New Order on 08/05/201001 by LEFTY GUEVARA Atorvastatin Calcium (Atorvastatin Calcium) 40 Mg Tablet, 1 TAB PO DAILY for HLD, #30 Ref 5 (Reported) Entered as Reported by: LEFTY GUEVARA on 08/05/201001 Last Action: New Order on 08/05/201001 by LEFTY GUEVARA Famotidine (Famotidine) 40 Mg Tablet, 40 MG PO HS for GERD, (Reported) Entered as Reported by: LEFTY GUEVARA on 08/05/201001 Last Action: New Order on 08/05/201001 by LEFTY GUEVARA Losartan Potassium (Losartan Potassium) 50 Mg Tablet, 50 MG PO DAILY for HYPERTENSION, (Reported) Entered as Reported by: LEFTY GUEVARA on 08/05/201001 Last Action: New Order on 08/05/201001 by LEFTY GUEVARA Pantoprazole Sodium (Pantoprazole Sodium ) 40 Mg Tablet.dr, 40 MG PO DAILYAC for GERD, (Reported) Entered as Reported by: LEFTY GUEVARA on 08/05/201001 Last Action: New Order on 08/05/201001 by LEFTY GUEVARA Patient Instructions Patient Instructions Justicifation of Admission Dx: Justifications for Admission: Justification of Admission Dx: Yes SYLVIA RIVERS MD Aug 10, 2020 11:58
--- NOTE | 2020-08-10 12:18 | NUR ---
Family Decision to withdraw care. Brothers Broderick and Madhu bedside. Patient extubated at 1135, at 1142. No patient belongings. MTN called. Patient possibly a tissue donor. Will notify nursing paper testing supervisor.
== END 2020-08-10 11:42 | DRG 870 ==
LOC: ER 05:28 → 1 WEST ICU 07:32
PROVIDERS: ADMIT Family Medicine; ATTEND Family Medicine
PROC: 5A1955Z Respiratory Ventilation, Greater than 96 Consecutive Hours (ICD-10-PCS; principal; 2020-08-04)
PROC: 0BH17EZ Insertion of Endotracheal Airway into Trachea, Via Natural or Artificial Opening (ICD-10-PCS; 2020-08-04)
PROC: 4A00X4Z Measurement of Central Nervous Electrical Activity, External Approach (ICD-10-PCS; 2020-08-06)
DX: A41.9 Sepsis, unspecified organism (principal); G92 Toxic encephalopathy; J69.0 Pneumonitis due to inhalation of food and vomit; J96.01 Acute respiratory failure with hypoxia; N17.0 Acute kidney failure with tubular necrosis; K66.1 Hemoperitoneum; S12.112A Nondisplaced Type II dens fracture, initial encounter for closed fracture; E87.0 Hyperosmolality and hypernatremia; E87.4 Mixed disorder of acid-base balance; I47.2 Ventricular tachycardia; G93.1 Anoxic brain damage, not elsewhere classified; Z66 Do not resuscitate; Z20.822 Contact with and (suspected) exposure to COVID-19; E78.5 Hyperlipidemia, unspecified; E83.39 Other disorders of phosphorus metabolism; E86.0 Dehydration; E87.6 Hypokalemia; F10.129 Alcohol abuse with intoxication, unspecified; F17.210 Nicotine dependence, cigarettes, uncomplicated; I10 Essential (primary) hypertension; I25.10 Atherosclerotic heart disease of native coronary artery without angina pectoris; I46.9 Cardiac arrest, cause unspecified; R56.9 Unspecified convulsions; R65.20 Severe sepsis without septic shock; W18.30XA Fall on same level, unspecified, initial encounter; F12.10 Cannabis abuse, uncomplicated; I07.1 Rheumatic tricuspid insufficiency; Y90.7 Blood alcohol level of 200-239 mg/100 ml; S00.81XA Abrasion of other part of head, initial encounter; Z79.82 Long term (current) use of aspirin; Z82.49 Family history of ischemic heart disease and other diseases of the circulatory system; Y93.89 Activity, other specified; Y92.89 Other specified places as the place of occurrence of the external cause; Y99.8 Other external cause status
CPT/HCPCS: 31500; 36415; 36600; 51702; 70450; 71045; 71275; 72125; 74174; 80048; 80053; 80307; 81001; 82140; 82310; 82550; 82805; 82947; 82962; 83605; 83735; 83880; 84100; 84145; 84443; 84484; 85007; 85025; 85379; 85384; 85610; 85730; 87040; 87426; 93005; 93306; 94002; 94003; 95816; 96365; 96366; 96368; C9113; G0480; J0171; J0696; J1644; J1815; J1953; J2060; J2185; J2250; J2270; J3010; J3475; J3480; J3490; J7030; J7050; J7060; Q9967; U0003; 99291-25; G0378